=== PATIENT | male | born 1945 | race Caucasian/White ===

== ENCOUNTER 2018-08-08 10:12 | Outpatient (CLI) | payer MEDICARE ==
[~2018-08-08] VITALS: Ht 172.7 cm; Wt 69.9 kg
[~2018-08-08 10:12] MED LIST: ACET-2267 PO; ALBU2.5V4 IH; ATOR20TA49 PO; BUDE10.2 IH; CARV6.252 PO; GUAI200T4 PO; HYDR-3870 PO; IPRA3AMP31 IH; IPRA4AER IH; MONT10TA24 PO; OMEP20TA7 PO
[2018-08-08 10:18] VITALS: BP 144/84
[2018-08-08] MEDS ORDERED: ASPI-586 PO (10:47)
[2018-08-08] MEDS ORDERED: ATOR20TA66 PO (10:47)
== END 2018-08-08 10:45 | disposition home or self-care (01) ==
LOC: PREOP 10:12
PROVIDERS: ATTEND Podiatrist Foot Surgery
DX: Z01.818 Encounter for other preprocedural examination (principal)
CPT/HCPCS: 87081

== ENCOUNTER 2018-08-10 06:05 | Day surgery (SDC) | payer MEDICARE, OTHER ==
--- NOTE | 2018-08-08 15:34 | HISTORY AND PHYSICAL ---
DATE OF SERVICE: DATE OF ADMISSION: 08/10/2018. CHIEF COMPLAINT: To take off lesion on the bottom of the right foot by Dr. Nunez. The patient states in 1991, he stepped on a nail. MEDICATIONS NOW ON: Guaifenesin 20 mg 2 tablets 4 times a day, Lipitor 20 mg once a day, carvedilol half a tablet b.i.d., Prilosec 20 mg once daily in a.m., Singulair 10 mg 1 tablet at night, aspirin 81 mg 1 daily, Combivent 20 mcg/100 four times a day, Symbicort 160/4.5 two puffs two times a day, Tylenol once a day, and Plavix 1 daily. ALLERGIES: ALLERGIC TO VALIUM, CECLOR, LEVAQUIN. PAST SURGICAL HISTORY: Stomach partial removal for ulcers, gallbladder, appendix, knee replacement last March, no problems. FAMILY HISTORY: Mom and dad, asthma. History of heart disease and cancer. Denies TB or diabetes. REVIEW OF SYSTEMS: HEAD: Denies headache, dizziness or fainting. EYES, EARS, NOSE, THROAT: Wears glasses. Denies diplopia, tinnitus or sore throats. RESPIRATIONS: He smokes 1/4 packs a day, has COPD, using nebulizer. HEART: No history of heart problems or chest pain. GASTROINTESTINAL: Appetite good. Denies blood in stools, diarrhea, constipation, also vomiting. GENITOURINARY: Denies blood, pain or frequency. PHYSICAL EXAMINATION: GENERAL: The patient is a white male in no acute respiratory distress at rest VITAL SIGNS: Pulse is 72, blood pressure 120/90, and weight 154. HEENT: Ears, no drainage. Eyes, no conjunctivitis or icterus. The patient wears glasses. Throat not inflamed. NECK: No abnormal cervical lymphadenopathy noted. HEART: Regular rate and rhythm. LUNGS: Decreased sounds, slight wheeze. ABDOMEN: Soft. Liver and spleen are nonpalpable. EXTREMITIES: No pretibial edema. ASSESSMENT: The patient is okay to have surgery, will be on standby if has a problem. Job ID: [id number] DocumentID: [id number] Dictated Date: 08/08/2018 14:53:55 Cardiac Exercise Specialist Date: 08/08/2018 15:33:49 Dictated By: SUMIT IRAHETA DO
[~2018-08-10] VITALS: Ht 172.7 cm; Wt 69.9 kg
[~2018-08-10 06:05] MED LIST changes: +ASPI-586 PO; +ATOR20TA66 PO
[2018-08-10 06:10] VITALS: BP 156/89
[2018-08-10] MEDS ORDERED: LACTATED RINGERS 1,000 ML IV PRN (06:33)
[2018-08-10] MEDS ORDERED: CLINDAMYCIN 600 MG/50 ML IVPB 50 ML IV ONE (06:45)
[2018-08-10] MEDS ORDERED: PROPOFOL INJECTION 50 ML IV ONE (06:54)
[2018-08-10] MEDS ORDERED: MEPIVACAINE (CARBOCAINE) 2% 50 ML VIAL ONE (07:15)
[2018-08-10] MEDS ORDERED: BUPIVACAINE 0.5% 30 ML (SENSORCAINE) VIAL ONE (07:16)
--- NOTE | 2018-08-10 07:37 | Progress Note-Pre Operative ---
Pre-Operative Progress Note H&P Reviewed The H&P was reviewed, patient examined and no changes noted. 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
--- NOTE | 2018-08-10 08:39 | Progress Note-Post Operative ---
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
[2018-08-10] MEDS ORDERED: fentaNYL INJECTION 100 MCG/2 ML AMP IVP ONE (08:45)
--- NOTE | 2018-08-10 08:49 | Discharge Instructions ---
Discharge Instructions Discharge Medications New, Converted or Re-Newed RX: RX Given to Pt/Family Patient Instructions Patient Instructions 1. Follow up in office in 2 weeks. 2. Diet as tolerated. 3. Activity as tolerated. Activity & Diet Activity as Tolerated: Yes SUMIT IRWIN DPM Aug 10, 2018 8:49 am
[2018-08-10] MEDS ORDERED: LACTATED RINGERS 1,000 ML IV SCH (08:50)
[2018-08-10 09:00] VITALS: BP 131/86
[2018-08-10] MEDS ORDERED: HYDROcodone/APAP 5 MG/325 MG (LORTAB) TAB PO PRN (09:00)
--- NOTE | 2018-08-10 09:10 | Anesthesia-General Post-Op ---
MAC Patient Condition Mental Status/LOC: Same as Preop Cardiovascular: Satisfactory Nausea/Vomiting: Absent Respiratory: Satisfactory Pain: Controlled Complications: Absent Post Op Complications Complications None Follow Up Care/Instructions Patient Instructions None needed. Anesthesiology Discharge Order Discharge Order Patient is doing well, no complaints, stable vital signs, no apparent adverse anesthesia problems. No complications reported per nursing. CARLIN BRIONES CRNA Aug 10, 2018 09:10
[2018-08-10] MEDS ORDERED: HYDR-34 PO (09:13)
[2018-08-10 09:30] VITALS: BP 140/80
[2018-08-10 09:35] VITALS: BP 140/80
--- NOTE | 2018-08-10 13:24 | OPERATIVE REPORT ---
DATE OF SERVICE: PREOPERATIVE DIAGNOSIS: Hypertrophic scar, plantar aspect right foot. POSTOPERATIVE DIAGNOSIS: Hypertrophic scar, plantar aspect right foot. NAME OF OPERATION: Excision and primary closure of hypertrophic scar, plantar aspect right foot. DESCRIPTION OF OPERATION: With the patient in supine position, having been effected by regional anesthetic utilizing 6 mL of 50:50 mixture of 0.5% Marcaine plain and 1% Carbocaine plain via posterior tibial block with anesthesia assist. Sterile prep and drape were performed and a Gonzalo bandage was applied above the level of the right ankle. Two semielliptical incisions were made approximately 3.7 cm in length encompassing the lesion in question. These were deepened with sharp and blunt dissection and the interposing skin wedge was sharply dissected. It was inspected for any other anatomical abnormalities, none were noted. Surrounding tissue was mobilized and the incision was closed primarily with 1 horizontal mattress suture 4-0 Prolene. The skin was then reapproximated with continuous locked suture of 4-0 Prolene. Adaptic and a sterile corrective compressive dressing were applied, covered with circular Coban and carried above the level of the right ankle. The tourniquet was released prior to application of the dressing and blood flow returned to the digits was within normal limits. The patient tolerated the procedure well with minimal blood loss, left the OR to PAR in apparent good condition, is to be seen in the office in 2 weeks for appropriate followup care. Job ID: [id number] DocumentID: [id number] Dictated Date: 08/10/2018 08:56:32 Compensation And Benefits Administrator Date: 08/10/2018 13:23:06 Dictated By: SUMIT IRWIN DPM
== END 2018-08-10 09:35 | disposition home or self-care (01) ==
LOC: SDC 06:05
PROVIDERS: ATTEND Podiatrist Foot Surgery
DX: L91.0 Hypertrophic scar (principal); I10 Essential (primary) hypertension; J44.9 Chronic obstructive pulmonary disease, unspecified; J45.909 Unspecified asthma, uncomplicated; K74.60 Unspecified cirrhosis of liver; K21.9 Gastro-esophageal reflux disease without esophagitis; F17.210 Nicotine dependence, cigarettes, uncomplicated; Z79.02 Long term (current) use of antithrombotics/antiplatelets; Z79.82 Long term (current) use of aspirin; Z79.899 Other long term (current) drug therapy

== ENCOUNTER → 2021-02-05 | Outpatient (CLI) | payer MEDICARE ==
[~2021-02-05] MED LIST changes: +HYDR-34 PO; -MONT10TA24 PO; +MONT10TA32 PO
== END ==
LOC: LABNPT 06:30
PROVIDERS: ATTEND Orthopaedic Surgery
DX: Z01.812 Encounter for preprocedural laboratory examination (principal); Z20.822 Contact with and (suspected) exposure to COVID-19
CPT/HCPCS: 87635

== ENCOUNTER → 2021-10-01 | Outpatient (CLI) | payer OTHER, MEDICARE ==
[~2021-10-01] MED LIST changes: +MONT-40 PO; -MONT10TA32 PO
== END ==
LOC: LABNPT 16:19
PROVIDERS: ATTEND Nurse Practitioner Family
DX: Z01.89 Encounter for other specified special examinations (principal)
CPT/HCPCS: 84145

== ENCOUNTER 2022-07-10 18:24 | Inpatient (IN) | payer MEDICARE ==
[~2022-07-10] VITALS: Ht 172.7 cm; Wt 53.7 kg
[~2022-07-10 18:24] MED LIST changes: +OMEP20TA56 PO; -OMEP20TA7 PO
[2022-07-10 18:36] LABS: BASOPHILS % (AUTO) 0 % (0-10); EOSINOPHILS % (AUTO) 0 % (0-10); HEMATOCRIT 38 % (40-54); HEMOGLOBIN 12.9 g/dL (13.3-17.7); LYMPHOCYTES # (AUTO) 1.8 10^3/uL (1.0-4.0); LYMPHOCYTES % (AUTO) 16 % (12-44); MEAN CORPUSCULAR HEMOGLOBIN 32 pg (25-34); MEAN CORPUSCULAR HGB CONC 34 g/dL (32-36); MEAN CORPUSCULAR VOLUME 93 fL (80-99); MEAN PLATELET VOLUME 8.6 fL (9.0-12.2); MONOCYTES # (AUTO) 1.4 10^3/uL (0.0-1.0); MONOCYTES % (AUTO) 12 % (0-12); NEUTROPHILS # (AUTO) 8.2 10^3/uL (1.8-7.8); NEUTROPHILS % (AUTO) 71 % (42-75); PLATELET COUNT 295 10^3/uL (130-400); WHITE BLOOD COUNT 11.6 10^3/uL (4.3-11.0)
[2022-07-10 18:49] LABS: INR 0.9 (0.8-1.4); PROTHROMBIN TIME PATIENT 12.7 SEC (12.2-14.7)
[2022-07-10 18:50] LABS: ALBUMIN 2.9 GM/DL (3.2-4.5); CHLORIDE 102 MMOL/L (98-107); POTASSIUM 3.8 MMOL/L (3.6-5.0); SODIUM 133 MMOL/L (135-145)
[2022-07-10 18:51] LABS: AMYLASE 10 U/L (25-125); CALCIUM 8.9 MG/DL (8.5-10.1)
[2022-07-10 18:52] LABS: GLUCOSE 129 MG/DL (70-105); TOTAL PROTEIN 5.7 GM/DL (6.4-8.2)
[2022-07-10 18:53] LABS: CARBON DIOXIDE 22 MMOL/L (21-32)
[2022-07-10 18:54] LABS: BILIRUBIN,TOTAL 0.4 MG/DL (0.1-1.0)
--- NOTE | 2022-07-10 18:54 | ED Cardiac General ---
History of Present Illness General Chief Complaint: Chest Pain Stated Complaint: CHEST PAIN Nursing Triage Note: arrives to the ed with a c/o pain in his chest of 8/10, ems gave 324mg of asa and applied nitro paste. patient states he began having chest pain last night around 10pm.using nebulizer 10 times today and inhaler 5-6 times today. thinks may have had a fever at home. Source: patient (SOMEWHAT LIMITED HISTORIAN) History of Present Illness Date Seen by Provider: Jul 10, 2022 Time Seen by Provider: 18:26 Initial Comments PT ARRIVES VIA EMS FROM HOME--DAUGHTER IS HERE, AND HE LIVES WITH HER C/O CHEST PAIN SINCE LAST NIGHT AROUND 2200 PAIN IS IN CENTER OF CHEST, NO RADIATION OF PAIN PAIN IS WORSE WITH COUGHING PT HAS HAD A NON-PRODUCTIVE COUGH FOR THE LAST COUPLE OF DAYS PT HAS HAD SUBJECTIVE FEVER AT HOME PT HAS COPD AND HAS BEEN USING HIS INHALER AND NEBULIZER "ALOT" --STATES HE HAS USED HIS INHALER 5-6 TIMES TODAY, AND HAS USED HIS NEBULIZER 10 TIMES OR MORE TODAY FOR SHORTNESS OF BREATH, WHICH HAS BEEN MUCH WORSE THAN NORMAL SINCE LAST NIGHT HAS BEEN CLAMMY BUT NOT SWEATY NO SWELLING IN LEGS/FEET OR PAIN IN CALVES NO NAUSEA/VOMITING, BUT HAS HAD DECREASED APPETITE TODAY PT DOES NOT HAVE HOME O2 O2 SAT WAS 90% ON ROOM AIR FOR EMS. PLACED ON O2 AT 2L/NC AND O2 SASTS UP TO 96% EMS GAVE 4 BABY ASPIRIN AND APPLIED 1" NITROPASTE PT RATES PAIN IN CHEST 8/10, STATES NITROPASTE HELPED HIS CHEST PAIN, BUT WHEN ASKED TO RATE HIS PAIN, HE STILL STATES IT IS AN 8/10 PT TOOK HYDROCODONE AND TRAZADONE FOR HIS CHEST PAIN WITHOUT RELIEF. PT DENIES ANY CARDIAC HISTORY DID SEE A PRODUCTION WEIGHER IN THE PAST--PT STATES IT WAS BECAUSE HE NEEDED CHECKED BY A PRODUCTION WEIGHER BEFORE HE HAD KNEE REPLACEMENT SURGERY. PER OLD RECORDS, PT DID HAVE A CARDIAC CATH BY DR. FOOTE 09/15/2016 WHICH SHOWED MODERATE DISEASE, NO INTERVENTION DONE PT IS ON ASPIRIN BUT NO OTHER BLOOD THINNERS PT HAS ALL MEDICAL CARE THROUGH [facility] [place]. PT HAS HAD COVID-19 VACCINE X 2 PCP: [facility] [place]. Allergies and Home Medications Allergies Coded Allergies: cefaclor (Verified Allergy, Unknown, HIVES, 08/08/18) diazepam (Verified Allergy, Unknown, 02/18/06) levofloxacin (Verified Allergy, Unknown, HIVES, 08/08/18) Patient Home Medication List Acetaminophen (Tylenol Extra Strength) 500 Mg Tablet, 1,000 MG PO Q6H PRN for PAIN, (Reported) Entered as Reported by: AMY COFFEY on 08/29/16 1637 Albuterol/Ipratropium (Combivent Respimat Inhal [place]) 4 Gm Aero, 2 PUFF IH QID, (Reported) Entered as Reported by: CAMERON COBB on 08/29/16 1131 Aspirin (Aspir 81) 81 Mg Tablet.dr, 81 MG PO DAILY, (Reported) Entered as Reported by: MIRACLE EWING on 08/08/18 1047 Atorvastatin Calcium (Lipitor) 20 Mg Tablet, 20 MG PO DAILY Prescribed by: Johnathon FOOTE on 09/15/16 1342 Atorvastatin Calcium (Atorvastatin Calcium) 20 Mg Tablet, 20 MG PO DAILY, (Reported) Entered as Reported by: MIRACLE EWING on 08/08/18 1047 Budesonide/Formoterol Fumarate (Symbicort 160-4.5 Mcg Inhaler) 10.2 Gm Hfa.aer.ad, 2 PUFF IH BID, (Reported) Entered as Reported by: CAMERON COBB on 08/29/16 1131 Carvedilol (Carvedilol) 6.25 Mg Tablet, 3.125 MG PO BID, (Reported) Entered as Reported by: CAMERON COBB on 08/29/16 1131 Guaifenesin (Guaifenesin) 200 Mg Tablet, 200 MG PO QID, (Reported) Entered as Reported by: CAMERON COBB on 08/29/16 1131 Hydrocodone Bit/Acetaminophen (Lortab 7.5 Mg Tablet) 1 Ea Tablet, 1 EA PO Q4H PRN for PAIN-MODERATE Prescribed by: DEEDEE SCHNEIDER on 08/10/18 0913 Ipratropium/Albuterol Sulfate (Iprat-Albut 0.5-3(2.5) mg/3 ml) 3 Ml Ampul.neb, 3 ML IH Q4H PRN for SHORTNESS OF BREATH, (Reported) Entered as Reported by: EVGENY GALLAGHER on 08/29/16 1421 Montelukast Sodium (Montelukast Sodium) 10 Mg Tablet, 10 MG PO HS, (Reported) Entered as Reported by: CAMERON COBB on 08/29/16 1131 Omeprazole (Omeprazole) 20 Mg Tablet.dr, 20 MG PO DAILY, (Reported) Entered as Reported by: CAMERON COBB on 08/29/16 1131 Review of Systems Review of Systems Constitutional: see HPI, fever, malaise, weakness EENTM: No Symptoms Reported Respiratory: See HPI, Cough, Shortness of Air Cardiovascular: See HPI, Chest Pain; Denies Edema, Denies Irregular Heart Rate, Denies Lightheadedness, Denies Palpitations, Denies Syncope Gastrointestinal: No Symptoms Reported; Denies Abdominal Pain, Denies Diarrhea, Denies Nausea, Denies Vomiting Genitourinary: No Symptoms Reported Musculoskeletal: no symptoms reported Skin: no symptoms reported Psychiatric/Neurological: No Symptoms Reported Endocrine: No Symptoms Reported Hematologic/Lymphatic: No Symptoms Reported Past Phbmhoe-Mbbrwz-Kphxdn Hx Immunizations Up To Date Tetanus Booster (TDap): More than 5yrs Seasonal Allergies Seasonal Allergies: Yes Past Medical History Abdominal Asthma, COPD, Emphysema Currently Using CPAP: No Currently Using BIPAP: No Hypertension Stroke Reproductive Disorders: No Gastroesophageal Reflux, Ulcer, Cirrhosis Arthritis, Chronic Back Pain Cataract Loss of Vision: Denies Hearing Impairment: Denies Skin What Type of Treatment Did You: Surgical Intervention Physical Exam Vital Signs Vital Signs - First Documented 07/10/22 18:25 Temp 37.2 Pulse 101 Resp 16 B/P (MAP) 113/70 (84) Pulse Ox 97 O2 Delivery Nasal Cannula O2 Flow Rate 2.00 Capillary Refill : Less Than 3 Seconds Height, Weight, BMI Height: 5'8.00" Weight: 154lbs. 0.0oz. [id number]; 19.00 BMI Method:Stated Progress/Results/Core Measures Results/Orders Lab Results Laboratory Tests Test 07/10/22 18:30 07/10/22 18:34 Range/Units White Blood Count 11.6 H 4.3-11.0 10^3/uL Red Blood Count 4.06 L 4.30-5.52 10^6/uL Hemoglobin 12.9 L 13.3-17.7 g/dL Hematocrit 38 L 40-54 % Mean Corpuscular Volume 93 80-99 fL Mean Corpuscular Hemoglobin 32 25-34 pg Mean Corpuscular Hemoglobin Concent 34 32-36 g/dL Red Cell Distribution Width 13.0 10.0-14.5 % Platelet Count 295 130-400 10^3/uL Mean Platelet Volume 8.6 L 9.0-12.2 fL Immature Granulocyte % (Auto) 0 % Neutrophils (%) (Auto) 71 42-75 % Lymphocytes (%) (Auto) 16 12-44 % Monocytes (%) (Auto) 12 0-12 % Eosinophils (%) (Auto) 0 0-10 % Basophils (%) (Auto) 0 0-10 % Neutrophils # (Auto) 8.2 H 1.8-7.8 10^3/uL Lymphocytes # (Auto) 1.8 1.0-4.0 10^3/uL Monocytes # (Auto) 1.4 H 0.0-1.0 10^3/uL Eosinophils # (Auto) 0.0 0.0-0.3 10^3/uL Basophils # (Auto) 0.0 0.0-0.1 10^3/uL Immature Granulocyte # (Auto) 0.0 0.0-0.1 10^3/uL Prothrombin Time 12.7 12.2-14.7 SEC INR Comment 0.9 0.8-1.4 Activated Partial Thromboplast Time 29 24-35 SEC Sodium Level 133 L 135-145 MMOL/L Potassium Level 3.8 3.6-5.0 MMOL/L Chloride Level 102 98-107 MMOL/L Carbon Dioxide Level 22 21-32 MMOL/L Anion Gap 9 5-14 MMOL/L Blood Urea Nitrogen 10 7-18 MG/DL Creatinine 0.73 0.60-1.30 MG/DL Estimat Glomerular Filtration Rate 95 BUN/Creatinine Ratio 14 Glucose Level 129 H 70-105 MG/DL Calcium Level 8.9 8.5-10.1 MG/DL Corrected Calcium 9.8 8.5-10.1 MG/DL Magnesium Level 1.7 1.6-2.4 MG/DL Total Bilirubin 0.4 0.1-1.0 MG/DL Aspartate Amino Transf (AST/SGOT) 11 5-34 U/L Alanine Aminotransferase (ALT/SGPT) 9 0-55 U/L Alkaline Phosphatase 100 40-136 U/L Total Creatine Kinase 23 L 30-200 U/L Creatine Kinase MB 1.1 <6.6 NG/ML Myoglobin 48.3 10.0-92.0 NG/ML Troponin I < 0.028 <0.028 NG/ML B-Type Natriuretic Peptide 97.6 <100.0 PG/ML Total Protein 5.7 L 6.4-8.2 GM/DL Albumin 2.9 L 3.2-4.5 GM/DL Amylase Level 10 L 25-125 U/L Lipase 10 8-78 U/L Influenza Type A (RT-PCR) Not Detected Not Detecte Influenza Type B (RT-PCR) Not Detected Not Detecte SARS-CoV-2 RNA (RT-PCR) Not Detected Not Detecte My Orders Orders - YADIRA JEROME DO Ed Iv/Invasive Line Start (07/10/22 18:28) Ekg Tracing (07/10/22:) O2 (07/10/22 18:28) Monitor-Rhythm Ecg Trace Only (07/10/22 18:) Amylase (07/10/22:) Bnp [place] (07/10/22 18:) Cbc With Automated Diff (07/10/22:) Comprehensive Metabolic Panel (07/10/22 18:) Creatine Kinase (07/10/22:) Creatine Kinase Mb (07/10/22:) Lipase (07/10/22 18:) Magnesium (07/10/22:28) Protime With Inr (07/10/22:) Partial Thromboplastin Time (07/10/22 18:) Ua Culture If Indicated (07/10/22:) Myoglobin Serum (07/10/22 18:) Troponin I [place] (07/10/22 18:28) Chest 1 View, Ap/Pa Only (07/10/22 18:28) Ekg Tracing (07/10/22:) O2 (07/10/22 18:28) Ed Iv/Invasive Line Start (07/10/22 18:28) Covid 19 Inhouse Test (07/10/22 18:28) Influenza A And B By Pcr (07/10/22 18:28) Isolation Central Supply Req (07/10/22 18:28) Ekg Tracing (07/10/22 18:30) Morphine Injection (Morphine Injection (07/10/22 19:00) Blood Culture (07/10/22 19:44) Sputum Culture (07/10/22 19:44) Ed Iv/Invasive Line Start (07/10/22 19:44) Vital Signs Adult Sepsis Patie Q15M (07/10/22 19:44) Remove Rings In Anticipation O (07/10/22 19:44) Lactic Acid Analyzer (07/10/22 19:44) Procalcitonin (Pct) (07/10/22 19:44) Ed Iv/Invasive Line Start (07/10/22 19:44) Piperacillin Sodium/Tazobactam (Zosyn Vi (07/10/22 19:45) Methylprednisolone Sod Succ (Solu-Medrol (07/10/22 19:45) Enoxaparin Injection (Lovenox Injection) (07/10/22 20:00) Medications Given in ED Current Medications Medications Dose Ordered Sig/Maria De Jesus Route Start Time Stop Time Status Last Admin Dose Admin Enoxaparin Sodium 60 mg ONCE ONCE SC 07/10/22 20:00 07/10/22 20:01 DC 07/10/22 20:12 60 MG Methylprednisolone Sodium Succinate 125 mg ONCE ONCE IVP 07/10/22 19:45 07/10/22 19:47 DC 07/10/22 20:12 125 MG Morphine Sulfate 4 mg ONCE ONCE IVP 07/10/22 19:00 07/10/22 19:01 DC 07/10/22 19:10 4 MG Vital Signs/I&O 07/10/22 18:25 Temp 37.2 Pulse 101 Resp 16 B/P (MAP) 113/70 (84) Pulse Ox 97 O2 Delivery Nasal Cannula O2 Flow Rate 2.00 Blood Pressure Mean: 84 Initial ECG Impression Date: Jul 10, 2022 Initial ECG Impression Time: 18:36 Initial ECG Rate: 96 Initial ECG Rhythm: Normal Sinus (RBBB) Initial ECG Comparisson: Changed (FROM ) Diagnostic Imaging Comments CXR--PER RADIOLOGIST REPORT AT 1943 COMPARISON: 09/20/2016. FINDINGS: There is a mild right mid zone airspace opacity. No pleural effusion or pneumothorax. Heart size is normal. IMPRESSION: Mild right mid zone airspace opacity, correlate for any evidence of pneumonia. Reviewed: Reviewed by Me Departure Departure-Patient Inst. Referrals: NO,LOCAL PHYSICIAN (PCP/Family) Primary Care Physician YADIRA JEROME DO Jul 10, 2022 18:54
[2022-07-10 18:56] LABS: ALKALINE PHOSPHATASE 100 U/L (40-136); CREATININE SERUM 0.73 MG/DL (0.60-1.30); GFR ESTIMATED 95
[2022-07-10 18:57] LABS: BUN/CREATININE RATIO 14
[2022-07-10 18:58] LABS: MAGNESIUM 1.7 MG/DL (1.6-2.4)
[2022-07-10 18:59] LABS: ALANINE AMINOTRANSFERASE 9 U/L (0-55)
[2022-07-10 19:00] LABS: CREATINE KINASE 23 U/L (30-200); LIPASE 10 U/L (8-78)
[2022-07-10] MEDS ORDERED: morphine INJ 10 MG/ML 1ML (SYR OR VIAL) IVP ONE (19:00)
[2022-07-10 19:06] LABS: CREATINE KINASE MB 1.1 NG/ML (<6.6)
--- NOTE | 2022-07-10 19:39 | Diagnostic Imaging Report ---
EXAMINATION: Chest 1 view. HISTORY: Chest pain. COMPARISON: 09/20/2016. FINDINGS: There is a mild right mid zone airspace opacity. No pleural effusion or pneumothorax. Heart size is normal. IMPRESSION: Mild right mid zone airspace opacity, correlate for any evidence of pneumonia. Dictated by: Dictated on workstation # [id number]
[2022-07-10] MEDS ORDERED: PIPERACILLIN SODIUM/TAZOBACTAM 4.5 GM in NS (IVPB) 100 ML IV ONE (19:45)
[2022-07-10] MEDS ORDERED: methylPREDNISolone 125 MG (Solu-MEDROL) VIAL IVP ONE (19:45)
[2022-07-10] MEDS ORDERED: ENOXAPARIN 60 MG/0.6 ML (LOVENOX) SYR SC ONE (20:00)
[2022-07-10 21:15] VITALS: BP 107/70
[2022-07-10] MEDS ORDERED: LACTATED RINGERS 1,000 ML IV ONE (21:16)
[2022-07-10 21:37] VITALS: BP 113/68
[2022-07-10 22:00] VITALS: BP 112/71
[2022-07-10 22:15] VITALS: BP 106/67
[2022-07-10] MEDS: NICOTINE 21 MG (NICODERM) PATCH TD SCH (22:24)
[2022-07-10] MEDS: LACTATED RINGERS 1,000 ML IV SCH (22:25)
[2022-07-10] MEDS ORDERED: ONDANSETRON 4 MG/2 ML (SDV) Z0FRAN IV PRN (22:30)
[2022-07-10] MEDS ORDERED: morphine INJ 4 MG/ML 1 ML (VIAL/SYRINGE) IV PRN (22:30)
[2022-07-10] MEDS ORDERED: NITROGLYCERIN 0.4 MG SL TABS BTL 25'S SL PRN (22:30)
[2022-07-10] MEDS ORDERED: BENZONATATE 100 MG (TESSALON) CAPSULE PO PRN (22:30)
[2022-07-10 23:30] VITALS: BP 89/61
[2022-07-11 00:30] VITALS: BP 84/54
[2022-07-11 01:30] VITALS: BP 102/67
[2022-07-11] MEDS: methylPREDNISolone 125 MG (Solu-MEDROL) VIAL IVP SCH ×3 (02:33→14:02)
[2022-07-11] MEDS: PIPERACILLIN SODIUM/TAZOBACTAM 4.5 GM in NS (IVPB) 100 ML IV SCH ×3 (02:33→17:26)
[2022-07-11] MEDS: RT-ALBUTEROL/IPRATROPIUM 3 ML (DUONEB) VIAL INH SCH ×6 (02:40→22:38)
[2022-07-11 03:00] VITALS: BP 119/69
[2022-07-11] MEDS: LACTATED RINGERS 1,000 ML IV SCH ×2 (03:46→10:22)
[2022-07-11 05:51] LABS: BASOPHILS % (AUTO) 0 % (0-10); EOSINOPHILS % (AUTO) 0 % (0-10); HEMATOCRIT 37 % (40-54); HEMOGLOBIN 12.8 g/dL (13.3-17.7); LYMPHOCYTES # (AUTO) 0.9 10^3/uL (1.0-4.0); LYMPHOCYTES % (AUTO) 11 % (12-44); MEAN CORPUSCULAR HEMOGLOBIN 32 pg (25-34); MEAN CORPUSCULAR HGB CONC 35 g/dL (32-36); MEAN CORPUSCULAR VOLUME 93 fL (80-99); MONOCYTES # (AUTO) 0.2 10^3/uL (0.0-1.0); MONOCYTES % (AUTO) 2 % (0-12); NEUTROPHILS # (AUTO) 6.8 10^3/uL (1.8-7.8); NEUTROPHILS % (AUTO) 86 % (42-75); PLATELET COUNT 303 10^3/uL (130-400)
[2022-07-11 06:10] LABS: BILIRUBIN,URINE NEGATIVE (NEGATIVE); CLARITY,URINE CLOUDY; COLOR,URINE YELLOW; GLUCOSE, URINE (UA) NEGATIVE (NEGATIVE); KETONES,URINE NEGATIVE (NEGATIVE); LEUKOCYTE ESTERASE ,URINE NEGATIVE (NEGATIVE); NITRITE,URINE NEGATIVE (NEGATIVE); PH,URINE 5.5 (5-9); PROTEIN,URINE NEGATIVE (NEGATIVE)
[2022-07-11 06:11] LABS: ALBUMIN 2.7 GM/DL (3.2-4.5); BILIRUBIN,TOTAL 0.3 MG/DL (0.1-1.0); CALCIUM 9.3 MG/DL (8.5-10.1); CREATININE SERUM 0.71 MG/DL (0.60-1.30); POTASSIUM 4.2 MMOL/L (3.6-5.0); TOTAL PROTEIN 5.4 GM/DL (6.4-8.2)
[2022-07-11 06:18] LABS: BACTERIA,URINE NEGATIVE /HPF; HYALINE CASTS, URINE RARE /LPF; RBC,URINE RARE /HPF; SQUAMOUS EPITHELIAL CELL,UR 0-2 /HPF; WBC,URINE 0-2 /HPF
[2022-07-11] MEDS ORDERED: FLU QUAD HIGH DOSE 240 MCG/0.7 ML 2022-23 (FLUZONE) IM ONE (07:00)
[2022-07-11 07:34] VITALS: BP 115/59
--- NOTE | 2022-07-11 08:16 | Diagnostic Imaging Report ---
Indication: Respiratory distress Frontal chest obtained at 4:20 a.m. and compared to 07/10/2022. Heart is normal in size. There is some volume loss in right hemithorax with infiltrate in the right mid lung. There is no pneumothorax or pleural fluid. Impression: There is some volume loss in right hemithorax with infiltrate in right midlung. There is no pneumothorax or pleural fluid. Dictated by: Dictated on workstation # [id number]
[2022-07-11] MEDS: ASPIRIN E.C. 81 MG (ECOTRIN) TAB PO SCH (08:23)
[2022-07-11] MEDS: ENOXAPARIN 60 MG/0.6 ML (LOVENOX) SYR SC SCH ×2 (08:23→20:11)
--- NOTE | 2022-07-11 09:37 | Consultation-Cardiology ---
HPI-Cardiology Cardiology Consultation Date of Consultation 07/11/22 Date of Admission Time Seen by Provider: 09:32 Indication: Chest pain HPI 77-year-old gentleman with history of coronary artery disease moderate disease per cardiac catheterization done by Dr. Hi in 2016. Patient is an active smoker, has been having chest pain for the past 2 days, described as dull achine ss with deep inspiration and coughing. Patient came to the emergency room, nitroglycerin did not help his chest pain, morphine made it slightly better. Still having some active chest pain with deep inspiration. Mildly reproducible Home Medications & Allergies Allergies: Coded Allergies: cefaclor (Verified Allergy, Unknown, HIVES, 08/08/18) diazepam (Verified Allergy, Unknown, 02/18/06) levofloxacin (Verified Allergy, Unknown, HIVES, 08/08/18) Home Medication List Reviewed: Yes [id number] Hx Patient Social History Marital Status: Employed/Student: retired Smoking Status: Current Everyday Smoker Type Used: Cigarettes Recent Hopitalizations: No Have you traveled recently?: No Alcohol Use?: Yes Immunizations Up To Date Tetanus Booster (TDap): More than 5yrs Date of Pneumonia Vaccine: Sep 15, 2011 Date of Influenza Vaccine: Jun 27, 2016 Past Medical History Discussed below Family Medical History Significant Family History: No Pertinent Family Hx Review of Systems-General Review of Systems Constitutional: see HPI, fever, malaise, weakness EENTM: see HPI, no symptoms reported Respiratory: see HPI, cough, dyspnea on exertion Cardiovascular: see HPI, chest pain; No edema, No Hx of Intervention, No palpitations, No syncope, No vascular heart diseas, No other Gastrointestinal: no symptoms reported, see HPI Genitourinary: no symptoms reported, see HPI Musculoskeletal: no symptoms reported Skin: no symptoms reported Psychiatric/Neurological: No Symptoms Reported Reviewed Test Results Reviewed Test Results Lab Laboratory Tests Test 07/10/22 18:30 07/10/22 18:34 07/10/22 20:12 07/10/22 21:45 Range/Units White Blood Count 11.6 H 4.3-11.0 10^3/uL Red Blood Count 4.06 L 4.30-5.52 10^6/uL Hemoglobin 12.9 L 13.3-17.7 g/dL Hematocrit 38 L 40-54 % Mean Corpuscular Volume 93 80-99 fL Mean Corpuscular Hemoglobin 32 25-34 pg Mean Corpuscular Hemoglobin Concent 34 32-36 g/dL Red Cell Distribution Width 13.0 10.0-14.5 % Platelet Count 295 130-400 10^3/uL Mean Platelet Volume 8.6 L 9.0-12.2 fL Immature Granulocyte % (Auto) 0 % Neutrophils (%) (Auto) 71 42-75 % Lymphocytes (%) (Auto) 16 12-44 % Monocytes (%) (Auto) 12 0-12 % Eosinophils (%) (Auto) 0 0-10 % Basophils (%) (Auto) 0 0-10 % Neutrophils # (Auto) 8.2 H 1.8-7.8 10^3/uL Lymphocytes # (Auto) 1.8 1.0-4.0 10^3/uL Monocytes # (Auto) 1.4 H 0.0-1.0 10^3/uL Eosinophils # (Auto) 0.0 0.0-0.3 10^3/uL Basophils # (Auto) 0.0 0.0-0.1 10^3/uL Immature Granulocyte # (Auto) 0.0 0.0-0.1 10^3/uL Prothrombin Time 12.7 12.2-14.7 SEC INR Comment 0.9 0.8-1.4 Activated Partial Thromboplast Time 29 24-35 SEC Sodium Level 133 L 135-145 MMOL/L Potassium Level 3.8 3.6-5.0 MMOL/L Chloride Level 102 98-107 MMOL/L Carbon Dioxide Level 22 21-32 MMOL/L Anion Gap 9 5-14 MMOL/L Blood Urea Nitrogen 10 7-18 MG/DL Creatinine 0.73 0.60-1.30 MG/DL Estimat Glomerular Filtration Rate 95 BUN/Creatinine Ratio 14 Glucose Level 129 H 70-105 MG/DL Calcium Level 8.9 8.5-10.1 MG/DL Corrected Calcium 9.8 8.5-10.1 MG/DL Magnesium Level 1.7 1.6-2.4 MG/DL Total Bilirubin 0.4 0.1-1.0 MG/DL Aspartate Amino Transf (AST/SGOT) 11 5-34 U/L Alanine Aminotransferase (ALT/SGPT) 9 0-55 U/L Alkaline Phosphatase 100 40-136 U/L Total Creatine Kinase 23 L 30-200 U/L Creatine Kinase MB 1.1 <6.6 NG/ML Myoglobin 48.3 10.0-92.0 NG/ML Troponin I < 0.028 < 0.028 <0.028 NG/ML B-Type Natriuretic Peptide 97.6 <100.0 PG/ML Total Protein 5.7 L 6.4-8.2 GM/DL Albumin 2.9 L 3.2-4.5 GM/DL Amylase Level 10 L 25-125 U/L Lipase 10 8-78 U/L Procalcitonin 4.96 H <0.10 NG/ML Influenza Type A (RT-PCR) Not Detected Not Detecte Influenza Type B (RT-PCR) Not Detected Not Detecte SARS-CoV-2 RNA (RT-PCR) Not Detected Not Detecte Lactic Acid Level 1.18 0.50-2.00 MMOL/L Test 07/11/22 00:40 07/11/22 05:35 07/11/22 06:07 Range/Units Troponin I < 0.028 <0.028 NG/ML White Blood Count 8.0 4.3-11.0 10^3/uL Red Blood Count 4.00 L 4.30-5.52 10^6/uL Hemoglobin 12.8 L 13.3-17.7 g/dL Hematocrit 37 L 40-54 % Mean Corpuscular Volume 93 80-99 fL Mean Corpuscular Hemoglobin 32 25-34 pg Mean Corpuscular Hemoglobin Concent 35 32-36 g/dL Red Cell Distribution Width 13.2 10.0-14.5 % Platelet Count 303 130-400 10^3/uL Mean Platelet Volume 9.0 9.0-12.2 fL Immature Granulocyte % (Auto) 1 % Neutrophils (%) (Auto) 86 H 42-75 % Lymphocytes (%) (Auto) 11 L 12-44 % Monocytes (%) (Auto) 2 0-12 % Eosinophils (%) (Auto) 0 0-10 % Basophils (%) (Auto) 0 0-10 % Neutrophils # (Auto) 6.8 1.8-7.8 10^3/uL Lymphocytes # (Auto) 0.9 L 1.0-4.0 10^3/uL Monocytes # (Auto) 0.2 0.0-1.0 10^3/uL Eosinophils # (Auto) 0.0 0.0-0.3 10^3/uL Basophils # (Auto) 0.0 0.0-0.1 10^3/uL Immature Granulocyte # (Auto) 0.1 0.0-0.1 10^3/uL Sodium Level 136 135-145 MMOL/L Potassium Level 4.2 3.6-5.0 MMOL/L Chloride Level 102 98-107 MMOL/L Carbon Dioxide Level 22 21-32 MMOL/L Anion Gap 12 5-14 MMOL/L Blood Urea Nitrogen 11 7-18 MG/DL Creatinine 0.71 0.60-1.30 MG/DL Estimat Glomerular Filtration Rate 96 BUN/Creatinine Ratio 15 Glucose Level 194 H 70-105 MG/DL Calcium Level 9.3 8.5-10.1 MG/DL Corrected Calcium 10.3 H 8.5-10.1 MG/DL Total Bilirubin 0.3 0.1-1.0 MG/DL Aspartate Amino Transf (AST/SGOT) 10 5-34 U/L Alanine Aminotransferase (ALT/SGPT) 10 0-55 U/L Alkaline Phosphatase 94 40-136 U/L Total Protein 5.4 L 6.4-8.2 GM/DL Albumin 2.7 L 3.2-4.5 GM/DL Triglycerides Level 67 <150 MG/DL Cholesterol Level 80 < 200 MG/DL LDL Cholesterol Direct 37 1-129 MG/DL VLDL Cholesterol 13 5-40 MG/DL HDL Cholesterol 27 L 40-60 MG/DL Urine Color YELLOW Urine Clarity CLOUDY Urine pH 5.5 5-9 Urine Specific Collins 1.025 H 1.016-1.022 Urine Protein NEGATIVE NEGATIVE Urine Glucose (UA) NEGATIVE NEGATIVE Urine Ketones NEGATIVE NEGATIVE Urine Nitrite NEGATIVE NEGATIVE Urine Bilirubin NEGATIVE NEGATIVE Urine Urobilinogen 1.0 < = 1.0 MG/DL Urine Leukocyte Esterase NEGATIVE NEGATIVE Urine RBC (Auto) NEGATIVE NEGATIVE Urine RBC RARE /HPF Urine WBC 0-2 /HPF Urine Squamous Epithelial Cells 0-2 /HPF Urine Crystals NONE /LPF Urine Bacteria NEGATIVE /HPF Urine Casts NONE /LPF Urine Hyaline Casts RARE /LPF Urine Mucus NEGATIVE /LPF Urine Culture Indicated NO Physical Exam Physical Exam Vital Signs Vital Signs - First Documented 07/10/22 07/10/22 18:25 22:42 Temp 37.2 Pulse 101 Resp 16 B/P (MAP) 113/70 (84) Pulse Ox 97 O2 Delivery Nasal Cannula O2 Flow Rate 2.00 FiO2 28 Capillary Refill : Less Than 3 Seconds Height, Weight, BMI Height: 5'8.00" Weight: 154lbs. 0.0oz. [id number]; 18.00 BMI Method:Stated General Appearance: No Apparent Distress, WD/WN Eyes: Bilateral Eye Normal Inspection, Bilateral Eye PERRL, Bilateral Eye EOMI HEENT: PERRL/EOMI, TMs Normal, Normal ENT Inspection, Pharynx Normal, Moist Mucous Membranes Neck: Full Range of Motion, Normal Inspection, Non Tender, Supple, Carotid Bruit Respiratory: Chest Non Tender, Normal Breath Sounds, No Accessory Muscle Use, No Respiratory Distress Cardiovascular: No Edema, No Gallop, No JVD, No Murmur, Normal Peripheral Pulses, Gallop/S3 Gastrointestinal: Normal Bowel Sounds, No Organomegaly, No Pulsatile Mass, Non Tender, Soft Back: Normal Inspection, No CVA Tenderness, No Vertebral Tenderness Extremity: Normal Capillary Refill, Normal Inspection, Normal Range of Motion, Non Tender, No Calf Tenderness, No Pedal Edema Neurologic/Psychiatric: Alert, Oriented x3, No Motor/Sensory Deficits, Normal Mood/Affect Skin: Normal Color, Warm/Dry Lymphatic: No Adenopathy A/P-Cardiology Admission Diagnosis Chest pain Coronary artery disease Hypertension Hyperlipidemia Assessment/Plan Chest pain nonspecific etiology, atypical in nature, most probably pleuritic in nature. Patient is having cough and dyspnea. Chest x-ray showed right hemithorax with questionable infiltrate EKG showed new right bundle branch block, I will evaluate Lexiscan Myoview stress test Coronary artery disease, moderate per cardiac catheterization done in [address] Hi. Continue to monitor COPD, tobaccoism, followed by primary care physician Hypertension, restart home medication monitor blood pressure Hyperlipidemia, monitor lipids. Clinical Quality Measures AMI/AHF: ASA po Prior to arrival: Yes ([phone]) NOLA ELIAS MD Jul 11, 2022 09:37
[2022-07-11] MEDS ORDERED: REGADENOSON 0.4 MG/5 ML SYR (LEXISCAN) IV ONE ×2 (09:45→12:40)
[2022-07-11 11:12] VITALS: BP 134/71
[2022-07-11] MEDS ORDERED: ATOR20TA66 PO (12:34)
[2022-07-11] MEDS ORDERED: CARV12.53 PO (12:34)
[2022-07-11] MEDS ORDERED: IPRA3AMP31 IH (12:34)
[2022-07-11] MEDS ORDERED: MONT-40 PO (12:34)
[2022-07-11] MEDS ORDERED: OMEP20CA18 PO (12:34)
[2022-07-11] MEDS ORDERED: ERGO1250 PO (12:34)
[2022-07-11] MEDS ORDERED: FLUT1BLS13 IH (12:34)
[2022-07-11] MEDS ORDERED: RT-ALBUINH IH (12:34)
[2022-07-11] MEDS ORDERED: LIDO700A45 TP (12:34)
[2022-07-11] MEDS ORDERED: GABA300C PO (12:34)
[2022-07-11] MEDS ORDERED: DICL100G13 TP (12:34)
[2022-07-11] MEDS ORDERED: IPRA4AER IH (12:34)
[2022-07-11] MEDS ORDERED: TRZ50T PO (12:34)
[2022-07-11] MEDS ORDERED: GUAI200T4 PO (12:34)
[2022-07-11] MEDS ORDERED: ASPI-1238 PO (12:38)
[2022-07-11] MEDS ORDERED: DIPH25TA65 PO (12:38)
[2022-07-11] MEDS ORDERED: ADENOSINE 6 MG/2 ML (ADENOCARD) VIAL IV ONE (12:48)
--- NOTE | 2022-07-11 13:34 | History & Physical ---
SHALA COBURN 07/11/22 1334: History of Present Illness History of Present Illness Reason for visit/HPI Reason for visit: chest pain HPI: Ulises is a 77yo M with a past medical history of htn, moderate coronary artery disease(cardiac catheterization 2016), previous stroke, COPD, cirrhosis, and chronic back pain. He presented to the emergency room yesterday with chest pain. On 07/09/22 around 10:00PM he came home from a dance and began to feel a sharp pain in his chest and shortness of breath that was intermittent. He tried to use his nebulizer, inhaler, hydrocodone, and trazodone which only helped somewhat with the pain. The chest pain worsened the next day and so he came to the ER. He was given nitroglycerin in the emergency room which lessened his chest pain. A chest X-ray showed an opacity in the right lung. WBC was 11.6. sodium was 13.3. EKG did not have ST elevations. Troponin and BNP were not elevated. The patient was admitted for chest pain. The patient was laying in his bed awake at the start of the interview. He reports he is having some sharp chest pain still but it is not as bad as yesterday. Says the pain is worse when he takes a deep breath and denies that the pain worsens with exertion. Patient is on 1.5L/min nasal cannula oxygen. Denies palpitations, SOB, and edema. Date of Admission Jul 10, 2022 at 19:29 Date Seen by a Provider: Jul 11, 2022 Time Seen by a Provider: 09:45 I consulted on this patient on 07/11/22 13:23 Attending Physician No,Local Physician Admitting Physician Admitting Physician: Janice Mathews MD Attending Physician: Janice Mathews MD Consult Allergies and Home Medications Allergies Coded Allergies: cefaclor (Verified Allergy, Unknown, HIVES, 08/08/18) diazepam (Verified Allergy, Unknown, 02/18/06) levofloxacin (Verified Allergy, Unknown, HIVES, 08/08/18) Patient Home Medication List Acetaminophen (Tylenol Extra Strength) 500 Mg Tablet, 1,000 MG PO BID, (Reported) Entered as Reported by: AMY COFFEY on 08/29/16 4869 Last Action: Reviewed Albuterol Sulfate (Proair Hfa) 1 Puff Puff, 2 PUFF IH Q6H PRN for SHORTNESS OF BREATH, (Reported) Entered as Reported by: KARYNA BARRON on 07/11/221233 Last Action: Reviewed Albuterol/Ipratropium (Combivent Respimat Inhal [place]) 20 Mcg-100 Mcg/Actuation Aero, 2 PUFF IH QID, (Reported) Entered as Reported by: KARYNA BARRON on 07/11/221233 Last Action: Reviewed Aspirin (Aspirin EC) 81 Mg Tablet.dr, 81 MG PO DAILY, (Reported) Entered as Reported by: KARYNA BARRON on 07/11/221237 Last Action: Reviewed Atorvastatin Calcium (Atorvastatin Calcium) 20 Mg Tablet, 10 MG PO HS, (Reported) Entered as Reported by: KARYNA BARRON on 07/11/221233 Last Action: Reviewed Carvedilol (Carvedilol) 12.5 Mg Tablet, 6.25 MG PO BID, (Reported) Entered as Reported by: KARYNA BARRON on 07/11/221233 Last Action: Reviewed Diclofenac Sodium (Diclofenac Sodium) 1 % Gel..gram., 4 GM TP QID PRN for PAIN- BREAKTHROUGH, (Reported) Entered as Reported by: KARYNA BARRON on 07/11/221233 Last Action: Reviewed Diphenhydramine HCl (Benadryl Allergy) 25 Mg Tablet, 25 MG PO DAILY, (Reported) Entered as Reported by: KARYNA BARRON on 07/11/221237 Last Action: Reviewed Ergocalciferol (Vitamin D2) (Vitamin D2) 1,250 Mcg (71973 Unit) Capsule, 1,250 MCG PO WEEK, (Reported) Entered as Reported by: KARYNA BARRON on 07/11/221233 Last Action: Reviewed Fluticasone Propion/Salmeterol (Fluticasone-Salmeterol 500-50) 500 Mcg-50 Mc g/Dose Blst.w.dev, 1 EACH IH BID, (Reported) Entered as Reported by: KARYNA BARRON on 07/11/221233 Last Action: Reviewed Gabapentin (Neurontin) 300 Mg Capsule, 300 MG PO BID, (Reported) Entered as Reported by: KARYNA BARRON on 07/11/221233 Last Action: Reviewed Guaifenesin (Guaifenesin) 200 Mg Tablet, 400 MG PO QID PRN for COUGH/MUCUS PRODUCTION, (Reported) Entered as Reported by: KARYNA BARRON on 07/11/221233 Last Action: Reviewed Ipratropium/Albuterol Sulfate (Iprat-Albut 0.5-3(2.5) mg/3 ml) 0.5 Mg-3 Mg (2.5 Mg Base)/3 Ml Ampul.neb, 3 ML IH QID PRN for SHORTNESS OF BREATH, (Reported) Entered as Reported by: KARYNA BARRON on 07/11/221233 Last Action: Reviewed Lidocaine (Lidocaine 5% Patch) 5 % Adh..patch, 1 EACH TP DAILY, (Reported) Entered as Reported by: KARYNA BARRON on 07/11/221233 Last Action: Reviewed Montelukast Sodium (Montelukast Sodium) 10 Mg Tablet, 10 MG PO HS, (Reported) Entered as Reported by: KARYNA BARRON on 07/11/221233 Last Action: Reviewed Omeprazole (Omeprazole) 20 Mg Capsule.dr, 20 MG PO DAILY, (Reported) Entered as Reported by: KARYNA BARRON on 07/11/221233 Last Action: Reviewed Trazodone HCl (Trazodone HCl) 50 Mg Tablet, 50 MG PO HS PRN for SLEEP, (Reported) Entered as Reported by: KARYNA BARRON on 07/11/221233 Last Action: Reviewed Discontinued Medications Albuterol/Ipratropium (Combivent Respimat Inhal [place]) 4 Gm Aero, 2 PUFF IH QID, (Reported) Discontinued Reason: Duplicate Order Entered as Reported by: CAMERON COBB on 08/29/16 1131 Last Action: Discontinued Atorvastatin Calcium (Lipitor) 20 Mg Tablet, 20 MG PO DAILY Discontinued Reason: Duplicate Order Prescribed by: Johnathon FOOTE on 09/15/16 1342 Last Action: Discontinued Atorvastatin Calcium (Atorvastatin Calcium) 20 Mg Tablet, 20 MG PO DAILY, (Reported) Discontinued Reason: Duplicate Order Entered as Reported by: MIRACLE EWING on 08/08/18 1047 Last Action: Discontinued Budesonide/Formoterol Fumarate (Symbicort 160-4.5 Mcg Inhaler) 10.2 Gm Hfa.aer.ad, 2 PUFF IH BID, (Reported) Discontinued Reason: No Longer Taking Entered as Reported by: CAMERON COBB on 08/29/161130 Last Action: Discontinued Carvedilol (Carvedilol) 6.25 Mg Tablet, 3.125 MG PO BID, (Reported) Discontinued Reason: Duplicate Order Entered as Reported by: CAMERON COBB on 08/29/161130 Last Action: Discontinued Guaifenesin (Guaifenesin) 200 Mg Tablet, 200 MG PO QID, (Reported) Discontinued Reason: Duplicate Order Entered as Reported by: CAMERON COBB on 08/29/161130 Last Action: Discontinued Hydrocodone Bit/Acetaminophen (Lortab 7.5 Mg Tablet) 1 Ea Tablet, 1 EA PO Q4H PRN for PAIN-MODERATE Discontinued Reason: No Longer Taking Prescribed by: DEEDEE SCHNEIDER on 08/10/18 0913 Last Action: Discontinued Ipratropium/Albuterol Sulfate (Iprat-Albut 0.5-3(2.5) mg/3 ml) 3 Ml Ampul.neb, 3 ML IH Q4H PRN for SHORTNESS OF BREATH, (Reported) Discontinued Reason: Duplicate Order Entered as Reported by: EVGENY GALLAGHER on 08/29/161420 Last Action: Discontinued Montelukast Sodium (Montelukast Sodium) 10 Mg Tablet, 10 MG PO HS, (Reported) Discontinued Reason: Duplicate Order Entered as Reported by: CAMERON COBB on 08/29/161130 Last Action: Discontinued Omeprazole (Omeprazole) 20 Mg Tablet.dr, 20 MG PO DAILY, (Reported) Discontinued Reason: Duplicate Order Entered as Reported by: CAMERON COBB on 08/29/161130 Last Action: Discontinued Past [id number] Hx Patient Social History Marrital Status: Living Status: Lives at home with his Employed/Student: retired Tobacco Use?: Yes Tobacco type used: Cigarettes Smoking Status: Current Everyday Smoker (2 packs a day) Use of E-Cig and/or Vaping dev: No Substance use?: No Alcohol Use?: Yes Alcohol type: Beer Alcohol Frequency: Daily (16oz a day) Pt feels they are or have been: No Immunizations Up To Date Date of Influenza Vaccine: Jun 27, 2016 First/Initial COVID19 Vaccinat: YES Second COVID19 Vaccination John: YES Tetanus Booster (TDap): Unknown Date of Pneumonia Vaccine: Sep 15, 2011 Seasonal Allergies Seasonal Allergies: Yes Current Status Advance Directives: No Communicates: Verbally Primary Language: Egyptian Preferred Spoken Language: Egyptian Is interpretation needed?: No Implanted or Applied Medical D: None Past Medical History Surgeries: Abdominal Asthma, COPD, Emphysema Currently Using CPAP: No Currently Using BIPAP: No Hypertension Stroke Gastroesophageal Reflux, Ulcer, Cirrhosis Arthritis, Chronic Back Pain Cataract Loss of Vision: Denies Hearing Impairment: Denies Skin What Type of Treatment Did You: Surgical Intervention Family Medical History No Pertinent Family Hx Review of Systems Constitutional: No chills, No dizziness, No fever, No weakness EENTM: No hearing loss, No blurred vision, No vision loss, No nose congestion, No throat pain Respiratory: cough (chronic); No phlegm, No short of breath Cardiovascular: chest pain (sharp and intermittent); No edema, No palpitations, No syncope Gastrointestinal: No abdominal pain, No constipation, No diarrhea, No nausea, No vomiting Genitourinary: No dysuria, No frequency, No hesitancy Musculoskeletal: back pain (chronic); No joint pain, No joint swelling Skin: No change in color, No rash Psychiatric/Neurological: Denies Anxiety, Denies Depressed, Denies Headache, Denies Numbness, Denies Tremors, Denies Weakness Physical Exam Vital Signs Vital Signs - First Documented 07/10/22 07/10/22 18:25 22:42 Temp 37.2 Pulse 101 Resp 16 B/P (MAP) 113/70 (84) Pulse Ox 97 O2 Delivery Nasal Cannula O2 Flow Rate 2.00 FiO2 28 Capillary Refill : Less Than 3 Seconds Height, Weight, BMI Height: 5'8.00" Weight: 154lbs. 0.0oz. 69.350979yb; 18.00 BMI Method:Stated General Appearance: No Apparent Distress, WD/WN HEENT: Pharynx Normal, Moist Mucous Membranes Neck: Full Range of Motion, Normal Inspection, Non Tender, Supple Respiratory: Chest Non Tender, Lungs Clear, No Accessory Muscle Use, No Respiratory Distress, Wheezing (with exhalation) Cardiovascular: Regular Rate, Rhythm, No Edema, No Murmur, Normal Peripheral Pulses (3+ radialis and dorsalis pedis) Gastrointestinal: No Organomegaly, No Pulsatile Mass, Non Tender, Soft Back: Normal Inspection, No Vertebral Tenderness Extremity: Normal Capillary Refill, Normal Inspection, Normal Range of Motion, Non Tender, No Calf Tenderness, No Pedal Edema Neurologic/Psychiatric: Alert, Oriented x3, Normal Mood/Affect Skin: Normal Color, Warm/Dry Assessment/Plan Assessment and Plan 1) Chest pain - the chest pain is possibly from cardiac or respiratory issues - patient has not had cardiac work up since 2016, so a stress test is being done today - patient NPO for testing - nitroglycerin 0.4mg PRN and morphine 4mg q3hrs for pain management - restart home medication aspirin 81mg 1xD 2) Pneumonia - Zosyn 100mls @ 25mls/hr q8hrs 3) COPD exacerbation - most likely caused by a pneumonia which we are treating with Abx - prednisone 40mg PO - restart home medication albuterol/ipratropium 3ml q2hrs 4) Tobacco addiction - nicotine patch 21mg PRN 5) Chronic back pain -restart home medication acetaminophen 1000mg q6hrs Clinical Quality Measures AMI/AHF: ASA po Prior to arrival: Yes (324) MARIAH SANDERSON MD 07/12/22 1420: Allergies and Home Medications Allergies Coded Allergies: cefaclor (Verified Allergy, Unknown, HIVES, 08/08/18) diazepam (Verified Allergy, Unknown, 02/18/06) levofloxacin (Verified Allergy, Unknown, HIVES, 08/08/18) Patient Home Medication List Home Medication List Reviewed: Yes Acetaminophen (Tylenol Extra Strength) 500 Mg Tablet, 1,000 MG PO BID, (Reported) Entered as Reported by: AMY COFFEY on 08/29/16 1637 Last Action: Reviewed Albuterol Sulfate (Proair Hfa) 1 Puff Puff, 2 PUFF IH Q6H PRN for SHORTNESS OF BREATH, (Reported) Entered as Reported by: KARYNA BARRON on 07/11/22 1234 Last Action: Reviewed Albuterol/Ipratropium (Combivent Respimat Inhal [place]) 20 Mcg-100 Mcg/Actuation Aero, 2 PUFF IH QID, (Reported) Entered as Reported by: KARYNA BARRON on 07/11/22 1234 Last Action: Reviewed Aspirin (Aspirin EC) 81 Mg Tablet.dr, 81 MG PO DAILY, (Reported) Entered as Reported by: KARYNA BARRON on 07/11/221237 Last Action: Reviewed Atorvastatin Calcium (Atorvastatin Calcium) 20 Mg Tablet, 10 MG PO HS, (Reported) Entered as Reported by: KARYNA BARRON on 07/11/221233 Last Action: Reviewed Carvedilol (Carvedilol) 12.5 Mg Tablet, 6.25 MG PO BID, (Reported) Entered as Reported by: KARYNA BARRON on 07/11/221233 Last Action: Reviewed Diclofenac Sodium (Diclofenac Sodium) 1 % Gel..gram., 4 GM TP QID PRN for PAIN- BREAKTHROUGH, (Reported) Entered as Reported by: KARYNA BARRON on 07/11/221233 Last Action: Reviewed Diphenhydramine HCl (Benadryl Allergy) 25 Mg Tablet, 25 MG PO DAILY, (Reported) Entered as Reported by: KARYNA BARRON on 07/11/221237 Last Action: Reviewed Ergocalciferol (Vitamin D2) (Vitamin D2) 1,250 Mcg (44038 Unit) Capsule, 1,250 MCG PO WEEK, (Reported) Entered as Reported by: KARYNA BARRON on 07/11/221233 Last Action: Reviewed Fluticasone Propion/Salmeterol (Fluticasone-Salmeterol 500-50) 500 Mcg-50 Mcg /Dose Blst.w.dev, 1 EACH IH BID, (Reported) Entered as Reported by: KARYNA BARRON on 07/11/221233 Last Action: Reviewed Gabapentin (Neurontin) 300 Mg Capsule, 300 MG PO BID, (Reported) Entered as Reported by: KARYNA BARRON on 07/11/221233 Last Action: Reviewed Guaifenesin (Guaifenesin) 200 Mg Tablet, 400 MG PO QID PRN for COUGH/MUCUS PRODUCTION, (Reported) Entered as Reported by: KARYNA BARRON on 07/11/221233 Last Action: Reviewed Ipratropium/Albuterol Sulfate (Iprat-Albut 0.5-3(2.5) mg/3 ml) 0.5 Mg-3 Mg (2.5 Mg Base)/3 Ml Ampul.neb, 3 ML IH QID PRN for SHORTNESS OF BREATH, (Reported) Entered as Reported by: KARYNA BARRON on 07/11/221233 Last Action: Reviewed Lidocaine (Lidocaine 5% Patch) 5 % Adh..patch, 1 EACH TP DAILY, (Reported) Entered as Reported by: KARYNA BARRON on 07/11/221233 Last Action: Reviewed Montelukast Sodium (Montelukast Sodium) 10 Mg Tablet, 10 MG PO HS, (Reported) Entered as Reported by: KARYNA BARRON on 07/11/221233 Last Action: Reviewed Omeprazole (Omeprazole) 20 Mg Capsule.dr, 20 MG PO DAILY, (Reported) Entered as Reported by: KARYNA BARRON on 07/11/221233 Last Action: Reviewed Trazodone HCl (Trazodone HCl) 50 Mg Tablet, 50 MG PO HS PRN for SLEEP, (Reported) Entered as Reported by: KARYNA BARRON on 07/11/221233 Last Action: Reviewed Discontinued Medications Albuterol/Ipratropium (Combivent Respimat Inhal [place]) 4 Gm Aero, 2 PUFF IH QID, (Reported) Discontinued Reason: Duplicate Order Entered as Reported by: CAMERON COBB on 08/29/16 113 Last Action: Discontinued Atorvastatin Calcium (Lipitor) 20 Mg Tablet, 20 MG PO DAILY Discontinued Reason: Duplicate Order Prescribed by: Johnathon FOOTE on 09/15/16 1342 Last Action: Discontinued Atorvastatin Calcium (Atorvastatin Calcium) 20 Mg Tablet, 20 MG PO DAILY, (Reported) Discontinued Reason: Duplicate Order Entered as Reported by: MIRACLE EWING on 08/08/18 1047 Last Action: Discontinued Budesonide/Formoterol Fumarate (Symbicort 160-4.5 Mcg Inhaler) 10.2 Gm Hfa.aer.ad, 2 PUFF IH BID, (Reported) Discontinued Reason: No Longer Taking Entered as Reported by: CAMERON COBB on 08/29/16 113 Last Action: Discontinued Carvedilol (Carvedilol) 6.25 Mg Tablet, 3.125 MG PO BID, (Reported) Discontinued Reason: Duplicate Order Entered as Reported by: CAMERON COBB on 08/29/16 1131 Last Action: Discontinued Guaifenesin (Guaifenesin) 200 Mg Tablet, 200 MG PO QID, (Reported) Discontinued Reason: Duplicate Order Entered as Reported by: CAMERON COBB on 08/29/16 113 Last Action: Discontinued Hydrocodone Bit/Acetaminophen (Lortab 7.5 Mg Tablet) 1 Ea Tablet, 1 EA PO Q4H PRN for PAIN-MODERATE Discontinued Reason: No Longer Taking Prescribed by: DEEDEE SCHNEIDER on 08/10/18 0913 Last Action: Discontinued Ipratropium/Albuterol Sulfate (Iprat-Albut 0.5-3(2.5) mg/3 ml) 3 Ml Ampul.neb, 3 ML IH Q4H PRN for SHORTNESS OF BREATH, (Reported) Discontinued Reason: Duplicate Order Entered as Reported by: EVGENY GALLAGHER on 08/29/16 142 Last Action: Discontinued Montelukast Sodium (Montelukast Sodium) 10 Mg Tablet, 10 MG PO HS, (Reported) Discontinued Reason: Duplicate Order Entered as Reported by: CAMERON COBB on 08/29/16 113 Last Action: Discontinued Omeprazole (Omeprazole) 20 Mg Tablet.dr, 20 MG PO DAILY, (Reported) Discontinued Reason: Duplicate Order Entered as Reported by: CAMERON COBB on 08/29/161130 Last Action: Discontinued Assessment/Plan Assessment and Plan Patient 77-year-old male being admitted for chest pain. Cardiology has been consulted and is planning on a stress test. During the preevaluation for his stress test he developed atrial fibrillation with rapid ventricular rate. Stress test was canceled and he was transferred to the ICU for Cardizem drip. He reports feeling well and has no chest pain at the moment. He will remain in the ICU overnight and have possible cardioversion in the morning. There is concern for pneumonia on imaging so we will continue him on antibiotics. I will transition his steroids to oral though. Admission Diagnosis Admission Status: Observation Supervisory-Addendum Brief Verification & Attestation Participated in pt care: history, MDM, physical Personally performed: exam, history, MDM, supervision of care Care discussed with: Medical Student Procedures: n/a Results interpretation: Verified all documentation Verification and Attestation of Medical Student E/M Service A medical student performed and documented this service in my presence. I reviewed and verified all information documented by the medical student and made modifications to such information, when appropriate. I personally performed the physical exam and medical decision making. Mariah Sanderson Jul 12, 2022,14:19 SHALA COBURN Jul 11, 2022 13:34 MARIAH SANDERSON MD Jul 12, 2022 14:20
[2022-07-11] MEDS: dilTIAZem DRIP PRE-MIX 125 ML IV SCH ×2 (14:03→21:14)
--- NOTE | 2022-07-11 16:42 | Tele-ICU Progress Note ---
Subjective Date Seen by a Provider: Jul 11, 2022 Time Seen by a Provider: 16:41 Subjective/Events-last exam (Tele-ICU Physician , consultation) Available chart/ vitals / labs / Images reviewed H&P is from ER notes Patient's information available about PMH, Shx, Fhx allergy reviewed inEMR. ROS as per chart and RN report Now in ICU Video assessment done using teleICU camera, rest of exam as per RN Discussed with RN. Consultants: cards Hospital course: (07/10) positive severe sepsis PNA 07/11 - transferred with afib rvr A/P A fib RVR/ h/o CAD - on cardizem grr - crd follow , w/up pending -Ac lovenox 50 bid Chest pain - as per chart nonspecific etiology, by description sounds as pleuritic -todays cxr with loss right lung volume - ? mucous plugs with splinting d=from pain - will get flatter valve , cont nebs - already on empiric abx COPD - given IV steroids x3 - last dose 125 @3 pm - on steroids po ? and br-dilators periferal , (Central Line Necessity Reviewed) Ferris: void OG: Nutrition: Analgesia: Anxiety/ delirium VTE Prophylaxis: angel bid Stress Ulcer Prophylaxis: na Glycemic Control: Plans in collaboration with bedside consultants and IM MDs. Discussed with RN to reach out if any questions or concerns A total of 31 minutes of critical care time was devoted to this patient today, required to treat and/or prevent further deterioration of critical care condi tion ( as above ) . I am remotely monitoring this patient from another state. I am unable to do the bedside exam, and history/physical and pertinent information is taken from other notes in the computer and bedside staff. I cannot take responsibility for the accuracy of this information. . Sepsis Event Evaluation Height, Weight, BMI Height: 5'8.00" Weight: 154lbs. 0.0oz. 69.459081wz; 18.00 BMI Method:Stated Focused Exam Lactate Level 07/10/22 20:12: Lactic Acid Level 1.18 Exam Exam Patient acknowledged, consented, and participated in this virtual visit which was conducted using real time audio/video Vital Signs Date Time Temp Pulse Resp B/P (MAP) Pulse Ox O2 Delivery O2 Flow Rate FiO2 07/11/22 16:00 Nasal Cannula 4.00 07/11/22 16:00 123 21 113/87 (96) 94 Nasal Cannula 2.00 07/11/22 15:41 36.5 07/11/22 15:30 123 25 109/58 (75) 95 Nasal Cannula 2.00 07/11/22 15:15 138 27 114/80 (91) 94 Nasal Cannula 2.00 07/11/22 15:05 95 Nasal Cannula 3.00 07/11/22 15:00 147 18 66/48 (54) 96 Nasal Cannula 2.00 07/11/22 14:54 96 Nasal Cannula 4.00 07/11/22 14:15 133 24 113/94 (100) 90 Nasal Cannula 2.00 07/11/22 14:03 146 128/78 07/11/22 14:02 146 128/78 07/11/22 14:00 146 25 96/67 (77) 90 Nasal Cannula 2.00 07/11/22 13:36 146 07/11/22 13:34 135 22 128/78 (95) 92 Nasal Cannula 2.00 07/11/22 11:12 35.7 92 20 134/71 (92) 92 Nasal Cannula 2.00 07/11/22 10:37 91 Nasal Cannula 2.00 07/11/22 08:37 Nasal Cannula 2.00 07/11/22 07:34 36.2 91 18 115/59 (77) 92 Nasal Cannula 2.00 07/11/22 07:00 86 07/11/22 06:51 91 Nasal Cannula 2.00 07/11/22 03:00 36.3 83 16 119/69 (86) 94 Nasal Cannula 2.00 07/11/22 02:43 92 Nasal Cannula 2.00 07/11/22 01:30 36.3 83 16 102/67 (79) 98 Nasal Cannula 2.00 07/11/22 01:00 79 07/11/22 00:30 36.3 82 16 84/54 (64) 94 Nasal Cannula 2.00 07/10/22 23:30 36.2 83 20 89/61 (70) 95 Nasal Cannula 2.00 07/10/22 22:42 95 28 07/10/22 22:41 Nasal Cannula 2.00 07/10/22 22:15 82 106/67 (80) 95 Nasal Cannula 2.00 07/10/22 22:03 83 07/10/22 22:00 81 112/71 (85) 95 Nasal Cannula 2.00 07/10/22 21:55 Nasal Cannula 2.00 07/10/22 21:37 90 113/68 (83) 97 Nasal Cannula 2.00 07/10/22 21:15 36.4 88 22 107/70 (82) 96 Nasal Cannula 2.00 07/10/22 20:49 37.2 89 16 114/73 94 Nasal Cannula 2.00 2.00 07/10/22 18:25 37.2 101 16 113/70 (84) 97 Nasal Cannula 2.00 I & O 07/11/22 07:00 Intake Total 1100 ml Output Total 100 ml Balance 1000 ml Height & Weight Height: 5'8.00" Weight: 154lbs. 0.0oz. 69.436993qp; 18.00 BMI Method:Stated General Appearance: No Apparent Distress, WD/WN HEENT: Pharynx Normal, Moist Mucous Membranes Neck: Full Range of Motion, Normal Inspection, Non Tender, Supple Respiratory: Chest Non Tender, Lungs Clear, No Accessory Muscle Use, No Respiratory Distress, Wheezing (with exhalation) Cardiovascular: Regular Rate, Rhythm, No Edema, No Murmur, Normal Peripheral Pulses (3+ radialis and dorsalis pedis) Capillary Refill: Less Than 3 Seconds Extremity: Normal Capillary Refill, Normal Inspection, Normal Range of Motion, Non Tender, No Calf Tenderness, No Pedal Edema Neurologic/Psychiatric: Alert, Oriented x3, Normal Mood/Affect Skin: Normal Color, Warm/Dry Lymphatic: No Adenopathy Results Lab Laboratory Tests 07/10/22 18:30 07/11/22 05:35 Assessment/Plan Assessment/Plan 1 REID CORDERO MD Jul 11, 2022 16:42
[2022-07-11] MEDS: NICOTINE 21 MG (NICODERM) PATCH TD SCH (20:11)
[2022-07-11] MEDS: ACETAMINOPHEN 500 MG TAB (TYLENOL) PO PRN (20:21)
[2022-07-11] MEDS: traZODone 50 MG (DESYREL) TAB PO SCH (21:12)
[2022-07-12] MEDS: PIPERACILLIN SODIUM/TAZOBACTAM 4.5 GM in NS (IVPB) 100 ML IV SCH ×3 (02:41→17:51)
[2022-07-12] MEDS: ACETAMINOPHEN 500 MG TAB (TYLENOL) PO PRN ×3 (02:44→20:26)
[2022-07-12] MEDS: RT-ALBUTEROL/IPRATROPIUM 3 ML (DUONEB) VIAL INH SCH ×6 (02:51→21:49)
[2022-07-12] MEDS ORDERED: NS IV 500 ML 500 ML IV PRN (05:00)
[2022-07-12 05:45] LABS: POTASSIUM 4.1 MMOL/L (3.6-5.0)
[2022-07-12 05:46] LABS: CALCIUM 9.3 MG/DL (8.5-10.1)
[2022-07-12 05:50] LABS: CREATININE SERUM 0.73 MG/DL (0.60-1.30)
[2022-07-12 05:53] LABS: MAGNESIUM 1.6 MG/DL (1.6-2.4)
[2022-07-12] MEDS: KCL 20 MEQ TAB (K-DUR) PO SCH (06:07)
[2022-07-12] MEDS: POTASSIUM CL 10MEQ/50ML IVPB 50 ML IV SCH (06:07)
[2022-07-12] MEDS: MAGNESIUM 1 GM/100 ML IVPB 100 ML IV SCH ×3 (06:17→07:51)
[2022-07-12 07:07] LABS: BASOPHILS % (AUTO) 0 % (0-10); EOSINOPHILS % (AUTO) 0 % (0-10); HEMATOCRIT 35 % (40-54); LYMPHOCYTES # (AUTO) 1.8 10^3/uL (1.0-4.0); LYMPHOCYTES % (AUTO) 15 % (12-44); MEAN CORPUSCULAR HEMOGLOBIN 32 pg (25-34); MEAN CORPUSCULAR HGB CONC 34 g/dL (32-36); MEAN CORPUSCULAR VOLUME 94 fL (80-99); MEAN PLATELET VOLUME 9.4 fL (9.0-12.2); MONOCYTES # (AUTO) 0.7 10^3/uL (0.0-1.0); MONOCYTES % (AUTO) 5 % (0-12); NEUTROPHILS % (AUTO) 79 % (42-75); PLATELET COUNT 352 10^3/uL (130-400); WHITE BLOOD COUNT 12.6 10^3/uL (4.3-11.0)
[2022-07-12] MEDS ORDERED: predniSONE 20 MG TAB PO NR (07:30)
[2022-07-12 07:53] LABS: BAND NEUTROPHILS 8 %; BASOPHILS % (MANUAL) 0 %; EOSINOPHILS % (MANUAL) 0 %; LYMPHOCYTES % (MANUAL) 18 %; MONOCYTES % (MANUAL) 1 %; MYELOCYTES % 1 %; NEUTROPHILS % (MANUAL) 72 %; TARGET CELLS SLIGHT
[2022-07-12] MEDS ORDERED: proPOfol 200 MG/20 ML (DIPRIVAN) VIAL IV ONE (08:20)
--- NOTE | 2022-07-12 08:39 | Anesthesia-General Post-Op ---
MAC Patient Condition Mental Status/LOC: Same as Preop Cardiovascular: Satisfactory Nausea/Vomiting: Absent Respiratory: Satisfactory Pain: Controlled Complications: Absent Post Op Complications Complications None Follow Up Care/Instructions Patient Instructions None needed. Anesthesiology Discharge Order Discharge Order Patient is doing well, no complaints, stable vital signs, no apparent adverse anesthesia problems. No complications reported per nursing. VAZQUEZ CHAMBERS CRNA Jul 12, 2022 08:39
[2022-07-12] MEDS ORDERED: ENOXAPARIN 100 MG/1 ML (LOVENOX) SYR SC SCH (09:00)
--- NOTE | 2022-07-12 09:04 | Cardiology Progress Note ---
Subjective Date Seen by Provider: Jul 12, 2022 Time Seen by Provider: 09:02 Subjective/Events-last exam Patient was seen at bedside, laying down comfortably, underwent cardioversion. Review of Systems General: No Chills, No Night Sweats, No Fatigue, No Malaise, No Appetite, No Other HEENT: No Head Aches, No Visual Changes, No Eye Pain, No Ear Pain, No Dysphasia, No Sinus Congestion, No Post Nasal Drip, No Sore Throat, No Other Pulmonary: No Dyspnea, No Cough, No Pleuritic Chest Pain, No Other Cardiovascular: No: Chest Pain, Palpitations, Orthopnea, Paroxysmal Noc. Dyspnea, Edema, Lt Headedness, Other Focused Exam Lactate Level 07/10/22 20:12: Lactic Acid Level 1.18 Objective-Cardiology Exam Last Set of Vital Signs Vital Signs 07/10/22 07/12/22 07/12/22 07/12/22 07/12/22 22:42 06:00 07:17 07:21 08:00 Temp 36.1 Pulse 109 Resp 22 B/P (MAP) 115/55 (75) Pulse Ox 93 O2 Delivery Nasal Cannula O2 Flow Rate 3.00 FiO2 28 I&O Intake and Output 07/12/22 00:00 Intake Total 2920 ml Output Total 900 ml Balance 2020 ml Intake Oral 720 ml IV Total 2200 ml Output Urine Total 900 ml General: Alert, Oriented X3, Cooperative HEENT: Atraumatic, PERRLA Neck: Supple, No JVD, No Thyromegaly Lungs: Clear to Auscultation, Normal Air Movement Heart: Regular Rate, Normal S1, Normal S2, No Murmurs Abdomen: Normal Bowel Sounds, Soft, No Tenderness, No Hepatosplenomegaly, No Masses Extremities: No Clubbing, No Cyanosis, No Edema, Normal Pulses, No Tenderness/Swelling Skin: No Rashes, No Breakdown, No Significant Lesion Neuro: Normal Gait, Normal Speech, Strength at 5/5 X4 Ext, Normal Tone, Sensation Intact Psych/Mental Status: Mental Status NL, Mood NL Results Lab Laboratory Tests 07/12/22 05:00 A/P-Cardiology Admission Diagnosis Chest pain Coronary artery disease Hypertension Hyperlipidemia Assessment/Plan Chest pain nonspecific etiology, atypical in nature, most probably pleuritic in nature. Patient is having cough and dyspnea. Chest x-ray showed right hemithorax with questionable infiltrate EKG showed new right bundle branch block Paroxysmal atrial fibrillation, had new onset atrial fibrillation with rapid ventricular response, did not respond well to Cardizem drip, continue to be tachycardic Underwent electrical cardioversion on July 12, 2022 I will continue Cardizem and switch him to oral dose. Continue to monitor Coronary artery disease, moderate per cardiac catheterization done [place] [address] Hi. Continue to monitor COPD, tobaccoism, followed by primary care physician Hypertension, restart home medication monitor blood pressure Hyperlipidemia, monitor lipids. NOLA ELIAS MD Jul 12, 2022 09:04
--- NOTE | 2022-07-12 09:06 | Cardioversion ---
Cardioversion PROCEDURE PHYSICIAN: Nola Ashraf DATE OF PROCEDURE: 07/12/22 DIRECT EXTERNAL ELECTRICAL CARDIOVERSION: Indications: Atrial Fibrillation with rapid ventricular rate Preoperative diagnoses: Atrial Fibrillation with rapid ventricular rate Postoperative diagnosis: Sinus rhythm, Successful Electrical Cardioversion Anesthesia: By Anesthesia services Complications: None Specimen: None Contrast: 0 Flouroscopy: none Procedure Details: The patient was brought the director of labor relations after informed consent was taken, all the risks and complications were explained including the risk of stroke. Electrical cardioversion was carried out with anesthesia support with propofol. 120 joules of synchronized shock was delivered through external patches which promptly restored sinus rhythm. The patient tolerated the procedure well. Conclusions: Successful electrical cardioversion and terminating atrial fibrillation NOLA ASHRAF MD Jul 12, 2022 09:06
[2022-07-12] MEDS: ASPIRIN E.C. 81 MG (ECOTRIN) TAB PO SCH (09:24)
[2022-07-12] MEDS: ENOXAPARIN 60 MG/0.6 ML (LOVENOX) SYR SC SCH ×2 (09:24→20:26)
[2022-07-12] MEDS: dilTIAZem120 MG (CARDIZEM CD) CAP PO SCH (09:27)
--- NOTE | 2022-07-12 09:39 | Progress Note ---
SHALA COBURN 07/12/22 0939: Subjective Date Seen by a Provider: Jul 12, 2022 Time Seen by a Provider: 08:45 Subjective/Events-last exam Patient was lying in bed awake at the beginning of the interview. Yesterday during the patient's stress test he went into atrial fibrillation RVR. They were unable to complete the stress test. He was placed on a diltiazem drip and transferred to the ICU. He was successfully cardioverted this morning back to sinus rhythm with rate in the 70s. Patient reports feeling exhausted. He denies chest pain, palpitations, and SOB. Review of Systems General: No Chills, No Night Sweats; Fatigue, Appetite HEENT: No Head Aches, No Visual Changes, No Sinus Congestion, No Sore Throat Pulmonary: Cough (chronic) Cardiovascular: No: Chest Pain, Palpitations, Edema, Lt Headedness Gastrointestinal: No: Nausea, Vomiting, Abdominal Pain, Diarrhea, Constipation Genitourinary: No Dysuria, No Frequency Musculoskeletal: No: neck pain, back pain Neurological: Weakness (generalized); No: Numbness Focused Exam Lactate Level 07/10/22 20:12: Lactic Acid Level 1.18 Objective Exam Last Set of Vital Signs Vital Signs Date Time Temp Pulse Resp B/P (MAP) Pulse Ox O2 Delivery O2 Flow Rate FiO2 07/12/22 09:00 71 11 118/62 (80) 96 Nasal Cannula 3.00 07/12/22 08:00 36.1 07/10/22 22:42 28 Capillary Refill : Less Than 3 Seconds I&O Intake and Output 07/12/22 00:00 Intake Total 2920 ml Output Total 900 ml Balance 2020 ml Intake Oral 720 ml IV Total 2200 ml Output Urine Total 900 ml General: Alert, Oriented X3, Cooperative, No Acute Distress HEENT: Mucous Memb Moist/[place] Neck: Supple, No JVD, No Thyromegaly Lungs: Other (wheezing with exhalation) Heart: Regular Rate, No Murmurs Abdomen: Soft, No Tenderness, No Hepatosplenomegaly Extremities: No Cyanosis, No Edema, Normal Pulses, No Tenderness/Swelling Skin: No Rashes Neuro: Normal Speech, Normal Tone Psych/Mental Status: Mental Status NL, Mood NL Results Lab Laboratory Tests 07/12/22 05:00: White Blood Count 12.6H, Red Blood Count 3.76L, Hemoglobin 12.0L, Hematocrit 35L , Mean Corpuscular Volume 94, Mean Corpuscular Hemoglobin 32, Mean Corpuscular Hemoglobin Concent 34, Red Cell Distribution Width 13.5, Platelet Count 352, Mean Platelet Volume 9.4, Immature Granulocyte % (Auto) 1, Neutrophils (%) (A uto) 79H, Lymphocytes (%) (Auto) 15, Monocytes (%) (Auto) 5, Eosinophils (%) (Auto) 0, Basophils (%) (Auto) 0, Neutrophils # (Auto) 10.0H, Lymphocytes # (Auto) 1.8, Monocytes # (Auto) 0.7, Eosinophils # (Auto) 0.0, Basophils # (Auto) 0.0, Immature Granulocyte # (Auto) 0.1, Neutrophils % (Manual) 72, Lymphocytes % (Manual) 18, Monocytes % (Manual) 1, Eosinophils % (Manual) 0, Basophils % (Manual) 0, Myelocytes % 1, Band Neutrophils 8, Target Cells SLIGHT, Sodium Leve l 133L, Potassium Level 4.1, Chloride Level 103, Carbon Dioxide Level 20L, Anion Gap 10, Blood Urea Nitrogen 12, Creatinine 0.73, Estimat Glomerular Filtration Rate 95, BUN/Creatinine Ratio 16, Glucose Level 137H, Calcium Level 9.3, Magnesium Level 1.6 Microbiology 07/10/22 Blood Culture - Preliminary, Resulted No growth Assessment/Plan Assessment/Plan Assess & Plan/Chief Complaint 1) Chest pain - the chest pain is possibly from cardiac and respiratory issues - patient has not had cardiac work up since 2016, so a stress test will need to be done outpatient - nitroglycerin 0.4mg PRN and morphine 4mg q3hrs for pain management - restart home medication aspirin 81mg 1xD 2) Atrial fibrillation with RVR - cardioversion successful, DC diltiazem drip - Lovenox 50mg BID - will continue to monitor heart rate overnight 3) Pneumonia - day 3 of Zosyn 100mls @ 25mls/hr q8hrs - blood cultures were negative for growth 4) COPD exacerbation - most likely caused by a pneumonia which we are treating with Abx - prednisone 40mg PO - restart home medication albuterol/ipratropium 3ml q2hrs 5) Tobacco addiction - nicotine patch 21mg PRN 6) Chronic back pain -restart home medication acetaminophen 1000mg q6hrs Clinical Quality Measures Admission Status Admission Dx 1) Chest pain - the chest pain is possibly from cardiac or respiratory issues - patient has not had cardiac work up since 2016, so a stress test is being done today - patient NPO for testing - nitroglycerin 0.4mg PRN and morphine 4mg q3hrs for pain management - restart home medication aspirin 81mg 1xD 2) Pneumonia - Zosyn 100mls @ 25mls/hr q8hrs 3) COPD exacerbation - most likely caused by a pneumonia which we are treating with Abx - prednisone 40mg PO - restart home medication albuterol/ipratropium 3ml q2hrs 4) Tobacco addiction - nicotine patch 21mg PRN 5) Chronic back pain -restart home medication acetaminophen 1000mg q6hrs AMI/AHF: ASA po Prior to arrival: Yes ([phone]) MARIAH JENSEN MD 07/12/22 1421: Assessment/Plan Assessment/Plan Assess & Plan/Chief Complaint Patient reports doing well. He underwent cardioversion which was successful. He will remain on Cardizem. His only complaint is regarding breakfast. I am hopeful he will be able to discharge home tomorrow if he continues to do well. Supervisory-Addendum Brief Verification & Attestation Participated in pt care: history, MDM, physical Personally performed: exam, history, MDM, supervision of care Care discussed with: Medical Student Procedures: n/a Results interpretation: Verified all documentation Verification and Attestation of Medical Student E/M Service A medical student performed and documented this service in my presence. I reviewed and verified all information documented by the medical student and made modifications to such information, when appropriate. I personally performed the physical exam and medical decision making. Mariah Jensen, Jul 12, 2022,14:20 SHALA COBURN Jul 12, 2022 09:39 MARIAH JENSEN MD Jul 12, 2022 14:21
--- NOTE | 2022-07-12 10:00 | Tele-ICU Progress Note ---
Subjective Date Seen by a Provider: Jul 12, 2022 Time Seen by a Provider: 10:00 Subjective/Events-last exam . (Tele-ICU Physician , Progress Note ) Available chart/ vitals / labs / Images reviewed Video assessment done using teleICU camera, rest of exam as per RN Discussed with RN Events overnight : Afebrile hemodynamically stable Respiratory - 3l I/O == Drips: Pressors- no Consultants: malgorzata Hospital course: (07/10) positive severe sepsis PNA 07/11 - transferred with afib rvr 07/12 - s/p cardioversion - SINUS A/P A fib RVR/ h/o CAD -07/12 - s/p cardioversion - SINUS - crd follow -Ac lovenox 50 bid - AC as per cards Chest pain - as per chart nonspecific etiology, by description sounds as pleuritic -s cxr with loss right lung volume - ? mucous plugs with splinting from pain ( NO PAIN TODAY) - started flatter valve , cont nebs and po prednisone - already on empiric abx - repeat cxr if can not wean off O2 COPD - given IV steroids x3 - on steroids po, and br-dilators periferal , (Central Line Necessity Reviewed) [place]: void OG: Nutrition: po Analgesia: Anxiety/ delirium VTE Prophylaxis: angel bid Stress Ulcer Prophylaxis: na Plans in collaboration with bedside consultants and IM MDs. Discussed with RN to reach out if any questions or concerns A total of 25 minutes of critical care time was devoted to this patient today, required to treat and/or prevent further deterioration of critical care condition ( as above ) . I am remotely monitoring this patient from another state. I am unable to do the bedside exam, and history/physical and pertinent information is taken from other notes in the computer and bedside staff. I cannot take responsibility for the accuracy of this information. . Sepsis Event Evaluation Height, Weight, BMI Height: 5'8.00" Weight: 154lbs. 0.0oz. [id number]; 18.00 BMI Method:Stated Focused Exam Lactate Level 07/10/22 20:12: Lactic Acid Level 1.18 Exam Exam Patient acknowledged, consented, and participated in this virtual visit which was conducted using real time audio/video Vital Signs Date Time Temp Pulse Resp B/P (MAP) Pulse Ox O2 Delivery O2 Flow Rate FiO2 07/12/22 09:00 71 11 118/62 (80) 96 Nasal Cannula 3.00 07/12/22 08:36 75 07/12/22 08:00 36.1 07/12/22 08:00 116 14 112/80 (91) 93 Nasal Cannula 3.00 07/12/22 07:21 93 Nasal Cannula 3.00 07/12/22 07:17 109 07/12/22 07:00 114 16 104/65 (78) 90 Nasal Cannula 3.00 07/12/22 06:00 124 22 115/55 (75) 93 Nasal Cannula 3.00 07/12/22 05:03 128 20 108/80 (89) 92 Nasal Cannula 3.00 07/12/22 04:00 105 21 118/91 (101) 95 Nasal Cannula 3.00 07/12/22 04:00 94 3.00 07/12/22 04:00 36.0 07/12/22 03:00 103 19 110/83 (92) 93 Nasal Cannula 3.00 07/12/22 02:00 114 13 103/79 (85) 93 Nasal Cannula 3.00 07/12/22 01:00 108 22 87/66 (72) 93 Nasal Cannula 3.00 07/12/22 01:00 108 07/12/22 00:31 93 3.00 07/12/22 00:00 36.2 07/12/22 00:00 79 17 113/71 (84) 93 Nasal Cannula 3.00 07/11/22 23:00 87 11 99/63 (72) 93 Nasal Cannula 3.00 07/11/22 22:39 4 Nasal Cannula 3.00 07/11/22 22:00 89 12 94/60 (70) 92 Nasal Cannula 3.00 07/11/22 21:14 82 89/64 07/11/22 21:00 99 22 89/64 (77) 89 Nasal Cannula 3.00 07/11/22 20:05 36.2 07/11/22 20:00 99 25 104/63 (80) 91 Nasal Cannula 3.00 07/11/22 20:00 Nasal Cannula 3.00 07/11/22 20:00 93 3.00 07/11/22 19:00 110 07/11/22 19:00 110 104/58 (68) 93 Nasal Cannula 2.00 07/11/22 18:31 93 Nasal Cannula 3.00 07/11/22 18:00 118 41 109/80 (90) 91 Nasal Cannula 2.00 07/11/22 17:26 123 113/87 07/11/22 17:00 128 24 127/67 (87) 92 Nasal Cannula 2.00 07/11/22 16:00 Nasal Cannula 4.00 07/11/22 16:00 123 21 113/87 (96) 94 Nasal Cannula 2.00 07/11/22 15:41 36.5 07/11/22 15:30 123 25 109/58 (75) 95 Nasal Cannula 2.00 07/11/22 15:15 138 27 114/80 (91) 94 Nasal Cannula 2.00 07/11/22 15:05 95 Nasal Cannula 3.00 07/11/22 15:00 147 18 66/48 (54) 96 Nasal Cannula 2.00 07/11/22 14:54 96 Nasal Cannula 4.00 07/11/22 14:15 133 24 113/94 (100) 90 Nasal Cannula 2.00 07/11/22 14:03 146 128/78 07/11/22 14:02 146 128/78 07/11/22 14:00 146 25 96/67 (77) 90 Nasal Cannula 2.00 07/11/22 13:36 146 07/11/22 13:34 135 22 128/78 (95) 92 Nasal Cannula 2.00 07/11/22 11:12 35.7 92 20 134/71 (92) 92 Nasal Cannula 2.00 07/11/22 10:37 91 Nasal Cannula 2.00 I & O 07/12/22 07:00 Intake Total 1920 ml Output Total 1025 ml Balance 895 ml Height & Weight Height: 5'8.00" Weight: 154lbs. 0.0oz. 69.244396jq; 18.00 BMI Method:Stated General Appearance: No Apparent Distress, WD/WN HEENT: Pharynx Normal, Moist Mucous Membranes Neck: Full Range of Motion, Normal Inspection, Non Tender, Supple Respiratory: Chest Non Tender, Lungs Clear, No Accessory Muscle Use, No Respiratory Distress, Wheezing (with exhalation) Cardiovascular: Regular Rate, Rhythm, No Edema, No Murmur, Normal Peripheral Pulses (3+ radialis and dorsalis pedis) Capillary Refill: Less Than 3 Seconds Extremity: Normal Capillary Refill, Normal Inspection, Normal Range of Motion, Non Tender, No Calf Tenderness, No Pedal Edema Neurologic/Psychiatric: Alert, Oriented x3, Normal Mood/Affect Skin: Normal Color, Warm/Dry Lymphatic: No Adenopathy Results Lab Laboratory Tests 07/10/22 18:30 07/11/22 05:35 07/12/22 05:00 Assessment/Plan Assessment/Plan 1 REID CORDERO MD Jul 12, 2022 10:00
[2022-07-12] MEDS: traZODone 50 MG (DESYREL) TAB PO SCH (20:26)
[2022-07-12] MEDS: NICOTINE 21 MG (NICODERM) PATCH TD SCH (20:27)
[2022-07-13] MEDS: PIPERACILLIN SODIUM/TAZOBACTAM 4.5 GM in NS (IVPB) 100 ML IV SCH ×2 (01:40→08:15)
[2022-07-13] MEDS: RT-ALBUTEROL/IPRATROPIUM 3 ML (DUONEB) VIAL INH SCH ×3 (01:59→11:51)
[2022-07-13 05:27] LABS: BASOPHILS % (AUTO) 0 % (0-10); EOSINOPHILS % (AUTO) 0 % (0-10); HEMATOCRIT 35 % (40-54); LYMPHOCYTES # (AUTO) 1.7 10^3/uL (1.0-4.0); LYMPHOCYTES % (AUTO) 14 % (12-44); MEAN CORPUSCULAR HEMOGLOBIN 31 pg (25-34); MEAN CORPUSCULAR HGB CONC 34 g/dL (32-36); MEAN CORPUSCULAR VOLUME 91 fL (80-99); MONOCYTES % (AUTO) 8 % (0-12); NEUTROPHILS # (AUTO) 9.5 10^3/uL (1.8-7.8); NEUTROPHILS % (AUTO) 77 % (42-75); PLATELET COUNT 329 10^3/uL (130-400); WHITE BLOOD COUNT 12.3 10^3/uL (4.3-11.0)
[2022-07-13 05:40] LABS: CALCIUM 9.2 MG/DL (8.5-10.1); CREATININE SERUM 0.79 MG/DL (0.60-1.30); MAGNESIUM 1.7 MG/DL (1.6-2.4); POTASSIUM 3.5 MMOL/L (3.6-5.0)
[2022-07-13] MEDS: POTASSIUM CL 10MEQ/50ML IVPB 50 ML IV SCH (05:55)
[2022-07-13] MEDS: MAGNESIUM 1 GM/100 ML IVPB 100 ML IV SCH ×3 (05:57→07:19)
[2022-07-13] MEDS: KCL 20 MEQ TAB (K-DUR) PO SCH (05:57)
[2022-07-13] MEDS ORDERED: KCL 20 MEQ TAB (K-DUR) PO ONE (06:00)
[2022-07-13 06:51] LABS: LYMPHOCYTES % (MANUAL) 9 %; MONOCYTES % (MANUAL) 6 %; NEUTROPHILS % (MANUAL) 83 %; RBC MORPH NORMAL
[2022-07-13] MEDS ORDERED: predniSONE 20 MG TAB PO SCH (07:00)
[2022-07-13] MEDS: ASPIRIN E.C. 81 MG (ECOTRIN) TAB PO SCH (08:15)
[2022-07-13] MEDS: dilTIAZem120 MG (CARDIZEM CD) CAP PO SCH (08:15)
[2022-07-13] MEDS: ENOXAPARIN 60 MG/0.6 ML (LOVENOX) SYR SC SCH (08:15)
--- NOTE | 2022-07-13 10:27 | Cardiology Progress Note ---
Subjective Date Seen by Provider: Jul 13, 2022 Time Seen by Provider: 10:24 Subjective/Events-last exam Patient was seen at bedside, laying down comfortably Feeling better and asking to go home. Has been in sinus rhythm Review of Systems General: No Chills, No Night Sweats, No Fatigue, No Malaise, No Appetite, No Other HEENT: No Head Aches, No Visual Changes, No Eye Pain, No Ear Pain, No Dysphasia, No Sinus Congestion, No Post Nasal Drip, No Sore Throat, No Other Pulmonary: No Dyspnea, No Cough, No Pleuritic Chest Pain, No Other Cardiovascular: No: Chest Pain, Palpitations, Orthopnea, Paroxysmal Noc. Dyspnea, Edema, Lt Headedness, Other Focused Exam Lactate Level 07/10/22 20:12: Lactic Acid Level 1.18 Objective-Cardiology Exam Last Set of Vital Signs Vital Signs 07/10/22 07/12/22 07/13/22 07/13/22 22:42 19:00 08:00 09:00 Temp 36.6 Pulse 70 Resp 28 B/P (MAP) 134/67 (89) Pulse Ox 89 O2 Delivery Room Air O2 Flow Rate 1.50 FiO2 28 I&O Intake and Output 07/13/22 00:00 Intake Total 1090 ml Output Total 1050 ml Balance 40 ml Intake Oral 890 ml IV Total 200 ml Output Urine Total 1050 ml # Voids 1 General: Alert, Oriented X3, Cooperative, No Acute Distress HEENT: Atraumatic, Mucous Memb Moist/[place] Neck: Supple, No JVD, No Thyromegaly Lungs: Other (wheezing with exhalation) Heart: Regular Rate, Normal S1, Normal S2, No Murmurs Abdomen: Soft, No Tenderness, No Hepatosplenomegaly Extremities: No Cyanosis, No Edema, Normal Pulses, No Tenderness/Swelling Skin: No Rashes Neuro: Normal Speech, Normal Tone Psych/Mental Status: Mental Status NL, Mood NL Results Lab Laboratory Tests 07/13/22 05:10 A/P-Cardiology Admission Diagnosis Chest pain Coronary artery disease Hypertension Hyperlipidemia Assessment/Plan Chest pain nonspecific etiology, atypical in nature, most probably pleuritic in nature. Patient is having cough and dyspnea. Chest x-ray showed right hemithorax with questionable infiltrate EKG showed new right bundle branch block Patient was scheduled for stress test, I was unable to perform it due to atrial fibrillation with rapid ventricular response. Paroxysmal atrial fibrillation, had new onset atrial fibrillation with rapid ventricular response, did not respond well to Cardizem drip, continue to be tachycardic Underwent electrical cardioversion on July 12, 2022 Continue on Cardizem, adding Xarelto [id number] score 3, starting on Xarelto. Questionable pneumonia, patient is receiving antibiotic Managed by medical team Coronary artery disease, moderate per cardiac catheterization [place] [address] Hi. Continue to monitor COPD, tobaccoism, followed by primary care physician Hypertension, restart home medication monitor blood pressure Hyperlipidemia, monitor lipids. NOLA ELIAS MD Jul 13, 2022 10:27
--- NOTE | 2022-07-13 10:43 | Cardiology Stress Test Report ---
Stress Test Report Date of Procedure/Referring: Date of Procedure: Jul 12, 2022 PCP No,Local Physician Admitting Physician Admitting Physician: Janice Mathews MD Attending Physician: Janice Mathews MD Indications: Chest pain Baseline Vital Signs Vital Signs Date Time Temp Pulse Resp B/P (MAP) Pulse Ox O2 Delivery O2 Flow Rate FiO2 07/10/22 18:25 37.2 101 16 113/70 (84) 97 Nasal Cannula 2.00 07/10/22 22:42 28 Summary: Patient was scheduled for Lexiscan Myoview stress test. 10.9 mCi of technetium 99 Myoview was injected on the resting images were acquired Upon arrival to the stress lab patient was noted to be in atrial fibrillation with rapid ventricular response with heart rate 140. Test was terminated. Images of the breast with the tachycardia were reviewed showing no significant ischemia. Resting images were acquired only showing no significant ischemia. Patient was tachycardic with a heart rate 140 with atrial fibrillation NOLA ELIAS MD Jul 13, 2022 10:43
[2022-07-13] MEDS ORDERED: PRD20T PO (11:51)
[2022-07-13] MEDS ORDERED: AMOX1TAB12 PO (11:51)
[2022-07-13] MEDS ORDERED: RIVA20TA2 PO (11:51)
[2022-07-13] MEDS ORDERED: DILT-27 PO (11:51)
--- NOTE | 2022-07-13 11:55 | Discharge Inst-Simple/Standard ---
Discharge Inst-Standard Discharge Medications New, Converted or Re-Newed RX: Transmitted to Pharmacy Patient Instructions/Follow Up Plan of Care/Instructions/FU: Please continue to take your medications as written. Please follow up with your primary care doctor to follow up this hospital stay. Activity as Tolerated: Yes Discharge Diet: Cardiac Diet Return to The Hospital For: Chest pain, shortness of breath, fever, weakness, if you feel you are getting worse. MARIAH JENSEN MD Jul 13, 2022 11:55
--- NOTE | 2022-07-13 12:35 | Tele-ICU Progress Note ---
Subjective Date Seen by a Provider: Jul 13, 2022 Time Seen by a Provider: 12:35 Subjective/Events-last exam . (Tele-ICU Physician , Progress Note ) Available chart/ vitals / labs / Images reviewed Video assessment done using teleICU camera, rest of exam as per RN Discussed with RN Events overnight : Afebrile hemodynamically stable Respiratory - 3l I/O == Drips: Pressors- no Consultants: malgorzata Hospital course: (07/10) positive severe sepsis PNA 07/11 - transferred with afib rvr 07/12 - s/p cardioversion - SINUS A/P A fib RVR/ h/o CAD -07/12 - s/p cardioversion - SINUS - crd follow -Ac lovenox 50 bid - AC as per cards -follow and correct lytes Chest pain - as per chart nonspecific etiology, by description sounds as pleuritic -s cxr with loss right lung volume - ? mucous plugs with splinting from pain ( NO PAIN TODAY) - started flatter valve , cont nebs and po prednisone - already on empiric abx DAY 3 _ CONSIDER TO REPEAT CXR PA AND LATERAL WHEN OUT OF ICU < AND MIGHT BE A CANDIDATE FOR SHORT COURSE OF ABX -on RA COPD - given IV steroids x3 - on steroids po, and br-dilators leukocytosi - most likely due to steroids periferal , (Central Line Necessity Reviewed) Ferris: void OG: Nutrition: po Analgesia: Anxiety/ delirium VTE Prophylaxis: angel bid Stress Ulcer Prophylaxis: na Plans in collaboration with bedside consultants and IM MDs. Discussed with RN to reach out if any questions or concerns A total of 25 minutes of critical care time was devoted to this patient today, required to treat and/or prevent further deterioration of critical care co ndition ( as above ) . I am remotely monitoring this patient from another state. I am unable to do the bedside exam, and history/physical and pertinent information is taken from other notes in the computer and bedside staff. I cannot take responsibility for the accuracy of this information. . Sepsis Event Evaluation Height, Weight, BMI Height: 5'8.00" Weight: 154lbs. 0.0oz. [id number]; 18.00 BMI Method:Stated Focused Exam Lactate Level 07/10/22 20:12: Lactic Acid Level 1.18 Exam Exam Patient acknowledged, consented, and participated in this virtual visit which was conducted using real time audio/video Vital Signs Date Time Temp Pulse Resp B/P (MAP) Pulse Ox O2 Delivery O2 Flow Rate FiO2 07/13/22 12:21 72 07/13/22 12:00 67 23 133/70 (91) 96 Room Air 07/13/22 11:53 94 Room Air 07/13/22 11:00 68 13 141/81 (101) 93 Room Air 07/13/22 10:00 70 12 136/65 (88) 92 Room Air 07/13/22 09:00 70 28 134/67 (89) 89 Room Air 07/13/22 08:00 65 15 137/70 (92) 90 Room Air 07/13/22 08:00 36.6 07/13/22 08:00 92 Room Air 07/13/22 07:45 75 07/13/22 07:26 94 Room Air 07/13/22 07:00 68 11 134/88 (103) 91 Room Air 07/13/22 06:00 61 22 132/77 (95) 90 Room Air 07/13/22 05:00 72 37 139/79 (104) 93 Room Air 07/13/22 04:00 73 136/70 (109) 90 Room Air 07/13/22 03:47 90 Room Air 07/13/22 03:42 36.2 70 28 136/66 (89) 90 Room Air 07/13/22 03:00 73 134/66 (106) 90 Room Air 07/13/22 02:00 75 124/91 (105) Room Air 07/13/22 01:00 63 137/65 (92) Room Air 07/13/22 01:00 69 07/13/22 00:00 76 126/65 (92) Room Air 07/12/22 23:58 95 Room Air 07/12/22 23:15 36.8 78 136/68 (90) Room Air 07/12/22 23:00 72 136/67 (94) Room Air 07/12/22 22:00 71 25 132/65 (86) Room Air 07/12/22 21:00 82 28 117/62 (83) 94 Room Air 07/12/22 20:00 36.3 75 23 93 Room Air 07/12/22 20:00 94 Room Air 07/12/22 20:00 76 18 122/71 (90) 91 Room Air 07/12/22 19:00 83 07/12/22 19:00 97 29 116/57 (83) 93 Nasal Cannula 1.50 07/12/22 18:36 93 Nasal Cannula 0.00 07/12/22 18:00 79 32 124/76 (92) 95 Nasal Cannula 1.50 07/12/22 17:00 79 20 139/71 (93) 93 Nasal Cannula 1.50 07/12/22 16:00 76 15 112/65 (81) 97 Nasal Cannula 1.50 07/12/22 16:00 96 Room Air 07/12/22 15:00 77 19 114/54 (74) 97 Nasal Cannula 1.50 07/12/22 14:18 92 Nasal Cannula 0.00 07/12/22 14:00 79 16 122/102 (109) 92 Nasal Cannula 1.50 07/12/22 13:10 77 07/12/22 13:00 73 26 111/88 (96) 99 Nasal Cannula 1.50 I & O 07/13/22 07:00 Intake Total 1240 ml Output Total 1275 ml Balance -35 ml Height & Weight Height: 5'8.00" Weight: 154lbs. 0.0oz. 69.672466ej; 18.00 BMI Method:Stated General Appearance: No Apparent Distress, WD/WN HEENT: Pharynx Normal, Moist Mucous Membranes Neck: Full Range of Motion, Normal Inspection, Non Tender, Supple Respiratory: Chest Non Tender, Lungs Clear, No Accessory Muscle Use, No Respir atory Distress, Wheezing (with exhalation) Cardiovascular: Regular Rate, Rhythm, No Edema, No Murmur, Normal Peripheral Pulses (3+ radialis and dorsalis pedis) Capillary Refill: Less Than 3 Seconds Extremity: Normal Capillary Refill, Normal Inspection, Normal Range of Motion, Non Tender, No Calf Tenderness, No Pedal Edema Neurologic/Psychiatric: Alert, Oriented x3, Normal Mood/Affect Skin: Normal Color, Warm/Dry Lymphatic: No Adenopathy Results Lab Laboratory Tests 07/12/22 05:00 07/13/22 05:10 Assessment/Plan Assessment/Plan 1 REID CORDERO MD Jul 13, 2022 12:35
[2022-07-13 13:30] VITALS: BP 133/70
--- NOTE | 2022-07-13 15:07 | Discharge Summary ---
SHALA COBURN 07/13/22 1507: Diagnosis/Chief Complaint Date of Admission Jul 10, 2022 at 19:29 Date of Discharge Jul 13, 2022 at 13:30 Discharge Date: Jul 13, 2022 Admission Diagnosis chest pain and COPD exacerbation Primary Care No,Local Physician Discharge Diagnosis chest pain and COPD exacerbation Discharge Summary Discharge Physical Exam Allergies: Coded Allergies: cefaclor (Verified Allergy, Unknown, HIVES, 08/08/18) diazepam (Verified Allergy, Unknown, 02/18/06) levofloxacin (Verified Allergy, Unknown, HIVES, 08/08/18) Vitals & I&Os Vital Signs Date Time Temp Pulse Resp B/P (MAP) Pulse Ox O2 Delivery O2 Flow Rate FiO2 07/13/22 13:30 36.6 72 23 133/70 92 Room Air 1.50 07/10/22 22:42 28 General Appearance: No Apparent Distress, WD/WN HEENT: Pharynx Normal, Moist Mucous Membranes Respiratory: No Accessory Muscle Use, No Respiratory Distress; No Crackles; Wheezing (with inhalation) Cardiovascular: Regular Rate, Rhythm, No Edema, No Murmur, Normal Peripheral Pulses (3+ radial) Gastrointestinal: No Organomegaly, No Pulsatile Mass, Non Tender, Soft Extremity: Normal Capillary Refill, Normal Inspection, Normal Range of Motion, Non Tender, No Calf Tenderness, No Pedal Edema Skin: Normal Color, Warm/Dry Neurologic/Psychiatric: Alert, Oriented x3, Normal Mood/Affect Hospital Course Was the Problem List Reviewed?: Yes Ulises is a 77yo M with a past medical history of htn, moderate coronary artery disease(cardiac catheterization 2016), previous stroke, COPD, cirrhosis, and chronic back pain. He presented to the emergency room with chest pain on 07/10/22. On 07/09/22 around 10:00PM he came home from a dance and began to feel a sharp pain in his chest and shortness of breath that was intermittent. He tried to use his nebulizer, inhaler, hydrocodone, and trazodone which only helped somewhat with the pain. The chest pain worsened the next day and so he came to the ER. He was given nitroglycerin in the emergency room which lessened his chest pain. He had to be put on oxygen 2L/min nasal cannula due to hypoxia. A chest X-ray showed an opacity in the right lung. WBC was 11.6. sodium was 13.3. EKG did not have ST elevations. Troponin and BNP were not elevated. The patient was admitted for chest pain and COPD exacerbation due to pneumonia. IV antibiotics were started to treat his pneumonia. He continued to have chest pain after being admitted and was taken for a stress test. During the patient's stress test he went into atrial fibrillation with RVR and was admitted to ICU on a cardizem drip. They were unable to complete the stress test. Patient was successfully cardioverted back to sinus rhythm with rate control. He was taken off the IV cardizem and put on PO rate control medication and an anticoagulant. The patient was slowly weaned off of the oxygen and was saturating in the mid 90's today. Patient was lying in bed awake at the beginning of the interview. Patient is asking to go home today. He denies having chest pain, palpitations, and SOB. He is planning to have a stress test done as an outpatient. Labs (last 24 hrs) Laboratory Tests 07/13/22 05:10: White Blood Count 12.3H, Red Blood Count 3.83L, Hemoglobin 12.0L, Hematocrit 35L , Mean Corpuscular Volume 91, Mean Corpuscular Hemoglobin 31, Mean Corpuscular Hemoglobin Concent 34, Red Cell Distribution Width 13.2, Platelet Count 329, Mean Platelet Volume 9.0, Immature Granulocyte % (Auto) 1, Neutrophils (%) ( Auto) 77H, Lymphocytes (%) (Auto) 14, Monocytes (%) (Auto) 8, Eosinophils (%) (Auto) 0, Basophils (%) (Auto) 0, Neutrophils # (Auto) 9.5H, Lymphocytes # (Auto) 1.7, Monocytes # (Auto) 1.0, Eosinophils # (Auto) 0.0, Basophils # (Auto) 0.0, Immature Granulocyte # (Auto) 0.1, Neutrophils % (Manual) 83, Lymphocytes % (Manual) 9, Monocytes % (Manual) 6, Blood Morphology Comment NORMAL, Sodium Level 138, Potassium Level 3.5L, Chloride Level 104, Carbon Dioxide Level 24, Anion Gap 10, Blood Urea Nitrogen 12, Creatinine 0.79, Estimat Glomerular Filtration Rate 93, BUN/Creatinine Ratio 15, Glucose Level 113H, Calcium Level 9.2, Magnesium Level 1.7 Microbiology 07/10/22 Blood Culture - Preliminary, Resulted No growth Patient resulted labs reviewed. Discussion & Recommendations Discharge Planning: >30 minutes discharge planning Discharge Home Medications: Active Scripts Active Prednisone 20 Mg Tab 40 Mg PO DAILY@0700 Amox Tr-K Clv 875-125 mg Tab (Amoxicillin/Potassium Clav) 875 Mg-125 Mg Tablet 1 Each PO BID Diltiazem 24Hr ER (Diltiazem HCl) 120 Mg Cap.er.24h 120 Mg PO DAILY Xarelto Tablet (Rivaroxaban) 20 Mg Tablet 20 Mg PO DAILY@1700 Reported Benadryl Allergy (Diphenhydramine HCl) 25 Mg Tablet 25 Mg PO DAILY Aspirin EC (Aspirin) 81 Mg Tablet.dr 81 Mg PO DAILY Diclofenac Sodium 1 % Gel..gram. 4 Gm TP QID PRN APPLIES TO LOWER BACK AND LEFT KNEE Trazodone HCl 50 Mg Tablet 50 Mg PO HS PRN Guaifenesin 200 Mg Tablet 400 Mg PO QID PRN TAKES 2 (200MG) TABS Neurontin (Gabapentin) 300 Mg Capsule 300 Mg PO BID Montelukast Sodium 10 Mg Tablet 10 Mg PO HS Proair Hfa (Albuterol Sulfate) 1 Puff Puff 2 Puff IH Q6H PRN Atorvastatin Calcium 20 Mg Tablet 10 Mg PO HS TAKES OF A 20NG TAB Lidocaine 5% Patch (Lidocaine) 5 % Adh..patch 1 Each TP DAILY MDD 2 APPLIES TO LOWER LEFT BACK Vitamin D2 (Ergocalciferol (Vitamin D2)) 1,250 Mcg (64751 Unit) Capsule 1,250 Mcg PO WEEK Iprat-Albut 0.5-3(2.5) mg/3 ml (Ipratropium/Albuterol Sulfate) 0.5 Mg-3 Mg (2.5 Mg Base)/3 Ml Ampul.neb 3 Ml IH QID PRN Combivent Respimat Inhal [place] (Albuterol/Ipratropium) 20 Mcg-100 Mcg/Actuation Aero 2 Puff IH QID Omeprazole 20 Mg Capsule.dr 20 Mg PO DAILY Fluticasone-Salmeterol 500-50 (Fluticasone Propion/Salmeterol) 500 Mcg-50 Mcg/Dose Blst.w.dev 1 Each IH BID Tylenol Extra Strength (Acetaminophen) 500 Mg Tablet 1,000 Mg PO BID TAKES 2 (500MG) TABS Instructions to patient/family Please see electronic discharge instructions given to patient. Clinical Quality Measures Admission Status Admission Dx 1) Chest pain - the chest pain is possibly from cardiac or respiratory issues, an outpatient stress test can help to determine if it is cardiac related - nitroglycerin 0.4mg PRN and morphine 4mg q3hrs for pain management - restart home medication aspirin 81mg 1xD 2) Pneumonia - IV Zosyn has been changed to PO amoxicillin 1g 3xD and azithromycin 500mg 1xD 3) COPD exacerbation - most likely caused by a pneumonia which we are treating with Abx - prednisone 40mg PO for 3 days will be sent home with the patient - restart home medication albuterol/ipratropium 3ml q2hrs 4) Atrial fibrillation - patient is now in sinus rhythm - sent home with cardizem 120mg 1xD and Lovenox 50 BID 5) Tobacco addiction - nicotine patch 21mg PRN 6) Chronic back pain -restart home medication acetaminophen 1000mg q6hrs Admission Status: Inpatient Order (span 2 midnights) Reason for Inpatient Admission: Patient went intno A fib during his stay and had to be cardioverted in the ICU AMI/AHF: ASA po Prior to arrival: Yes ([phone]) MARIAH JENSEN MD 07/14/22 1611: Discharge Summary Discharge Physical Exam Allergies: Coded Allergies: cefaclor (Verified Allergy, Unknown, HIVES, 08/08/18) diazepam (Verified Allergy, Unknown, 02/18/06) levofloxacin (Verified Allergy, Unknown, HIVES, 08/08/18) Supervisory-Addendum Brief Verification & Attestation Participated in pt care: history, MDM, physical Personally performed: exam, history, MDM, supervision of care Care discussed with: Medical Student Procedures: n/a Results interpretation: Verified all documentation Verification and Attestation of Medical Student E/M Service A medical student performed and documented this service in my presence. I reviewed and verified all information documented by the medical student and made modifications to such information, when appropriate. I personally performed the physical exam and medical decision making. Mariah Jensen, Jul 14, 2022,16:10 SHALA COBURN Jul 13, 2022 15:07 MARIAH JENSEN MD Jul 14, 2022 16:11
[2022-07-13] MEDS ORDERED: RIVAROXABAN 20 MG TABLET (XARELTO) PO SCH (17:00)
--- NOTE | 2022-07-13 17:23 | Diagnostic Imaging Report ---
INDICATION: Pneumonia. PA and lateral chest obtained at 1:10 p.m. and compared to 07/11/2022. FINDINGS: Heart and mediastinal silhouette are normal in appearance. There is mild central vascular prominence. There is some minimal infiltrate or atelectasis in the right base with mild right pleural fluid. There is a right-sided eighth rib fracture of indeterminate age. IMPRESSION: Mild right basilar atelectatic change versus infiltrate with small right pleural effusion. Right-sided eighth rib fracture of uncertain age. There is no pneumothorax. Dictated by: Dictated on workstation # [id number]
--- NOTE | 2022-07-14 11:43 | Physician Query Clarification ---
PQ-Uncertain Diagnosis Admission/Discharge Admission Date: Jul 10, 2022 at 19:29 Discharge Date: Jul 13, 2022 at 13:30 Dr. Jensen, The medical record reflects the following clinical scenario: History/Risk Factors: CP, pneumonia, emphysema, PAF Clinical Findings: WBC 11.6, lactic acid 1.18, T 36.2, P 101 Treatment: IV Piperacillin Question: Is severe sepsis a clinically valid diagnosis? Severe sepsis was documented in the 07/[address] Desai with no further documentation in the medical record. Please document a response in Progress Note or Discharge Summary. 1. Yes, clinically valid, condition resolved. 2. No, condition ruled out. 3. Other, with explanation of clinical findings. 4. Undetermined, no explanation for clinical findings. PHYSICIAN RESPONSE Diagnosis clinically valid: No, conditon ruled out In responding to this query, please exercise your independent professional judgment. The purpose of this communication is to more accurately reflect the complexity of your patients condition. The fact that a question is asked does not imply that any particular answer is desired or expected. Thank you for your timely response to this clarification. Requestors name: Yadiel THIS PHYSICIAN QUERY FORM IS A PERMANENT PART OF THE MEDICAL RECORD YADIEL HARMON Jul 14, 2022 11:43 MARIAH JENSEN MD Jul 14, 2022 16:04
== END 2022-07-13 13:30 | disposition home or self-care (01) | DRG 190 ==
LOC: EDUNIT# 18:24 → ER 18:25 → 4TH 19:29 → ICU 07-11 13:32
PROVIDERS: ADMIT Internal Medicine; ATTEND Internal Medicine
PROC: 5A2204Z Restoration of Cardiac Rhythm, Single (ICD-10-PCS; principal; 2022-07-12)
DX: J43.9 Emphysema, unspecified (principal); J18.9 Pneumonia, unspecified organism; I48.0 Paroxysmal atrial fibrillation; I10 Essential (primary) hypertension; I25.10 Atherosclerotic heart disease of native coronary artery without angina pectoris; F17.210 Nicotine dependence, cigarettes, uncomplicated; E78.5 Hyperlipidemia, unspecified; I45.10 Unspecified right bundle-branch block; Z20.822 Contact with and (suspected) exposure to COVID-19
CPT/HCPCS: 36415; 71045; 71046; 78451; 80048; 80053; 80061; 81000; 82150; 82550; 82553; 83605; 83690; 83735; 83874; 83880; 84145; 84484; 85007; 85025; 85027; 85610; 85730; 87040; 87636; 93005; 93017; 93041; 93306; 94640; 94664; 94760

== ENCOUNTER → 2022-12-07 | Outpatient (CLI) | payer MEDICARE, OTHER ==
[~2022-12-07] MED LIST changes: +ALBU8.5H6 IH; +AMOX1TAB12 PO; +ASPI-1238 PO; +CARV12.53 PO; +DICL100G13 TP; +DILT-27 PO; +DIPH25TA65 PO; +ERGO1250 PO; +FLUT1BLS13 IH; +GABA300C PO; +LIDO700A45 TP; +OMEP20CA18 PO; +PRD20T PO; +RIVA20TA2 PO; +TRZ50T PO
--- NOTE | 2022-12-07 08:27 | Diagnostic Imaging Report ---
EXAMINATION: CT chest without contrast. TECHNIQUE: Multiple contiguous axial images were obtained through the chest without the use of intravenous contrast. All CT scans use one or more of the following dose optimizing techniques: automated exposure control, MA and/or KvP adjustment based on patient size and exam type or iterative reconstruction. HISTORY: Hemoptysis COMPARISON: None available. FINDINGS: There is no edema or pneumonia. No pleural effusion. No pneumothorax. Lungs are moderately emphysematous. There is a 7 mm average diameter right lower lobe nodule (series 3, image 130). There are scattered areas of mucus plugging. Tree-in-bud nodules most pronounced in the lower lobes. There is a left lower lobe 2.0 x 1.3 cm nodule. There is no axillary or supraclavicular lymphadenopathy. There is no mediastinal lymphadenopathy. Heart size is normal. There are severe coronary artery calcifications. No pericardial effusion. Aorta is normal in caliber. Limited views of the upper abdomen show the gallbladder to be absent. There are no suspicious osseus lesions. There are old right-sided rib fractures. IMPRESSION: 1. Suspicious left lower lobe 2.0 x 1.3 cm nodule. PET/CT recommended. 2. Endobronchial debris and tree-in-bud nodules in the right lower lobe which may represent mucus or aspirated blood. Dictated by: Dictated on workstation # [id number]
== END ==
LOC: RAD 07:45
PROVIDERS: ATTEND Physician Assistant
DX: R91.8 Other nonspecific abnormal finding of lung field (principal); R04.2 Hemoptysis
CPT/HCPCS: 71250

== ENCOUNTER → 2022-12-26 | Outpatient (CLI) | payer OTHER ==
[~2022-12-26] MED LIST changes: +ACET-2041 PO; +AMIO200T65 PO; +DILT-10 PO; +FURO-125 PO; +MIRT-96 PO; +POTA-160 PO; +PRED10TA22 PO; +VORI200T8 PO
== END ==
LOC: LABNPT 08:47
PROVIDERS: ATTEND Internal Medicine Critical Care Medicine
DX: J44.9 Chronic obstructive pulmonary disease, unspecified (principal); R91.8 Other nonspecific abnormal finding of lung field
CPT/HCPCS: 87015; 87116; 87206

== ENCOUNTER → 2022-12-28 | Outpatient (CLI) | payer OTHER ==
[~2022-12-28] MED LIST changes: -ACET-2041 PO; -AMIO200T65 PO; -DILT-10 PO; -FURO-125 PO; -MIRT-96 PO; -POTA-160 PO; -PRED10TA22 PO; -VORI200T8 PO
== END ==
LOC: LABNPT 09:00
PROVIDERS: ATTEND Internal Medicine Critical Care Medicine
DX: J44.9 Chronic obstructive pulmonary disease, unspecified (principal); R91.8 Other nonspecific abnormal finding of lung field
CPT/HCPCS: 87070; 87077; 87101; 87106; 87205

== ENCOUNTER 2022-12-30 19:13 | Inpatient (IN) | payer OTHER, MEDICARE ==
[~2022-12-30] VITALS: Ht 172.7 cm; Wt 56.2 kg
[~2022-12-30 19:13] MED LIST changes: -ACET-2041 PO; -AMIO200T65 PO; -DILT-10 PO; -FURO-125 PO; -MIRT-96 PO; -POTA-160 PO; -PRED10TA22 PO; -VORI200T8 PO
[2022-12-30 19:44] LABS: BASOPHILS % (AUTO) 0 % (0-10); EOSINOPHILS % (AUTO) 0 % (0-10); HEMATOCRIT 35 % (40-54); LYMPHOCYTES # (AUTO) 0.7 10^3/uL (1.0-4.0); LYMPHOCYTES % (AUTO) 6 % (12-44); MEAN CORPUSCULAR HEMOGLOBIN 30 pg (25-34); MEAN CORPUSCULAR HGB CONC 35 g/dL (32-36); MEAN CORPUSCULAR VOLUME 85 fL (80-99); MEAN PLATELET VOLUME 8.6 fL (9.0-12.2); MONOCYTES # (AUTO) 0.9 10^3/uL (0.0-1.0); MONOCYTES % (AUTO) 7 % (0-12); NEUTROPHILS # (AUTO) 10.2 10^3/uL (1.8-7.8); NEUTROPHILS % (AUTO) 86 % (42-75); PLATELET COUNT 363 10^3/uL (130-400); WHITE BLOOD COUNT 11.9 10^3/uL (4.3-11.0)
[2022-12-30] MEDS ORDERED: NS IV 1000 ML 1,000 ML IV ONE (19:45)
[2022-12-30] MEDS ORDERED: ASPIRIN 81 MG CHEW (CHILDREN'S ASA) PO STA (19:46)
[2022-12-30 19:51] LABS: INR 0.9 (0.8-1.4); PROTHROMBIN TIME PATIENT 12.8 SEC (12.2-14.7)
--- NOTE | 2022-12-30 19:58 | Diagnostic Imaging Report ---
INDICATION: Dyspnea and altered mental status. EXAMINATION: AP view of the chest was obtained. COMPARISON: Study of 10/11/2021. FINDINGS: There has been worsening of airspace disease in the left lung base. Background emphysema is again noted with coarse interstitial markings in the right perihilar region. IMPRESSION: Findings are compatible with developing left basilar pneumonitis or pneumonia with background emphysema again noted. Radiographic follow-up would be useful to document resolution. Dictated by: Dictated on workstation # [id number]
[2022-12-30] MEDS ORDERED: meTOprolol 5 MG/5 ML (LOPRESSOR) VIAL IV ONE (20:00)
[2022-12-30] MEDS ORDERED: RT-ALBUTEROL/IPRATROPIUM 3 ML (DUONEB) VIAL INH ONE (20:00)
[2022-12-30 20:06] LABS: ALANINE AMINOTRANSFERASE 10 U/L (0-55); ALBUMIN 2.9 GM/DL (3.2-4.5); ALKALINE PHOSPHATASE 119 U/L (40-136); BILIRUBIN,TOTAL 0.7 MG/DL (0.1-1.0); BUN/CREATININE RATIO 16; CALCIUM 8.7 MG/DL (8.5-10.1); CARBON DIOXIDE 23 MMOL/L (21-32); CHLORIDE 98 MMOL/L (98-107); CREATININE SERUM 0.76 MG/DL (0.60-1.30); GFR ESTIMATED 94; GLUCOSE 149 MG/DL (70-105); POTASSIUM 4.8 MMOL/L (3.6-5.0); SODIUM 131 MMOL/L (135-145); TOTAL PROTEIN 5.6 GM/DL (6.4-8.2)
[2022-12-30 20:11] LABS: BAND NEUTROPHILS 21 %; HYPOCHROMASIA SLIGHT; LYMPHOCYTES % (MANUAL) 9 %; MONOCYTES % (MANUAL) 7 %; NEUTROPHILS % (MANUAL) 63 %
[2022-12-30 20:12] LABS: PLATELET ESTIMATE NORMAL
[2022-12-30] MEDS ORDERED: ENOXAPARIN 60 MG/0.6 ML (LOVENOX) SYR SC ONE (20:30)
[2022-12-30] MEDS ORDERED: HOLD METFORMIN - RECEIVED CONTRAST 20 ML VIAL IV SCH (20:45)
[2022-12-30] MEDS ORDERED: IOHEXOL 350 MG/ML 100 ML (OMNIPAQUE 350) VIAL IV ONE (20:45)
[2022-12-30] MEDS ORDERED: NS 100 ML (IVPB) BAG IV ONE (20:45)
--- NOTE | 2022-12-30 21:03 | ED General ---
General Chief Complaint: Altered Mental Status Stated Complaint: CONFUSION Nursing Triage Note: PT TO ROOM BY [facility]. EMS STATES PT HAS LUNG BIOPSY THIS AM AT [facility]. EMS REPORTS PT BECAME CONFUSED AT HOME AT APPROX 1800 THIS EVENING PER PT DAUGHTER REPORT. PT ARRIVAL ON NONREBREATHER 10L WITH O2 SAT 95% Source of Information: Patient, EMS, Family Exam Limitations: Physical Impairments History of Present Illness Date Seen by Provider: Dec 30, 2022 Time Seen by Provider: 19:33 Initial Comments Here by EMS with report of confusion at home and difficulty breathing. EMS reports the patient had O2 sats in the mid 80s on room air and he was placed on nasal cannula which did not help and then nonrebreather which did help his O2 sats improved to the mid 90s. Patient apparently had lung biopsy at [facility] today for lung [facility]. [facility]. Patient seems somewhat confused but is answering questions and does report shortness of breath and admit to lung biopsy today. Daughter arrives and states the patient did have a lung biopsy and has history of atrial fibrillation. He has not been on anticoagulation since early November du e to hemoptysis. He did have cardioversion procedure at the time which resolved the A-fib. She reports today he had a chest x-ray and a CT scan\\as well as the biopsy. Patient is febrile and EMS noted fever of 102 Fahrenheit and he was 102.8 Fahrenheit here on arrival. He is coughing and short of breath. Does have history of COPD and does admit to smoking cigarettes. Timing/Duration: 4-6 Hours Severity: Moderate, Severe Associated Systoms: No Chest Pain; Cough, Fever/Chills; No Nausea/Vomiting; Shortness of Air, Weakness Allergies and Home Medications Allergies Coded Allergies: cefaclor (Verified Allergy, Unknown, HIVES, 08/08/18) diazepam (Verified Allergy, Unknown, 02/18/06) levofloxacin (Verified Allergy, Unknown, HIVES, 08/08/18) Patient Home Medication List Home Medication List Reviewed: Yes Acetaminophen (Tylenol Extra Strength) 500 Mg Tablet, 1,000 MG PO BID, (Reported) Entered as Reported by: AMY COFFEY on 08/29/16 3704 Albuterol Sulfate (Ventolin Hfa) 1 Puff Puff, 2 PUFF IH Q6H PRN for SHORTNESS OF BREATH, (Reported) Entered as Reported by: KARYNA BARRON on 07/11/22 1234 Albuterol/Ipratropium (Combivent Respimat Inhal [place]) 20 Mcg-100 Mcg/Actuation Aero, 2 PUFF IH QID, (Reported) Entered as Reported by: KARYNA BARRON on 07/11/22 1234 Amoxicillin/Potassium Clav (Amox Tr-K Clv 875-125 mg Tab) 875 Mg-125 Mg Tablet, 1 EACH PO BID Prescribed by: MARIAH SANDERSON on 07/13/22 1151 Aspirin (Aspirin EC) 81 Mg Tablet.dr, 81 MG PO DAILY, (Reported) Entered as Reported by: KARYNA BARRON on 07/11/22 1238 Atorvastatin Calcium (Atorvastatin Calcium) 20 Mg Tablet, 10 MG PO HS, (Reported) Entered as Reported by: KARYNA BARRON on 07/11/22 1234 Diclofenac Sodium (Diclofenac Sodium) 1 % Gel..gram., 4 GM TP QID PRN for PAIN- BREAKTHROUGH, (Reported) Entered as Reported by: KARYNA BARRON on 07/11/22 1234 Diltiazem HCl (Diltiazem 24Hr ER) 120 Mg Cap.er.24h, 120 MG PO DAILY Prescribed by: MARIAH SANDERSON on 07/13/22 1151 Diphenhydramine HCl (Benadryl Allergy) 25 Mg Tablet, 25 MG PO DAILY, (Reported) Entered as Reported by: KARYNA BARRON on 07/11/22 1238 Ergocalciferol (Vitamin D2) (Vitamin D2) 1,250 Mcg (40673 Unit) Capsule, 1,250 MCG PO WEEK, (Reported) Entered as Reported by: KARYNA BARRON on 07/11/22 1234 Fluticasone Propion/Salmeterol (Fluticasone-Salmeterol 500-50) 500 Mcg-50 Mcg/Dose Blst.w.dev, 1 EACH IH BID, (Reported) Entered as Reported by: KARYNA BARRON on 07/11/22 1234 Gabapentin (Neurontin) 300 Mg Capsule, 300 MG PO BID, (Reported) Entered as Reported by: KARYNA BARRON on 07/11/22 1234 Guaifenesin (Guaifenesin) 200 Mg Tablet, 400 MG PO QID PRN for COUGH/MUCUS PRODUCTION, (Reported) Entered as Reported by: KARYNA BARRON on 07/11/22 1234 Ipratropium/Albuterol Sulfate (Iprat-Albut 0.5-3(2.5) mg/3 ml) 0.5 Mg-3 Mg (2.5 Mg Base)/3 Ml Ampul.neb, 3 ML IH QID PRN for SHORTNESS OF BREATH, (Reported) Entered as Reported by: KARYNA BARRON on 07/11/22 1234 Lidocaine (Lidocaine 5% Patch) 5 % Adh..patch, 1 EACH TP DAILY, (Reported) Entered as Reported by: KARYNA BARRON on 07/11/22 1234 Montelukast Sodium (Montelukast Sodium) 10 Mg Tablet, 10 MG PO HS, (Reported) Entered as Reported by: KARYNA BARRON on 07/11/22 1234 Omeprazole (Omeprazole) 20 Mg Capsule.dr, 20 MG PO DAILY, (Reported) Entered as Reported by: KARYNA BARRON on 07/11/22 1234 Prednisone (Prednisone) 20 Mg Tab, 40 MG PO DAILY@0700 Prescribed by: MARIAH SANDERSON on 07/13/22 1151 Rivaroxaban (Xarelto Tablet) 20 Mg Tablet, 20 MG PO DAILY@1700 Prescribed by: MARIAH SANDERSON on 07/13/22 1151 Trazodone HCl (Trazodone HCl) 50 Mg Tablet, 50 MG PO HS PRN for SLEEP, (Reported) Entered as Reported by: KARYNA BARRON on 07/11/22 1234 Review of Systems Review of Systems Constitutional: see HPI; No chills; fever, weakness EENTM: No nose congestion, No throat pain Respiratory: cough, short of breath, wheezing Cardiovascular: No chest pain, No edema Gastrointestinal: No nausea, No vomiting Genitourinary: no symptoms reported Musculoskeletal: no symptoms reported Skin: no symptoms reported Psychiatric/Neurological: See HPI, Weakness, Other (Confusion) Past Bqgkain-Jymsak-Ujtqib Hx Patient Social History Tobacco Use?: Yes Tobacco type used: Cigarettes Smoking Status: Current Everyday Smoker Substance use?: No Alcohol Use?: Yes Alcohol type: Beer Alcohol Frequency: Daily Immunizations Up To Date Tetanus Booster (TDap): More than 5yrs Influenza Vaccine Up-to-Date: Yes; Up-to-Date First/Initial COVID19 Vaccinat: YES Second COVID19 Vaccination John: YES Seasonal Allergies Seasonal Allergies: Yes Past Medical History Surgery/Hospitalization HX: HTN, COPD GB, APPY, ESOPHAGUS Surgeries: Yes (HIATAL HERNIA REPAIR;STOMACH SURGERY-BLEEDING ULCER;CARDIAC CATH;SKIN CA) Abdominal, Appendectomy, Gallbladder Respiratory: Yes Asthma, COPD, Emphysema Currently Using CPAP: No Currently Using BIPAP: No Cardiac: Yes (CATH 2016-MODERATE DISEASE, NO INTERVENTION) Coronary Artery Disease, Hypertension Neurological: Yes Stroke Reproductive Disorders: No Genitourinary: No Gastrointestinal: Yes Gastroesophageal Reflux, Gastrointestinal Bleed, Hiatal Hernia, Ulcer, Cirrhosis Musculoskeletal: Yes Arthritis, Chronic Back Pain Endocrine: No HEENT: Yes Cataract Loss of Vision: Denies Hearing Impairment: Denies Cancer: Yes Skin Did You Recieve Any Treatments: Yes What Type of Treatment Did You: Surgical Intervention Psychosocial: No Integumentary: No Blood Disorders: No Family Medical History Reviewed Nursing Family Hx No Pertinent Family Hx Physical Exam-Suspected Sepsis Physical Exam Vital Signs Vital Signs - First Documented Capillary Refill : Blood Pressure Mean: 85 Height, Weight, BMI Height: 5'8.00" Weight: 154lbs. 0.0oz. [id number]; 19.00 BMI Method:Stated General Appearance: No Apparent Distress, WD/WN HEENT: PERRL/EOMI, Pharynx Normal Neck: Non Tender, Supple Respiratory: Crackles (Left base), Wheezing (Scattered), Other (O2 sat 95% on nonrebreather at 10 L) Cardiovascular: No Murmur, Tachycardia Gastrointestinal: Non Tender, Soft Back: Normal Inspection, No CVA Tenderness, No Vertebral Tenderness Extremity: Normal Range of Motion, Non Tender Neurologic/Psychiatric: Alert, Other (Seems somewhat confused but answers questions and follows simple commands. No self and daughter) Skin: normal color, warm/dry Focused Exam Lactate Level 12/30/22 19:28: Lactic Acid Level 1.55 Lactic Acid Level Laboratory Tests Test 12/30/22 19:28 Lactic Acid Level 1.55 MMOL/L (0.50-2.00) Progress/Results/Core Measures Suspected Sepsis SIRS Temperature: Pulse: 138 Respiratory Rate: 23 Laboratory Tests 12/30/22 19:28: White Blood Count 11.9H Blood Pressure 118 /69 Mean: 85 12/30/22 19:28: Lactic Acid Level 1.55 Laboratory Tests 12/30/22 19:28: Creatinine 0.76, INR Comment 0.9, Platelet Count 363, Total Bilirubin 0.7 Results/Orders Lab Results Laboratory Tests Test 12/30/22 19:28 12/30/22 22:07 Range/Units White Blood Count 11.9 H 4.3-11.0 10^3/uL Red Blood Count 4.07 L 4.30-5.52 10^6/uL Hemoglobin 12.0 L 13.3-17.7 g/dL Hematocrit 35 L 40-54 % Mean Corpuscular Volume 85 80-99 fL Mean Corpuscular Hemoglobin 30 25-34 pg Mean Corpuscular Hemoglobin Concent 35 32-36 g/dL Red Cell Distribution Width 15.9 H 10.0-14.5 % Platelet Count 363 130-400 10^3/uL Mean Platelet Volume 8.6 L 9.0-12.2 fL Immature Granulocyte % (Auto) 0 % Neutrophils (%) (Auto) 86 H 42-75 % Lymphocytes (%) (Auto) 6 L 12-44 % Monocytes (%) (Auto) 7 0-12 % Eosinophils (%) (Auto) 0 0-10 % Basophils (%) (Auto) 0 0-10 % Neutrophils # (Auto) 10.2 H 1.8-7.8 10^3/uL Lymphocytes # (Auto) 0.7 L 1.0-4.0 10^3/uL Monocytes # (Auto) 0.9 0.0-1.0 10^3/uL Eosinophils # (Auto) 0.0 0.0-0.3 10^3/uL Basophils # (Auto) 0.0 0.0-0.1 10^3/uL Immature Granulocyte # (Auto) 0.0 0.0-0.1 10^3/uL Neutrophils % (Manual) 63 % Lymphocytes % (Manual) 9 % Monocytes % (Manual) 7 % Band Neutrophils 21 % Platelet Estimate NORMAL Hypochromasia SLIGHT Prothrombin Time 12.8 12.2-14.7 SEC INR Comment 0.9 0.8-1.4 Activated Partial Thromboplast Time 26 24-35 SEC Sodium Level 131 L 135-145 MMOL/L Potassium Level 4.8 3.6-5.0 MMOL/L Chloride Level 98 98-107 MMOL/L Carbon Dioxide Level 23 21-32 MMOL/L Anion Gap 10 5-14 MMOL/L Blood Urea Nitrogen 12 7-18 MG/DL Creatinine 0.76 0.60-1.30 MG/DL Estimat Glomerular Filtration Rate 94 BUN/Creatinine Ratio 16 Glucose Level 149 H 70-105 MG/DL Lactic Acid Level 1.55 0.50-2.00 MMOL/L Calcium Level 8.7 8.5-10.1 MG/DL Corrected Calcium 9.6 8.5-10.1 MG/DL Total Bilirubin 0.7 0.1-1.0 MG/DL Aspartate Amino Transf (AST/SGOT) 15 5-34 U/L Alanine Aminotransferase (ALT/SGPT) 10 0-55 U/L Alkaline Phosphatase 119 40-136 U/L Troponin I < 0.028 <0.028 NG/ML Total Protein 5.6 L 6.4-8.2 GM/DL Albumin 2.9 L 3.2-4.5 GM/DL My Orders Orders - MELECIO KURTZ MD Cbc With Automated Diff (12/30/22 19:38) Comprehensive Metabolic Panel (12/30/22 19:38) Blood Culture (12/30/22 19:38) Sputum Culture (12/30/22 19:38) Urinalysis (12/30/22 19:38) Urine Culture (12/30/22 19:38) Protime With Inr (12/30/22 19:38) Partial Thromboplastin Time (12/30/22 19:38) Chest 1 View, Ap/Pa Only (12/30/22 19:38) Ed Iv/Invasive Line Start (12/30/22 19:38) Ed Iv/Invasive Line Start (12/30/22 19:38) Troponin I [place] (12/30/22 19:38) Vital Signs Adult Sepsis Patie Q15M (12/30/22 19:38) O2 (12/30/22 19:38) Remove Rings In Anticipation O (12/30/22 19:38) Lactic Acid Analyzer (12/30/22 19:38) Ed Iv/Invasive Line Start (12/30/22 19:38) Ns Iv 1000 Ml (Sodium Chloride 0.9%) (12/30/22 19:45) Metoprolol Tartrate Injection (Lopressor (12/30/22 20:00) Aspirin Chewable Tablet (Baby Aspirin Ch (12/30/22 19:46) Manual Differential (12/30/22 19:28) Albuterol/Ipra Inhalation Soln (Duoneb I (12/30/22 20:00) Svn Small Volume Nebulizer (12/30/22 19:53) Outside Films For Comparison (12/30/22 ) Outside Films For Comparison (12/30/22 ) Enoxaparin Injection (Lovenox Injection) (12/30/22 20:30) Ct Angio Chest W (R/O Pe) (12/30/22 20:28) Iohexol Injection (Omnipaque 350 Mg/Ml 1 (12/30/22 20:45) Received Contrast (Hold Metformin- Contr (12/30/22 20:45) Ns (Ivpb) (Sodium Chloride 0.9% Ivpb Bag (12/30/22 20:45) Ns Iv 500 Ml (Sodium Chloride 0.9%) (12/30/22 22:15) Piperacillin Sodium/Tazobactam (Zosyn Vi (12/30/22 22:15) Vancomycin Injection (Vancomycin Injecti (12/30/22 22:15) Medications Given in ED Current Medications Medications Dose Ordered Sig/Maria De Jesus Route Start Time Stop Time Status Last Admin Dose Admin Albuterol/ Ipratropium 3 ml ONCE ONCE INH 12/30/22 20:00 12/30/22 20:01 DC 12/30/22 20:07 3 ML Iohexol 100 ml ONCE ONCE IV 12/30/22 20:45 12/30/22 20:46 DC 12/30/22 20:57 58 ML Metoprolol Tartrate 5 mg ONCE ONCE IV 12/30/22 20:00 12/30/22 20:01 DC 12/30/22 19:52 5 MG Sodium Chloride 100 ml ONCE ONCE IV 12/30/22 20:45 12/30/22 20:46 DC 12/30/22 20:58 80 ML Sodium Chloride 1,000 ml @ 0 mls/hr Q0M ONCE IV 12/30/22 19:45 12/30/22 19:46 DC 12/30/22 19:42 0 MLS/HR Vital Signs/I&O 12/30/22 12/30/22 12/30/22 19:19 19:19 20:07 Temp 39.3 Pulse 138 Resp 23 B/P (MAP) 118/69 (85) Pulse Ox 96 96 94 O2 Delivery Non Rebreather Non Rebreather Non Rebreather O2 Flow Rate 10.00 10.00 10.00 Capillary Refill : Blood Pressure Mean: 85 Progress Note : Progress Note Seen and evaluated on arrival by EMS. EKG done and does note sinus tachycardia with right bundle branch block with concerns for possible acute NH although I do not agree. There is some question ST depression in the lateral leads. 193: I did discuss the case and EKG with Dr Owen. He also does not believe that there is acute NH. I have initiated sepsis protocol with CBC, CMP, blood cultures and lactic acid as well as UA, chest x-ray and EKG. Troponin ordered. He is recommending metoprolol 5 mg IV and I am giving normal saline 1 L bolus now. We will see if that brings his heart rate down and how he responds. We will consider Lovenox weight-based dosing for A-fib coverage. There is also concerns for possible pulmonary embolism given history of A-fib and he is off anticoagulation and CT angio would be reasonable. We will see how he responds. Differential diagnosis includes pneumonia, pulmonary embolism, acute exacerbation of chronic lung disease 2018: I have discussed the case with Dr. Sanderson. He does have infiltrates bilateral with left greater than right on the chest x-ray on my interpretation. We did review labs. CBC shows slightly elevated white count with slightly decreased hemoglobin and left shift with bandemia. Coags are normal. CMP shows slightly low sodium but otherwise electrolytes are okay. Glucose elevated at 145 and LFTs are normal. Lactic acid is in normal range at 1.55 and troponin is negative. Given concerns for pulmonary embolism, we will get CT angiogram. I will hold on Lovenox given recent biopsy in the setting of hemoptysis previously until we get results from CT angiogram. This was discussed with patient and family who agree. Heart rate has improved after metoprolol 5 mg IV on 1 L of normal saline running and now he is at 105 in sinus rhythm. I did discuss CODE STATUS with the patient and he would like full code at this point. 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 Monitor patient. 2119: Heart rate now in the low 100s and he is in sinus rhythm on the monitor. We are pending results of CT. 2144: CT angiogram does show bilateral infiltrates with left greater than right and a few nodules but I do not see any obvious pulmonary embolism on my interpretation. Pending radiology report. 2224: I have discussed the case with Dr. Sanderson, hospitalist on-call. We have reviewed all current data. I have o rdered normal saline 500 mL bolus as patient was orthostatic when standing to give urine sample with blood pressure down to the 70s systolic but did return to 108/71 after laying down. We have converted oxygen from nonrebreather to nasal cannula at 4 to 5 L to keep O2 sat greater than 90%. We will initiate Zosyn 4.5 g IV now as well as vancomycin [address] Sanderson will follow and continue vancomycin if needed and we will continue Zosyn on order set. She accepts him for admission, inpatient to the ICU. I did consult the eICU team and talked with the physician on-call and report was given including discussion of all current labs and evaluation as well as patient's current status. Overall he is doing better and states he would just like to go to sleep and "being poked. We will get him to the ICU. Patient and daughter are in agreement. Patient had has orders for and is receiving 1500 mL of normal saline which would be approximately 30 mL/kg and I think this is a reasonable dose given his current findings. He does not have findings of septic shock although did have orthostatic hypotension but otherwise was not hypotensive and has improved with fluids. ECG Initial ECG Impression Date: Dec 30, 2022 Initial ECG Impression Time: 19:33 Initial ECG Rate: 138 Initial ECG Rhythm: S.Tach Comment Sinus tachycardia with rate of 138 and right bundle branch block. This is possible atrial flutter or fibrillation. Left axis deviation. I did discuss EKG with Dr Owen due to concerns about ST depression lateral leads but I believe this is progression of block and rate dependent and not acute NH and Dr Owen agrees. No evidence of ST elevation NH. Interpreted by me. Diagnostic Imaging Diagonstic Imaging: Xray Plain Films/CT/US/NM/MRI: chest Comments [facility]. [place], [place] NAME: JENNIE MAE [facility] REC#: [id number] PT STATUS: REG ER : 1945 PHYSICIAN: MELECIO KURTZ MD ADMIT DATE: 12/30/22/ER Signed Date of Exam:12/30/22 CHEST 1 VIEW, AP/PA ONLY INDICATION: Dyspnea and altered mental status. EXAMINATION: AP view of the chest was obtained. COMPARISON: Study of 10/11/2021. FINDINGS: There has been worsening of airspace disease in the left lung base. Background emphysema is again noted with coarse interstitial markings in the right perihilar region. IMPRESSION: Findings are compatible with developing left basilar pneumonitis or pneumonia with background emphysema again noted. Radiographic follow-up would be useful to document resolution. Dictated by: Dictated on workstation # [id number] Dict: 12/30/221953 Trans: 12/30/222149 [facility] [id number] Interpreted by: JÚNIOR ARMENTA MD Electronically signed by: JÚNIOR ARMENTA MD 12/30/222149 Reviewed: Reviewed by Me Diagonstic Imaging: CT Plain Films/CT/US/NM/MRI: chest Comments [facility]. [place], [place] NAME: JENNIE MAE [facility] REC#: [id number] PT STATUS: REG ER : 1945 PHYSICIAN: MELECIO KURTZ MD ADMIT DATE: 12/30/22/ER Signed Date of Exam:12/30/22 CT ANGIO CHEST W (R/O PE) INDICATION: Dyspnea. TECHNIQUE: CTA imaging of the chest was performed after bolus intravenous administration of intravenous contrast. 3D reformatted images were produced. Automatic exposure controls were utilized to keep dose as low as reasonably achievable. COMPARISON: 12/07/2022. FINDINGS: There has been development of mixed interstitial and alveolar infiltrate throughout the left lower lobe. Consolidation is greatest in the medial aspect of the left lower lobe below the hilum. This obscures the nodular structure seen at this site on the previous study. There is a persistent 0.7 cm nodule in the medial right costophrenic sulcus. There has been development of peripheral nodule measuring 1.2 x 0.8 cm in size in the right upper lobe. There has also been mild interval increase in bilateral hilar adenopathy. Coronary artery calcifications are noted. There is no filling defect within pulmonary arteries to indicate acute embolism. IMPRESSION: 1. Atypical pneumonia or pneumonitis in the left lower lobe. This obscures the nodular lesion seen on the previous study. This may be on the basis of aspiration and clinical correlation would be useful. 2. There has been mild increase in probable reactive hilar lymph nodes, bilaterally, with new peripheral nodule in the anterior right upper lobe which could be inflammatory in nature. Short-term follow-up study is recommended to document stability or resolution of this finding as well as reassessment of likely obscured mass in the medial left lung base. Dictated by: Dictated on workstation # [id number] Dict: 12/30/222105 Trans: 12/30/222149 [facility] [id number] Interpreted by: JÚNIOR ARMENTA MD Electronically signed by: JÚNIOR ARMENTA MD 12/30/222149 Reviewed: Reviewed by Oh Critical Care Note Critical Care Start Time: 19:33 Stop Time: 22:24 Total Time (minutes) 30 minutes excluding separately billable procedures to manage life-threatening condition including history, physical, evaluation, review of data, decision making regarding data and discussion with other providers and family. See progress note for details. Departure Communication (Admissions) Time/Spoke to Admitting Phy: 22:15 Time/Spoke to Consulting Phy: 19:38 Impression Primary Impression: Left lower lobe pneumonia Qualified Codes: J18.9 - Pneumonia, unspecified organism Additional Impressions: Lung mass Orthostatic hypotension Hypoxia Disposition: ADMITTED INPATIENT Condition: Stable Admissions Decision to Admit Reason: Admit from ER (General) Decision to Admit/Date: Dec 30, 2022 Time/Decision to Admit Time: 22:15 Departure-Patient Inst. Referrals: NO,LOCAL PHYSICIAN (PCP/Family) Primary Care Physician MELECIO KURTZ MD Dec 30, 2022 21:03
--- NOTE | 2022-12-30 21:19 | Diagnostic Imaging Report ---
INDICATION: Dyspnea. TECHNIQUE: CTA imaging of the chest was performed after bolus intravenous administration of intravenous contrast. 3D reformatted images were produced. Automatic exposure controls were utilized to keep dose as low as reasonably achievable. COMPARISON: 12/07/2022. FINDINGS: There has been development of mixed interstitial and alveolar infiltrate throughout the left lower lobe. Consolidation is greatest in the medial aspect of the left lower lobe below the hilum. This obscures the nodular structure seen at this site on the previous study. There is a persistent 0.7 cm nodule in the medial right costophrenic sulcus. There has been development of peripheral nodule measuring 1.2 x 0.8 cm in size in the right upper lobe. There has also been mild interval increase in bilateral hilar adenopathy. Coronary artery calcifications are noted. There is no filling defect within pulmonary arteries to indicate acute embolism. IMPRESSION: 1. Atypical pneumonia or pneumonitis in the left lower lobe. This obscures the nodular lesion seen on the previous study. This may be on the basis of aspiration and clinical correlation would be useful. 2. There has been mild increase in probable reactive hilar lymph nodes, bilaterally, with new peripheral nodule in the anterior right upper lobe which could be inflammatory in nature. Short-term follow-up study is recommended to document stability or resolution of this finding as well as reassessment of likely obscured mass in the medial left lung base. Dictated by: Dictated on workstation # [id number]
[2022-12-30] MEDS ORDERED: NS IV 500 ML 500 ML IV ONE (22:15)
[2022-12-30] MEDS ORDERED: VANCOMYCIN INJECTION 1,000 MG in NS (IVPB) 250 ML IV ONE (22:15)
[2022-12-30] MEDS ORDERED: PIPERACILLIN SODIUM/TAZOBACTAM 4.5 GM in NS (IVPB) 100 ML IV ONE (22:15)
[2022-12-30 22:16] LABS: BILIRUBIN,URINE NEGATIVE (NEGATIVE); CLARITY,URINE CLEAR; COLOR,URINE YELLOW; GLUCOSE, URINE (UA) NEGATIVE (NEGATIVE); KETONES,URINE NEGATIVE (NEGATIVE); LEUKOCYTE ESTERASE ,URINE NEGATIVE (NEGATIVE); NITRITE,URINE NEGATIVE (NEGATIVE); PH,URINE 6.5 (5-9); PROTEIN,URINE NEGATIVE (NEGATIVE)
[2022-12-30 22:21] LABS: BACTERIA,URINE NEGATIVE /HPF; SQUAMOUS EPITHELIAL CELL,UR 0-2 /HPF; WBC,URINE 0-2 /HPF
[2022-12-30 22:22] LABS: AMORPHOUS SEDIMENT,UR RARE AMOR URATES /LPF; CALCIUM OXALATE CRYSTALS,UR FEW /LPF
[2022-12-30] MEDS: NOREPINEPHRINE 8 MG/250 ML 250 ML IV SCH (23:00)
[2022-12-30] MEDS ORDERED: EPINEPHrine 1 MG INJECTION 4 MG in NS (IVPB) 248 ML IV SCH (23:00)
[2022-12-30] MEDS ORDERED: ACETAMINOPHEN 325 MG TABLET PO PRN (23:00)
[2022-12-30] MEDS: VASOPRESSIN INJECTION 20 UNIT in NS (IVPB) 100 ML IV SCH (23:00)
[2022-12-30] MEDS ORDERED: ONDANSETRON 4 MG/2 ML (SDV) Z0FRAN IV PRN (23:00)
[2022-12-30] MEDS ORDERED: NS IV 1000 ML 1,000 ML IV SCH (23:00)
--- NOTE | 2022-12-31 01:05 | Tele-ICU Progress Note ---
Progress Note 77M with lung lesions s/p bilateral bx earlier today, afib off coagulation for hemoptysis last month, presented with weakness, confusion, SOB. On EMS eval was fount to be hypoxic at 80% on RA. With NRB SpO2 in the 90s. Noted to have fever to 102.8 in ED. WBC 11.9 with 20% bandemia. Initially had HR in the 130s, improved to the low 100s after dose of metoprolol and 1L IVF. Noted to be orthostatic from 100 to 70 with standing. - sepsis: zosyn and vanco ongoing. Cultures pending. CT with probable L pneumonia. - hypoxia: likely secondary to pneumonia. No evidence of post-op bleeding on CT. Doing well with supplemental O2. No PE on CT. Wean O2 as tolerated. - orthostasis: recheck in AM after volume resusciation. Patient assessed via real-time audiovisual communication system. CCT 11 min Focused Exam Lactate Level 12/30/22 19:28: Lactic Acid Level 1.55 12/30/22 23:13: Lactic Acid Level 0.98 Height, Weight, BMI Height: 5'8.00" Weight: 154lbs. 0.0oz. [id number]; 18.94 BMI Method:Stated Lactic Acid Level Laboratory Tests Test 12/30/22 23:13 Lactic Acid Level 0.98 MMOL/L (0.50-2.00) DOM BARRAZA MD Dec 31, 2022 01:05
[2022-12-31 03:49] LABS: BASOPHILS # (AUTO) 0.1 10^3/uL (0.0-0.1); BASOPHILS % (AUTO) 1 % (0-10); EOSINOPHILS % (AUTO) 0 % (0-10); HEMATOCRIT 29 % (40-54); HEMOGLOBIN 9.9 g/dL (13.3-17.7); LYMPHOCYTES # (AUTO) 1.7 10^3/uL (1.0-4.0); LYMPHOCYTES % (AUTO) 10 % (12-44); MEAN CORPUSCULAR HEMOGLOBIN 29 pg (25-34); MEAN CORPUSCULAR HGB CONC 34 g/dL (32-36); MEAN CORPUSCULAR VOLUME 86 fL (80-99); MEAN PLATELET VOLUME 8.7 fL (9.0-12.2); MONOCYTES # (AUTO) 1.3 10^3/uL (0.0-1.0); MONOCYTES % (AUTO) 8 % (0-12); NEUTROPHILS # (AUTO) 13.4 10^3/uL (1.8-7.8); NEUTROPHILS % (AUTO) 81 % (42-75); PLATELET COUNT 301 10^3/uL (130-400); WHITE BLOOD COUNT 16.6 10^3/uL (4.3-11.0)
[2022-12-31 04:13] LABS: ALBUMIN 2.4 GM/DL (3.2-4.5); BILIRUBIN,TOTAL 0.6 MG/DL (0.1-1.0); CALCIUM 8.5 MG/DL (8.5-10.1); CREATININE SERUM 0.79 MG/DL (0.60-1.30); MAGNESIUM 1.7 MG/DL (1.6-2.4); PHOSPHORUS 3.8 MG/DL (2.3-4.7); POTASSIUM 4.5 MMOL/L (3.6-5.0); TOTAL PROTEIN 4.6 GM/DL (6.4-8.2)
[2022-12-31 04:34] LABS: BAND NEUTROPHILS 9 %; LYMPHOCYTES % (MANUAL) 13 %; MONOCYTES % (MANUAL) 5 %; NEUTROPHILS % (MANUAL) 73 %
[2022-12-31 04:35] LABS: RBC MORPH NORMAL
[2022-12-31] MEDS: PIPERACILLIN SODIUM/TAZOBACTAM 4.5 GM in NS (IVPB) 100 ML IV SCH ×3 (05:29→20:24)
[2022-12-31] MEDS: MAGNESIUM 1 GM/100 ML IVPB 100 ML IV SCH ×5 (05:35→07:58)
[2022-12-31] MEDS: POTASSIUM CL 10MEQ/50ML IVPB 50 ML IV SCH (06:00)
[2022-12-31] MEDS: KCL 20 MEQ TAB (K-DUR) PO SCH (06:00)
[2022-12-31] MEDS ORDERED: NS IV 500 ML 500 ML IV PRN (06:00)
--- NOTE | 2022-12-31 08:36 | Consultation-Cardiology ---
HPI-Cardiology Cardiology Consultation Date of Consultation 12/31/22 Date of Admission Time Seen by Provider: 08:30 Indication: Chest pain HPI 77-year-old gentleman with a history of chronic lung disease, had history of hemoptysis, underwent lung biopsy on December 30, 2022. In the evening started to have fever, hypoxemia, shortness of breath in addition to chest pain, reporting chest pain in the left side with inspiration and coughing. Currently feeling better, no active chest pain was reported still having some cough. No hemoptysis was reported at this point. Patient had extensive history as described below Home Medications & Allergies Allergies: Coded Allergies: cefaclor (Verified Allergy, Unknown, HIVES, 08/08/18) diazepam (Verified Allergy, Unknown, 02/18/06) levofloxacin (Verified Allergy, Unknown, HIVES, 08/08/18) Home Medication List Reviewed: Yes KMK-[id number]-Anzksw Hx Patient Social History Marital Status: Employed/Student: retired Smoking Status: Current Everyday Smoker Type Used: Cigarettes Recent Hopitalizations: No Have you traveled recently?: No Alcohol Use?: Yes Immunizations Up To Date Tetanus Booster (TDap): More than 5yrs Date of Pneumonia Vaccine: Sep 15, 2011 Date of Influenza Vaccine: Jun 27, 2016 Past Medical History Discussed below Family Medical History Significant Family History: No Pertinent Family Hx Review of Systems-General Review of Systems Constitutional: see HPI; No chills; fever, weakness EENTM: No nose congestion, No throat pain Respiratory: see HPI, cough, dyspnea on exertion, hemoptysis, short of breath, wheezing Cardiovascular: see HPI, chest pain; No edema, No Hx of Intervention, No palpitations, No syncope, No vascular heart diseas, No other Gastrointestinal: see HPI; No nausea, No vomiting Genitourinary: no symptoms reported, see HPI Musculoskeletal: no symptoms reported, see HPI Skin: no symptoms reported, see HPI Psychiatric/Neurological: See HPI, Weakness, Other (Confusion) Reviewed Test Results Reviewed Test Results Lab Laboratory Tests Test 12/30/22 19:28 12/30/22 22:07 12/30/22 23:13 12/31/22 03:38 Range/Units White Blood Count 11.9 H 16.6 H 4.3-11.0 10^3/uL Red Blood Count 4.07 L 3.37 L 4.30-5.52 10^6/uL Hemoglobin 12.0 L 9.9 L 13.3-17.7 g/dL Hematocrit 35 L 29 L 40-54 % Mean Corpuscular Volume 85 86 80-99 fL Mean Corpuscular Hemoglobin 30 29 25-34 pg Mean Corpuscular Hemoglobin Concent 35 34 32-36 g/dL Red Cell Distribution Width 15.9 H 15.8 H 10.0-14.5 % Platelet Count 363 301 130-400 10^3/uL Mean Platelet Volume 8.6 L 8.7 L 9.0-12.2 fL Immature Granulocyte % (Auto) 0 0 % Neutrophils (%) (Auto) 86 H 81 H 42-75 % Lymphocytes (%) (Auto) 6 L 10 L 12-44 % Monocytes (%) (Auto) 7 8 0-12 % Eosinophils (%) (Auto) 0 0 0-10 % Basophils (%) (Auto) 0 1 0-10 % Neutrophils # (Auto) 10.2 H 13.4 H 1.8-7.8 10^3/uL Lymphocytes # (Auto) 0.7 L 1.7 1.0-4.0 10^3/uL Monocytes # (Auto) 0.9 1.3 H 0.0-1.0 10^3/uL Eosinophils # (Auto) 0.0 0.0 0.0-0.3 10^3/uL Basophils # (Auto) 0.0 0.1 0.0-0.1 10^3/uL Immature Granulocyte # (Auto) 0.0 0.1 0.0-0.1 10^3/uL Neutrophils % (Manual) 63 73 % Lymphocytes % (Manual) 9 13 % Monocytes % (Manual) 7 5 % Band Neutrophils 21 9 % Platelet Estimate NORMAL Hypochromasia SLIGHT Prothrombin Time 12.8 12.2-14.7 SEC INR Comment 0.9 0.8-1.4 Activated Partial Thromboplast Time 26 24-35 SEC Sodium Level 131 L 134 L 135-145 MMOL/L Potassium Level 4.8 4.5 3.6-5.0 MMOL/L Chloride Level 98 104 98-107 MMOL/L Carbon Dioxide Level 23 22 21-32 MMOL/L Anion Gap 10 8 5-14 MMOL/L Blood Urea Nitrogen 12 14 7-18 MG/DL Creatinine 0.76 0.79 0.60-1.30 MG/DL Estimat Glomerular Filtration Rate 94 93 BUN/Creatinine Ratio 16 18 Glucose Level 149 H 166 H 70-105 MG/DL Lactic Acid Level 1.55 0.98 0.50-2.00 MMOL/L Calcium Level 8.7 8.5 8.5-10.1 MG/DL Corrected Calcium 9.6 9.8 8.5-10.1 MG/DL Total Bilirubin 0.7 0.6 0.1-1.0 MG/DL Aspartate Amino Transf (AST/SGOT) 15 12 5-34 U/L Alanine Aminotransferase (ALT/SGPT) 10 10 0-55 U/L Alkaline Phosphatase 119 86 40-136 U/L Troponin I < 0.028 <0.028 NG/ML Total Protein 5.6 L 4.6 L 6.4-8.2 GM/DL Albumin 2.9 L 2.4 L 3.2-4.5 GM/DL Urine Color YELLOW Urine Clarity CLEAR Urine pH 6.5 5-9 Urine Specific [place] 1.010 L 1.016-1.022 Urine Protein NEGATIVE NEGATIVE Urine Glucose (UA) NEGATIVE NEGATIVE Urine Ketones NEGATIVE NEGATIVE Urine Nitrite NEGATIVE NEGATIVE Urine Bilirubin NEGATIVE NEGATIVE Urine Urobilinogen 0.2 < = 1.0 MG/DL Urine Leukocyte Esterase NEGATIVE NEGATIVE Urine RBC (Auto) NEGATIVE NEGATIVE Urine RBC NONE /HPF Urine WBC 0-2 /HPF Urine Squamous Epithelial Cells 0-2 /HPF Urine Crystals NONE /LPF Urine Calcium Oxalate Crystals FEW H /LPF Urine Amorphous Sediment RARE FOX URATES H /LPF Urine Bacteria NEGATIVE /HPF Urine Casts NONE /LPF Urine Mucus NEGATIVE /LPF Urine Culture Indicated CULTURE PENDING Blood Morphology Comment NORMAL Phosphorus Level 3.8 2.3-4.7 MG/DL Magnesium Level 1.7 1.6-2.4 MG/DL Physical Exam Physical Exam Vital Signs Vital Signs - First Documented Capillary Refill : Height, Weight, BMI Height: 5'8.00" Weight: 154lbs. 0.0oz. 69.060316fh; 19.07 BMI Method:Stated General Appearance: No Apparent Distress, WD/WN HEENT: PERRL/EOMI, Pharynx Normal Neck: Non Tender, Supple Respiratory: Chest Non Tender, Crackles (Left base), Wheezing (Scattered), Other (O2 sat 95% on nonrebreather at 10 L) Cardiovascular: Regular Rate, Rhythm, No Edema, No Murmur, Systolic Murmur Gastrointestinal: Non Tender, Soft Back: Normal Inspection, No CVA Tenderness, No Vertebral Tenderness Extremity: Normal Range of Motion, Non Tender Neurologic/Psychiatric: Alert, Other (Seems somewhat confused but answers quest ions and follows simple commands. No self and daughter) A/P-Cardiology Admission Diagnosis Pneumonia Hypoxemia Chest pain Paroxysmal atrial fibrillation Assessment/Plan Atypical pneumonia, shortness of breath, cough and chest pain. Status post lung biopsy done on December 30, 2022 Feeling better. Reporting improvement Fever, secondary to pneumonia Temperature is better Chest pain, nonspecific in etiology, appears to be pleuritic in nature. Has baseline right bundle branch block, cardiac enzymes were negative Will evaluate EKG and repeat his troponin level Paroxysmal atrial fibrillation, diagnosed in June 2022, had cardioversion and was maintained on Cardizem and Xarelto Patient was having hemoptysis. Coronary artery disease, history of moderate disease by cardiac catheterization [place] [address] Hi COPD, hypoxemia, tobaccoism Currently worsening hypoxemia requiring oxygen. Hypertension, restart home medication monitor blood pressure Hyperlipidemia, monitor lipids NOLA ELIAS MD Dec 31, 2022 08:36
--- NOTE | 2022-12-31 08:39 | Tele-ICU Progress Note ---
Progress Note video rounds completed 77 y/o male admitted through ED on 12/30 with SOB. Has hx of COPD and actively smoking CT chest shows no PE, prob PNA and pulmonary nodules suspicious for CA Biopsy results pending Has hx of a fib, anticoagulation on hold. Meds: on zosyn an dvanc for PNA PE: sitting in chair, breating comfortably Pulse: 80-90 irregularly, irregular: A fib O2 sat: 95% BP: 113/62 IMP: sepsis , PNA on van/zosyn Pulm nodules: awaiting biopsy PLAN: continue tx for PNA I am remotely monitoring this patient from another state. I am unable to do the bedside exam, and history/physical and pertinent information is taken from other notes in the computer and bedside staff. Time spent in review 20 minutes Focused Exam Lactate Level 12/30/22 19:28: Lactic Acid Level 1.55 12/30/22 23:13: Lactic Acid Level 0.98 Height, Weight, BMI Height: 5'8.00" Weight: 154lbs. 0.0oz. 69.661080ql; 19.07 BMI Method:Stated Labs Laboratory Tests 12/30/22 19:28 12/31/22 03:38 Results Results/Procedures Labs Laboratory Tests 12/30/22 19:28 12/31/22 03:38 Patient resulted labs reviewed. Results Labs Labs Laboratory Tests 12/30/22 19:28: White Blood Count 11.9H, Red Blood Count 4.07L, Hemoglobin 12.0L, Hematocrit 35L , Mean Corpuscular Volume 85, Mean Corpuscular Hemoglobin 30, Mean Corpuscular Hemoglobin Concent 35, Red Cell Distribution Width 15.9H, Platelet Count 363, Mean Platelet Volume 8.6L, Immature Granulocyte % (Auto) 0, Neutrophils (%) (Auto) 86H, Lymphocytes (%) (Auto) 6L, Monocytes (%) (Auto) 7, Eosinophils (%) (Auto) 0, Basophils (%) (Auto) 0, Neutrophils # (Auto) 10.2H, Lymphocytes # (Auto) 0.7L, Monocytes # (Auto) 0.9, Eosinophils # (Auto) 0.0, Basophils # (Auto) 0.0, Immature Granulocyte # (Auto) 0.0, Neutrophils % (Manual) 63, Lymphocytes % (Manual) 9, Monocytes % (Manual) 7, Band Neutrophils 21, Platelet Estimate NORMAL, Hypochromasia SLIGHT, Prothrombin Time 12.8, INR Comment 0.9, Activated Partial Thromboplast Time 26, Sodium Level 131L, Potassium Level 4.8, Chloride Level 98, Carbon Dioxide Level 23, Anion Gap 10, Blood Urea Nitrogen 12, Creatinine 0.76, Estimat Glomerular Filtration Rate 94, BUN/Creatinine Ratio 16, Glucose Level 149H, Lactic Acid Level 1.55, Calcium Level 8.7, Corrected Calcium 9.6, Total Bilirubin 0.7, Aspartate Amino Transf (AST/SGOT) 15, Alanine Aminotransferase (ALT/SGPT) 10, Alkaline Phosphatase 119, Troponin I < 0.028, Total Protein 5.6L, Albumin 2.9L 12/30/22 22:07: Urine Color YELLOW, Urine Clarity CLEAR, Urine pH 6.5, Urine Specific [place] 1.010L, Urine Protein NEGATIVE, Urine Glucose (UA) NEGATIVE, Urine Ketones NEGATIVE, Urine Nitrite NEGATIVE, Urine Bilirubin NEGATIVE, Urine Urobilinogen 0.2, Urine Leukocyte Esterase NEGATIVE, Urine RBC (Auto) NEGATIVE, Urine RBC NONE, Urine WBC 0-2, Urine Squamous Epithelial Cells 0-2, Urine Crystals NONE, Urine Calcium Oxalate Crystals FEWH, Urine Amorphous Sediment RARE FOX URATESH, Urine Bacteria NEGATIVE, Urine Casts NONE, Urine Mucus NEGATIVE, Urine Culture Indicated CULTURE PENDING 12/30/22 23:13: Lactic Acid Level 0.98 12/31/22 03:38: White Blood Count 16.6H, Red Blood Count 3.37L, Hemoglobin 9.9L, Hematocrit 29L, Mean Corpuscular Volume 86, Mean Corpuscular Hemoglobin 29, Mean Corpuscular Hemoglobin Concent 34, Red Cell Distribution Width 15.8H, Platelet Count 301, Mean Platelet Volume 8.7L, Immature Granulocyte % (Auto) 0, Neutrophils (%) (Auto) 81H, Lymphocytes (%) (Auto) 10L, Monocytes (%) (Auto) 8, Eosinophils (%) (Auto) 0, Basophils (%) (Auto) 1, Neutrophils # (Auto) 13.4H, Lymphocytes # (Auto) 1.7, Monocytes # (Auto) 1.3H, Eosinophils # (Auto) 0.0, Basophils # (Auto) 0.1, Immature Granulocyte # (Auto) 0.1, Neutrophils % (Manual) 73, Lymphocytes % (Manual) 13, Monocytes % (Manual) 5, Band Neutrophils 9, Sodium Level 134L, Potassium Level 4.5, Chloride Level 104, Carbon Dioxide Level 22, Anion Gap 8, Blood Urea Nitrogen 14, Creatinine 0.79, Estimat Glomerular Filtration Rate 93, BUN/Creatinine Ratio 18, Glucose Level 166H, Calcium Level 8.5, Corrected Calcium 9.8, Total Bilirubin 0.6, Aspartate Amino Transf (AST/SGOT) 12, Alanine Aminotransferase (ALT/SGPT) 10, Alkaline Phosphatase 86, Total Protein 4.6L, Albumin 2.4L, Blood Morphology Comment NORMAL, Phosphorus Level 3.8, Magnesium Level 1.7 GUEVARA COWAN MD Dec 31, 2022 08:39
[2022-12-31] MEDS ORDERED: RT-ALBUTEROL/IPRATROPIUM 3 ML (DUONEB) VIAL INH PRN (09:00)
[2022-12-31] MEDS ORDERED: RT-ALBUTEROL/IPRATROPIUM 3 ML (DUONEB) VIAL ONE (09:31)
[2022-12-31 09:41] VITALS: BP 112/66
[2022-12-31] MEDS: VASOPRESSIN INJECTION 20 UNIT in NS (IVPB) 100 ML IV SCH ×2 (10:10→21:14)
--- NOTE | 2022-12-31 12:39 | History & Physical-Hospitalist ---
History of Present Illness HPI/Chief Complaint Patient 77-year-old male with a past medical history of COPD, A-fib, CAD who presented to the emergency department due to confusion shortness of breath. He was over at [facility] in [place] today where he had lung biopsies performed and was discharged home. Following that he became very confused and was more weak than normal per his daughter. Patient reports he does not remember any of this. EMS was summoned and he was found to be hypoxic in the 80s by them. He was placed on a nonrebreather at 10 L and improved to 95%. In the ER he was found to be febrile with a temperature of 39.3 and was quite tachy cardic. Imaging was done and confirmed pneumonia and he was admitted to the ICU for sepsis due to pneumonia and acute respiratory failure. This morning he reports feeling much better. His daughter is on the phone on speaker phone and states he sounds much better as well. She does inform me that he had been providing serial sputum cultures to the lab for Dr. Mathews and she had been called that something was growing on those but she was unaware what. Source: patient, family Date Seen 12/31/22 Time Seen by a Provider: 08:45 Attending Physician No,Local Physician PCP Admitting Physician: Sarah Sanderson MD Attending Physician: Sarah Sanderson MD Referring Physician Date of Admission Dec 30, 2022 at 10:47 pm Home Medications & Allergies Home Medications Reviewed patient Home Medication Reconciliation performed by pharmacy medication reconciliations scheme technician and/or nursing. Patients Allergies have been reviewed. Allergies Allergies Coded Allergies cefaclor (Verified Allergy, Unknown, HIVES, 08/08/18) diazepam (Verified Allergy, Unknown, 02/18/06) levofloxacin (Verified Allergy, Unknown, HIVES, 08/08/18) Past Ypkaydi-[facility]cp[facility]-Ulvgth Hx Patient Social History Marrital Status: Employed/Student: retired Tobacco Use?: Yes Tobacco type used: Cigarettes Smoking Status: Current Everyday Smoker Use of E-Cig and/or Vaping dev: No Substance use?: No Alcohol Use?: Yes Alcohol type: Beer Alcohol Frequency: Daily Additional Alcohol Comments: 1 BEER DAILY Pt feels they are or have been: No Immunizations Up To Date Date of Influenza Vaccine: Jun 27, 2016 First/Initial COVID19 Vaccinat: YES Second COVID19 Vaccination John: YES Tetanus Booster (TDap): Unknown Date of Pneumonia Vaccine: Sep 15, 2011 Seasonal Allergies Seasonal Allergies: Yes Current Status Advance Directives: No Communicates: Verbally Primary Language: Latvian Preferred Spoken Language: Latvian Is interpretation needed?: No Sensory deficits: Vision impairment, Hearing impairment Implanted or Applied Medical D: None Past Medical History Surgeries: Abdominal, Appendectomy, Gallbladder Asthma, COPD, Emphysema Currently Using CPAP: No Currently Using BIPAP: No Coronary Artery Disease, Hypertension Stroke Gastroesophageal Reflux, Gastrointestinal Bleed, Hiatal Hernia, Ulcer, Cirrhosis Arthritis, Chronic Back Pain Cataract Loss of Vision: Denies Hearing Impairment: Denies Skin Did You Recieve Any Treatments: Yes What Type of Treatment Did You: Surgical Intervention Blood Disorders: No Family Medical History Reviewed Nursing Family Hx No Pertinent Family Hx Review of Systems Constitutional: see HPI Physical Exam Physical Exam Vital Signs Vital Signs - First Documented 12/31/22 09:41 FiO2 32 Capillary Refill : Height, Weight, BMI Height: 5'8.00" Weight: 154lbs. 0.0oz. 69.195605uv; 19.07 BMI Method:Stated General Appearance: No Apparent Distress, Chronically ill, Thin Respiratory: No Accessory Muscle Use, Decreased Breath Sounds, Other (on HFNC) Cardiovascular: Irregularly Irregular, Tachycardia Gastrointestinal: Normal Bowel Sounds, Non Tender, Soft Neurologic/Psychiatric: Alert, Oriented x3, Normal Mood/Affect Results Results/Procedures Labs Laboratory Tests 12/30/22 19:28 12/31/22 03:38 01/01/23 04:32 Patient resulted labs reviewed. Assessment/Plan Admission Diagnosis Sepsis due to pneumonia Admission Status: Inpatient Order (span 2 midnights) Reason for Inpatient Admission: see below Assessment and Plan Sepsis due to pneumonia- POA Acute hypoxic respiratory failure Lung mass COPD Continue IV abx Wean oxygen as able TeleICU consulted, appreciate recs Await cultures MAT protocol Sputum with strep pneumoniae and moxarella catarrhalis from 12/28 A fib with RVR Rate now controlled Cardiology consulted, appreciate recs Echo ordered Was taken off anticoagulation due to hemoptysis Diagnosis/Problems Diagnosis/Problems (1) Acute respiratory failure (2) Sepsis (3) Atrial fibrillation (4) Lung mass Status: Acute (5) COPD (chronic obstructive pulmonary disease) SARAH SANDERSON MD Dec 31, 2022 12:39 pm
[2022-12-31] MEDS ORDERED: predniSONE 20 MG TAB PO NR (13:00)
[2022-12-31] MEDS: ENOXAPARIN 40 MG/0.4 ML (LOVENOX) SYR SQ SCH (13:12)
[2022-12-31] MEDS: RT-ALBUTEROL/IPRATROPIUM 3 ML (DUONEB) VIAL INH SCH ×3 (14:35→21:59)
[2022-12-31] MEDS ORDERED: NICOTINE 21 MG (NICODERM) PATCH ONE (18:49)
[2022-12-31] MEDS: NICOTINE 21 MG (NICODERM) PATCH TD SCH (18:54)
[2022-12-31] MEDS: NOREPINEPHRINE 8 MG/250 ML 250 ML IV SCH (22:54)
[2023-01-01] MEDS: RT-ALBUTEROL/IPRATROPIUM 3 ML (DUONEB) VIAL INH SCH ×6 (02:42→23:39)
[2023-01-01 04:41] LABS: BASOPHILS % (AUTO) 0 % (0-10); EOSINOPHILS % (AUTO) 0 % (0-10); HEMATOCRIT 29 % (40-54); HEMOGLOBIN 9.8 g/dL (13.3-17.7); LYMPHOCYTES # (AUTO) 1.7 10^3/uL (1.0-4.0); LYMPHOCYTES % (AUTO) 10 % (12-44); MEAN CORPUSCULAR HEMOGLOBIN 29 pg (25-34); MEAN CORPUSCULAR HGB CONC 34 g/dL (32-36); MEAN CORPUSCULAR VOLUME 86 fL (80-99); MEAN PLATELET VOLUME 8.8 fL (9.0-12.2); MONOCYTES # (AUTO) 1.1 10^3/uL (0.0-1.0); MONOCYTES % (AUTO) 7 % (0-12); NEUTROPHILS # (AUTO) 13.1 10^3/uL (1.8-7.8); NEUTROPHILS % (AUTO) 82 % (42-75); PLATELET COUNT 297 10^3/uL (130-400); WHITE BLOOD COUNT 15.9 10^3/uL (4.3-11.0)
[2023-01-01 05:03] LABS: ALBUMIN 2.4 GM/DL (3.2-4.5); BILIRUBIN,TOTAL 0.2 MG/DL (0.1-1.0); CALCIUM 8.9 MG/DL (8.5-10.1); CREATININE SERUM 0.73 MG/DL (0.60-1.30); MAGNESIUM 1.7 MG/DL (1.6-2.4); PHOSPHORUS 2.4 MG/DL (2.3-4.7); POTASSIUM 4.3 MMOL/L (3.6-5.0); TOTAL PROTEIN 4.9 GM/DL (6.4-8.2)
[2023-01-01] MEDS: PIPERACILLIN SODIUM/TAZOBACTAM 4.5 GM in NS (IVPB) 100 ML IV SCH ×3 (05:38→20:01)
[2023-01-01] MEDS: MAGNESIUM 1 GM/100 ML IVPB 100 ML IV SCH ×5 (06:02→10:14)
[2023-01-01] MEDS: KCL 20 MEQ TAB (K-DUR) PO SCH (06:02)
[2023-01-01] MEDS: POTASSIUM CL 10MEQ/50ML IVPB 50 ML IV SCH (06:02)
[2023-01-01] MEDS: predniSONE 20 MG TAB PO SCH (06:09)
--- NOTE | 2023-01-01 08:41 | Tele-ICU Progress Note ---
Subjective Date Seen by a Provider: Jan 01, 2023 Time Seen by a Provider: 08:37 Subjective/Events-last exam Service provided via interactive audio and video telecommunications E-CARE system to a patient admitted to ICU bed in [facility]. Patient is seen today due to persistent need of ICU care Available chart/ vitals / labs / Images reviewed Video assessment done using teleICU camera, rest of exam as per RN Discussed with RN 77yo M with COPD, lung nodules-anticoagulation hold for possible lung biopsy was being treated for a fib with RVR, on IV, now on sinus tach with frequent PAC's on CXR has LLL infiltarte along with nodule, getting IV Zosyn Sepsis Event Evaluation Height, Weight, BMI Height: 5'8.00" Weight: 154lbs. 0.0oz. 69.535204gj; 19.14 BMI Method:Stated Focused Exam Lactate Level 12/30/22 19:28: Lactic Acid Level 1.55 12/30/22 23:13: Lactic Acid Level 0.98 Exam Exam Patient acknowledged, consented, and participated in this virtual visit which was conducted using real time audio/video Vital Signs Date Time Temp Pulse Resp B/P (MAP) Pulse Ox O2 Delivery O2 Flow Rate FiO2 01/01/23 08:00 36.8 01/01/23 07:40 94 Nasal Cannula 3.00 01/01/23 06:00 97 16 107/81 (90) 90 Nasal Cannula 3.00 01/01/23 05:00 95 15 110/78 (89) 96 Nasal Cannula 3.00 01/01/23 04:00 94 Nasal Cannula 3.00 01/01/23 04:00 105 27 103/69 (80) 90 Nasal Cannula 3.00 01/01/23 03:00 105 14 90 Nasal Cannula 3.00 01/01/23 02:43 90 Nasal Cannula 3.00 01/01/23 02:00 94 19 115/74 (88) 97 Nasal Cannula 3.00 01/01/23 01:00 95 15 108/69 (82) 96 Nasal Cannula 3.00 01/01/23 00:58 102 01/01/23 00:00 98 14 111/70 (84) 95 Nasal Cannula 3.00 12/31/22 23:59 93 Nasal Cannula 3.00 12/31/22 23:00 98 11 101/62 (75) 94 Nasal Cannula 3.00 12/31/22 22:54 105 115/74 12/31/22 22:00 99 21 111/65 (80) 95 Nasal Cannula 3.00 12/31/22 21:59 95 Nasal Cannula 3.00 12/31/22 21:14 100 119/73 12/31/22 21:00 109 22 107/68 (81) 97 Nasal Cannula 3.00 12/31/22 20:00 92 Nasal Cannula 3.00 12/31/22 20:00 105 13 11/66 (48) 91 Nasal Cannula 3.00 12/31/22 19:13 100 12/31/22 19:00 96 19 110/71 (84) 92 Nasal Cannula 3.00 12/31/22 18:59 88 Nasal Cannula 3.00 12/31/22 17:00 98 22 119/73 (94) 92 Nasal Cannula 3.00 12/31/22 17:00 98 22 119/73 (94) 92 Nasal Cannula 3.00 12/31/22 16:03 93 Nasal Cannula 3.00 12/31/22 16:00 104 11 118/65 (80) 92 Nasal Cannula 3.00 12/31/22 15:24 37.0 12/31/22 15:00 96 23 113/79 (92) 92 Nasal Cannula 3.00 12/31/22 14:00 99 18 111/63 (80) 95 Nasal Cannula 3.00 12/31/22 13:00 91 12/31/22 13:00 94 13 118/68 (80) 95 Nasal Cannula 3.00 12/31/22 13:00 94 Nasal Cannula 3.00 12/31/22 12:00 93 11 120/65 (89) 94 Nasal Cannula 3.00 12/31/22 11:51 36.4 12/31/22 11:00 87 10 111/62 (80) 95 Nasal Cannula 3.00 12/31/22 10:00 89 14 110/59 (75) 98 Nasal Cannula 3.00 12/31/22 09:41 36.4 88 95 32 12/31/22 09:39 94 Nasal Cannula 3.00 12/31/22 09:00 89 19 116/74 (92) 95 Nasal Cannula 3.00 12/31/22 09:00 89 19 116/74 (92) 95 3.00 I & O 01/01/23 07:00 Intake Total 2340 ml Output Total 1550 ml Balance 790 ml Height & Weight Height: 5'8.00" Weight: 154lbs. 0.0oz. 69.985228wk; 19.14 BMI Method:Stated General Appearance: No Apparent Distress, WD/WN HEENT: PERRL/EOMI, Pharynx Normal Neck: Non Tender, Supple Respiratory: Chest Non Tender, Crackles (Left base), Wheezing (Scattered), Other (O2 sat 95% on nonrebreather at 10 L) Cardiovascular: Regular Rate, Rhythm, No Edema, No Murmur, Systolic Murmur Gastrointestinal: normal bowel sounds, non tender, soft Extremity: Normal Range of Motion, Non Tender, No Pedal Edema Neurologic/Psychiatric: Alert, Other (Seems somewhat confused but answers questions and follows simple commands. No self and daughter) Results Lab Laboratory Tests 12/30/22 19:28 12/31/22 03:38 01/01/23 04:32 Assessment/Plan Assessment/Plan LLL PNA, will continue abx A fib resolved , not on any meds Lung nodule LLL, biopsy Critical Care: Critically Ill Patient Time spent with patient (mins): 25 GUEVARA PAINTING MD Jan 01, 2023 08:41
[2023-01-01] MEDS: NICOTINE 21 MG (NICODERM) PATCH TD SCH (08:46)
[2023-01-01] MEDS: VASOPRESSIN INJECTION 20 UNIT in NS (IVPB) 100 ML IV SCH (08:46)
--- NOTE | 2023-01-01 09:35 | Cardiology Progress Note ---
Subjective Date Seen by Provider: Jan 01, 2023 Time Seen by Provider: 09:33 Subjective/Events-last exam Patient is sitting in a chair, feeling better Breathing better, asking to go home Review of Systems General: No Chills, No Night Sweats, No Fatigue, No Malaise, No Appetite, No Other HEENT: No Head Aches, No Visual Changes, No Eye Pain, No Ear Pain, No Dysphasia, No Sinus Congestion, No Post Nasal Drip, No Sore Throat, No Other Pulmonary: Dyspnea; No Cough, No Pleuritic Chest Pain, No Other Cardiovascular: No: Chest Pain, Palpitations, Orthopnea, Paroxysmal Noc. Dyspnea, Edema, Lt Headedness, Other Focused Exam Lactate Level 12/30/22 19:28: Lactic Acid Level 1.55 12/30/22 23:13: Lactic Acid Level 0.98 Objective-Cardiology Exam Last Set of Vital Signs Vital Signs 12/31/22 01/01/23 09:41 09:00 Pulse 110 Resp 26 B/P (MAP) 138/86 (89) Pulse Ox 90 O2 Delivery Nasal Cannula O2 Flow Rate 3.00 FiO2 32 I&O Intake and Output 01/01/23 00:00 Intake Total 3530 ml Output Total 1650 ml Balance 1880 ml Intake Oral 1330 ml IV Total 2200 ml Output Urine Total 1650 ml # Voids 1 General: Alert, Oriented X3, Cooperative HEENT: Atraumatic, PERRLA Neck: Supple, No JVD, No Thyromegaly Lungs: Normal Air Movement, Other (Bilateral rhonchi) Heart: Regular Rate, Normal S1, Normal S2, No Murmurs Abdomen: Normal Bowel Sounds, Soft, No Tenderness, No Hepatosplenomegaly, No Masses Extremities: No Clubbing, No Cyanosis, No Edema, Normal Pulses, No Tenderness/Swelling Skin: No Rashes, No Breakdown, No Significant Lesion Neuro: Normal Speech, Normal Tone, Sensation Intact Psych/Mental Status: Mental Status NL, Mood NL Results Lab Laboratory Tests 01/01/23 04:32 A/P-Cardiology Admission Diagnosis Pneumonia Hypoxemia Chest pain Paroxysmal atrial fibrillation Assessment/Plan Atypical pneumonia, shortness of breath, cough and chest pain. Status post lung biopsy done on December 30, 2022 Feeling better. Reporting improvement Patient is asking to go home Okay from cardiology standpoint for discharge. Fever, secondary to pneumonia Temperature is better Chest pain, nonspecific in etiology, appears to be pleuritic in nature. Has baseline right bundle branch block, cardiac enzymes were negative EKG showed right bundle branch block No further episodes of chest pain were reported. Paroxysmal atrial fibrillation, diagnosed in June 2022, had cardioversion and was maintained on Cardizem and Xarelto Status post hemoptysis, improved. Coronary artery disease, history of moderate disease by cardiac [place]ization [place] [address] Hi COPD, hypoxemia, tobaccoism Currently worsening hypoxemia requiring oxygen. Hypertension, restart home medication monitor blood pressure Hyperlipidemia, monitor lipids Appointment with Dr. Ashraf's office in 2 to 4 weeks NOLA ASHRAF MD Jan 01, 2023 09:35
--- NOTE | 2023-01-01 11:45 | Progress Note - Hospitalist ---
Subjective HPI/CC On Admission Date Seen by Provider: Jan 01, 2023 Patient 77-year-old male with a past medical history of COPD, A-fib, CAD who presented to the emergency department due to confusion shortness of breath. He was over at [facility] in [place] today where he had lung biopsies performed and was discharged home. Following that he became very confused and was more weak than normal per his daughter. Patient reports he does not remembe r any of this. EMS was summoned and he was found to be hypoxic in the 80s by them. He was placed on a nonrebreather at 10 L and improved to 95%. In the ER he was found to be febrile with a temperature of 39.3 and was quite tachycardic. Imaging was done and confirmed pneumonia and he was admitted to the ICU for sepsis due to pneumonia and acute respiratory failure. This morning he reports feeling much better. His daughter is on the phone on speaker phone and states he sounds much better as well. She does inform me that he had been providing serial sputum cultures to the lab for Dr. Mathews and she had been called that something was growing on those but she was unaware what. Subjective/Events-last exam Pt reports doing well. Asking to DC home. Still on oxygen though and was not able to see PT yesterday. Focused Exam Lactate Level 12/30/22 19:28: Lactic Acid Level 1.55 12/30/22 23:13: Lactic Acid Level 0.98 Objective Exam Vital Signs Vital Signs Date Time Temp Pulse Resp B/P (MAP) Pulse Ox O2 Delivery O2 Flow Rate FiO2 01/01/23 11:00 99 111/78 (96) 91 Nasal Cannula 3.00 01/01/23 09:00 26 01/01/23 08:00 36.8 12/31/22 09:41 32 Capillary Refill : General Appearance: No Apparent Distress, Chronically ill, Thin Respiratory: Lungs Clear, No Accessory Muscle Use, Other (on 2lpm) Cardiovascular: No Murmur, Irregularly Irregular Gastrointestinal: Normal Bowel Sounds, Soft Neurologic/Psychiatric: Alert, Oriented x3 Results/Procedures Lab Laboratory Tests 01/01/23 04:32 Patient resulted labs reviewed. Assessment/Plan Assessment and Plan Assess & Plan/Chief Complaint Sepsis due to pneumonia- POA Acute hypoxic respiratory failure Lung mass COPD Continue IV abx Wean oxygen as able TeleICU consulted, appreciate recs Blood cultures- NGTD MAT protocol Sputum with strep pneumoniae and moxarella catarrhalis from 12/28 as an outpatient PT/OT A fib with RVR Rate controlled Cardiology consulted, appreciate recs Echo shows EF 55% Was taken off anticoagulation due to hemoptysis DVT ppx: Lovenox Critical Care Critically Ill Patient Diagnosis/Problems Diagnosis/Problems (1) Acute respiratory failure (2) Sepsis (3) Atrial fibrillation (4) Lung mass Status: Acute (5) COPD (chronic obstructive pulmonary disease) MARIAH JENSEN MD Jan 01, 2023 11:45 am
[2023-01-01] MEDS: ENOXAPARIN 40 MG/0.4 ML (LOVENOX) SYR SQ SCH (12:44)
[2023-01-01] MEDS ORDERED: dilTIAZem DRIP PRE-MIX 125 ML IV ONE (16:55)
[2023-01-01] MEDS: dilTIAZem DRIP PRE-MIX 125 ML IV SCH (16:57)
[2023-01-01] MEDS ORDERED: AMIODARONE (Pyxis Kit Only) BOLUS 150 MG/3 ML IV ONE (18:22)
[2023-01-01] MEDS ORDERED: AMIODARONE (Pyxis Kit Only) DRIP 450 MG/9 ML VIAL IV ONE (18:22)
[2023-01-01] MEDS ORDERED: NS (IVPB) 250 ML ONE (18:24)
[2023-01-01] MEDS ORDERED: D5W 100 ML IVPB 100 ML IV ONE (18:24)
[2023-01-01] MEDS ORDERED: AMIODARONE FOR BOLUS 150 MG in NS (IVPB) 100 ML IV ONE (18:30)
[2023-01-01] MEDS: AMIODARONE INJECTION 450 MG in NORMAL SALINE 250 ML IV SCH (18:50)
[2023-01-01] MEDS ORDERED: RT-LEVALBUTEROL (XOPENEX) 1.25 MG/3 ML NEB NON-FORMULARY INH PRN (20:30)
[2023-01-01] MEDS ORDERED: RT-IPRATROPIUM (ATROVENT) 0.5MG/2.5ML AMP IH PRN (20:30)
[2023-01-01] MEDS ORDERED: NS IV 1000 ML 1,000 ML ONE (20:40)
[2023-01-01] MEDS: NS IV 1000 ML 1,000 ML IV SCH ×2 (20:44→23:30)
[2023-01-02] MEDS: dilTIAZem DRIP PRE-MIX 125 ML IV SCH ×3 (01:40→18:08)
[2023-01-02] MEDS ORDERED: AMIODARONE (Pyxis Kit Only) DRIP 450 MG/9 ML VIAL IV ONE (02:14)
[2023-01-02] MEDS ORDERED: NS (IVPB) 250 ML ONE (02:15)
[2023-01-02] MEDS: AMIODARONE INJECTION 450 MG in NORMAL SALINE 250 ML IV SCH ×2 (02:32→18:07)
[2023-01-02] MEDS: RT-ALBUTEROL/IPRATROPIUM 3 ML (DUONEB) VIAL INH SCH ×6 (03:17→21:30)
[2023-01-02] MEDS: PIPERACILLIN SODIUM/TAZOBACTAM 4.5 GM in NS (IVPB) 100 ML IV SCH ×3 (03:57→21:03)
[2023-01-02 04:55] LABS: BASOPHILS % (AUTO) 0 % (0-10); EOSINOPHILS % (AUTO) 0 % (0-10); HEMATOCRIT 29 % (40-54); HEMOGLOBIN 9.8 g/dL (13.3-17.7); LYMPHOCYTES # (AUTO) 2.9 10^3/uL (1.0-4.0); LYMPHOCYTES % (AUTO) 22 % (12-44); MEAN CORPUSCULAR HEMOGLOBIN 29 pg (25-34); MEAN CORPUSCULAR HGB CONC 34 g/dL (32-36); MEAN CORPUSCULAR VOLUME 85 fL (80-99); MEAN PLATELET VOLUME 8.8 fL (9.0-12.2); MONOCYTES # (AUTO) 1.3 10^3/uL (0.0-1.0); MONOCYTES % (AUTO) 9 % (0-12); NEUTROPHILS # (AUTO) 9.3 10^3/uL (1.8-7.8); NEUTROPHILS % (AUTO) 69 % (42-75); PLATELET COUNT 327 10^3/uL (130-400); WHITE BLOOD COUNT 13.6 10^3/uL (4.3-11.0)
[2023-01-02 05:18] LABS: ALBUMIN 2.4 GM/DL (3.2-4.5); BILIRUBIN,TOTAL 0.3 MG/DL (0.1-1.0); CALCIUM 8.7 MG/DL (8.5-10.1); CREATININE SERUM 0.73 MG/DL (0.60-1.30); MAGNESIUM 1.7 MG/DL (1.6-2.4); PHOSPHORUS 2.7 MG/DL (2.3-4.7); POTASSIUM 3.8 MMOL/L (3.6-5.0); TOTAL PROTEIN 4.8 GM/DL (6.4-8.2)
[2023-01-02] MEDS: MAGNESIUM 1 GM/100 ML IVPB 100 ML IV SCH ×5 (05:24→08:16)
[2023-01-02] MEDS: KCL 20 MEQ TAB (K-DUR) PO SCH (05:24)
[2023-01-02] MEDS: POTASSIUM CL 10MEQ/50ML IVPB 50 ML IV SCH (05:24)
[2023-01-02] MEDS ORDERED: KCL 20 MEQ TAB (K-DUR) PO ONE ×2 (05:38→07:00)
[2023-01-02] MEDS ORDERED: MAGNESIUM 1 GM/100 ML IVPB 300 ML IV ONE (05:38)
[2023-01-02] MEDS: predniSONE 20 MG TAB PO SCH (05:43)
[2023-01-02] MEDS: NICOTINE 21 MG (NICODERM) PATCH TD SCH (08:15)
[2023-01-02] MEDS: ENOXAPARIN 60 MG/0.6 ML (LOVENOX) SYR SC SCH ×2 (08:16→21:02)
--- NOTE | 2023-01-02 08:51 | Physical Therapy Evaluation ---
PT Evaluation-General Medical Diagnosis Admission Date Dec 30, 2022 at 22:47 Medical Diagnosis: pneumonia/lung cancer/orthostatic hypotension Onset Date: Dec 30, 2022 Therapy Diagnosis Therapy Diagnosis: generalized weakness/debility Height/Weight Height (Feet): 5 Height (Inches): 8.00 Weight (Pounds): 154 Weight (Ounces): 0.0 Precautions Precautions/Isolations: Fall Prevention, Standard Precautions Referral Physician: Griselda Reason for Referral: Evaluation/Treatment Medical History Pertinent Medical History: Atrial Fib, CAD, COPD, CVA, HTN, Smoking Current History EMS from home after a lung biopsy at [facility] with patient presenting with SOA requiring a nonrebreather Reviewed History: Yes Social History Home: Single Level Current Living Status: Children Entry Into Home: Stairs With Railing PT Steps Into Home: 4 Prior Prior Level of Function SCALE: Activities may be completed with or without assistive devices. 9-Leufxoitfy-urfusai completes the activity by him/herself with no assistance from a helper. 5-Set-up or Clean-up Assistance-helper sets up or cleans up; patient completes activity. [place] assists only prior to or following the activity. 4-Supervision or Touching Assistance-helper provides verbal cues and/or touching/steadying and/or contact guard assistance as patient completes activity. Assistance may be provided throughout the activity or intermittently. 3-Partial/Moderate Assistance-helper does LESS THAN HALF the effort. [place] lifts, holds or supports trunk or limbs, but provides less than half the effort. 2-Substantial/Maximal Assistance-helper does MORE THAN HALF the effort. [place] lifts or holds trunk or limbs and provides more than half the effort. 6-Hwuululan-pdvgid does ALL the effort. Patient does none of the effort to complete the activity. Or, the assistance of 2 or more helpers is required for the patient to complete the activity. If activity was not attempted, code reason: 7-Patient Refused. 9-Not Applicable-not attempted and the patient did not perform the activity before the current illness, exacerbation or injury. 10-Not Attempted due to Environmental Limitations-(lack of equipment, weather restraints, etc.). 88-Not Attempted due to Medical Conditions or Safety Concerns. Bed Mobility: 6 Transfers (B,C,W/C): 6 Gait: 6 Stairs: 6 Indoor Mobility (Ambulation): Independent Stairs: Independent Prior Devices Use: Other-see list below Prior Device Use: cane PT Evaluation-Current Subjective Patient agrees to PT. Objective Patient Orientation: Person, Time, Situation ROM/Strength ROM Lower Extremities bilateral LE WFL Strength Lower Extremities 3-/5 grossly bilateral LE all planes Integumentary/Posture Bowel Incontinence: No Bladder Incontinence: No Posture WFL Neuromuscular (Tone, Coordination, Reflexes) diminished coordination due to weakness Sensory Vision: Functional Hearing: Impaired Transfers Sit to Lying (QC): 3 Lying to Sitting/Side of Bed(Q: 3 Sit to Stand (QC): 3 Chair/Kjy-up-Gvxte Xfer(QC): 7 Gait Mode of Locomotion: Walk Anticipated Mode of Locomotion: Walk Walk 10 feet (QC): 3 Walk 50 ft with 2 Turns(QC): 7 Walk 150 ft (QC): 7 Distance: 10' Gait Assistive Device: FWW Comments/Gait Description unsteady with PT assist to maintain balance (mod assist) Wheelchair Training Does the Pt Use a Wheelchair?: No Balance Sitting Static: Fair Sitting Dynamic: Fair Standing Static: Poor Standing Dynamic: Poor Assessment/Needs Patient will benefit from skilled PT to address functional strength and mobility to improve current LOF to safely return to home with family at maximum LOF. Rehab Potential: Guarded PT Snf Goals Wood Heel Back Liner Goals PT Snf Goals Time Frame: Jan 21, 2023 Roll Left & Right (QC): 4 Sit to Lying (QC): 4 Lying-Sitting on Side/Bed(QC): 4 Sit to Stand (QC): 4 Chair/Vxm-oo-Yufjq Xfer(QC): 4 Toilet Transfer (QC): 4 Walk 10 feet (QC): 4 Walk 50ft with 2 Turns (QC): 4 Walk 150 ft (QC): 4 PT Plan Problem List Problem List: Activity Tolerance, Functional Strength, Safety, Balance, Gait, Transfer, Bed Mobility Treatment/Plan Treatment Plan: Continue Plan of Care Treatment Plan: Bed Mobility, Education, Functional Activity Eric, Functional Strength, Gait, Safety, Therapeutic Exercise, Transfers Treatment Duration: Jan 21, 2023 Frequency: 6 times per week Estimated Hrs Per Day: .25 hour per day Patient and/or Family Agrees t: Yes Time Time In: 822 Time Out: 835 DATE: Jan 02, 2023 Total Billed Treatment Time: 13 Total Billed Treatment 1 visit EVModC 13 min JOSS VAZQUEZ PT Jan 02, 2023 08:51
--- NOTE | 2023-01-02 09:16 | Cardiology Progress Note ---
Subjective Date Seen by Provider: Jan 02, 2023 Time Seen by Provider: 09:14 Subjective/Events-last exam NextPatient went to atrial fibrillation yesterday, he was tachycardic and hypotensive Started on Cardizem drip then added amiodarone Still tachycardic Ate breakfast today. No chest pain. Review of Systems General: No Chills, No Night Sweats, No Fatigue, No Malaise, No Appetite, No Other HEENT: No Head Aches, No Visual Changes, No Eye Pain, No Ear Pain, No Dyspha dale, No Sinus Congestion, No Post Nasal Drip, No Sore Throat, No Other Pulmonary: Dyspnea; No Cough, No Pleuritic Chest Pain, No Other Cardiovascular: No: Chest Pain, Palpitations, Orthopnea, Paroxysmal Noc. Dyspnea, Edema, Lt Headedness, Other Focused Exam Lactate Level 12/30/22 19:28: Lactic Acid Level 1.55 12/30/22 23:13: Lactic Acid Level 0.98 Objective-Cardiology Exam Last Set of Vital Signs Vital Signs 12/31/22 01/02/23 01/02/23 01/02/23 09:41 07:27 08:00 08:24 Temp 36.7 Pulse 99 Resp 20 B/P (MAP) 94/68 (77) Pulse Ox 93 O2 Delivery Nasal Cannula O2 Flow Rate 2.50 FiO2 32 I&O Intake and Output 01/02/23 00:00 Intake Total 3863 ml Output Total 2300 ml Balance 1563 ml Intake Oral 1660 ml IV Total 2203 ml Output Urine Total 2300 ml General: Alert, Oriented X3, Cooperative HEENT: Atraumatic, PERRLA Neck: Supple, No JVD, No Thyromegaly Lungs: Normal Air Movement, Other (Bilateral rhonchi) Heart: Normal S1, Normal S2, No Murmurs, Other (Atrial fibrillation) Abdomen: Normal Bowel Sounds, Soft, No Tenderness, No Hepatosplenomegaly, No Masses Extremities: No Clubbing, No Cyanosis, No Edema, Normal Pulses, No Tenderness/Swelling Skin: No Rashes, No Breakdown, No Significant Lesion Neuro: Normal Speech, Normal Tone, Sensation Intact Psych/Mental Status: Mental Status NL, Mood NL Results Lab Laboratory Tests 01/02/23 04:41 A/P-Cardiology Admission Diagnosis Pneumonia Hypoxemia Chest pain Paroxysmal atrial fibrillation Assessment/Plan Atypical pneumonia, shortness of breath, cough and chest pain. Status post lung biopsy done on December 30, 2022 Atrial fibrillation with rapid ventricular response Patient went to atrial fibrillation with rapid ventricular response, hypotensive Currently on Cardizem drip and amiodarone drip Had breakfast today, I am planning to do cardioversion tomorrow Had an episode of atrial fibrillation June 2022 and required cardioversion Has been maintained on Cardizem and Xarelto Fever, secondary to pneumonia Temperature is better Chest pain, nonspecific in etiology, appears to be pleuritic in nature. Has baseline right bundle branch block, cardiac enzymes were negative EKG showed right bundle branch block No further episodes of chest pain were reported. Coronary artery disease, history of moderate disease by cardiac catheterization [place] [address] Hi COPD, hypoxemia, tobaccoism Currently worsening hypoxemia requiring oxygen. Hypertension, restart home medication monitor blood pressure Hyperlipidemia, monitor lipids Appointment with Dr. Ashraf's office in 2 to 4 weeks NOLA ASHRAF MD Jan 02, 2023 09:16
[2023-01-02] MEDS ORDERED: DIGOXIN 0.25 MG/ML (LANOXIN) 2 ML AMP IV ONE (09:30)
--- NOTE | 2023-01-02 10:28 | Tele-ICU Progress Note ---
Subjective Date Seen by a Provider: Jan 02, 2023 Time Seen by a Provider: 10:27 Subjective/Events-last exam (Tele-ICU Physician , Progress Note ) Service provided via interactive audio and video telecommunications E-CARE system to a patient admitted to ICU bed in [facility]. Patient is seen today due to persistent need of ICU care Available chart/ vitals / labs / Images reviewed Video assessment done using teleICU camera, rest of exam as per RN Discussed with RN Events overnight : Afebrile hemodynamically stable Respiratory - 2.5 L I/O = pos Drips: cardizem Pressors- no A/P A fib RVR - amio gtt , cardizem gtt , dig IV - AC fiull dose lovenox PNA LLL - zosyn AECOPD - prednisomn 40 Po 40 -Hypoxia- home needs fio2 2 l RUL nodule - BX in other hospital last week - pending path Lines : periph , (Central Line Necessity Reviewed) Ferris: void OG: Nutrition: po Analgesia: Anxiety/ delirium VTE Prophylaxis: angel full dose Stress Ulcer Prophylaxis: ppi Plans in collaboration with bedside consultants and IM MDs. Discussed with RN to reach out if any questions or concerns Case and care daily discussed on multidisciplinary rounds ( RN, PharmD, Junior Web Developer , Respiratory Therapy, sugar mill worker ) A total of 25 minutes of critical care time was devoted to this patient today, required to treat and/or prevent further deterioration of critical care condition ( as above ) . I am remotely monitoring this patient from another state. I am unable to do the bedside exam, and history/physical and pertinent information is taken from other notes in the computer and bedside staff. Sepsis Event Evaluation Height, Weight, BMI Height: 5'8.00" Weight: 154lbs. 0.0oz. [id number]; 18.80 BMI Method:Stated Focused Exam Lactate Level 12/30/22 19:28: Lactic Acid Level 1.55 12/30/22 23:13: Lactic Acid Level 0.98 Exam Exam Patient acknowledged, consented, and participated in this virtual visit which was conducted using real time audio/video Vital Signs Date Time Temp Pulse Resp B/P (MAP) Pulse Ox O2 Delivery O2 Flow Rate FiO2 01/02/23 10:00 112 26 112/85 (94) 96 Nasal Cannula 2.50 4/10/23 09:00 118 20 97/69 (78) 92 Nasal Cannula 2.50 01/02/23 08:24 93 Nasal Cannula 2.50 01/02/23 08:00 99 20 94/68 (77) 91 Nasal Cannula 2.50 01/02/23 07:27 91 Nasal Cannula 2.50 01/02/23 07:27 36.7 01/02/23 07:15 112 01/02/23 07:00 94 16 96/69 (78) 93 Nasal Cannula 2.50 01/02/23 06:00 92 19 98/59 (72) 94 Nasal Cannula 2.50 01/02/23 05:00 104 19 85/68 (74) 95 Nasal Cannula 2.50 01/02/23 04:00 101 10 100/76 (84) 94 Nasal Cannula 2.50 01/02/23 03:56 36.7 01/02/23 03:55 97 Nasal Cannula 2.50 01/02/23 03:00 115 30 102/67 (79) 95 Nasal Cannula 2.50 01/02/23 02:00 123 24 94/68 (77) 94 Nasal Cannula 2.50 01/02/23 01:40 129 100/66 01/02/23 01:00 120 12 99/57 (71) 96 Nasal Cannula 2.50 01/02/23 00:45 118 01/02/23 00:00 110 20 92/55 (67) 92 Nasal Cannula 2.50 01/01/23 23:20 36.9 01/01/23 23:20 92 Nasal Cannula 2.50 01/01/23 23:00 126 20 97/60 (72) 93 Nasal Cannula 2.50 01/01/23 22:00 108 20 100/53 (69) 94 Nasal Cannula 2.50 01/01/23 21:00 116 28 84/66 (72) 93 Nasal Cannula 2.50 01/01/23 20:00 156 24 93/72 (79) 91 Nasal Cannula 2.50 01/01/23 20:00 141 20 87/71 (76) 92 Nasal Cannula 2.50 01/01/23 19:25 93 Nasal Cannula 2.50 01/01/23 19:00 36.9 134 16 100/81 (87) 93 Nasal Cannula 2.50 01/01/23 19:00 140 25 83/72 (76) 93 Nasal Cannula 2.50 01/01/23 19:00 154 01/01/23 18:37 160 93/73 01/01/23 18:00 154 21 94/68 (77) 92 Nasal Cannula 2.50 01/01/23 17:00 168 24 96/75 (82) 94 Nasal Cannula 2.50 01/01/23 16:57 174 96/75 01/01/23 15:15 92 Nasal Cannula 2.50 01/01/23 13:00 103 01/01/23 12:35 36.5 103 18 116/72 (87) Nasal Cannula 2.50 01/01/23 12:00 36.5 01/01/23 11:00 99 111/78 (96) 91 Nasal Cannula 3.00 01/01/23 10:45 93 Nasal Cannula 3.00 I & O 01/02/23 07:00 Intake Total 3877 ml Output Total 2400 ml Balance 1477 ml Height & Weight Height: 5'8.00" Weight: 154lbs. 0.0oz. 69.740853ie; 18.80 BMI Method:Stated General Appearance: No Apparent Distress, Chronically ill, Thin HEENT: PERRL/EOMI, Pharynx Normal Neck: Non Tender, Supple Respiratory: No Accessory Muscle Use, Decreased Breath Sounds, Other (on HFNC) Cardiovascular: Irregularly Irregular, Tachycardia Capillary Refill: Less Than 3 Seconds Gastrointestinal: normal bowel sounds, non tender, soft Extremity: Normal Range of Motion, Non Tender, No Pedal Edema Neurologic/Psychiatric: Alert, Oriented x3, Normal Mood/Affect Results Lab Laboratory Tests 01/01/23 04:32 01/02/23 04:41 Assessment/Plan Assessment/Plan 1 REID CORDERO MD Jan 02, 2023 10:27
--- NOTE | 2023-01-02 13:53 | Occ Therapy Progress Note ---
Therapy Progress Note OT received order. Patient declined therapy this date, Patient is NPO for cardiac procedure 01/03/23. Patient request OT initiate post procedure CONSTANTIN MANZANO OT Jan 02, 2023 13:53
--- NOTE | 2023-01-02 14:48 | Progress Note - Hospitalist ---
DESTINY GAINES 01/02/23 1448: Subjective HPI/CC On Admission Date Seen by Provider: Jan 02, 2023 Time Seen by Provider: 07:45 Patient 77-year-old male with a past medical history of COPD, A-fib, CAD who presented to the emergency department due to confusion shortness of breath. He was over at [place] in [facility] where he had lung biopsies performed and was discharged home. Following that he became very confused and was more weak than normal per his daughter. Patient reports he does not remember any of this. EMS was summoned and he was found to be hypoxic in the 80s by them. He was placed on a nonrebreather at 10 L and improved to 95%. In the ER he was found to be febrile with a temperature of 39.3 and was quite tachycardic. Imaging was done and confirmed pneumonia and he was admitted to the ICU for sepsis due to pneumonia and acute respiratory failure. This morning he reports feeling much better. His daughter is on the phone on speaker phone and states he sounds much better as well. She does inform me that he had been providing serial sputum cultures to the lab for Dr. Mathews and she had been called that something was growing on those but she was unaware what. Subjective/Events-last exam Pt states that he is feeling better since admissions/ Pt states he is not t ypically on oxygen at home, but would like to get set up with home oxygen. Pt was disoriented to place this morning, but became oriented after talking to nursing staff. Pt denies Fever, Chills, N/V/D. Review of Systems General: No Chills Pulmonary: Dyspnea (Improving ), Cough Gastrointestinal: No: Nausea, Vomiting, Abdominal Pain, Diarrhea Focused Exam Lactate Level 12/30/22 19:28: Lactic Acid Level 1.55 12/30/22 23:13: Lactic Acid Level 0.98 Objective Exam Vital Signs Vital Signs Date Time Temp Pulse Resp B/P (MAP) Pulse Ox O2 Delivery O2 Flow Rate FiO2 01/02/23 14:00 112 20 118/80 (93) 94 Nasal Cannula 2.50 01/02/23 11:48 36.1 12/31/22 09:41 32 Capillary Refill : Less Than 3 Seconds General Appearance: No Apparent Distress Respiratory: Chest Non Tender, Decreased Breath Sounds Cardiovascular: Regular Rate, Rhythm, No Edema, Normal Peripheral Pulses Gastrointestinal: Normal Bowel Sounds, Non Tender, Soft Extremity: No Non Tender, No No Calf Tenderness Neurologic/Psychiatric: Alert, Oriented x3 Skin: Normal Color, Warm/Dry Lymphatic: No Adenopathy Results/Procedures Lab Laboratory Tests 01/02/23 04:41 Patient resulted labs reviewed. Assessment/Plan Assessment and Plan Assess & Plan/Chief Complaint Ulises Kaufman is a 77yo Male presenting with Sepsis secondary to LLL PNA and Acute on Chronic Hypoxic Respiratory Failure. Sepsis secondary to LLL Pneumonia WBC Improving Continue Zosyn Acute on Chronic Hypoxic Respiratory Failure PMHx of COPD Continue Systemic Steroids Continue to wean oxygen MAT protocol AFib with RVR Continue Diltiazem Continue Amiodarone Stroke ppx Start Lovenox 60mg BID Lung Mass Follow up with PCP with Bx Results Anemia - Stable Monitor H&H transfuse as needed CHELSEY RIVERA MD 01/02/23 2019: Subjective HPI/CC On Admission Time Seen by Provider: 09:55 Assessment/Plan Assessment and Plan Assess & Plan/Chief Complaint Continue antibiotics and steroids. Started on Amiodarone and Cardizem for AFib with RVR, Cardiology following. Plan for cardioversion tomorrow. Diagnosis/Problems Diagnosis/Problems (1) Atrial fibrillation with RVR Status: Acute (2) Sepsis Status: Acute (3) Pneumonia Status: Acute (4) COPD (chronic obstructive pulmonary disease) Status: Acute Qualifiers: Qualified Codes: J44.1 - Chronic obstructive pulmonary disease with (acute) exacerbation (5) Lung mass Status: Acute Supervisory-Addendum Brief Verification & Attestation Participated in pt care: history, MDM, physical Personally performed: exam, history, MDM, supervision of care Care discussed with: Medical Student Procedures: n/a Results interpretation: Verified all documentation A medical student performed and documented this service in my presence. I reviewed and verified all information documented by the medical student and made modifications to such information, when appropriate. I personally performed the physical exam and medical decision making. DESTINY GAINES Jan 02, 2023 14:48 CHELSEY RIVERA MD Jan 02, 2023 20:19
[2023-01-03] MEDS: RT-ALBUTEROL/IPRATROPIUM 3 ML (DUONEB) VIAL INH SCH ×6 (02:27→22:07)
[2023-01-03] MEDS: dilTIAZem DRIP PRE-MIX 125 ML IV SCH (02:40)
[2023-01-03] MEDS: PIPERACILLIN SODIUM/TAZOBACTAM 4.5 GM in NS (IVPB) 100 ML IV SCH ×3 (04:40→20:36)
[2023-01-03 05:00] LABS: BASOPHILS % (AUTO) 0 % (0-10); EOSINOPHILS % (AUTO) 0 % (0-10); HEMATOCRIT 31 % (40-54); HEMOGLOBIN 10.4 g/dL (13.3-17.7); LYMPHOCYTES # (AUTO) 2.9 10^3/uL (1.0-4.0); LYMPHOCYTES % (AUTO) 27 % (12-44); MEAN CORPUSCULAR HEMOGLOBIN 28 pg (25-34); MEAN CORPUSCULAR HGB CONC 33 g/dL (32-36); MEAN CORPUSCULAR VOLUME 85 fL (80-99); MONOCYTES # (AUTO) 1.1 10^3/uL (0.0-1.0); MONOCYTES % (AUTO) 10 % (0-12); NEUTROPHILS % (AUTO) 63 % (42-75); PLATELET COUNT 361 10^3/uL (130-400)
[2023-01-03 05:25] LABS: ALBUMIN 2.6 GM/DL (3.2-4.5); BILIRUBIN,TOTAL 0.3 MG/DL (0.1-1.0); CREATININE SERUM 0.71 MG/DL (0.60-1.30); MAGNESIUM 1.9 MG/DL (1.6-2.4); PHOSPHORUS 2.8 MG/DL (2.3-4.7); TOTAL PROTEIN 5.1 GM/DL (6.4-8.2)
[2023-01-03] MEDS ORDERED: DexMEDEtomidine 250 ML DRIP 250 ML IV SCH (06:00)
[2023-01-03] MEDS: POTASSIUM CL 10MEQ/50ML IVPB 50 ML IV SCH (06:18)
[2023-01-03] MEDS: KCL 20 MEQ TAB (K-DUR) PO SCH (06:18)
[2023-01-03] MEDS: MAGNESIUM 1 GM/100 ML IVPB 100 ML IV SCH ×3 (06:18→07:31)
[2023-01-03] MEDS: predniSONE 20 MG TAB PO SCH (06:21)
[2023-01-03] MEDS ORDERED: proPOfol 200 MG/20 ML (DIPRIVAN) VIAL IV ONE (07:57)
--- NOTE | 2023-01-03 07:59 | Physical Therapy Daily Note ---
PT Daily Note-Current Subjective Patient agrees to PT. Per family and RN report, patient is to have a cardioversion on this date. Pain Section J - Health Conditions 1. Rarely or not at all 2. Occasionally 3. Frequently 4. Almost constantly 8. Unable to answer Pain Effect on Sleep: 1 Pain Interference with Therapy: 1 Pain Interference w/Day-to-Day: 1 Mental Status Patient Orientation: Normal For Age Attachments: Oxygen, IV Transfers SCALE: Activities may be completed with or without assistive devices. 3-Fklxtlellr-ilmmtol completes the activity by him/herself with no assistance from a helper. 5-Set-up or Clean-up Assistance-helper sets up or cleans up; patient completes activity. [place] assists only prior to or following the activity. 4-Supervision or Touching Assistance-helper provides verbal cues and/or touching/steadying and/or contact guard assistance as patient completes activity. Assistance may be provided throughout the activity or intermittently. 3-Partial/Moderate Assistance-helper does LESS THAN HALF the effort. [place] lifts, holds or supports trunk or limbs, but provides less than half the effort. 2-Substantial/Maximal Assistance-helper does MORE THAN HALF the effort. [place] lifts or holds trunk or limbs and provides more than half the effort. 9-Bdwaocbhw-nunswz does ALL the effort. Patient does none of the effort to complete the activity. Or, the assistance of 2 or more helpers is required for the patient to complete the activity. If activity was not attempted, code reason: 7-Patient Refused. 9-Not Applicable-not attempted and the patient did not perform the activity before the current illness, exacerbation or injury. 10-Not Attempted due to Environmental Limitations-(lack of equipment, weather restraints, etc.). 88-Not Attempted due to Medical Conditions or Safety Concerns. Sit to Lying (QC): 4 Lying to Sitting/Side of Bed(Q: 4 Sit to Stand (QC): 4 Chair/Ubz-hq-Tylxk Xfer(QC): 4 Gait Training Distance: 10' Walk 10 feet (QC): 4 Gait Assistive Device: FWW functional gait sequence with improved balance Exercises Seated Therapy Exercises: Ankle pumps, Long arc quads, Hip flexion Seated Reps: 15 Assessment Patient requires time to complete all functional tasks. Patient returned to bed with needs met. Family present during session. PT Servomechanism Designer Goals Nursing Home Goals PT Nursing Home Goals Time Frame: Jan 21, 2023 Roll Left & Right (QC): 4 Sit to Lying (QC): 4 Lying-Sitting on Side/Bed(QC): 4 Sit to Stand (QC): 4 Chair/Ldf-nf-Pzfny Xfer(QC): 4 Toilet Transfer (QC): 4 Walk 10 feet (QC): 4 Walk 50ft with 2 Turns (QC): 4 Walk 150 ft (QC): 4 PT Plan Treatment/Plan Treatment Plan: Continue Plan of Care Treatment Plan: Bed Mobility, Education, Functional Activity Eric, Functional Strength, Gait, Safety, Therapeutic Exercise, Transfers Treatment Duration: Jan 21, 2023 Frequency: 6 times per week Estimated Hrs Per Day: .25 hour per day Patient and/or Family Agrees t: Yes Time Time In: 725 Time Out: 748 DATE: Jan 03, 2023 Total Billed Treatment Time: 23 Total Billed Treatment 1 visit FA x 2 23 min JOSS VAZQUEZ PT Jan 03, 2023 07:59
--- NOTE | 2023-01-03 08:09 | Cardiology Progress Note ---
Subjective Date Seen by Provider: Jan 03, 2023 Time Seen by Provider: 08:08 Subjective/Events-last exam Patient was seen at bedside, he has converted to sinus rhythm Review of Systems General: No Chills, No Night Sweats; Fatigue; No Malaise, No Appetite, No Other HEENT: No Head Aches, No Visual Changes, No Eye Pain, No Ear Pain, No Dysphasia, No Sinus Congestion, No Post Nasal Drip, No Sore Throat, No Other Pulmonary: Dyspnea; No Cough, No Pleuritic Chest Pain, No Other Cardiovascular: No: Chest Pain, Palpitations, Orthopnea, Paroxysmal Noc. Dyspnea, Edema, Lt Headedness, Other Objective-Cardiology Exam Last Set of Vital Signs Vital Signs 12/31/22 01/02/23 01/03/23 01/03/23 01/03/23 09:41 19:37 06:00 06:22 07:32 Temp 36.2 Pulse 69 Resp 21 B/P (MAP) 120/59 Pulse Ox 95 O2 Delivery Nasal Cannula O2 Flow Rate 2.50 FiO2 32 I&O Intake and Output 01/03/23 00:00 Intake Total 1264 ml Output Total 2625 ml Balance -1361 ml Intake Oral 780 ml IV Total 484 ml Output Urine Total 2625 ml General: Alert, Oriented X3, Cooperative HEENT: Atraumatic, PERRLA Neck: Supple, No JVD, No Thyromegaly Lungs: Normal Air Movement, Other (Bilateral rhonchi) Heart: Regular Rate, Normal S1, Normal S2, No Murmurs Abdomen: Normal Bowel Sounds, Soft, No Tenderness, No Hepatosplenomegaly, No Masses Extremities: No Clubbing, No Cyanosis, No Edema, Normal Pulses, No Tenderness/Swelling Skin: No Rashes, No Breakdown, No Significant Lesion Neuro: Normal Speech, Normal Tone, Sensation Intact Psych/Mental Status: Mental Status NL, Mood NL Results Lab Laboratory Tests 01/03/23 04:27 A/P-Cardiology Admission Diagnosis Pneumonia Hypoxemia Chest pain Paroxysmal atrial fibrillation Assessment/Plan Atypical pneumonia, shortness of breath, cough and chest pain. Status post lung biopsy done on December 30, 2022 Paroxysmal atrial fibrillation Had multiple episodes of atrial fibrillation I was planning for cardioversion on January 03, 2023 Converted to sinus rhythm on Cardizem drip I will start amiodarone and wean him off the Cardizem Starting Xarelto Fever, secondary to pneumonia Temperature is better Chest pain, nonspecific in etiology, appears to be pleuritic in nature. Has baseline right bundle branch block, cardiac enzymes were negative EKG showed right bundle branch block No further episodes of chest pain were reported. Coronary artery disease, history of moderate disease by cardiac catheterization [place] [address] Hi COPD, hypoxemia, tobaccoism Currently worsening hypoxemia requiring oxygen. Hypertension, restart home medication monitor blood pressure Hyperlipidemia, monitor lipids Appointment with Dr. Ashraf's office in 2 to 4 weeks NOLA ASHRAF MD Jan 03, 2023 08:09
[2023-01-03] MEDS: AMIODARONE 200 MG (CORDARONE) TAB PO SCH ×2 (09:02→20:36)
[2023-01-03] MEDS: NICOTINE 21 MG (NICODERM) PATCH TD SCH (09:02)
--- NOTE | 2023-01-03 11:27 | Tele-ICU Progress Note ---
Subjective Date Seen by a Provider: Jan 03, 2023 Time Seen by a Provider: 11:07 Subjective/Events-last exam (Tele-ICU Physician , Progress Note ) Service provided via interactive audio and video telecommunications E-CARE system to a patient admitted to ICU bed in [facility]. Patient is seen today due to persistent need of ICU care Available chart/ vitals / labs / Images reviewed Video assessment done using teleICU camera, rest of exam as per RN He is a 77-year-old male with past medical history of chronic obstructive pulmonary disease and pulmonary nodules apparently underwent fiberoptic bronchoscopy and biopsies at the [facility] on the day of admission and postprocedure he was discharged to home. At home he developed a severe confusion and shortness of breath, hypoxia requiring 10 L of oxygen via nonrebreather mask by the EMS and subsequently transported to the emergency room where he is found to have a pneumonia and a fever. He is admitted to the intensive care unit for further evaluation and management. He was treated with IV antibiotics bronchodilator therapy. He also has atrial fibrillation with rapid ventricular rate requiring Cardizem drip and amiodarone and today the IV drips were discontinued and started on oral Cardizem and amiodarone. He is converted to sinus rhythm today. His oxygen requirement also dramatically decreased and he is currently on 3 L nasal cannula. Impression 1. Pneumonia 2. Hypoxic respiratory failure acute 3. COPD with exacerbation 4. Questionable history of pulmonary nodules status post bronchoscopy biopsy 5. Atrial fibrillation with rapid ventricular rate Recommendations 1. Continue IV antibiotics per primary care physician 2. Continue bronchodilator therapy 3. Atrial fibrillation management per cardiology. 4. He needs to follow-up with the rubber goods assembler at [facility] regarding his biopsy results and further work-up. Coordination of care with primary care physician as well as bedside consultants. Critical care time devoted to him today approximately 22 minutes. I am remotely monitoring this patient from Tele icu station in [place]. I am unable to do the bedside exam, and history/physical and pertinent information is taken from other notes in the computer and bedside staff. Certain portions of this document may have been dictated utilizing voice recognition technology such as [employer]. Inherent to this technology, typographical and grammatical errors may exist. As much as I am diligent to identify and correct to these mistakes, some errors may remain in the document.- Sepsis Event Evaluation Height, Weight, BMI Height: 5'8.00" Weight: 154lbs. 0.0oz. [id number]; 18.70 BMI Method:Stated Exam Exam Patient acknowledged, consented, and participated in this virtual visit which was conducted using real time audio/video Vital Signs Date Time Temp Pulse Resp B/P (MAP) Pulse Ox O2 Delivery O2 Flow Rate FiO2 01/03/23 10:00 79 10 117/64 (81) 92 Nasal Cannula 3.00 01/03/23 09:00 89 19 120/81 (94) 91 Nasal Cannula 3.00 01/03/23 08:55 94 Nasal Cannula 3.00 01/03/23 08:00 72 18 120/72 (88) 95 Nasal Cannula 3.00 01/03/23 07:40 36.0 01/03/23 07:32 95 Nasal Cannula 2.50 01/03/23 07:28 72 01/03/23 07:10 Nasal Cannula 3.00 01/03/23 07:00 71 17 118/67 (84) 93 Nasal Cannula 2.50 01/03/23 06:55 94 Nasal Cannula 3.00 01/03/23 06:22 69 120/59 01/03/23 06:00 86 21 118/64 (82) 97 Nasal Cannula 2.50 01/03/23 05:00 83 17 127/61 (83) 97 Nasal Cannula 2.50 01/03/23 04:00 95 Nasal Cannula 2.50 01/03/23 04:00 69 19 120/59 (79) 95 Nasal Cannula 2.50 01/03/23 03:00 76 18 126/83 (97) 95 Nasal Cannula 2.50 01/03/23 02:40 86 116/57 01/03/23 02:27 95 Nasal Cannula 2.50 01/03/23 02:00 85 14 121/67 (85) 96 Nasal Cannula 2.50 01/03/23 01:00 74 01/03/23 01:00 78 20 113/66 (82) 95 Nasal Cannula 2.50 01/03/23 00:00 75 19 123/68 (86) 94 Nasal Cannula 2.50 01/02/23 23:59 96 Nasal Cannula 2.50 01/02/23 23:00 79 19 127/60 (82) Nasal Cannula 2.50 4/10/23 22:00 75 21 112/66 (81) 95 Nasal Cannula 2.50 01/02/23 21:31 96 Nasal Cannula 2.50 01/02/23 21:00 69 22 114/62 (79) 100 Nasal Cannula 2.50 01/02/23 20:00 72 22 127/75 (92) 96 Nasal Cannula 2.50 01/02/23 20:00 95 Nasal Cannula 2.50 01/02/23 19:37 36.2 01/02/23 19:00 73 16 125/69 (87) 96 Nasal Cannula 2.50 01/02/23 19:00 86 01/02/23 18:08 82 116/57 01/02/23 18:00 82 18 116/57 (76) 90 Nasal Cannula 2.50 01/02/23 17:00 75 21 123/67 (85) 91 Nasal Cannula 2.50 01/02/23 16:12 36.1 01/02/23 16:00 110 22 112/77 (89) 90 Nasal Cannula 2.50 01/02/23 16:00 94 Nasal Cannula 2.50 01/02/23 15:00 103 21 106/56 (73) 95 Nasal Cannula 2.50 01/02/23 14:00 112 20 118/80 (93) 94 Nasal Cannula 2.50 01/02/23 13:00 104 9 96/56 (69) 97 Nasal Cannula 2.50 01/02/23 12:53 108 01/02/23 12:00 112 21 97/54 (68) 96 Nasal Cannula 2.50 01/02/23 11:48 36.1 01/02/23 11:14 94 Nasal Cannula 2.50 I & O 01/03/23 07:00 Intake Total 850 ml Output Total 2850 ml Balance -2000 ml Height & Weight Height: 5'8.00" Weight: 154lbs. 0.0oz. [id number]; 18.70 BMI Method:Stated General Appearance: No Apparent Distress HEENT: PERRL/EOMI, Pharynx Normal Neck: Non Tender, Supple Respiratory: Chest Non Tender, Decreased Breath Sounds Cardiovascular: Regular Rate, Rhythm, No Edema, Normal Peripheral Pulses Capillary Refill: Less Than 3 Seconds Gastrointestinal: normal bowel sounds, non tender, soft Extremity: No Non Tender, No No Calf Tenderness Neurologic/Psychiatric: Alert, Oriented x3 Skin: Normal Color, Warm/Dry Lymphatic: No Adenopathy Results Lab Laboratory Tests 01/02/23 04:41 01/03/23 04:27 Assessment/Plan Assessment/Plan as above Critical Care: Critically Ill Patient Time spent with patient (mins): 22 NADJA GOLDBERG MD Jan 03, 2023 11:27
[2023-01-03] MEDS: THIAMINE INJECTION 100 MG, FOLIC ACID INJECTION 1 MG, VITAMIN MULTI INJECTION 10 ML, MA... IV SCH ×5 (11:43)
--- NOTE | 2023-01-03 13:21 | Progress Note - Hospitalist ---
DESTINY GAINES 01/03/23 1321: Subjective HPI/CC On Admission Date Seen by Provider: Jan 03, 2023 Time Seen by Provider: 08:30 Patient 77-year-old male with a past medical history of COPD, A-fib, CAD who presented to the emergency department due to confusion shortness of breath. He was over at [facility] in [facility] where he had lung biopsies performed and was discharged home. Following that he became very confused and was more weak than normal per his daughter. Patient reports he does not remember any of this. EMS was summoned and he was found to be hypoxic in the 80s by them. He was placed on a nonrebreather at 10 L and improved to 95%. In the ER he was found to be febrile with a temperature of 39.3 and was quite tachycardic. Imaging was done and confirmed pneumonia and he was admitted to the ICU for sepsis due to pneumonia and acute respiratory failure. This morning he reports feeling much better. His daughter is on the phone on speaker phone and states he sounds much better as well. She does inform me that he had been providing serial sputum cultures to the lab for Dr. Mathews and she had been called that something was growing on those but she was unaware what. Subjective/Events-last exam Pt was accompanied by daughter and long time girlfriend at bed side. Pt states that he is doing well without any complaints. Pt's daughter reports that pt is having worsening confusion since lung biopsies last week which prompted ED visit and admissions. Pt discussed wanting home oxygen since it seems to be helpful. Pt has chronic cough and sputum production due to COPD. Pt denies fever, chills, N/V/D, and chest pain. Review of Systems General: No Chills Pulmonary: Cough, Other (Sputum production) Cardiovascular: No: Chest Pain Gastrointestinal: No: Nausea, Vomiting, Diarrhea Neurological: Confusion Objective Exam Vital Signs Vital Signs Date Time Temp Pulse Resp B/P (MAP) Pulse Ox O2 Delivery O2 Flow Rate FiO2 01/03/23 12:41 82 01/03/23 12:00 21 127/65 (85) 94 Nasal Cannula 3.00 01/03/23 07:40 36.0 12/31/22 09:41 32 Capillary Refill : Less Than 3 Seconds General Appearance: No Apparent Distress, Chronically ill, Thin Respiratory: Chest Non Tender, Decreased Breath Sounds Cardiovascular: Regular Rate, Rhythm, No Edema, No Murmur, Normal Peripheral Pulses Extremity: Normal Capillary Refill, No Pedal Edema Neurologic/Psychiatric: Alert, Oriented x3; No Depressed Affect; Other (Delirium) Skin: Normal Color, Warm/Dry Results/Procedures Lab Laboratory Tests 01/03/23 04:27 Patient resulted labs reviewed. Assessment/Plan Assessment and Plan Assess & Plan/Chief Complaint Ulises Kaufman is a 77yo Male presenting with Sepsis secondary to LLL PNA and Acute on Chronic Hypoxic Respiratory Failure. Sepsis secondary to LLL Pneumonia Normalized WBC Continue Zosyn Delirium Started Banana Bag per TeleICU Continue Zosyn to treat infection Continue to Monitor for Mental Status Changes Acute on Chronic Hypoxic Respiratory Failure PMHx of COPD Continue Systemic Steroids Continue to wean oxygen MAT protocol AFib with RVR No Cardioversion due to sinus rhythm Starting Oral Diltiazem, Amiodarone, and Rivaroxaban Continue to Monitor Lung Mass Follow up with PCP with Bx Results Anemia Improving; 10.4 today vs 9.8 yesterday Monitor H&H transfuse as needed CHELSEY RIVERA MD 01/03/23 1649: Subjective HPI/CC On Admission Time Seen by Provider: 09:40 Objective Exam General Appearance: No Apparent Distress, Thin Respiratory: No Respiratory Distress, Decreased Breath Sounds Cardiovascular: Regular Rate, Rhythm, No Murmur Gastrointestinal: Normal Bowel Sounds, Soft Extremity: Normal Inspection, No Pedal Edema Neurologic/Psychiatric: Alert, Oriented x3, Normal Mood/Affect Skin: Normal Color, Warm/Dry Assessment/Plan Assessment and Plan Assess & Plan/Chief Complaint AFib well controlled on oral medications. No further issues with RVR. Continue antibiotics for pneumonia. Issues with delirium overnight, reorient as needed. Informed by nursing that patient's outside biopsy returned confirming lung cancer diagnosis. Diagnosis/Problems Diagnosis/Problems (1) Acute respiratory failure Status: Acute Qualifiers: Qualified Codes: J96.01 - Acute respiratory failure with hypoxia (2) Sepsis Status: Acute (3) Pneumonia Status: Acute (4) COPD (chronic obstructive pulmonary disease) Status: Acute Qualifiers: Qualified Codes: J44.1 - Chronic obstructive pulmonary disease with (acute) exacerbation (5) Atrial fibrillation with RVR Status: Acute (6) Cancer of left lung Status: Acute (7) Delirium due to multiple etiologies Status: Acute Supervisory-Addendum Brief Verification & Attestation Participated in pt care: history, MDM, physical Personally performed: exam, history, MDM, supervision of care Care discussed with: Medical Student Procedures: n/a Results interpretation: Verified all documentation A medical student performed and documented this service in my presence. I reviewed and verified all information documented by the medical student and made modifications to such information, when appropriate. I personally performed the physical exam and medical decision making. DESTINY GAINES Jan 03, 2023 13:21 CHELSEY RIVERA MD Jan 03, 2023 16:49
--- NOTE | 2023-01-03 13:31 | Occupational Therapy Eval ---
OT Evaluation-General/PLF Medical Diagnosis Admission Date Dec 30, 2022 at 22:47 Medical Diagnosis: pneumonia/lung cancer/orthostatic hypotension Onset Date: Dec 30, 2022 Therapy Diagnosis Therapy Diagnosis: WEAKNESS Height/Weight Height (Feet): 5 Height (Inches): 8.00 Weight (Pounds): 154 Weight (Ounces): 0.0 Precautions Precautions/Isolations: Fall Prevention, Standard Precautions Weight Bear Status Weight Bearing Restriction: Full Weight Bearing Referral Physician: Griselda Referral Reason: Evaluation/Treatment Medical History Pertinent Medical History: Atrial Fib, CAD, COPD, CVA, HTN, Smoking Current History Pt's daughter reports that pt is having worsening confusion since lung biopsies last week which prompted ED visit and admissions. Pt discussed wanting home oxygen since it seems to be helpful. Pt has chronic cough and sputum production due to COPD. Pt denies fever, chills, N/V/D, and chest pain. Reviewed History: Yes Social History Home: Single Level Current Living Status: Children Entry Into Home: Stairs With Railing Steps Into Home: 4 ADL-Prior Level of Function SCALE: Activities may be completed with or without assistive devices. 1-Wwkncszyqz-[id number] completes the activity by him/herself with no assistance from a helper. 5-Set-up or Clean-up Assistance-helper sets up or cleans up; patient completes activity. [place] assists only prior to or following the activity. 4-Supervision or Touching Assistance-helper provides verbal cues and/or touching/steadying and/or contact guard assistance as patient completes activity. Assistance may be provided throughout the activity or intermittently. 3-Partial/Moderate Assistance-helper does LESS THAN HALF the effort. [place] lifts, holds or supports trunk or limbs, but provides less than half the effort. 2-Substantial/Maximal Assistance-helper does MORE THAN HALF the effort. [place] lifts or holds trunk or limbs and provides more than half the effort. 6-Lntoflbig-sdhklq does ALL the effort. Patient does none of the effort to complete the activity. Or, the assistance of 2 or more helpers is required for the patient to complete the activity. If activity was not attempted, code reason: 7-Patient Refused. 9-Not Applicable-not attempted and the patient did not perform the activity before the current illness, exacerbation or injury. 10-Not Attempted due to Environmental Limitations-(lack of equipment, weather restraints, etc.). 88-Not Attempted due to Medical Conditions or Safety Concerns. Self Care: Independent Functional Cognition: Independent OT Current Status Subjective PATIENT AGREES TO ot, REPORTS HE DID NOT HAVE PROCEDURE THIS MORNING AND HEART IS IN NORMAL RHYTHM. Mental Status/Objective Patient Orientation: Person, Place, Time, Situation Attachments: IV, Oxygen, Telemetry Current Upper Extremity ROM BUE ROM WFLS Upper Extremity Coordination INTACT Upper Extremity Sensation INACT Upper Extremity Strength -4/5 ADL-Treatment Eating (QC): 6 (DROPPED STRAW ON FLOOR, PATIENT DECLINED RETREIVAL WHILE SITTING EOB OT PROVIDED NEW STRAW AND DISPOSED OF OLD STRAW) Oral Hygiene (QC): 5 Shower/Bathe Self (QC): 88 Upper Body Dressing (QC): 4 Lower Body Dressing (QC): 4 On/Off Footwear (QC): 4 Toileting Hygiene (QC): 4 PATIENT DEMONSTRATES DELAYED INTENTIONS FOR FUNCTIONAL ACTIVITY AND LINGERS FOR TASKS TO BE COMPLETED BY ANOTHER PERSON Education OT Patient Education: Modified ADL techniques, Progress toward Goal/Update tx plan, Purpose of tx/functional activities, Reviewed precautions, Rehab process, Safety issues Teaching Recipient: Patient Response to Teaching: Verbalize Understanding, Reinforcement Needed OT Penitentiary Goals Penitentiary Goals Eating (QC): 6 Oral Hygiene (QC): 6 Toileting Hygiene (QC): 6 Shower/Bathe Self (QC): 6 Upper Body Dressing (QC): 6 Lower Body Dressing (QC): 6 On/Off Footwear (QC): 6 1=Demonstrate adherence to instructed precautions during ADL tasks. 2=Patient will verbalize/demonstrate understanding of assistive devices/modifications for ADL. 3=Patient will improve strength/tolerance for activity to enable patient to perform ADL's. OT Education/Plan Problem List/Assessment Assessment: Decreased Activ Tolerance, Impaired Funct Balance, Impaired Self- Care Skills Discharge Recommendations Plan/Recommendations: Continue POC Treatment Plan/Plan of Care Patient would benefit from OT for education, treatment and training to promote independence in ADL's, mobility, safety and/or upper extremity function for ADL's. Plan of Care: ADL Retraining, Functional Mobility, Group Exercise/Act as Ind, UE Funct Exercise/Act Treatment Duration: Jan 07, 2023 Frequency: 3 times per week (3-5 TIMES PER WEEK) Estimated Hrs Per Day: .25 hour per day Rehab Potential: Guarded PATIENT REQUEST RETUN TO BED FOLLOWING EVAL W/ IN ROOM AMBULATION, PATIENT REQUEST WARM BLANKET, ALL NEEDS MET Time Start Time: 13:20 Stop Time: 13:36 DATE: Jan 03, 2023 Total Time Billed (hr/min): 16 Billed Treatment Time EVM 16 MIN CONSTANTIN MANZANO OT Jan 03, 2023 13:31
[2023-01-03 14:48] VITALS: BP 127/65
[2023-01-03] MEDS ORDERED: DILT-10 PO (15:43)
[2023-01-03] MEDS ORDERED: POTA-160 PO (15:43)
[2023-01-03] MEDS ORDERED: RIVA20TA2 PO (15:43)
[2023-01-03] MEDS ORDERED: ACET-2041 PO (15:43)
[2023-01-03] MEDS ORDERED: FURO-125 PO (15:43)
[2023-01-03] MEDS: RIVAROXABAN 20 MG TABLET (XARELTO) PO SCH (17:23)
[2023-01-04] MEDS: RT-ALBUTEROL/IPRATROPIUM 3 ML (DUONEB) VIAL INH SCH ×4 (02:22→14:05)
[2023-01-04 04:01] LABS: BASOPHILS % (AUTO) 0 % (0-10); EOSINOPHILS % (AUTO) 0 % (0-10); HEMATOCRIT 33 % (40-54); HEMOGLOBIN 11.3 g/dL (13.3-17.7); LYMPHOCYTES % (AUTO) 24 % (12-44); MEAN CORPUSCULAR HEMOGLOBIN 29 pg (25-34); MEAN CORPUSCULAR HGB CONC 34 g/dL (32-36); MEAN CORPUSCULAR VOLUME 85 fL (80-99); MEAN PLATELET VOLUME 8.8 fL (9.0-12.2); MONOCYTES # (AUTO) 1.4 10^3/uL (0.0-1.0); MONOCYTES % (AUTO) 11 % (0-12); NEUTROPHILS % (AUTO) 64 % (42-75); PLATELET COUNT 348 10^3/uL (130-400); WHITE BLOOD COUNT 12.4 10^3/uL (4.3-11.0)
[2023-01-04 04:29] LABS: ALBUMIN 2.7 GM/DL (3.2-4.5); POTASSIUM 3.6 MMOL/L (3.6-5.0)
[2023-01-04 04:30] LABS: CALCIUM 8.8 MG/DL (8.5-10.1)
[2023-01-04 04:32] LABS: TOTAL PROTEIN 5.1 GM/DL (6.4-8.2)
[2023-01-04 04:33] LABS: BILIRUBIN,TOTAL 0.3 MG/DL (0.1-1.0)
[2023-01-04 04:35] LABS: CREATININE SERUM 0.7 MG/DL (0.60-1.30); PHOSPHORUS 2.8 MG/DL (2.3-4.7)
[2023-01-04] MEDS: POTASSIUM CL 10MEQ/50ML IVPB 50 ML IV SCH (04:37)
[2023-01-04] MEDS: KCL 20 MEQ TAB (K-DUR) PO SCH (04:37)
[2023-01-04] MEDS: MAGNESIUM 1 GM/100 ML IVPB 100 ML IV SCH (04:37)
[2023-01-04] MEDS: predniSONE 20 MG TAB PO SCH (06:16)
[2023-01-04] MEDS: AMIODARONE 200 MG (CORDARONE) TAB PO SCH (07:47)
[2023-01-04] MEDS: NICOTINE 21 MG (NICODERM) PATCH TD SCH (07:47)
--- NOTE | 2023-01-04 08:49 | Progress Note - Hospitalist ---
Subjective HPI/CC On Admission Date Seen by Provider: Jan 04, 2023 Time Seen by Provider: 08:01 Patient 77-year-old male with a past medical history of COPD, A-fib, CAD who presented to the emergency department due to confusion shortness of breath. He was over at [facility] in [place] today where he had lung biopsies performed and was discharged home. Following that he became very confused and was more weak than normal per his daughter. Patient reports he does not remember any of this. EMS was summoned and he was found to be hypoxic in the 80s by them. He was placed on a nonrebreather at 10 L and improved to 95%. In the ER he was found to be febrile with a temperature of 39.3 and was quite tachycardic. Imaging was done and confirmed pneumonia and he was admitted to the ICU for sepsis due to pneumonia and acute respiratory failure. This morning he reports feeling much better. His daughter is on the phone on speaker phone and states he sounds much better as well. She does inform me that he had been providing serial sputum cultures to the lab for Dr. Mathews and she had been called that something was growing on those but she was unaware what. Subjective/Events-last exam Pt was seen and interviewed today w/o family at bedside. Pt today seemed to have a more depressed affect than yesterday. When questioned about it, he states that he was dying of Cancer. Per nurse Daughter communicated news to patient yesterday. Pt stated that he feels fine today. Denies chest pain, abdominal p ain, fever, chills, and N/V/D. Review of Systems General: No Chills Pulmonary: Dyspnea (Chronic ), Cough (Chronic ) Cardiovascular: No: Chest Pain Gastrointestinal: No: Nausea, Vomiting, Abdominal Pain, Diarrhea Objective Exam Vital Signs Vital Signs Date Time Temp Pulse Resp B/P (MAP) Pulse Ox O2 Delivery O2 Flow Rate FiO2 01/04/23 14:00 92 16 123/63 (83) 90 Nasal Cannula 3.00 01/04/23 10:54 36.4 01/03/23 14:48 32 Capillary Refill : Less Than 3 Seconds General Appearance: No Apparent Distress, Chronically ill, Thin Respiratory: Chest Non Tender, Decreased Breath Sounds Cardiovascular: Regular Rate, Rhythm, Normal Peripheral Pulses Gastrointestinal: Normal Bowel Sounds, Non Tender, Soft Neurologic/Psychiatric: Alert, Oriented x3; No Normal Mood/Affect; Depressed Affect; No Disoriented Skin: Normal Color, Warm/Dry Results/Procedures Lab Laboratory Tests 01/04/23 03:43 Patient resulted labs reviewed. Assessment/Plan Assessment and Plan Assess & Plan/Chief Complaint Ulises Kaufman is a 77yo Male presenting with Sepsis secondary to LLL PNA and Acute on Chronic Hypoxic Respiratory Failure. Sepsis secondary to LLL Pneumonia Normalized WBC Continue Zosyn Delirium Improved Monitor for Mental Status Changes Acute on Chronic Hypoxic Respiratory Failure PMHx of COPD Continue Systemic Steroids Wean oxygen MAT protocol Depression Lack of Appetite Start Mirtazipine AFib with RVR Continue Oral Diltiazem, Amiodarone, and Rivaroxaban Continue to Monitor Anemia Improving; 11.3 today vs 10.4 yesterday Monitor H&H transfuse as needed Lung Mass DESTINY GAINES Jan 04, 2023 08:49
[2023-01-04] MEDS ORDERED: KCL 20 MEQ TAB (K-DUR) PO ONE (09:00)
[2023-01-04] MEDS ORDERED: PRED10TA22 PO (09:40)
[2023-01-04] MEDS ORDERED: AMOX1TAB12 PO (09:40)
[2023-01-04] MEDS ORDERED: MIRT-96 PO (09:40)
[2023-01-04] MEDS ORDERED: AMIO200T65 PO (09:40)
[2023-01-04] MEDS: THIAMINE INJECTION 100 MG, FOLIC ACID INJECTION 1 MG, VITAMIN MULTI INJECTION 10 ML, MA... IV SCH ×5 (10:53)
--- NOTE | 2023-01-04 11:21 | Tele-ICU Progress Note ---
Subjective Date Seen by a Provider: Jan 04, 2023 Time Seen by a Provider: 11:16 Subjective/Events-last exam (Tele-ICU Physician , Progress Note ) Service provided via interactive audio and video telecommunications E-CARE system to a patient admitted to ICU bed in [facility]. Patient is seen today due to persistent need of ICU care Available chart/ vitals / labs / Images reviewed Video assessment done using teleICU camera, rest of exam as per RN He is a 77-year-old male with past medical history of chronic obstructive pulmonary disease and pulmonary nodules apparently underwent fiberoptic bronchoscopy and biopsies at the [facility] on the day of admission and postprocedure he was discharged to home. At home he developed a severe confusion and shortness of breath, hypoxia requiring 10 L of oxygen via nonrebreather mask by the EMS and subsequently transported to the emergency room where he is found to have a pneumonia and a fever. He is admitted to the intensive care unit for further evaluation and management. He was treated with IV antibiotics bronchodilator therapy. He also has atrial fibrillation with rapid ventricular rate requiring Cardizem drip and amiodarone and today the IV drips were discontinued and started on oral Cardizem and amiodarone. He is converted to sinus rhythm today. His oxygen requirement also dramatically decreased and he is currently on 3 L nasal cannula. 01/04/23 today he breathing fine but depressed due to the fact that his lung biopsy reportedly showed cancer. Impression 1. Pneumonia improving 2. Hypoxic respiratory failure acute resolving 3. COPD with exacerbation improving 4. Questionable history of pulmonary nodules status post bronchoscopy biopsy 5. Atrial fibrillation with rapid ventricular rate improving. 6. newly diagnosed lung cancer Recommendations 1. Continue antibiotics per primary care physician 2. Continue bronchodilator therapy 3. Atrial fibrillation management per cardiology. 4. He needs to follow-up with the wool supplier at [facility] regarding his biopsy results and further work-up. Coordination of care with primary care physician as well as bedside consultants. Critical care time devoted to him today approximately 20 minutes. I am remotely monitoring this patient from Tele icu station in [place]. I am unable to do the bedside exam, and history/physical and pertinent information is taken from other notes in the computer and bedside staff. Certain portions of this document may have been dictated utilizing voice recognition technology such as [employer]. Inherent to this technology, typographical and grammatical errors may exist. As much as I am d Sepsis Event Evaluation Height, Weight, BMI Height: 5'8.00" Weight: 154lbs. 0.0oz. 69.972462qq; 18.70 BMI Method:Stated Exam Exam Patient acknowledged, consented, and participated in this virtual visit which was conducted using real time audio/video Vital Signs Date Time Temp Pulse Resp B/P (MAP) Pulse Ox O2 Delivery O2 Flow Rate FiO2 01/04/23 10:54 36.4 01/04/23 10:34 95 Nasal Cannula 3.00 01/04/23 10:00 81 18 127/70 (89) 98 Nasal Cannula 3.00 01/04/23 09:00 87 24 131/73 (92) 96 Nasal Cannula 3.00 01/04/23 08:15 Room Air 01/04/23 08:00 105 19 130/72 (91) 97 Nasal Cannula 3.00 01/04/23 07:49 95 Nasal Cannula 3.00 01/04/23 07:42 36.2 01/04/23 07:21 87 01/04/23 07:00 82 18 126/73 (90) 96 Nasal Cannula 3.00 01/04/23 06:49 96 Nasal Cannula 3.00 01/04/23 06:00 81 16 145/79 (101) 97 Nasal Cannula 3.00 01/04/23 05:00 117 20 133/71 (91) 96 Nasal Cannula 3.00 01/04/23 04:00 93 Nasal Cannula 3.00 01/04/23 04:00 89 18 126/72 (90) 90 Nasal Cannula 3.00 01/04/23 03:00 87 18 118/60 (79) 97 Nasal Cannula 3.00 01/04/23 02:22 95 Nasal Cannula 3.00 01/04/23 02:00 81 16 129/70 (89) 97 Nasal Cannula 3.00 01/04/23 01:49 84 01/04/23 01:36 123 01/04/23 01:00 76 01/04/23 01:00 80 21 133/82 (99) 97 Nasal Cannula 3.00 01/04/23 00:00 36.8 01/04/23 00:00 91 19 128/74 (92) 95 Nasal Cannula 3.00 01/03/23 23:59 93 Nasal Cannula 3.00 01/03/23 23:00 83 25 127/68 (87) 94 Nasal Cannula 3.00 01/03/23 22:08 92 Nasal Cannula 3.00 01/03/23 22:00 85 22 126/70 (88) 92 Nasal Cannula 3.00 01/03/23 21:00 86 20 120/69 (86) 90 Nasal Cannula 3.00 01/03/23 20:00 93 Nasal Cannula 2.50 01/03/23 20:00 86 21 124/69 (87) 92 Nasal Cannula 3.00 01/03/23 19:35 36.5 Nasal Cannula 3.00 01/03/23 19:00 90 24 126/67 (86) 92 Nasal Cannula 3.00 01/03/23 19:00 80 01/03/23 18:36 92 Nasal Cannula 3.00 01/03/23 18:00 92 16 139/96 (110) 90 Nasal Cannula 3.00 01/03/23 17:00 80 21 131/73 (92) 95 Nasal Cannula 3.00 01/03/23 16:00 93 Nasal Cannula 2.50 01/03/23 16:00 82 30 121/67 (85) 90 Nasal Cannula 3.00 01/03/23 15:00 89 29 106/74 (85) 96 Nasal Cannula 3.00 01/03/23 14:48 36.0 82 95 32 01/03/23 14:30 94 Nasal Cannula 3.00 01/03/23 14:00 79 19 124/70 (88) 100 Nasal Cannula 3.00 01/03/23 13:00 81 10 127/74 (91) 94 Nasal Cannula 3.00 01/03/23 12:41 82 01/03/23 12:00 89 21 127/65 (85) 94 Nasal Cannula 3.00 01/03/23 11:45 93 Nasal Cannula 2.50 I & O 01/04/23 07:00 Intake Total 1900 ml Output Total 2150 ml Balance -250 ml Height & Weight Height: 5'8.00" Weight: 154lbs. 0.0oz. 69.306810mg; 18.70 BMI Method:Stated General Appearance: No Apparent Distress, Chronically ill, Thin HEENT: PERRL/EOMI, Pharynx Normal Neck: Non Tender, Supple Respiratory: Chest Non Tender, Decreased Breath Sounds Cardiovascular: Regular Rate, Rhythm, Normal Peripheral Pulses Capillary Refill: Less Than 3 Seconds Gastrointestinal: normal bowel sounds, non tender, soft Extremity: Normal Inspection, No Pedal Edema Neurologic/Psychiatric: Alert, Oriented x3; No Normal Mood/Affect; Depressed Affect; No Disoriented Skin: Normal Color, Warm/Dry Lymphatic: No Adenopathy Results Lab Laboratory Tests 01/03/23 04:27 01/04/23 03:43 Assessment/Plan Assessment/Plan as above Critical Care: Critically Ill Patient Time spent with patient (mins): 20 NADJA GOLDBERG MD Jan 04, 2023 11:21
--- NOTE | 2023-01-04 11:30 | Cardiology Progress Note ---
Subjective Date Seen by Provider: Jan 04, 2023 Time Seen by Provider: 08:00 Subjective/Events-last exam Patient was seen at bedside, laying down comfortably. No new complaint Review of Systems General: No Chills, No Night Sweats; Fatigue; No Malaise, No Appetite, No Other HEENT: No Head Aches, No Visual Changes, No Eye Pain, No Ear Pain, No Dysphasia, No Sinus Congestion, No Post Nasal Drip, No Sore Throat, No Other Pulmonary: Dyspnea; No Cough, No Pleuritic Chest Pain, No Other Cardiovascular: No: Chest Pain, Palpitations, Orthopnea, Paroxysmal Noc. Dyspnea, Edema, Lt Headedness, Other Objective-Cardiology Exam Last Set of Vital Signs Vital Signs 01/03/23 01/04/23 01/04/23 01/04/23 14:48 10:00 10:34 10:54 Temp 36.4 Pulse 81 Resp 18 B/P (MAP) 127/70 (89) Pulse Ox 95 O2 Delivery Nasal Cannula O2 Flow Rate 3.00 FiO2 32 I&O Intake and Output 01/04/23 00:00 Intake Total 1770 ml Output Total 2475 ml Balance -705 ml Intake Oral 1570 ml IV Total 200 ml Output Urine Total 2475 ml General: Alert, Oriented X3, Cooperative HEENT: Atraumatic, PERRLA Neck: Supple, No JVD, No Thyromegaly Lungs: Normal Air Movement, Other (Bilateral rhonchi) Heart: Normal S1, Normal S2, No Murmurs, Other (Atrial fibrillation) Abdomen: Normal Bowel Sounds, Soft, No Tenderness, No Hepatosplenomegaly, No Masses Extremities: No Clubbing, No Cyanosis, No Edema, Normal Pulses, No Tenderness/Swelling Skin: No Rashes, No Breakdown, No Significant Lesion Neuro: Normal Speech, Normal Tone, Sensation Intact Psych/Mental Status: Mental Status NL, Mood NL Results Lab Laboratory Tests 01/04/23 03:43 A/P-Cardiology Admission Diagnosis Pneumonia Hypoxemia Chest pain Paroxysmal atrial fibrillation Assessment/Plan Atypical pneumonia, shortness of breath, cough and chest pain. 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 Managed by primary care team Paroxysmal atrial fibrillation Had multiple episodes of atrial fibrillation I was planning for cardioversion on January 03, 2023 Converted to sinus rhythm on Cardizem drip Back to atrial fibrillation with rapid ventricular response I will increase Cardizem oral to 60 mg every 6 hours. Continue with amiodarone oral dose. Chest pain, nonspecific in etiology, appears to be pleuritic in nature. Has baseline right bundle branch block, cardiac enzymes were negative EKG showed right bundle branch block No further episodes of chest pain were reported. Coronary artery disease, history of moderate disease by cardiac catheterization [place] [address] Hi COPD, hypoxemia, tobaccoism Currently worsening hypoxemia requiring oxygen. Hypertension, monitor blood pressure Hyperlipidemia, monitor lipids Appointment with Dr. Ashraf's office in 2 to 4 weeks NOLA ASHRAF MD Jan 04, 2023 11:30
[2023-01-04] MEDS ORDERED: VORI200T8 PO (14:57)
--- NOTE | 2023-01-04 15:23 | D/C HH Face to Face Order ---
D/C Face to Face Orders Instructions for Patient Via [facility], Patient Instructions/FollowUp: see instructions Physician to follow Patient: ND Discharge Diet for Home: No Restrictions Patient Data-Allergies,Ht & Wt Patient Allergies: Coded Allergies: cefaclor (Verified Allergy, Unknown, HIVES, 08/08/18) diazepam (Verified Allergy, Unknown, 02/18/06) levofloxacin (Verified Allergy, Unknown, HIVES, 08/08/18) Height (Feet): 5 Height (Inches): 8.00 Weight (Pounds): 154 Weight (Ounces): 0.0 Home Health Need/Face to Face Date of Face to Face: Jan 04, 2023 Clinical Findings: Generalized weakness and fatigue, Instability, Muscle weakness, Unsteady gait I have seen Pt [id number]: Yes Discharged To: Home Diagnosis/Conditions: Lung cancer Pneumonia Severe protein calorie malnutrition AFib Debility Problems/Diagnosis/Condition: (1) Cancer of left lung (2) Pneumonia (3) Acute respiratory failure (4) Atrial fibrillation Patient is Homebound due to: Thomas fall risk due to instabilty, Muscle weakness Homebound Status Due to the above stated illness, injury or surgical procedure (medical condition or diagnosis) and associated clinical findings, the patient is homebound because of his/her inability to leave home except with aid of a supportive device and/or person AND leaving the home requires a considerable and taxing effort or is medically contraindicated. Pt req the following assistanc: Aid of another person Home Health Nursing Orders Home Health Services Order: Nursing Services, Kiln Pusher-Evaluate & Treat, Physical Therapy-Evaluate & Treat Home Health Infusion Therapy Line Start Date: Jan 01, 2023 Therapy Orders Therapy Orders: OT (must have SN or PT order), Physical Therapy Therapy Specific Orders: Eval assistive deivces, Teach enviro modifications/safety, Gait training, Increase strength/endurance Certify Stmt I certify that this patient is under my care and that I, a nurse practitioner or a physician; a human resource assistant working with me, had a face to face encounter that - meets the physician face to face encounter requirements with this patient as dated. CHELSEY RIVERA MD Jan 04, 2023 15:23
--- NOTE | 2023-01-04 15:55 | Physical Therapy Daily Note ---
PT Daily Note-Current Subjective Patient lying supine in bed upon PT arrival, daughter in the room, both agreeable to treatment. Patient currently reports no pain. Pain Section J - Health Conditions 1. Rarely or not at all 2. Occasionally 3. Frequently 4. Almost constantly 8. Unable to answer Pain Effect on Sleep: 1 Pain Interference with Therapy: 1 Pain Interference w/Day-to-Day: 1 Mental Status Attachments: Oxygen, IV Transfers SCALE: Activities may be completed with or without assistive devices. 6-Ipfbzchwtd-msexndz completes the activity by him/herself with no assistance from a helper. 5-Set-up or Clean-up Assistance-helper sets up or cleans up; patient completes activity. Elk assists only prior to or following the activity. 4-Supervision or Touching Assistance-helper provides verbal cues and/or touching/steadying and/or contact guard assistance as patient completes activity. Assistance may be provided throughout the activity or intermittently. 3-Partial/Moderate Assistance-helper does LESS THAN HALF the effort. Elk lifts, holds or supports trunk or limbs, but provides less than half the effort. 2-Substantial/Maximal Assistance-helper does MORE THAN HALF the effort. Elk lifts or holds trunk or limbs and provides more than half the effort. 6-Awkbvgowb-yclzsh does ALL the effort. Patient does none of the effort to complete the activity. Or, the assistance of 2 or more helpers is required for the patient to complete the activity. If activity was not attempted, code reason: 7-Patient Refused. 9-Not Applicable-not attempted and the patient did not perform the activity before the current illness, exacerbation or injury. 10-Not Attempted due to Environmental Limitations-(lack of equipment, weather restraints, etc.). 88-Not Attempted due to Medical Conditions or Safety Concerns. Roll Left & Right (QC): 4 Sit to Lying (QC): 4 Lying to Sitting/Side of Bed(Q: 4 Sit to Stand (QC): 4 Weight Bearing Right Lower Extremity: Right Full Weight Bearing Left Lower Extremity: Left Full Weight Bearing Gait Training Does the Patient Walk?: Yes Distance: 100 feet Walk 10 feet (QC): 3 Walk 50 ft with 2 Turns(QC): 3 Gait Persons Needed: 1 Gait Assistive Device: FWW Assessment Current Status: Fair Progress Patient tolerated treatment well. He performs all observed bed mobility and transfers with CGA to Min A. Patient ambulates 100 feet with FWW, with CGA and verbal cues for safety, progression, posture. Patient unsteady throughout gait, and although he was able to ambulate further than last session, his unsteady gait and failure to observe obstacles presents a fall risk. Patient in chair post treatment with all needs met, nurse notified, daughter in the room and call light in reach. PT Nursing Home Goals Nursing Home Goals PT Nursing Home Goals Time Frame: Jan 21, 2023 Roll Left & Right (QC): 4 Sit to Lying (QC): 4 Lying-Sitting on Side/Bed(QC): 4 Sit to Stand (QC): 4 Chair/Ohp-pi-Oscvb Xfer(QC): 4 Toilet Transfer (QC): 4 Walk 10 feet (QC): 4 Walk 50ft with 2 Turns (QC): 4 Walk 150 ft (QC): 4 PT Plan Treatment/Plan Treatment Plan: Continue Plan of Care Treatment Plan: Bed Mobility, Education, Functional Activity Eric, Functional Strength, Gait, Safety, Therapeutic Exercise, Transfers Treatment Duration: Jan 21, 2023 Frequency: 6 times per week Estimated Hrs Per Day: .25 hour per day Patient and/or Family Agrees t: Yes Safety Risks/Education Patient Education: Gait Training, Transfer Techniques Teaching Recipient: Patient, Family Teaching Methods: Demonstration, Discussion Response to Teaching: Verbalize Understanding, Return Demonstration Time Time In: 1452 Time Out: 1512 DATE: Jan 04, 2023 Total Billed Treatment Time: 20 Total Billed Treatment Visit, GT MAGGIE WONG PT Jan 04, 2023 15:55
[2023-01-04] MEDS: dilTIAZem DRIP PRE-MIX 125 ML IV SCH (17:00)
[2023-01-04] MEDS: RIVAROXABAN 20 MG TABLET (XARELTO) PO SCH (17:30)
== END 2023-01-04 16:45 | disposition home or self-care (01) | DRG 871 ==
LOC: EDUNIT# 19:13 → ER 19:14 → ICU 22:47 → 4TH 01-01 12:09 → ICU 01-01 16:41
PROVIDERS: ADMIT Family Medicine; ATTEND Internal Medicine
DX: A41.9 Sepsis, unspecified organism (principal); E43 Unspecified severe protein-calorie malnutrition; J18.9 Pneumonia, unspecified organism; J96.21 Acute and chronic respiratory failure with hypoxia; C34.32 Malignant neoplasm of lower lobe, left bronchus or lung; Z68.1 Body mass index [BMI] 19.9 or less, adult; I48.0 Paroxysmal atrial fibrillation; I95.1 Orthostatic hypotension; I25.10 Atherosclerotic heart disease of native coronary artery without angina pectoris; R63.0 Anorexia; R26.81 Unsteadiness on feet; D64.9 Anemia, unspecified; F17.210 Nicotine dependence, cigarettes, uncomplicated; R41.0 Disorientation, unspecified; R53.1 Weakness; J43.9 Emphysema, unspecified; I10 Essential (primary) hypertension; K74.60 Unspecified cirrhosis of liver; K21.9 Gastro-esophageal reflux disease without esophagitis; R00.0 Tachycardia, unspecified; I45.10 Unspecified right bundle-branch block; I49.1 Atrial premature depolarization; Z85.828 Personal history of other malignant neoplasm of skin; Z86.73 Personal history of transient ischemic attack (TIA), and cerebral infarction without residual deficits; Z88.1 Allergy status to other antibiotic agents; Z91.09 Other allergy status, other than to drugs and biological substances; Z79.82 Long term (current) use of aspirin; Z79.52 Long term (current) use of systemic steroids; Z79.01 Long term (current) use of anticoagulants; Z79.899 Other long term (current) drug therapy
CPT/HCPCS: 36415; 71045; 71275; 80053; 81000; 83605; 83735; 84100; 84484; 85007; 85025; 85027; 85610; 85730; 87040; 87081; 87088; 93005; 93306; 94640; 94761

== ENCOUNTER → 2022-12-30 | Outpatient (CLI) | payer OTHER ==
[~2022-12-30] MED LIST changes: +ACET-2041 PO; +AMIO200T65 PO; +DILT-10 PO; +FURO-125 PO; +MIRT-96 PO; +POTA-160 PO; +PRED10TA22 PO; +VORI200T8 PO
== END ==
LOC: LABNPT 09:33
PROVIDERS: ATTEND Internal Medicine Critical Care Medicine
DX: J44.9 Chronic obstructive pulmonary disease, unspecified (principal); R91.8 Other nonspecific abnormal finding of lung field
CPT/HCPCS: 87070; 87077; 87205

== ENCOUNTER 2023-03-09 08:47 | Outpatient (CLI) | payer OTHER ==
[~2023-03-09] VITALS: Ht 172.7 cm; Wt 52.2 kg
[~2023-03-09 08:47] MED LIST changes: +ACET-2041 PO; +AMIO200T65 PO; +DILT-10 PO; +FURO-125 PO; +MIRT-96 PO; +POTA-160 PO; +PRED10TA22 PO; +VORI200T8 PO
[2023-03-09] MEDS ORDERED: BUDE10.2 IH (11:25)
[2023-03-09] MEDS ORDERED: OMEP40CA6 PO (11:25)
[2023-03-09] MEDS ORDERED: NCT7P TD (11:25)
== END 2023-03-09 11:32 | disposition home or self-care (01) ==
LOC: PREOP 08:47
PROVIDERS: ATTEND Surgery
DX: Z01.818 Encounter for other preprocedural examination (principal)

== ENCOUNTER 2023-03-10 18:00 | Inpatient (IN) | payer OTHER ==
[~2023-03-10] VITALS: Ht 172.7 cm; Wt 54.3 kg
[~2023-03-10 18:00] MED LIST changes: +NCT7P TD; +OMEP40CA6 PO
[2023-03-10] MEDS ORDERED: methylPREDNISolone 125 MG (Solu-MEDROL) VIAL IV STA (18:01)
[2023-03-10 18:13] LABS: BASOPHILS % (AUTO) 0 % (0-10); EOSINOPHILS # (AUTO) 0.1 10^3/uL (0.0-0.3); EOSINOPHILS % (AUTO) 0 % (0-10); HEMATOCRIT 31 % (40-54); HEMOGLOBIN 10.2 g/dL (13.3-17.7); LYMPHOCYTES # (AUTO) 1.6 10^3/uL (1.0-4.0); LYMPHOCYTES % (AUTO) 12 % (12-44); MEAN CORPUSCULAR HEMOGLOBIN 28 pg (25-34); MEAN CORPUSCULAR HGB CONC 33 g/dL (32-36); MEAN CORPUSCULAR VOLUME 85 fL (80-99); MEAN PLATELET VOLUME 8.9 fL (9.0-12.2); MONOCYTES # (AUTO) 1.3 10^3/uL (0.0-1.0); MONOCYTES % (AUTO) 11 % (0-12); NEUTROPHILS # (AUTO) 9.7 10^3/uL (1.8-7.8); NEUTROPHILS % (AUTO) 76 % (42-75); PLATELET COUNT 287 10^3/uL (130-400); WHITE BLOOD COUNT 12.7 10^3/uL (4.3-11.0)
[2023-03-10] MEDS ORDERED: NS IV 1000 ML 1,000 ML IV SCH (18:15)
[2023-03-10] MEDS ORDERED: MEROPENEM 500 MG in NS (IVPB) 100 ML IV ONE (18:15)
[2023-03-10] MEDS ORDERED: RT-ALBUTEROL/IPRATROPIUM 3 ML (DUONEB) VIAL INH ONE (18:15)
[2023-03-10] MEDS ORDERED: RT-BUDESONIDE NEBS 0.5 MG/2ML (PULMICORT) AMP INH ONE (18:15)
[2023-03-10] MEDS ORDERED: ACETAMINOPHEN 500 MG TAB (TYLENOL) PO PRN ×2 (18:15→22:00)
[2023-03-10 18:24] LABS: ALBUMIN 3.5 GM/DL (3.2-4.5); CHLORIDE 103 MMOL/L (98-107); POTASSIUM 4.2 MMOL/L (3.6-5.0); SODIUM 134 MMOL/L (135-145)
[2023-03-10 18:25] LABS: CALCIUM 8.7 MG/DL (8.5-10.1)
[2023-03-10 18:26] LABS: GLUCOSE 87 MG/DL (70-105)
[2023-03-10 18:28] LABS: BILIRUBIN,TOTAL 0.3 MG/DL (0.1-1.0); CARBON DIOXIDE 22 MMOL/L (21-32)
[2023-03-10 18:29] LABS: INR 1.9 (0.8-1.4); PROTHROMBIN TIME PATIENT 21.6 SEC (12.2-14.7)
[2023-03-10 18:30] LABS: ALKALINE PHOSPHATASE 112 U/L (40-136); CREATININE SERUM 0.84 MG/DL (0.60-1.30); GFR ESTIMATED 90
[2023-03-10 18:31] LABS: BUN/CREATININE RATIO 15
[2023-03-10 18:33] LABS: ALANINE AMINOTRANSFERASE 21 U/L (0-55); MAGNESIUM 1.5 MG/DL (1.6-2.4)
--- NOTE | 2023-03-10 18:43 | ED General ---
General Chief Complaint: Chest Pain Stated Complaint: CHEST WALL PAIN Nursing Triage Note: pt to room by [facility]. ems reports pt has chest pain on sternum that is worse with touch and when coughing. pt has history of chronic cough, emphysema, and lung cancer. pt daughter states pt had radiation approx two weeks ago. pt daughter states when she got home, the pt stated his left arm felt "weird" and that he had chest pain so she called the ambulance. pt was given 324 ASA en route. pt is A&Ox4, speech normal on arrival Source of Information: Patient, Other (DAUGHTER) History of Present Illness Date Seen by Provider: Mar 10, 2023 Time Seen by Provider: 17:58 Initial Comments PT ARRIVES VIA EMS FROM HOME PT LIVES WITH DAUGHTER AND SON-IN-LAW PT HAS LUNG CANCER, AND COPD, IS O2 DEPENDENT AT 2L/NC CONTINUOUSLY PT C/O SHORTNESS OF BREATH AND CHEST PAIN ALSO HAVING SUBJECTIVE FEVER AND CHILLS AND SHAKING MORE THAN NORMAL--TEMP HAS NOT BEEN CHECKED SYMPTOMS BEGAN EARLIER TODAY, WHILE SITTING ON THE PORCH AND SMOKING CHEST PAIN IS IN CENTER OF CHEST AND IS WORSE WITH COUGHING AND IS TENDER TO PALPATION HE DID TELL DAUGHTER THAT HIS LEFT ARM "FELT WEIRD" EARLIER, BUT NOT NOW. PT HAS HAD INCREASE IN CHRONIC COUGH WITH YELLOW SPUTUM NO SWELLING IN LEGS OR FEET TODAY NO GI SYMPTOMS DAUGHTER JUST GOT HOME FROM WORK AND PT TOLD HER ABOUT HIS SYMPTOMS, SO SHE CALLED EMS. EMS GAVE 324 ASPIRIN, AND STARTED IV FLUIDS, NO OTHER TREATMENT THEY REPORT THAT O2 SATS WERE 92-93 ON 2L/NC, THEY PLACED PT ON 4L/NC PT HAS NOT RECEIVED CHEMO, DAUGHTER STATES THAT HE IS NOT A CANDIDATE FOR CHEMO HE HAS BEEN RECEIVING RADIATION, HIS LAST TREATMENT WAS 02/21/23. HE IS FOLLOWED BY DR. MOSLEY AND DR. THORPE HE SMOKED 3 PPD ALL HIS LIFE, HAS RECENTLY DECREASED TO 1 1/2 PPD HE HAS HISTORY OF ALCOHOL ABUSE--UP TO THREE 30 PACKS OF BEER EVERY DAY, NOW DRINKS UP TO 3 BEERS A DAY, AND DOES NOT DRINK EVERY DAY ANYMORE. HE HAS NOT HAD ANY BEER TODAY. PT HAS HISTORY OF ATRIAL FIBRILLATION, IS MAINTAINED ON XARELTO, AMIDARONE AND DILTIAZEM. PCP: DR. DELUNA IN [place], ALSO GOES TO THE PA IN [place] LABOR SERVICE REPRESENTATIVE: DR. WYLIE AT [place] MEDICARE SPECIALIST: DR. ELIAS ONCOLOGY: SEES BOTH DR. THORPE AND DR. MOSLEY Allergies and Home Medications Allergies Coded Allergies: cefaclor (Verified Allergy, Unknown, HIVES, 08/08/18) diazepam (Verified Allergy, Unknown, 02/18/06) levofloxacin (Verified Allergy, Unknown, HIVES, 08/08/18) Patient Home Medication List Acetaminophen (8 Hour) 650 Mg Tablet.er, 1,300 MG PO QID, (Reported) Entered as Reported by: KARYNA BARRON on 01/03/23 1543 Albuterol Sulfate (Ventolin Hfa) 90 Mcg Hfa.aer.ad, 2 PUFF IH Q6H, (Reported) Entered as Reported by: KARYNA BARRON on 07/11/22 1234 Albuterol/Ipratropium (Combivent Respimat Inhal [place]) 20 Mcg-100 Mcg/Actuation Aero, 2 PUFF IH QID, (Reported) Entered as Reported by: KARYNA BARRON on 07/11/22 1234 Amiodarone HCl (Amiodarone HCl) 200 Mg Tablet, 400 MG PO BID Prescribed by: CHELSEY RIVERA on 01/04/23 0940 Aspirin (Aspirin EC) 81 Mg Tablet.dr, 81 MG PO DAILY, (Reported) Entered as Reported by: KARYNA BARRON on 07/11/22 1238 Atorvastatin Calcium (Atorvastatin Calcium) 20 Mg Tablet, 20 MG PO HS, (Reported) Entered as Reported by: KARYNA BARRON on 07/11/22 1234 Budesonide/Formoterol Fumarate (Symbicort 160-4.5 Mcg Inhaler) 160 Mcg-4.5 Mcg/Actuation Hfa.aer.ad, 2 PUFF IH BID, (Reported) Entered as Reported by: MELQUIADES AHMILTON on 03/09/23 1125 Diltiazem HCl (Tiazac) 240 Mg Capsule.er, 240 MG PO DAILY, (Reported) Entered as Reported by: KARYNA BARRON on 01/03/23 1543 Diphenhydramine HCl (Benadryl Allergy) 25 Mg Tablet, 25 MG PO HS, (Reported) Entered as Reported by: KARYNA BARRON on 07/11/22 1238 Fluticasone Propion/Salmeterol (Fluticasone-Salmeterol 500-50) 500 Mcg-50 Mcg/Dose Blst.w.dev, 1 EACH IH BID, (Reported) Entered as Reported by: KARYNA BARRON on 07/11/22 123 Furosemide (Lasix) 20 Mg Tablet, 20 MG PO DAILY PRN for FLUID RETENTION, (Reported) Entered as Reported by: KARYNA BARRON on 01/03/23 154 Gabapentin (Neurontin) 300 Mg Capsule, 300 MG PO BID, (Reported) Entered as Reported by: KARYNA BARRON on 07/11/22 123 Guaifenesin (Guaifenesin) 200 Mg Tablet, 400 MG PO QID, (Reported) Entered as Reported by: KARYNA BARRON on 07/11/22 1234 Lidocaine (Lidocaine 5% Patch) 5 % Adh..patch, 2 PATCH TP DAILY, (Reported) Entered as Reported by: KARYNA BARRON on 07/11/22 1234 Montelukast Sodium (Montelukast Sodium) 10 Mg Tablet, 10 MG PO HS, (Reported) Entered as Reported by: KARYNA BARRON on 07/11/22 123 Nicotine (Nicoderm Cq) 7 Mg/24 Hour Patch.td24, 1 EACH TD, (Reported) Entered as Reported by: MELQUIADES HAMILTON on 03/09/23 112 Omeprazole (Omeprazole) 40 Mg Capsule.dr, 40 MG PO DAILY, (Reported) Entered as Reported by: MELQUIADES HAMILTON on 03/09/23 1125 Potassium Chloride (Klor-Con 10) 10 Meq Tablet.er, 10 MEQ PO DAILY PRN for WHEN TAKING FUROSEMIDE, (Reported) Entered as Reported by: KARYNA BARRON on 01/03/23 154 Rivaroxaban (Xarelto Tablet) 20 Mg Tablet, 20 MG PO DAILY, (Reported) Entered as Reported by: KARYNA BARRON on 01/03/23 154 Trazodone HCl (Trazodone HCl) 50 Mg Tablet, 50 MG PO HS PRN for SLEEP, (Reported) Entered as Reported by: KARYNA BARRON on 07/11/22 1234 Discontinued Medications Amoxicillin/Potassium Clav (Amox Tr-K Clv 875-125 mg Tab) 875 Mg-125 Mg Tablet, 1 EACH PO BID Discontinued Reason: No Longer Taking Prescribed by: CHELSEY RIVERA on 01/04/23 0940 Ipratropium/Albuterol Sulfate (Iprat-Albut 0.5-3(2.5) mg/3 ml) 0.5 Mg-3 Mg (2.5 Mg Base)/3 Ml Ampul.neb, 3 ML IH QID, (Reported) Discontinued Reason: No Longer Taking Entered as Reported by: KARYNA BARRON on 07/11/22 1234 Mirtazapine (Remeron) 15 Mg Tablet, 7.5 MG PO HS Discontinued Reason: No Longer Taking Prescribed by: CHELSEY RIVERA on 01/04/23 0940 Omeprazole (Omeprazole) 20 Mg Capsule.dr, 20 MG PO DAILY, (Reported) Discontinued Reason: No Longer Taking Entered as Reported by: KARYNA BARRON on 07/11/22 1234 Prednisone (Prednisone) 10 Mg Tab.ds.pk, 10 MG PO DAILY Discontinued Reason: No Longer Taking Prescribed by: CHELSEY RIVERA on 01/04/23 0940 Voriconazole (Voriconazole) 200 Mg Tablet, 400 MG PO BID Discontinued Reason: No Longer Taking Prescribed by: CHELSEY RIVERA on 01/04/23 1457 Review of Systems Review of Systems Constitutional: see HPI, chills, fever, malaise, weakness EENTM: no symptoms reported Respiratory: see HPI, cough, orthopnea, phlegm, short of breath, wheezing Cardiovascular: see HPI, chest pain; No edema, No palpitations, No syncope, No vascular heart diseas Gastrointestinal: no symptoms reported; No abdominal pain, No nausea, No vomiting Genitourinary: no symptoms reported Musculoskeletal: no symptoms reported Skin: no symptoms reported Psychiatric/Neurological: No Symptoms Reported Hematologic/Lymphatic: No Symptoms Reported Immunological/Allergic: no symptoms reported Past Dlpydjq-Hckmsd-Gluiak Hx Patient Social History Tobacco Use?: Yes Tobacco type used: Cigarettes Smoking Status: Current Everyday Smoker Substance use?: No Alcohol Use?: Yes Alcohol type: Beer Alcohol Frequency: Daily Immunizations Up To Date Tetanus Booster (TDap): Unknown First/Initial COVID19 Vaccinat: YES Second COVID19 Vaccination John: YES Third COVID19 Vaccination Date: YES Seasonal Allergies Seasonal Allergies: Yes Past Medical History Surgery/Hospitalization HX: CHOLECYSTECTOMY/APPENDECTOMY/PARTIAL GASTRECTOMY/BACK SURGERY X4 Surgeries: Yes (HIATAL HERNIA REPAIR;STOMACH SURGERY-BLEEDING ULCER;CARDIAC CATH;SKIN CA) Abdominal, Appendectomy, Cardiac, Gallbladder, Orthopedic Respiratory: Yes (LUNG CANCER) Asthma, Pneumonia, COPD, Emphysema Currently Using CPAP: No Currently Using BIPAP: No Cardiac: Yes (CATH 2016-MODERATE DISEASE, NO INTERVENTION) Atrial Fibrillation, Coronary Artery Disease, Hypertension, Irregular Heartbeat Neurological: Yes Stroke Reproductive Disorders: No Genitourinary: No Gastrointestinal: Yes (SURGERY FOR BLEEDING ULCER/PARTIAL GASTRECTOMY; HIATAL HERNIA REPAIR) Gastroesophageal Reflux, Gastrointestinal Bleed, Hiatal Hernia, Ulcer, Cirrhosis Musculoskeletal: Yes (BACK SURGERY X 4) Arthritis, Chronic Back Pain Endocrine: No HEENT: Yes Cataract Loss of Vision: Denies Hearing Impairment: Denies Cancer: Yes Lung, Skin Did You Recieve Any Treatments: Yes What Type of Treatment Did You: Radiation, Surgical Intervention SKIN CANCER--SURGICALLY REMOVED LUNG CANCER--RADIATION Psychosocial: No Integumentary: No Blood Disorders: No Family Medical History No Pertinent Family Hx SOCIAL HISTORY: -SMOKED 3 PPD HIS WHOLE LIFE, RECENTLY IS DOWN TO 1 1/2 PPD NOW. -DISCUSSED WITH PT AND DAUGHTER ABOUT HIS ALCOHOL CONSUMPTION--HE USED TO DRINK UP TO 3 - 30 PACKS OF BEER A DAY, AND HE HAD WITHDRAWL SYMPTOMS IN THE PAST. HE NOW DRINKS UP TO 3 BEERS A DAY, AND NO LONGER DRINKS EVERY DAY, AND HE DOES NOT HAVE WITHDRAWL SYMPTOMS ANYMORE. Physical Exam Vital Signs Vital Signs - First Documented 03/10/23 18:00 Temp 38.2 Pulse 91 Resp 24 B/P (MAP) 113/59 (77) Pulse Ox 98 O2 Delivery Nasal Cannula O2 Flow Rate 4.00 Capillary Refill : Height, Weight, BMI Height: 5'8.00" Weight: 154lbs. 0.0oz. [id number]; 17.00 BMI Method:Stated General Appearance: No Apparent Distress, WD/WN, Thin, Other (SHIVERING) Focused Exam Lactate Level 03/10/23 18:04: Lactic Acid Level 1.42 Lactic Acid Level Laboratory Tests Test 03/10/23 18:04 Lactic Acid Level 1.42 MMOL/L (0.50-2.00) Progress/Results/Core Measures Suspected Sepsis SIRS Temperature: Pulse: 91 Respiratory Rate: 24 Laboratory Tests 03/10/23 18:04: White Blood Count 12.7H Blood Pressure 113 /59 Mean: 77 03/10/23 18:04: Lactic Acid Level 1.42 Laboratory Tests 03/10/23 18:04: Creatinine 0.84, INR Comment 1.9H, Platelet Count 287, Total Bilirubin 0.3 Results/Orders Lab Results Laboratory Tests Test 03/10/23 18:03 03/10/23 18:04 03/10/23 18:45 Range/Units Influenza Type A (RT-PCR) Not Detected Not Detecte Influenza Type B (RT-PCR) Not Detected Not Detecte SARS-CoV-2 RNA (RT-PCR) Not Detected Not Detecte White Blood Count 12.7 H 4.3-11.0 10^3/uL Red Blood Count 3.66 L 4.30-5.52 10^6/uL Hemoglobin 10.2 L 13.3-17.7 g/dL Hematocrit 31 L 40-54 % Mean Corpuscular Volume 85 80-99 fL Mean Corpuscular Hemoglobin 28 25-34 pg Mean Corpuscular Hemoglobin Concent 33 32-36 g/dL Red Cell Distribution Width 15.4 H 10.0-14.5 % Platelet Count 287 130-400 10^3/uL Mean Platelet Volume 8.9 L 9.0-12.2 fL Immature Granulocyte % (Auto) 0 % Neutrophils (%) (Auto) 76 H 42-75 % Lymphocytes (%) (Auto) 12 12-44 % Monocytes (%) (Auto) 11 0-12 % Eosinophils (%) (Auto) 0 0-10 % Basophils (%) (Auto) 0 0-10 % Neutrophils # (Auto) 9.7 H 1.8-7.8 10^3/uL Lymphocytes # (Auto) 1.6 1.0-4.0 10^3/uL Monocytes # (Auto) 1.3 H 0.0-1.0 10^3/uL Eosinophils # (Auto) 0.1 0.0-0.3 10^3/uL Basophils # (Auto) 0.0 0.0-0.1 10^3/uL Immature Granulocyte # (Auto) 0.1 0.0-0.1 10^3/uL Prothrombin Time 21.6 H 12.2-14.7 SEC INR Comment 1.9 H 0.8-1.4 Activated Partial Thromboplast Time 39 H 24-35 SEC Sodium Level 134 L 135-145 MMOL/L Potassium Level 4.2 3.6-5.0 MMOL/L Chloride Level 103 98-107 MMOL/L Carbon Dioxide Level 22 21-32 MMOL/L Anion Gap 9 5-14 MMOL/L Blood Urea Nitrogen 13 7-18 MG/DL Creatinine 0.84 0.60-1.30 MG/DL Estimat Glomerular Filtration Rate 90 BUN/Creatinine Ratio 15 Glucose Level 87 70-105 MG/DL Lactic Acid Level 1.42 0.50-2.00 MMOL/L Calcium Level 8.7 8.5-10.1 MG/DL Corrected Calcium 9.1 8.5-10.1 MG/DL Magnesium Level 1.5 L 1.6-2.4 MG/DL Total Bilirubin 0.3 0.1-1.0 MG/DL Aspartate Amino Transf (AST/SGOT) 15 5-34 U/L Alanine Aminotransferase (ALT/SGPT) 21 0-55 U/L Alkaline Phosphatase 112 40-136 U/L Troponin I < 0.028 <0.028 NG/ML B-Type Natriuretic Peptide 65.8 <100.0 PG/ML Total Protein 6.0 L 6.4-8.2 GM/DL Albumin 3.5 3.2-4.5 GM/DL Serum Alcohol < 10 <10 MG/DL Urine Color YELLOW Urine Clarity CLEAR Urine pH 5.5 5-9 Urine Specific [place] 1.025 H 1.016-1.022 Urine Protein NEGATIVE NEGATIVE Urine Glucose (UA) NEGATIVE NEGATIVE Urine Ketones NEGATIVE NEGATIVE Urine Nitrite NEGATIVE NEGATIVE Urine Bilirubin NEGATIVE NEGATIVE Urine Urobilinogen 0.2 < = 1.0 MG/DL Urine Leukocyte Esterase NEGATIVE NEGATIVE Urine RBC (Auto) NEGATIVE NEGATIVE Urine RBC 0-2 /HPF Urine WBC 0-2 /HPF Urine Squamous Epithelial Cells 2-5 /HPF Urine Crystals PRESENT H /LPF Urine Amorphous Sediment RARE FOX URATES H /LPF Urine Bacteria TRACE /HPF Urine Casts PRESENT /LPF Urine Hyaline Casts 2-5 H /LPF Urine Mucus NEGATIVE /LPF Urine Culture Indicated CULTURE PENDING Urine Opiates Screen NEGATIVE NEGATIVE Urine Oxycodone Screen NEGATIVE NEGATIVE Urine Methadone Screen NEGATIVE NEGATIVE Urine Propoxyphene Screen NEGATIVE NEGATIVE Urine Barbiturates Screen NEGATIVE NEGATIVE Ur Tricyclic Antidepressants Screen NEGATIVE NEGATIVE Urine Phencyclidine Screen NEGATIVE NEGATIVE Urine Amphetamines Screen NEGATIVE NEGATIVE Urine Methamphetamines Screen NEGATIVE NEGATIVE Urine Benzodiazepines Screen NEGATIVE NEGATIVE Urine Cocaine Screen NEGATIVE NEGATIVE Urine Cannabinoids Screen NEGATIVE NEGATIVE My Orders Orders - YADIRA JEROME DO Ed Iv/Invasive Line Start (03/10/23 18:01) Ekg Tracing (03/10/23 18:) O2 (03/10/23 18:01) Monitor-Rhythm Ecg Trace Only (03/10/23 18:01) Chest 1 View, Ap/Pa Only (03/10/23 18:01) Alcohol (03/10/23 18:) Bnp Posey (03/10/23 18:) Cbc With Automated Diff (03/10/23 18:) Comprehensive Metabolic Panel (03/10/23 18:) Drug Screen Stat (Urine) (03/10/23 18:) Lactic Acid Analyzer (03/10/23 18:) Magnesium (03/10/23 18:) Protime With Inr (03/10/23 18:) Partial Thromboplastin Time (03/10/23 18:01) Ua Culture If Indicated (03/10/23 18:) Troponin I Jorge (03/10/23 18:01) Covid 19 Inhouse Test (03/10/23 18:01) Blood Culture (03/10/23 18:01) Sputum Culture (03/10/23 18:01) Urine Culture (03/10/23 18:) Acetaminophen Tablet (Tylenol Tablet) (03/10/23 18:15) Ed Iv/Invasive Line Start (03/10/23 18:01) Ed Iv/Invasive Line Start (03/10/23 18:01) Vital Signs Adult Sepsis Patie Q15M (03/10/23 18:01) O2 (03/10/23 18:01) Remove Rings In Anticipation O (03/10/23 18:01) Ns Iv 1000 Ml (Sodium Chloride 0.9%) (03/10/23 18:15) Influenza A And B By Pcr (03/10/23 18:) Albuterol/Ipra Inhalation Soln (Duoneb I (03/10/23 18:15) Budesonide Inhalation Solution (Pulmicor (03/10/23 18:15) Rt Request For Service (03/10/23 18:) Methylprednisolone Sod Succ (Solu-Medrol (03/10/23 18:01) Svn Small Volume Nebulizer (03/10/23 18:01) Svn Small Volume Nebulizer (03/10/23 18:01) Meropenem (Merrem 500 Mg) (03/10/23 18:15) Medications Given in ED Current Medications Medications Dose Ordered Sig/Maria De Jesus Route Start Time Stop Time Status Last Admin Dose Admin Acetaminophen 1,000 mg ONCE PRN PO 03/10/23 18:15 03/10/23 18:15 DC 03/10/23 18:15 1,000 MG Albuterol/ Ipratropium 3 ml ONCE ONCE INH 03/10/23 18:15 03/10/23 18:16 DC 03/10/23 18:17 3 ML Budesonide 0.5 mg ONCE ONCE INH 03/10/23 18:15 03/10/23 18:16 DC 03/10/23 18:17 0.5 MG Meropenem 500 mg/ Sodium Chloride 100 ml @ 200 mls/hr ONCE ONCE IV 03/10/23 18:15 03/10/23 18:44 DC 03/10/23 18:38 200 MLS/HR Vital Signs/I&O 03/10/23 03/10/23 03/10/23 03/10/23 18:00 18:00 18:15 18:18 Temp 38.2 38.1 Pulse 91 Resp 24 B/P (MAP) 113/59 (77) Pulse Ox 98 98 98 O2 Delivery Nasal Cannula Nasal Cannula O2 Flow Rate 4.00 4.00 03/10/23 18:19 Pulse Ox 98 O2 Delivery Nasal Cannula O2 Flow Rate 4.00 Capillary Refill : Blood Pressure Mean: 77 Progress Note : Progress Note DISCUSSED WITH PT AND DAUGHTER ABOUT HIS ALCOHOL CONSUMPTION--HE USED TO DRINK UP TO 3 - 30 PACKS OF BEER A DAY, AND HE HAD WITHDRAWL SYMPTOMS IN THE PAST. HE NOW DRINKS UP TO 3 BEERS A DAY, AND NO LONGER DRINKS EVERY DAY, AND HE DOES NOT HAVE WITHDRAWL SYMPTOMS ANYMORE. Diagnostic Imaging Comments CXR--PER RADIOLOGIST REPORT AT 1901 FINDINGS: The heart is stable. Pulmonary vasculature unremarkable. Vague scattered airspace opacities noted in the lower lungs and midlungs improved since previous imaging but possibly due to new infiltrates. Residual scar or atelectasis also possible. However, underlying small nodules cannot be excluded and follow-up is recommended to assure complete resolution. No pneumothorax. No effusions. There is a likely calcified lymph node in the right axilla stable from previous imaging. IMPRESSION: 1. Nonspecific scattered bilateral areas of airspace opacity improved since previous imaging. This could be residual scar or atelectasis with new infiltrate not excluded. Follow-up recommended to assure complete resolution and help exclude underlying lesions. Reviewed: Reviewed by Me Departure Impression Primary Impression: Sepsis Additional Impressions: Pneumonia LUNG CANCER WTIH RADIATION THERAPY COPD (chronic obstructive pulmonary disease) History of atrial fibrillation Very heavy cigarette smoker Regular alcohol consumption Departure-Patient Inst. Referrals: NO,LOCAL PHYSICIAN (PCP/Family) Primary Care Physician YADIRA JEROME DO Mar 10, 2023 18:43
[2023-03-10 18:54] LABS: BILIRUBIN,URINE NEGATIVE (NEGATIVE); CLARITY,URINE CLEAR; COLOR,URINE YELLOW; GLUCOSE, URINE (UA) NEGATIVE (NEGATIVE); KETONES,URINE NEGATIVE (NEGATIVE); LEUKOCYTE ESTERASE ,URINE NEGATIVE (NEGATIVE); NITRITE,URINE NEGATIVE (NEGATIVE); PH,URINE 5.5 (5-9); PROTEIN,URINE NEGATIVE (NEGATIVE)
--- NOTE | 2023-03-10 18:58 | Diagnostic Imaging Report ---
INDICATION: History of emphysema. Chronic cough. Pain along the sternum, history of lung cancer. EXAMINATION: Chest 03/10/2023 COMPARISON: 12/30/2022 FINDINGS: The heart is stable. Pulmonary vasculature unremarkable. Vague scattered airspace opacities noted in the lower lungs and midlungs improved since previous imaging but possibly due to new infiltrates. Residual scar or atelectasis also possible. However, underlying small nodules cannot be excluded and follow-up is recommended to assure complete resolution. No pneumothorax. No effusions. There is a likely calcified lymph node in the right axilla stable from previous imaging. IMPRESSION: 1. Nonspecific scattered bilateral areas of airspace opacity improved since previous imaging. This could be residual scar or atelectasis with new infiltrate not excluded. Follow-up recommended to assure complete resolution and help exclude underlying lesions. Dictated by: Dictated on workstation # [id number]
[2023-03-10 19:05] LABS: AMPHETAMINE SCREEN, URINE NEGATIVE (NEGATIVE); BARBITURATE SCREEN URINE NEGATIVE (NEGATIVE); BENZODIAZEPINES SCREEN URINE NEGATIVE (NEGATIVE); CANNABINOID SCREEN, URINE NEGATIVE (NEGATIVE); COCAINE SCREEN URINE NEGATIVE (NEGATIVE); METHADONE STAT NEGATIVE (NEGATIVE); OPIATE SCREEN URINE NEGATIVE (NEGATIVE); OXYCODONE STAT NEGATIVE (NEGATIVE); PROPOXYPHENE STAT NEGATIVE (NEGATIVE); TRICYCLIC ANTIDEPRESSANTS SCRE NEGATIVE (NEGATIVE)
[2023-03-10 19:13] LABS: AMORPHOUS SEDIMENT,UR RARE AMOR URATES /LPF; BACTERIA,URINE TRACE /HPF; RBC,URINE 0-2 /HPF; WBC,URINE 0-2 /HPF
[2023-03-10 20:24] VITALS: BP 107/59
[2023-03-10 21:03] VITALS: BP 113/59
[2023-03-10] MEDS ORDERED: RT-ALBUTEROL/IPRATROPIUM 3 ML (DUONEB) VIAL INH PRN (21:15)
[2023-03-10] MEDS ORDERED: fentaNYL INJ 100 MCG/2 ML AMP IV PRN (22:00)
[2023-03-10] MEDS ORDERED: ONDANSETRON 4 MG/2 ML (SDV) Z0FRAN IV PRN (22:00)
[2023-03-10] MEDS: LACTATED RINGERS 1,000 ML IV SCH (22:34)
[2023-03-10] MEDS: NICOTINE 21 MG (NICODERM) PATCH TD SCH (22:34)
[2023-03-10] MEDS: RT-ALBUTEROL/IPRATROPIUM 3 ML (DUONEB) VIAL INH SCH (22:38)
[2023-03-10 23:54] VITALS: BP 123/60
[2023-03-11] MEDS: methylPREDNISolone 125 MG (Solu-MEDROL) VIAL IV SCH ×2 (00:39→06:16)
[2023-03-11] MEDS: MEROPENEM 500 MG/NS 100 ML IVPB IV SCH ×8 (00:39→21:59)
[2023-03-11] MEDS: RT-ALBUTEROL/IPRATROPIUM 3 ML (DUONEB) VIAL INH SCH ×6 (02:26→22:32)
[2023-03-11 03:57] VITALS: BP 116/61
[2023-03-11 05:46] LABS: BASOPHILS % (AUTO) 0 % (0-10); EOSINOPHILS % (AUTO) 0 % (0-10); HEMATOCRIT 26 % (40-54); HEMOGLOBIN 8.8 g/dL (13.3-17.7); LYMPHOCYTES # (AUTO) 0.4 10^3/uL (1.0-4.0); LYMPHOCYTES % (AUTO) 5 % (12-44); MEAN CORPUSCULAR HEMOGLOBIN 28 pg (25-34); MEAN CORPUSCULAR HGB CONC 33 g/dL (32-36); MEAN CORPUSCULAR VOLUME 84 fL (80-99); MONOCYTES # (AUTO) 0.1 10^3/uL (0.0-1.0); MONOCYTES % (AUTO) 1 % (0-12); NEUTROPHILS # (AUTO) 7.2 10^3/uL (1.8-7.8); NEUTROPHILS % (AUTO) 93 % (42-75); PLATELET COUNT 310 10^3/uL (130-400); WHITE BLOOD COUNT 7.7 10^3/uL (4.3-11.0)
[2023-03-11 06:00] LABS: ALBUMIN 3.1 GM/DL (3.2-4.5)
[2023-03-11 06:01] LABS: POTASSIUM 4.4 MMOL/L (3.6-5.0)
[2023-03-11 06:02] LABS: CALCIUM 8.8 MG/DL (8.5-10.1)
[2023-03-11 06:03] LABS: TOTAL PROTEIN 5.4 GM/DL (6.4-8.2)
[2023-03-11 06:05] LABS: BILIRUBIN,TOTAL 0.2 MG/DL (0.1-1.0)
[2023-03-11 06:07] LABS: CREATININE SERUM 0.84 MG/DL (0.60-1.30)
[2023-03-11] MEDS: LACTATED RINGERS 1,000 ML IV SCH ×3 (06:12→18:33)
[2023-03-11 06:21] LABS: HYPOCHROMASIA MODERATE; LYMPHOCYTES % (MANUAL) 4 %; MICROCYTOSIS SLIGHT; NEUTROPHILS % (MANUAL) 96 %; ROULEAUX SLIGHT
[2023-03-11 07:32] VITALS: BP 111/53
[2023-03-11] MEDS: NICOTINE 21 MG (NICODERM) PATCH TD SCH (08:38)
--- NOTE | 2023-03-11 08:59 | Diagnostic Imaging Report ---
INDICATION: Dyspnea, follow-up pneumonia. COMPARISON: 03/10/2023. DISCUSSION: Single portable upright view of the chest was obtained. Low lung volumes. Normal heart size. Infiltrate is again noted within the right lung base, likely atelectasis or pneumonia. The left lung is well-aerated. No pneumothorax or osseous abnormality. IMPRESSION: 1. Persistent infiltrate within the right lung base. Dictated by: Dictated on workstation # [id number]
--- NOTE | 2023-03-11 10:57 | History & Physical-Hospitalist ---
History of Present Illness HPI/Chief Complaint Patient 77-year-old male with a past medical history of COPD, A-fib, CAD who presented to the ER due to Chest pain. He developed chest pain and shortness of breath yesterday that progressed throughout the day. He has baseline shortness of breath but then developed fevers and chills and decided to tell his daughter about it prompting them to seek evaluation in the emergency department. Symptoms started at rest while he was sitting on the porch smoking. He was found to have pneumonia and meet sepsis criteria in the emergency department and was admitted for further management. This morning he states he feels much better and he still is a cough but is not coughing stuff up like he was. He is actually asking to go home. I spoke with him and his daughter on the phone and recommended at least waiting for blood cultures to come back 1 more night before discussing discharge. He is amenable to this. Date Seen 03/11/23 Time Seen by a Provider: 09:30 Attending Physician No,Local Physician PCP Admitting Physician: Sarah Sanderson MD Attending Physician: Sarah Sanderson MD Referring Physician Date of Admission Mar 10, 2023 at 20:26 Home Medications & Allergies Home Medications Reviewed patient Home Medication Reconciliation performed by pharmacy medication reconciliations nanoscience technician and/or nursing. Patients Allergies have been reviewed. Allergies Allergies Coded Allergies cefaclor (Verified Allergy, Unknown, HIVES, 08/08/18) diazepam (Verified Allergy, Unknown, 02/18/06) levofloxacin (Verified Allergy, Unknown, HIVES, 08/08/18) Past Vbwqcyv-Hkzlck-Vskjzn Hx Patient Social History Tobacco Use?: Yes Tobacco type used: Cigarettes Smoking Status: Current Everyday Smoker Smokeless Tobacco Frequency: Never a User Use of E-Cig and/or Vaping dev: No Substance use?: No Alcohol Use?: Yes Alcohol type: Beer Alcohol Frequency: Couple times a week Pt feels they are or have been: No Immunizations Up To Date Date of Influenza Vaccine: Jun 27, 2016 First/Initial COVID19 Vaccinat: YES Second COVID19 Vaccination John: YES Tetanus Booster (TDap): Unknown Date of Pneumonia Vaccine: Sep 15, 2011 Seasonal Allergies Seasonal Allergies: Yes Current Status Advance Directives: No Communicates: Verbally Primary Language: Kazakh Preferred Spoken Language: Kazakh Is interpretation needed?: No Past Medical History Surgeries: Abdominal, Appendectomy, Cardiac, Gallbladder, Orthopedic Asthma, Pneumonia, COPD, Emphysema Currently Using CPAP: No Currently Using BIPAP: No Atrial Fibrillation, Coronary Artery Disease, Hypertension, Irregular Heartbeat Stroke Gastroesophageal Reflux, Gastrointestinal Bleed, Hiatal Hernia, Ulcer, Cirrhosis Arthritis, Chronic Back Pain Cataract Loss of Vision: Denies Hearing Impairment: Denies Lung, Skin Did You Recieve Any Treatments: Yes What Type of Treatment Did You: Radiation, Surgical Intervention SKIN CANCER--SURGICALLY REMOVED LUNG CANCER--RADIATION Blood Disorders: No Family Medical History No Pertinent Family Hx SOCIAL HISTORY: -SMOKED 3 PPD HIS WHOLE LIFE, RECENTLY IS DOWN TO 1 1/2 PPD NOW. -DISCUSSED WITH PT AND DAUGHTER ABOUT HIS ALCOHOL CONSUMPTION--HE USED TO DRINK UP TO 3 - 30 PACKS OF BEER A DAY, AND HE HAD WITHDRAWL SYMPTOMS IN THE PAST. HE NOW DRINKS UP TO 3 BEERS A DAY, AND NO LONGER DRINKS EVERY DAY, AND HE DOES NOT HAVE WITHDRAWL SYMPTOMS ANYMORE. Review of Systems Constitutional: see HPI Physical Exam Physical Exam Vital Signs Vital Signs - First Documented 03/10/23 18:00 Temp 38.2 Pulse 91 Resp 24 B/P (MAP) 113/59 (77) Pulse Ox 98 O2 Delivery Nasal Cannula O2 Flow Rate 4.00 Capillary Refill : Height, Weight, BMI Height: 5'8.00" Weight: 154lbs. 0.0oz. 69.340965qb; 18.20 BMI Method:Stated General Appearance: No Apparent Distress, Chronically ill, Thin Respiratory: Lungs Clear, No Accessory Muscle Use, Other (on 4lpm NC) Cardiovascular: Regular Rate, Rhythm, No Murmur Gastrointestinal: Normal Bowel Sounds, Soft Extremity: No Pedal Edema Neurologic/Psychiatric: Alert, Oriented x3 Results Results/Procedures Labs Laboratory Tests 03/10/23 18:04 03/11/23 05:12 03/12/23 05:34 Patient resulted labs reviewed. Assessment/Plan Admission Diagnosis Sepsis due to pneumonia Admission Status: Inpatient Order (span 2 midnights) Reason for Inpatient Admission: see below Assessment and Plan Sepsis due to pneumonia- POA Chronic hypoxic respiratory failure Metastatic lung cancer COPD Continue IV abx Wean oxygen as able (on 4lpm, baseline 2lpm) Await cultures MAT protocol Follows with Dr Aguila Only on radiation- not chemo A fib, chronic Rate controlled Cardiology consulted, appreciate recs Back on Xarelto- see below Daughter to bring in med list from home but will restart amiodarone per med refill history Anemia FOBT+ Has EGD/colonoscopy on 03.[address] Koroma Will need to hold Xarelto for 3 days before that Discussed risks of stroke vs worsening anemia/bleed- patient states he would like to continue on Xarelto and understands risk of bleeding Trend hemoglobin DVT ppx: Xarelto Clinical Quality Measures AMI/AHF: ASA po Prior to arrival: Yes SARAH SANDERSON MD Mar 11, 2023 10:57
[2023-03-11] MEDS ORDERED: PATIENT MAY USE OWN MEDS, ALL MC SCH (11:00)
--- NOTE | 2023-03-11 11:02 | Physical Therapy Evaluation ---
PT Evaluation-General Medical Diagnosis Admission Date Mar 10, 2023 at 20:26 Medical Diagnosis: sepsis Onset Date: Mar 10, 2023 Therapy Diagnosis Therapy Diagnosis: weakness Height/Weight Height (Feet): 5 Height (Inches): 8.00 Weight (Pounds): 154 Weight (Ounces): 0.0 Precautions Precautions/Isolations: Fall Prevention, Standard Precautions Weight Bear Status Right Lower Extremity: Right Full Weight Bearing Left Lower Extremity: Left Full Weight Bearing Referral Physician: Maria E Reason for Referral: Evaluation/Treatment Medical History Pertinent Medical History: Atrial Fib, CAD, COPD, CVA, HTN, Smoking Additional Medical History emphysema, lung CA, back Sx x 4, asthma Current History Presented to ED via EMS with c/o chest pain Reviewed History: Yes Social History Home: Single Level Current Living Status: Children Entry Into Home: Stairs With Railing PT Steps Into Home: 4 Prior Prior Level of Function SCALE: Activities may be completed with or without assistive devices. 5-Ntlybqiyik-bczhgdf completes the activity by him/herself with no assistance from a helper. 5-Set-up or Clean-up Assistance-helper sets up or cleans up; patient completes activity. Barnett assists only prior to or following the activity. 4-Supervision or Touching Assistance-helper provides verbal cues and/or touching/steadying and/or contact guard assistance as patient completes activity. Assistance may be provided throughout the activity or intermittently. 3-Partial/Moderate Assistance-helper does LESS THAN HALF the effort. Barnett lifts, holds or supports trunk or limbs, but provides less than half the effort. 2-Substantial/Maximal Assistance-helper does MORE THAN HALF the effort. Barnett lifts or holds trunk or limbs and provides more than half the effort. 5-Hqlhydshc-lvupzp does ALL the effort. Patient does none of the effort to complete the activity. Or, the assistance of 2 or more helpers is required for the patient to complete the activity. If activity was not attempted, code reason: 7-Patient Refused. 9-Not Applicable-not attempted and the patient did not perform the activity before the current illness, exacerbation or injury. 10-Not Attempted due to Environmental Limitations-(lack of equipment, weather restraints, etc.). 88-Not Attempted due to Medical Conditions or Safety Concerns. Bed Mobility: 6 Transfers (B,C,W/C): 6 Gait: 6 Stairs: 6 Wheelchair Mobility: 9 Indoor Mobility (Ambulation): Independent Stairs: Independent Prior Devices Use: Walker FWW PT Evaluation-Current Subjective Pt in bed, agreeable. Reports he has taken a shower this AM. Rates (L) knee and LBP at / this date. Pt reports he feels near PLOF with FWW. Pain Numeric Pain Scale: 9 Location: Left Location Body Site: Back Pain Description: Ache Pt/Family Goals Home Objective Patient Orientation: Person, Place, Time, Situation Attachments: Oxygen, IV ROM/Strength ROM Upper Extremities WFL for mobility ROM Lower Extremities WFL for mobility Strength Upper Extremities WFL for mobility Strength Lower Extremities grossly 3+/5 Integumentary/Posture Integumentary See nurses' notes Sensory Vision: Functional Hearing: Functional Transfers Roll Left to Right (QC): 6 Sit to Lying (QC): 6 Lying to Sitting/Side of Bed(Q: 6 Sit to Stand (QC): 5 Gait Does the Patient Walk?: Yes Mode of Locomotion: Walk Anticipated Mode of Locomotion: Walk Walk 10 feet (QC): 5 Distance: 20 Gait Assistive Device: FWW Comments/Gait Description Pt ambulated 20' in room with FWW, SBA for line management. Flexed posture, small steps but no LOB. Assessment/Needs Rehab Potential: Good PT Short Term Goals Short Term Goals Time Frame: Mar 15, 2023 Roll Left & Right: 6 Sit to lyin Lying to sitting on side of be: 6 Sit to stand: 6 Chair/bcz-jx-nhbru transfer: 6 PT Care Home Goals Marble Installer Goals PT Marble Installer Goals Time Frame: Mar 18, 2023 Roll Left & Right (QC): 6 Sit to Lying (QC): 6 Lying-Sitting on Side/Bed(QC): 6 Sit to Stand (QC): 6 Chair/Mbt-eu-Ekjwu Xfer(QC): 6 Toilet Transfer (QC): 6 Car Transfer (QC): 6 Does the Patient Walk: Yes Walk 10 feet (QC): 6 Walk 50ft with 2 Turns (QC): 6 Walk 150 ft (QC): 6 Walking 10ft on Uneven Surface: 6 1 Step (curb) (QC): 6 4 Steps (QC): 6 12 Steps (QC): 9 Does the Pt use WC or Scooter?: No Type: N/A Type: N/A PT LTGs established to allow safe return home with family. PT Plan Problem List Problem List: Activity Tolerance, Functional Strength, Safety, Balance, Gait, Transfer Treatment/Plan Treatment Plan: Continue Plan of Care Treatment Plan: Education, Functional Activity Eric, Functional Strength, Gait, Safety, Therapeutic Exercise, Transfers Treatment Duration: Mar 18, 2023 Frequency: 6 times per week Estimated Hrs Per Day: .25 hour per day Patient and/or Family Agrees t: Yes Safety Risks/Education Teaching Recipient: Patient Teaching Methods: Discussion Response to Teaching: Verbalize Understanding PT POC Discharge Recommendations Therapy Discharge Recommendati: Home & Family Time Time In: 1042 Time Out: 1055 DATE: Mar 11, 2023 Total Billed Treatment Time: 13 Total Billed Treatment 1, ANDRESC x 13' CLAUDIA DAMON DPT Mar 11, 2023 11:02
[2023-03-11 11:15] VITALS: BP 117/57
[2023-03-11] MEDS: AMIODARONE 200 MG (CORDARONE) TAB PO SCH (11:44)
[2023-03-11] MEDS ORDERED: AMIO200T65 PO (11:53)
[2023-03-11] MEDS ORDERED: ATOR10TA66 PO (11:53)
[2023-03-11] MEDS ORDERED: ACET-168 PO (11:53)
[2023-03-11] MEDS ORDERED: DIPH25TA31 PO (11:53)
[2023-03-11] MEDS ORDERED: GUAI400T86 PO (11:53)
[2023-03-11] MEDS ORDERED: traZODone 50 MG (DESYREL) TAB PO PRN (13:00)
[2023-03-11] MEDS ORDERED: CALCIUM CARBONATE 500 MG (TUMS) TAB.CHEW PO PRN (13:45)
[2023-03-11 16:14] VITALS: BP 117/67
[2023-03-11] MEDS: IBUPROFEN 800 MG (MOTRIN) TAB PO PRN (16:27)
[2023-03-11] MEDS ORDERED: RIVAROXABAN 15 MG TABLET (XARELTO) PO SCH (17:00)
[2023-03-11] MEDS: CALCIUM CARBONATE 500 MG (TUMS) TAB.CHEW PO PRN ×2 (18:34→21:58)
[2023-03-11 19:20] VITALS: BP 126/64
[2023-03-11] MEDS: GABAPENTIN 300 MG (NEURONTIN) CAP PO SCH (20:18)
[2023-03-11] MEDS ORDERED: MONTELUKAST 10 MG (SINGULAIR) TAB PO SCH (21:00)
[2023-03-11] MEDS ORDERED: AtorvaSTATin TABLET 10 MG TABLET PO SCH (21:00)
[2023-03-11 23:32] VITALS: BP 123/86
[2023-03-12] MEDS: RT-ALBUTEROL/IPRATROPIUM 3 ML (DUONEB) VIAL INH SCH ×3 (02:29→10:35)
[2023-03-12 03:24] VITALS: BP 137/64
[2023-03-12] MEDS: IBUPROFEN 800 MG (MOTRIN) TAB PO PRN (03:42)
[2023-03-12 05:54] LABS: BASOPHILS % (AUTO) 0 % (0-10); EOSINOPHILS % (AUTO) 0 % (0-10); HEMATOCRIT 27 % (40-54); HEMOGLOBIN 9.1 g/dL (13.3-17.7); LYMPHOCYTES % (AUTO) 6 % (12-44); MEAN CORPUSCULAR HEMOGLOBIN 28 pg (25-34); MEAN CORPUSCULAR HGB CONC 33 g/dL (32-36); MEAN CORPUSCULAR VOLUME 84 fL (80-99); MEAN PLATELET VOLUME 9.4 fL (9.0-12.2); MONOCYTES # (AUTO) 0.8 10^3/uL (0.0-1.0); MONOCYTES % (AUTO) 5 % (0-12); NEUTROPHILS # (AUTO) 13.2 10^3/uL (1.8-7.8); NEUTROPHILS % (AUTO) 88 % (42-75); PLATELET COUNT 324 10^3/uL (130-400); WHITE BLOOD COUNT 15.1 10^3/uL (4.3-11.0)
[2023-03-12] MEDS: MEROPENEM 500 MG/NS 100 ML IVPB IV SCH ×2 (06:08)
[2023-03-12 06:12] LABS: ALBUMIN 3.3 GM/DL (3.2-4.5); POTASSIUM 4.7 MMOL/L (3.6-5.0)
[2023-03-12 06:13] LABS: CALCIUM 9.6 MG/DL (8.5-10.1)
[2023-03-12 06:14] LABS: TOTAL PROTEIN 5.8 GM/DL (6.4-8.2)
[2023-03-12 06:16] LABS: BILIRUBIN,TOTAL 0.2 MG/DL (0.1-1.0)
[2023-03-12 06:18] LABS: CREATININE SERUM 0.86 MG/DL (0.60-1.30)
[2023-03-12 06:23] LABS: BAND NEUTROPHILS 2 %; HYPOCHROMASIA MODERATE; LYMPHOCYTES % (MANUAL) 6 %; MICROCYTOSIS SLIGHT; MONOCYTES % (MANUAL) 5 %; NEUTROPHILS % (MANUAL) 87 %
[2023-03-12 06:24] LABS: ROULEAUX SLIGHT
[2023-03-12] MEDS ORDERED: predniSONE 20 MG TAB PO SCH (07:00)
[2023-03-12 07:20] VITALS: BP 140/71
--- NOTE | 2023-03-12 08:00 | Diagnostic Imaging Report ---
EXAMINATION: Chest 1 view HISTORY: Pneumonia COMPARISON: 03/11/2023 FINDINGS: Heart size and pulmonary vasculature are normal. Stable small right pleural effusion with right basilar opacities. No pneumothorax. The osseous structures are intact. IMPRESSION: 1. Stable small right pleural effusion with right basilar consolidation or atelectasis. Dictated by: Dictated on workstation # [id number]
[2023-03-12] MEDS ORDERED: LIDOCAINE 4% (SALONPAS) PATCH TP SCH (09:00)
[2023-03-12] MEDS: CALCIUM CARBONATE 500 MG (TUMS) TAB.CHEW PO PRN (09:33)
[2023-03-12] MEDS: NICOTINE 21 MG (NICODERM) PATCH TD SCH (09:33)
[2023-03-12] MEDS: AMIODARONE 200 MG (CORDARONE) TAB PO SCH (09:33)
[2023-03-12] MEDS: GABAPENTIN 300 MG (NEURONTIN) CAP PO SCH (09:33)
[2023-03-12] MEDS ORDERED: AMOX1TAB12 PO (11:18)
[2023-03-12] MEDS ORDERED: PRD20T PO (11:19)
--- NOTE | 2023-03-12 11:20 | Discharge Inst-Simple/Standard ---
Discharge Inst-Standard Discharge Medications New, Converted or Re-Newed RX: Transmitted to Pharmacy Patient Instructions/Follow Up Plan of Care/Instructions/FU: Please continue to take your medications as written. Please follow up with your primary care doctor to follow up this hospital stay. You can stay on your Xarelto until 3 days before your procedure with Dr Koroma but if you notice any bleeding or dark stools please return to the ER. Activity as Tolerated: Yes Discharge Diet: No Restrictions Return to The Hospital For: Chest pain, shortness of breath, fever, weakness, if you feel you are getting worse. MARIAH JENSEN MD Mar 12, 2023 11:20
--- NOTE | 2023-03-12 11:24 | Discharge Summary ---
Diagnosis/Chief Complaint Date of Admission Mar 10, 2023 at 20:26 Date of Discharge Discharge Date: Mar 12, 2023 Admission Diagnosis Sepsis due to pneumonia Primary Care No,Local Physician Discharge Summary Discharge Physical Exam Allergies: Coded Allergies: cefaclor (Verified Allergy, Unknown, HIVES, 08/08/18) diazepam (Verified Allergy, Unknown, 02/18/06) levofloxacin (Verified Allergy, Unknown, HIVES, 08/08/18) Vitals & I&Os Vital Signs Date Time Temp Pulse Resp B/P (MAP) Pulse Ox O2 Delivery O2 Flow Rate FiO2 03/12/23 10:35 96 Nasal Cannula 3.00 03/12/23 07:20 36.3 95 20 140/71 (94) General Appearance: No Apparent Distress, Chronically ill, Thin Respiratory: Lungs Clear Cardiovascular: Regular Rate, Rhythm, No Murmur Gastrointestinal: Normal Bowel Sounds, Soft Neurologic/Psychiatric: Alert, Oriented x3 Hospital Course Patient was admitted to the hospital secondary to sepsis from pneumonia and COPD exacerbation. He was treated with IV antibiotics and steroids and did well. While he was in the hospital he was treated with Merrem due to his cephalosporin and fluoroquinolone allergy. He has previously tolerated Augmentin and so was discharged on that for continued outpatient regimen. He has a colonoscopy scheduled already with Dr. Koroma in the next week he was advised to keep this appointment. He is to follow-up with his oncologist and his primary care physician to follow-up this hospital stay. He was quite insistent on discharge on day of discharge as he was feeling much better. He was up ambulating in the hallway and maintaining oxygen saturations prior to going home. Labs (last 24 hrs) Laboratory Tests 03/12/23 05:34: White Blood Count 15.1H, Red Blood Count 3.25L, Hemoglobin 9.1L, Hematocrit 27L, Mean Corpuscular Volume 84, Mean Corpuscular Hemoglobin 28, Mean Corpuscular Hemoglobin Concent 33, Red Cell Distribution Width 15.1H, Platelet Count 324, Mean Platelet Volume 9.4, Immature Granulocyte % (Auto) 1, Neutrophils (%) (Auto) 88H, Lymphocytes (%) (Auto) 6L, Monocytes (%) (Auto) 5, Eosinophils (%) (Auto) 0, Basophils (%) (Auto) 0, Neutrophils # (Auto) 13.2H, Lymphocytes # (Auto) 1.0, Monocytes # (Auto) 0.8, Eosinophils # (Auto) 0.0, Basophils # (Auto) 0.0, Immature Granulocyte # (Auto) 0.1, Neutrophils % (Manual) 87, Lymphocytes % (Manual) 6, Monocytes % (Manual) 5, Band Neutrophils 2, Hypochromasia MODERATE, Microcytosis SLIGHT, Rouleau SLIGHT, Sodium Level 137, Potassium Level 4.7, Chloride Level 105, Carbon Dioxide Level 25, Anion Gap 7, Blood Urea Nitrogen 14, Creatinine 0.86, Estimat Glomerular Filtration Rate 90, BUN/Creatinine Ratio 16, Glucose Level 122H, Calcium Level 9.6, Corrected Calcium 10.2H, Total Bilirubin 0.2, Aspartate Amino Transf (AST/SGOT) 13, Alanine Aminotransferase (ALT/SGPT) 14, Alkaline Phosphatase 98, Total Protein 5.8L, Albumin 3.3 Microbiology 03/10/23 Blood Culture - Preliminary, Resulted No growth Patient resulted labs reviewed. Pending Labs Laboratory Tests 03/12/23 05:34: White Blood Count 15.1, Red Blood Count 3.25, Hemoglobin 9.1, Hematocrit 27, Mean Corpuscular Volume 84, Mean Corpuscular Hemoglobin 28, Mean Corpuscular Hemoglobin Concent 33, Red Cell Distribution Width 15.1, Platelet Count 324, Mean Platelet Volume 9.4, Immature Granulocyte % (Auto) 1, Neutrophils (%) (Auto) 88, Lymphocytes (%) (Auto) 6, Monocytes (%) (Auto) 5, Eosinophils (%) (Auto) 0, Basophils (%) (Auto) 0, Neutrophils # (Auto) 13.2, Lymphocytes # (Auto) 1.0, Monocytes # (Auto) 0.8, Eosinophils # (Auto) 0.0, Basophils # (Auto) 0.0, Immature Granulocyte # (Auto) 0.1, Neutrophils % (Manual) 87, Lymphocytes % (Manual) 6, Monocytes % (Manual) 5, Band Neutrophils 2, Hypochromasia MODERATE, Microcytosis SLIGHT, Rouleau SLIGHT, Sodium Level 137, Potassium Level 4.7, Chloride Level 105, Carbon Dioxide Level 25, Anion Gap 7, Blood Urea Nitrogen 14, Creatinine 0.86, Estimat Glomerular Filtration Rate 90, BUN/Creatinine Ratio 16, Glucose Level 122, Calcium Level 9.6, Corrected Calcium 10.2, Total Bilirubin 0.2, Aspartate Amino Transf (AST/SGOT) 13, Alanine Aminotransferase (ALT/SGPT) 14, Alkaline Phosphatase 98, Total Protein 5.8, Albumin 3.3 Discussion & Recommendations Discharge Planning: >30 minutes discharge planning Discharge Home Medications: Active Scripts Active Prednisone 20 Mg Tab 40 Mg PO DAILY Amox Tr-K Clv 875-125 mg Tab (Amoxicillin/Potassium Clav) 875 Mg-125 Mg Tablet 1 Each PO BID Amiodarone HCl 200 Mg Tablet 400 Mg PO BID 28 Days TAKE 400 MG TWICE DAILY FOR 7 DAYS, THEN 40O MG DAILY FOR 7 DAYS, THEN 200 MG DAILY Reported Amiodarone HCl 200 Mg Tablet 200 Mg PO Atorvastatin Calcium 10 Mg Tablet 10 Mg PO HS Diphenhydramine HCl 25 Mg Tablet 25 Mg PO DAILY Acetaminophen Extra Strength (Acetaminophen) 500 Mg Tablet 1,000 Mg PO BID MDD 1500 Guaifenesin 400 Mg Tablet 400 Mg PO BID Symbicort 160-4.5 Mcg Inhaler (Budesonide/Formoterol Fumarate) 160 Mcg-4.5 Mcg/Actuation Hfa.aer.ad 2 Puff IH BID Nicoderm Cq (Nicotine) 7 Mg/24 Hour Patch.td24 1 Each TD Omeprazole 40 Mg Capsule.dr 40 Mg PO DAILY Tiazac (Diltiazem HCl) 240 Mg Capsule.er 240 Mg PO DAILY Xarelto Tablet (Rivaroxaban) 20 Mg Tablet 20 Mg PO DAILY Klor-Con 10 (Potassium Chloride) 10 Meq Tablet.er 10 Meq PO DAILY PRN Lasix (Furosemide) 20 Mg Tablet 20 Mg PO DAILY PRN 8 Hour (Acetaminophen) 650 Mg Tablet.er 1,300 Mg PO QID TAKES 2 (650MG) TABS Benadryl Allergy (Diphenhydramine HCl) 25 Mg Tablet 25 Mg PO HS Aspirin EC (Aspirin) 81 Mg Tablet.dr 81 Mg PO DAILY Trazodone HCl 50 Mg Tablet 50 Mg PO HS PRN Guaifenesin 200 Mg Tablet 400 Mg PO QID TAKES 2 (200MG) TABS Neurontin (Gabapentin) 300 Mg Capsule 300 Mg PO BID Montelukast Sodium 10 Mg Tablet 10 Mg PO HS Ventolin Hfa (Albuterol Sulfate) 90 Mcg Hfa.aer.ad 2 Puff IH Q6H Atorvastatin Calcium 20 Mg Tablet 20 Mg PO HS Lidocaine 5% Patch (Lidocaine) 5 % Adh..patch 2 Patch TP DAILY MDD 2 APPLIES TO LOWER LEFT BACK Combivent Respimat Inhal [place] (Albuterol/Ipratropium) 20 Mcg-100 Mcg/Actuation Aero 2 Puff IH QID Fluticasone-Salmeterol 500-50 (Fluticasone Propion/Salmeterol) 500 Mcg-50 Mcg/Dose Blst.w.dev 1 Each IH BID Instructions to patient/family Please see electronic discharge instructions given to patient. Clinical Quality Measures AMI/AHF: ASA po Prior to arrival: Yes MARIAH JENSEN MD Mar 12, 2023 11:24
[2023-03-12 12:07] VITALS: BP 124/68
[2023-03-12 13:45] VITALS: BP 124/68
[2023-03-12] MEDS ORDERED: LIDOCAINE PATCH REMOVAL TP SCH (21:00)
== END 2023-03-12 13:45 | disposition home or self-care (01) | DRG 871 ==
LOC: EDUNIT# 18:00 → ER 18:01 → 4TH 20:26
PROVIDERS: ADMIT Family Medicine; ATTEND Family Medicine
DX: A41.9 Sepsis, unspecified organism (principal); J18.9 Pneumonia, unspecified organism; J96.11 Chronic respiratory failure with hypoxia; I48.20 Chronic atrial fibrillation, unspecified; Z79.82 Long term (current) use of aspirin; Z79.01 Long term (current) use of anticoagulants; Z79.899 Other long term (current) drug therapy; F17.210 Nicotine dependence, cigarettes, uncomplicated; J43.9 Emphysema, unspecified; I25.10 Atherosclerotic heart disease of native coronary artery without angina pectoris; I10 Essential (primary) hypertension; Z86.73 Personal history of transient ischemic attack (TIA), and cerebral infarction without residual deficits; K21.9 Gastro-esophageal reflux disease without esophagitis; M19.90 Unspecified osteoarthritis, unspecified site; G89.29 Other chronic pain; M54.9 Dorsalgia, unspecified; Z85.828 Personal history of other malignant neoplasm of skin; Z85.118 Personal history of other malignant neoplasm of bronchus and lung; Z92.3 Personal history of irradiation; D64.9 Anemia, unspecified; Z20.822 Contact with and (suspected) exposure to COVID-19
CPT/HCPCS: 36415; 71045; 80053; 80306; 80320; 81000; 82728; 83540; 83550; 83605; 83735; 83880; 84484; 85007; 85025; 85027; 85610; 85730; 87040; 87088; 87636; 93005; 93041; 94640; 94760

== ENCOUNTER 2023-03-16 12:57 | Inpatient (IN) | payer OTHER, MEDICARE ==
[~2023-03-16] VITALS: Ht 172.7 cm; Wt 58.0 kg
[~2023-03-16 12:57] MED LIST changes: +ACET-168 PO; +ATOR10TA66 PO; +DIPH25TA31 PO; +GUAI400T86 PO
[2023-03-16] MEDS ORDERED: MEROPENEM 500 MG in NS (IVPB) 100 ML IV ONE (13:15)
[2023-03-16] MEDS ORDERED: NS IV 1000 ML 1,000 ML IV SCH (13:15)
[2023-03-16 13:17] LABS: BASOPHILS % (AUTO) 0 % (0-10); EOSINOPHILS % (AUTO) 0 % (0-10); HEMATOCRIT 28 % (40-54); HEMOGLOBIN 9.1 g/dL (13.3-17.7); LYMPHOCYTES # (AUTO) 1.4 10^3/uL (1.0-4.0); LYMPHOCYTES % (AUTO) 10 % (12-44); MEAN CORPUSCULAR HEMOGLOBIN 27 pg (25-34); MEAN CORPUSCULAR HGB CONC 32 g/dL (32-36); MEAN CORPUSCULAR VOLUME 85 fL (80-99); MEAN PLATELET VOLUME 8.9 fL (9.0-12.2); MONOCYTES # (AUTO) 1.6 10^3/uL (0.0-1.0); MONOCYTES % (AUTO) 12 % (0-12); NEUTROPHILS # (AUTO) 10.5 10^3/uL (1.8-7.8); NEUTROPHILS % (AUTO) 77 % (42-75); PLATELET COUNT 318 10^3/uL (130-400); WHITE BLOOD COUNT 13.6 10^3/uL (4.3-11.0)
[2023-03-16 13:20] LABS: ABG BASE EXCESS 4.5 MMOL/L (-2.5-2.5); ABG OXYGEN SATURATION 89 % (94-100); ABG PCO2 40 MMHG (35-45); ABG PH 7.46 (7.37-7.43); ABG PO2 55 MMHG (79-93); ABG TCO2 29.3 MMOL/L (21.0-31.0); PATIENT TEMP 37.4; VENTILATOR NO
[2023-03-16 13:21] LABS: CHLORIDE 101 MMOL/L (98-107); SODIUM 135 MMOL/L (135-145)
[2023-03-16 13:22] LABS: CALCIUM 8.4 MG/DL (8.5-10.1); INR 2.2 (0.8-1.4); PROTHROMBIN TIME PATIENT 24.3 SEC (12.2-14.7)
--- NOTE | 2023-03-16 13:22 | ED General ---
General Chief Complaint: Altered Mental Status Stated Complaint: ALTERED MENTAL STATUS Nursing Triage Note: PT ARRIVED VIA [facility] WITH CC OF ALTERED MENTAL STATUS AND LETHARGY. PT WAS ADMITTED TO HOSPITAL FOR PNEUMONIA AND DISCHARGED FROM [facility] LAST MONDAY. PT HAS HX OF COPD AND LUNG CANCER. Source of Information: Patient Exam Limitations: No Limitations (AMISH CRUZ) History of Present Illness Date Seen by Provider: Mar 16, 2023 Time Seen by Provider: 13:21 Initial Comments Patient is a 78-year-old male with a history of COPD, lung cancer oxygen dependent 3 L who presents to ED with diffuse pain. He states this started this morning when he woke up. Patient states he woke up around 1 AM when outside to smoke. He end up eaten this morning felt okay woke back up started having diffuse pain. He reports pain with breathing. Patient lives at home with family. They contacted EMS as patient appeared lethargic, confused with increased work of breathing. Patient with a worseningcough. On arrival EMS increase his oxygen to 6 L. He Started become more alert and oriented. He was found to be slightly hypoxic. On arrival alert and orient x3. Complaining of diffuse pain. Denies of any specific chest pain, abdominal pain, headache, dizziness, vomiting or diarrhea. Frequent urination. Patient was discharged this past weekend from our hospital for admission for sepsis with pneumonia. Patient has few days worth of Augmentin. Just finished his prednisone today. Has been using inhalers at home for his COPD. Patient currently follows Dr. Devlin and Dr. Aguila for his lung cancer. Receiving radiation last treatment was 3 weeks ago. Patient had a low-grade temperature on arrival. W (AMISH CRUZ) Allergies and Home Medications Allergies Coded Allergies: cefaclor (Verified Allergy, Unknown, HIVES, 08/08/18) diazepam (Verified Allergy, Unknown, 02/18/06) levofloxacin (Verified Allergy, Unknown, HIVES, 08/08/18) Patient Home Medication List Home Medication List Reviewed: Yes (AMISH CRUZ) Acetaminophen (Acetaminophen Extra Strength) 500 Mg Tablet, 1,000 MG PO BID, (Reported) Entered as Reported by: LORENZA CHAVARRIA on 03/11/23 1153 Last Action: Held Albuterol Sulfate (Ventolin Hfa) 90 Mcg Hfa.aer.ad, 2 PUFF IH Q6H, (Reported) Entered as Reported by: KARYNA BARRON on 07/11/22 1234 Last Action: Held Albuterol Sulfate (Albuterol Sulfate) 0.63 Mg/3 Ml Vial.neb, 0.63 MG IH QID Prescribed by: JOHNNY PACHECO on 03/16/231647 Last Action: Held Albuterol/Ipratropium (Combivent Respimat Inhal [place]) 20 Mcg-100 Mcg/Actuation Aero, 2 PUFF IH QID, (Reported) Entered as Reported by: KARYNA BARRON on 07/11/22 1234 Last Action: Held Amiodarone HCl (Amiodarone HCl) 200 Mg Tablet, 200 MG PO DAILY Prescribed by: JOHNNY PACHECO on 03/16/231647 Last Action: Continued Amoxicillin/Potassium Clav (Amox Tr-K Clv 875-125 mg Tab) 875 Mg-125 Mg Tablet, 1 EACH PO BID Prescribed by: CHELSEY RIVERA on 03/18/23 0950 Aspirin (Aspirin EC) 81 Mg Tablet.dr, 81 MG PO DAILY, (Reported) Entered as Reported by: KARYNA BARRON on 07/11/221237 Last Action: Continued Atorvastatin Calcium (Atorvastatin Calcium) 10 Mg Tablet, 20 MG PO HS Prescribed by: JOHNNY PACHECO on 03/16/231647 Last Action: Continued Budesonide/Formoterol Fumarate (Symbicort 160-4.5 Mcg Inhaler) 160 Mcg-4.5 Mcg/Actuation Hfa.aer.ad, 2 PUFF IH BID, (Reported) Entered as Reported by: MELQUIADES HAMILTON on 03/09/23 1125 Last Action: Converted Diltiazem HCl (Tiazac) 240 Mg Capsule.er, 240 MG PO DAILY, (Reported) Entered as Reported by: KARYNA BARRON on 01/03/23 1543 Last Action: Converted Diphenhydramine HCl (Diphenhydramine HCl) 25 Mg Tablet, 25 MG PO DAILY, (Reported) Entered as Reported by: LORENZA CHAVARRIA on 03/11/23 1153 Last Action: Held Fluticasone Propion/Salmeterol (Fluticasone-Salmeterol 500-50) 500 Mcg-50 Mcg/ Dose Blst.w.dev, 1 EACH IH BID, (Reported) Entered as Reported by: KARYNA BARRON on 07/11/221233 Last Action: Converted Furosemide (Lasix) 20 Mg Tablet, 20 MG PO DAILY PRN for FLUID RETENTION, (Reported) Entered as Reported by: KARYNA BARRON on 01/03/231542 Last Action: Reviewed Gabapentin (Neurontin) 300 Mg Capsule, 300 MG PO BID, (Reported) Entered as Reported by: KARYNA BARRON on 07/11/221233 Last Action: Continued Guaifenesin (Guaifenesin) 200 Mg Tablet, 400 MG PO QID, (Reported) Entered as Reported by: KARYNA BARRON on 07/11/221233 Last Action: Held Lidocaine (Lidocaine 5% Patch) 5 % Adh..patch, 2 PATCH TP DAILY, (Reported) Entered as Reported by: KARYNA BARRON on 07/11/221233 Last Action: Continued Montelukast Sodium (Montelukast Sodium) 10 Mg Tablet, 10 MG PO HS, (Reported) Entered as Reported by: KARYNA BARRON on 07/11/221233 Last Action: Continued Nicotine (Nicoderm Cq) 7 Mg/24 Hour Patch.td24, 1 EACH TD, (Reported) Entered as Reported by: MELQUIADES HAMILTON on 03/09/231124 Last Action: Held Omeprazole (Omeprazole) 40 Mg Capsule.dr, 40 MG PO DAILY, (Reported) Entered as Reported by: MELQUIADES HAMILTON on 03/09/231124 Last Action: Converted Potassium Chloride (Klor-Con 10) 10 Meq Tablet.er, 10 MEQ PO DAILY PRN for WHEN TAKING FUROSEMIDE, (Reported) Entered as Reported by: KARYNA BARRON on 01/03/231542 Last Action: Held Prednisone (Prednisone) 10 Mg Tab.ds.pk, 10 MG PO DAILY Prescribed by: CHELSEY RIVERA on 03/18/23 0950 Rivaroxaban (Xarelto Tablet) 20 Mg Tablet, 20 MG PO DAILY, (Reported) Entered as Reported by: KARYNA BARRON on 01/03/231542 Last Action: Continued Trazodone HCl (Trazodone HCl) 50 Mg Tablet, 50 MG PO HS PRN for SLEEP, (Reported) Entered as Reported by: KARYNA BARRON on 10/17/22 1234 Last Action: Continued Discontinued Medications Acetaminophen (8 Hour) 650 Mg Tablet.er, 1,300 MG PO QID, (Reported) Discontinued Reason: Duplicate Order Entered as Reported by: KARYNA BARRON on 01/03/23 1543 Last Action: Discontinued Amiodarone HCl (Amiodarone HCl) 200 Mg Tablet, 400 MG PO BID Prescribed by: CHELSEY RIVERA on 01/04/23 0940 Amoxicillin/Potassium Clav (Amox Tr-K Clv 875-125 mg Tab) 875 Mg-125 Mg Tablet, 1 EACH PO BID Discontinued Reason: No Longer Taking Prescribed by: MARIAH JENSEN on 03/12/23 1118 Last Action: Discontinued Atorvastatin Calcium (Atorvastatin Calcium) 20 Mg Tablet, 20 MG PO HS, (Reported) Entered as Reported by: KARYNA BARRON on 07/11/22 1234 Diphenhydramine HCl (Benadryl Allergy) 25 Mg Tablet, 25 MG PO HS, (Reported) Discontinued Reason: No Longer Taking Entered as Reported by: KARYNA BARRON on 07/11/22 1238 Last Action: Discontinued Guaifenesin (Guaifenesin) 400 Mg Tablet, 400 MG PO BID, (Reported) Discontinued Reason: Duplicate Order Entered as Reported by: LORENZA HCAVARRIA on 03/11/23 1153 Last Action: Discontinued Prednisone (Prednisone) 20 Mg Tab, 40 MG PO DAILY Prescribed by: MARIAH JENSEN on 03/12/23 1119 Last Action: Held Review of Systems Review of Systems Constitutional: No chills, No diaphoresis; fever, malaise, weakness EENTM: No hearing loss, No ear pain, No blurred vision Respiratory: cough, short of breath Cardiovascular: No chest pain, No other Gastrointestinal: No abdominal pain, No diarrhea, No nausea, No vomiting Genitourinary: No decreased output, No discharge Musculoskeletal: No back pain, No joint pain Skin: No change in color (AMISH CRUZ) All Other Systems Reviewed Negative Unless Noted: Yes (AMISH CRUZ) Past Gorbcbo-Njawzn-Jhyims Hx Patient Social History Tobacco Use?: Yes Tobacco type used: Cigarettes Substance use?: No Alcohol Use?: Yes (AMISH CRUZ) Immunizations Up To Date Tetanus Booster (TDap): Unknown First/Initial COVID19 Vaccinat: YES Second COVID19 Vaccination John: YES Third COVID19 Vaccination Date: YES (AMISH CRUZ) Seasonal Allergies Seasonal Allergies: Yes (AMISH CRUZ) Past Medical History Surgery/Hospitalization HX: CHOLECYSTECTOMY/APPENDECTOMY/PARTIAL GASTRECTOMY/BACK SURGERY X4 Surgeries: Yes (HIATAL HERNIA REPAIR;STOMACH SURGERY-BLEEDING ULCER;CARDIAC CATH;SKIN CA) Abdominal, Appendectomy, Cardiac, Gallbladder, Orthopedic Respiratory: Yes (LUNG CANCER) Asthma, Pneumonia, COPD, Emphysema Currently Using CPAP: No Currently Using BIPAP: No Cardiac: Yes (CATH 2016-MODERATE DISEASE, NO INTERVENTION) Atrial Fibrillation, Coronary Artery Disease, Hypertension, Irregular Heartbeat Neurological: Yes Stroke Reproductive Disorders: No Genitourinary: No Gastrointestinal: Yes (SURGERY FOR BLEEDING ULCER/PARTIAL GASTRECTOMY; HIATAL HERNIA REPAIR) Gastroesophageal Reflux, Gastrointestinal Bleed, Hiatal Hernia, Ulcer, Cirrhosis Musculoskeletal: Yes (BACK SURGERY X 4) Arthritis, Chronic Back Pain Endocrine: No HEENT: Yes Cataract Loss of Vision: Denies Hearing Impairment: Denies Cancer: Yes Lung, Skin Did You Recieve Any Treatments: Yes What Type of Treatment Did You: Radiation, Surgical Intervention Psychosocial: No Integumentary: No Blood Disorders: No (AMISH CRUZ) Family Medical History No Pertinent Family Hx SOCIAL HISTORY: -SMOKED 3 PPD HIS WHOLE LIFE, RECENTLY IS DOWN TO 1 1/2 PPD NOW. -DISCUSSED WITH PT AND DAUGHTER ABOUT HIS ALCOHOL CONSUMPTION--HE USED TO DRINK UP TO 3 - 30 PACKS OF BEER A DAY, AND HE HAD WITHDRAWL SYMPTOMS IN THE PAST. HE NOW DRINKS UP TO 3 BEERS A DAY, AND NO LONGER DRINKS EVERY DAY, AND HE DOES NOT HAVE WITHDRAWL SYMPTOMS ANYMORE. (AMISH CRUZ) Physical Exam Vital Signs Vital Signs - First Documented 03/16/23 13:00 Temp 37.4 Pulse 93 Pulse Ox 90 (CAROLINE LARES MD) Vital Signs Capillary Refill : (AMISH CRUZ) Height, Weight, BMI Height: 5'8.00" Weight: 154lbs. 0.0oz. [id number]; 17.00 BMI Method:Stated General Appearance: No Apparent Distress, WD/WN Eyes: Bilateral Eye Normal Inspection, Bilateral Eye PERRL, Bilateral Eye EOMI HEENT: PERRL/EOMI, TMs Normal, Normal ENT Inspection, Pharynx Normal Neck: Full Range of Motion, Normal Inspection, Non Tender, Supple Respiratory: Chest Non Tender, No Accessory Muscle Use, Wheezing Cardiovascular: Regular Rate, Rhythm, No Edema, No Gallop Gastrointestinal: Normal Bowel Sounds, No Organomegaly, No Pulsatile Mass, Non Tender Back: Normal Inspection, No CVA Tenderness, No Vertebral Tenderness Extremity: Normal Capillary Refill, Normal Inspection Skin: Normal Color, Warm/Dry (AMISH CRUZ) Focused Exam Lactate Level 03/16/23 13:00: Lactic Acid Level 1.47 (CAROLINE LARES MD) Lactic Acid Level Laboratory Tests Test 03/16/23 13:00 Lactic Acid Level 1.47 MMOL/L (0.50-2.00) (CAROLINE LARES MD) Progress/Results/Core Measures Suspected Sepsis SIRS Temperature: Pulse: 93 Respiratory Rate: Laboratory Tests 03/16/23 13:00: White Blood Count 13.6H Blood Pressure / Mean: 03/16/23 13:00: Lactic Acid Level 1.47 Laboratory Tests 03/16/23 13:00: Creatinine 0.87, INR Comment 2.2H, Platelet Count 318, Total Bilirubin 0.3 (AMISH CRUZ) Results/Orders Lab Results Laboratory Tests Test 03/16/23 13:00 03/16/23 13:04 03/16/23 13:55 Range/Units White Blood Count 13.6 H 4.3-11.0 10^3/uL Red Blood Count 3.33 L 4.30-5.52 10^6/uL Hemoglobin 9.1 L 13.3-17.7 g/dL Hematocrit 28 L 40-54 % Mean Corpuscular Volume 85 80-99 fL Mean Corpuscular Hemoglobin 27 25-34 pg Mean Corpuscular Hemoglobin Concent 32 32-36 g/dL Red Cell Distribution Width 15.2 H 10.0-14.5 % Platelet Count 318 130-400 10^3/uL Mean Platelet Volume 8.9 L 9.0-12.2 fL Immature Granulocyte % (Auto) 1 % Neutrophils (%) (Auto) 77 H 42-75 % Lymphocytes (%) (Auto) 10 L 12-44 % Monocytes (%) (Auto) 12 0-12 % Eosinophils (%) (Auto) 0 0-10 % Basophils (%) (Auto) 0 0-10 % Neutrophils # (Auto) 10.5 H 1.8-7.8 10^3/uL Lymphocytes # (Auto) 1.4 1.0-4.0 10^3/uL Monocytes # (Auto) 1.6 H 0.0-1.0 10^3/uL Eosinophils # (Auto) 0.0 0.0-0.3 10^3/uL Basophils # (Auto) 0.0 0.0-0.1 10^3/uL Immature Granulocyte # (Auto) 0.1 0.0-0.1 10^3/uL Prothrombin Time 24.3 H 12.2-14.7 SEC INR Comment 2.2 H 0.8-1.4 Activated Partial Thromboplast Time 31 24-35 SEC Sodium Level 135 135-145 MMOL/L Potassium Level 4.0 3.6-5.0 MMOL/L Chloride Level 101 98-107 MMOL/L Carbon Dioxide Level 29 21-32 MMOL/L Anion Gap 5 5-14 MMOL/L Blood Urea Nitrogen 21 H 7-18 MG/DL Creatinine 0.87 0.60-1.30 MG/DL Estimat Glomerular Filtration Rate 89 BUN/Creatinine Ratio 24 Glucose Level 110 H 70-105 MG/DL Lactic Acid Level 1.47 0.50-2.00 MMOL/L Calcium Level 8.4 L 8.5-10.1 MG/DL Corrected Calcium 9.2 8.5-10.1 MG/DL Total Bilirubin 0.3 0.1-1.0 MG/DL Aspartate Amino Transf (AST/SGOT) 10 5-34 U/L Alanine Aminotransferase (ALT/SGPT) 18 0-55 U/L Alkaline Phosphatase 80 40-136 U/L Troponin I < 0.028 <0.028 NG/ML Total Protein 5.2 L 6.4-8.2 GM/DL Albumin 3.0 L 3.2-4.5 GM/DL Blood Gas Puncture Site RR Blood Gas Patient Temperature 37.4 Arterial Blood pH 7.46 H 7.37-7.43 Arterial Blood Partial Pressure CO2 40 35-45 MMHG Arterial Blood Partial Pressure O2 55 L 79-93 MMHG Arterial Blood HCO3 28 H 23-27 MMOL/L Arterial Blood Total CO2 29.3 21.0-31.0 MMOL/L Arterial Blood Oxygen Saturation 89 L 94-100 % Arterial Blood Base Excess 4.5 H -2.5-2.5 MMOL/L Kevin Test NA Blood Gas Ventilator Setting NO Blood Gas Inspired Oxygen NA Influenza Type A (RT-PCR) Not Detected Not Detecte Influenza Type B (RT-PCR) Not Detected Not Detecte SARS-CoV-2 RNA (RT-PCR) Not Detected Not Detecte (CAROLINE LARES MD) Micro Results Microbiology 03/16/23 Blood Culture - Preliminary, Resulted No growth 03/16/23 Blood Culture - Preliminary, Resulted No growth (CAROLINE LARES MD) Vital Signs/I&O 03/16/23 03/16/23 03/16/23 13:00 13:00 13:00 Temp 37.4 Pulse 93 B/P (MAP) Pulse Ox 90 O2 Delivery Nasal Cannula Nasal Cannula Nasal Cannula O2 Flow Rate 4.00 4.00 4.00 (CAROLINE LARES MD) Vital Signs/I&O Capillary Refill : (AMISH CRUZ) ECG Comment Sinus rhythm, left axis deviation, right bundle branch block, 89 bpm, QRS duration 124 MS, QTc 397 MS (AMISH CRUZ) Departure Communication (PCP) Patient is a 78-year-old male with a history of lung cancer, COPD who presents ED with by EMS for lethargy, confusion, increased work breathing with worsening cough, body pain. Patient was discharged from our facility this past weekend diagnosis with pneumonia. Discharged with Augmentin. Has 3 days worth of a ntibiotic. Finished prednisone. Has been using breathing treatments at home. EMS stated patient was slightly confused and hypoxic on arrival. Increased oxygen to 6 L with improvement. On arrival oxygen 95% on 6 L. Decreased to 4 L and remained. Improvement of the confusion. Confusion likely secondary to hypoxia. Received a DuoNeb breathing treatment. IV Solu-Medrol. Septic work- up was initiated. Patient Had a temperature 37.4. Chest x-ray, generalized lab work with ABG. ABG showed pH 7.46, PCO2 40, PO2 58, P bicarb 28. CBC showed white blood count 13.7 slightly elevated and very comparable to last visit with a hemoglobin 9.1 stable. Chemistry was grossly unremarkable. Normal lactic acid. Normal troponin. EKG without evidence of ST elevation or depression. Right bundle branch block. chest x-ray shows continuous right lower lobe pneumonia. Started on meropenem. Allergic to cephalosporins. Added vancomycin cover hospital-acquired pneumonia. COVID influenza negative. Patient will be admitted for worsening pneumonia, hypoxia require increase oxygen. Patient is currently full code but DNI . patient was discussed with Dr. Rivera hospitalist who agreed to admit patient. (AMISH CRUZ) Impression Primary Impression: Pneumonia Additional Impression: Hypoxia Disposition: ADMITTED INPATIENT Condition: Stable Admissions Decision to Admit Reason: Admit from ER (General) Decision to Admit/Date: Mar 16, 2023 Time/Decision to Admit Time: 14:24 (AMISH CRUZ) Departure-Patient Inst. Referrals: NO,LOCAL PHYSICIAN (PCP/Family) Primary Care Physician Scripts Amoxicillin/Potassium Clav (Amox Tr-K Clv 875-125 mg Tab) 875 Mg-125 Mg Tablet 1 EACH PO BID for 5 Days, #10 TAB Prov: CHELSEY RIVERA MD 03/18/23 Prednisone (Prednisone) 10 Mg Tab.ds.pk 10 MG PO DAILY, #42 EA Take 6 tabs(60mg)daily,decrease by 1 tab(10mg)every other day. Prov: CHELSEY RIVERA MD 03/18/23 Albuterol Sulfate (Albuterol Sulfate) 0.63 Mg/3 Ml Vial.neb 0.63 MG IH QID for 30 Days, EACH Prov: CHELSEY RIVERA MD 03/16/23 Amiodarone HCl (Amiodarone HCl) 200 Mg Tablet 200 MG PO DAILY for 30 Days, TAB Prov: CHELSEY RIVERA MD 03/16/23 Atorvastatin Calcium (Atorvastatin Calcium) 10 Mg Tablet 20 MG PO HS for 30 Days, TAB Prov: CHELSEY RIVERA MD 03/16/23 ATTENDING PHYSICIAN NOTE: I was physically present as attending physician in the emergency department during the care of this patient, but I was not directly involved in the decision making or delivery of care for this patient. (CAROLINE LARES MD) AMISH CRUZ Mar 16, 2023 13:22 CAROLINE LARES MD Mar 19, 2023 00:28
[2023-03-16 13:23] LABS: GLUCOSE 110 MG/DL (70-105); TOTAL PROTEIN 5.2 GM/DL (6.4-8.2)
[2023-03-16 13:24] LABS: CARBON DIOXIDE 29 MMOL/L (21-32)
[2023-03-16 13:25] LABS: BILIRUBIN,TOTAL 0.3 MG/DL (0.1-1.0)
[2023-03-16 13:26] LABS: ALKALINE PHOSPHATASE 80 U/L (40-136)
[2023-03-16 13:27] LABS: CREATININE SERUM 0.87 MG/DL (0.60-1.30); GFR ESTIMATED 89
[2023-03-16 13:28] LABS: BUN/CREATININE RATIO 24
[2023-03-16 13:30] LABS: ALANINE AMINOTRANSFERASE 18 U/L (0-55)
[2023-03-16] MEDS ORDERED: RT-ALBUTEROL/IPRATROPIUM 3 ML (DUONEB) VIAL INH ONE (13:30)
--- NOTE | 2023-03-16 14:13 | Diagnostic Imaging Report ---
EXAMINATION: Chest 1 view HISTORY: cough COMPARISON: 03/12/2023 FINDINGS: Heart size and pulmonary vasculature are normal. There are mild interstitial opacities within the right lower lung. No pleural effusion or pneumothorax. The osseous structures are intact. IMPRESSION: 1. Mild interstitial opacities within the right lower lung could be seen with edema or pneumonia. Dictated by: Dictated on workstation # [id number]
[2023-03-16] MEDS ORDERED: methylPREDNISolone 40 MG/ML (Solu-MEDROL) VIAL IV ONE (14:30)
[2023-03-16] MEDS ORDERED: VANCOMYCIN INJECTION 1,000 MG in NS (IVPB) 250 ML IV ONE (14:30)
[2023-03-16] MEDS ORDERED: MELATONIN 3 MG TABLET PO PRN (15:30)
[2023-03-16] MEDS ORDERED: BISACODYL 10 MG SUPP (DULCOLAX) PR PRN (15:30)
[2023-03-16] MEDS ORDERED: VANCOMYCIN INJECTION 0.1 MG in NS (IVPB) 250 ML IV SCH (15:30)
[2023-03-16] MEDS ORDERED: ONDANSETRON 4 MG (ZOFRAN) ORAL DISSOLVE TAB PO PRN (15:30)
[2023-03-16] MEDS ORDERED: ANTACID SUSP 30 ML UDC (MYLANTA) PO PRN (15:30)
[2023-03-16] MEDS ORDERED: LACTULOSE SYRUP 10GM/15ML (ENULOSE) 30ML UDC PO PRN (15:30)
[2023-03-16] MEDS ORDERED: MILK OF MAGNESIA 400 MG/5 ML 30 ML UDC PO PRN (15:30)
[2023-03-16] MEDS ORDERED: ONDANSETRON 4 MG/2 ML (SDV) Z0FRAN IV PRN (15:30)
[2023-03-16] MEDS ORDERED: LACTATED RINGERS 1,000 ML IV SCH (15:30)
[2023-03-16] MEDS ORDERED: polyethylene glycoL POWDER 17 GM (MIRALAX) PACK PO PRN (15:30)
[2023-03-16] MEDS: LACTATED RINGERS 1,000 ML IV SCH (16:25)
[2023-03-16] MEDS: ACETAMINOPHEN 325 MG TABLET PO PRN (16:39)
[2023-03-16] MEDS ORDERED: ATOR10TA66 PO (16:48)
[2023-03-16] MEDS ORDERED: AMIO200T65 PO (16:48)
[2023-03-16] MEDS ORDERED: ALBU0.63 IH (16:48)
--- NOTE | 2023-03-16 17:26 | Tele-ICU Progress Note ---
Subjective Date Seen by a Provider: Mar 16, 2023 Time Seen by a Provider: 17:17 Subjective/Events-last exam (Tele-ICU Physician , consultation as per request of PCP Service provided via interactive audio and video telecommunications E-CARE system to a patient admitted to ICU bed in [facility]. Available chart/ vitals / labs / Images reviewed H&P is from ER notes Patient's information available about PMH, Shx, Fhx allergy reviewed inEMR. ROS as per chart and RN report HPI: 78 y/o M with hx of lung cancer and COPD on 3L o2 at home presented to ED with c/o diffuse pain and SOB and was admitted to MICU for pneumonia. In ER noted to have increased oxygen requirement to 5L and elevated WBC to 13.6. Lactic acid was normal. He received Vanc and Meropenem and was transferred to MICU. Upon arrival noted to be comfortable with no increased work of breathing. A/P Hypoxia: Likely 2/2 pneumonia. Will decrease rate of fluids from 125 to 75 cc/hr. -Cont to wean O2 as tolerated. -Will cont Antibiotics. -sputum culture ordered leukocytosis: In setting of pneuomnia -Antibiotics as noted above Lines : periph , (Central Line Necessity Reviewed) [place]: Nutrition: HH diet VTE Prophylaxis: angel 1`30 bid Stress Ulcer Prophylaxis: Plans in collaboration with bedside consultants and IM MDs. Discussed with RN to reach out if any questions or concerns A total of 20 minutes of critical care time was devoted to this patient today, required to treat and/or prevent further deterioration of critical care condition ( as above ) I am remotely monitoring this patient from another state. I am unable to do the bedside exam, and history/physical and pertinent information is taken from other notes in the computer and bedside staff. Sepsis Event Evaluation Height, Weight, BMI Height: 5'8.00" Weight: 154lbs. 0.0oz. 69.987622cr; 18.87 BMI Method:Stated Focused Exam Lactate Level 03/16/23 13:00: Lactic Acid Level 1.47 Exam Exam Patient acknowledged, consented, and participated in this virtual visit which was conducted using real time audio/video Vital Signs Date Time Temp Pulse Resp B/P (MAP) Pulse Ox O2 Delivery O2 Flow Rate FiO2 03/16/23 16:39 38.5 03/16/23 16:00 93 22 95 Nasal Cannula 5.00 03/16/23 15:41 94 Nasal Cannula 5.00 03/16/23 15:28 38.5 89 20 128/71 (90) 94 Nasal Cannula 5.00 03/16/23 15:23 92 03/16/23 15:15 90 20 128/71 (90) 94 Nasal Cannula 5.00 03/16/23 15:14 37.0 68 15 119/67 94 Nasal Cannula 4.00 03/16/23 13:00 37.4 93 90 Nasal Cannula 4.00 03/16/23 13:00 Nasal Cannula 4.00 03/16/23 13:00 Nasal Cannula 4.00 Height & Weight Height: 5'8.00" Weight: 154lbs. 0.0oz. 69.321481au; 18.87 BMI Method:Stated General Appearance: No Apparent Distress, WD/WN HEENT: PERRL/EOMI, TMs Normal, Normal ENT Inspection, Pharynx Normal Neck: Full Range of Motion, Normal Inspection, Non Tender, Supple Respiratory: Chest Non Tender, No Accessory Muscle Use, Wheezing Cardiovascular: Regular Rate, Rhythm, No Edema, No Gallop Extremity: Normal Capillary Refill, Normal Inspection Skin: Normal Color, Warm/Dry Results Lab Laboratory Tests 03/16/23 13:00 Assessment/Plan Assessment/Plan . MORGAN SUAREZ MD Mar 16, 2023 17:26
[2023-03-16] MEDS ORDERED: traZODone 50 MG (DESYREL) TAB PO PRN (18:30)
[2023-03-16 19:06] VITALS: BP 130/56
[2023-03-16] MEDS ORDERED: RT-ALBUTEROL/IPRATROPIUM 3 ML (DUONEB) VIAL INH PRN (19:15)
[2023-03-16] MEDS: GABAPENTIN 300 MG (NEURONTIN) CAP PO SCH (20:28)
[2023-03-16] MEDS: MONTELUKAST 10 MG (SINGULAIR) TAB PO SCH (20:28)
[2023-03-16] MEDS: LIDOCAINE PATCH REMOVAL TP SCH (20:31)
[2023-03-16] MEDS: SENNOSIDES 8.6 MG (SENOKOT) TAB PO SCH (20:31)
[2023-03-16] MEDS: DOCUSATE SODIUM 100 MG (COLACE) CAP PO SCH (20:31)
[2023-03-16] MEDS ORDERED: NON-FORMULARY MEDICATION 1 EA EA (Budesonide/Formoterol Fumarate (Symbicort 160-4.5 Mcg In IH SCH (21:00)
[2023-03-16] MEDS ORDERED: AtorvaSTATin TABLET 10 MG TABLET PO SCH (21:00)
[2023-03-16] MEDS ORDERED: NON-FORMULARY MEDICATION 1 EA EA (Fluticasone Propion/Salmeterol (Fluticasone-Salmeterol 5 IH SCH (21:00)
[2023-03-16] MEDS: MEROPENEM 500 MG in NS (IVPB) 100 ML IV SCH (21:22)
[2023-03-16] MEDS: RT-ALBUTEROL/IPRATROPIUM 3 ML (DUONEB) VIAL INH SCH (22:01)
[2023-03-17] MEDS: RT-ALBUTEROL/IPRATROPIUM 3 ML (DUONEB) VIAL INH SCH ×6 (02:11→21:54)
[2023-03-17] MEDS ORDERED: NS IV 500 ML 500 ML IV PRN (05:15)
[2023-03-17 05:19] LABS: BASOPHILS % (AUTO) 0 % (0-10); EOSINOPHILS % (AUTO) 0 % (0-10); HEMATOCRIT 27 % (40-54); HEMOGLOBIN 8.7 g/dL (13.3-17.7); LYMPHOCYTES # (AUTO) 0.6 10^3/uL (1.0-4.0); LYMPHOCYTES % (AUTO) 4 % (12-44); MEAN CORPUSCULAR HEMOGLOBIN 27 pg (25-34); MEAN CORPUSCULAR HGB CONC 32 g/dL (32-36); MEAN CORPUSCULAR VOLUME 85 fL (80-99); MONOCYTES # (AUTO) 0.6 10^3/uL (0.0-1.0); MONOCYTES % (AUTO) 4 % (0-12); NEUTROPHILS # (AUTO) 12.7 10^3/uL (1.8-7.8); NEUTROPHILS % (AUTO) 91 % (42-75); PLATELET COUNT 291 10^3/uL (130-400)
[2023-03-17] MEDS: POTASSIUM CL 10MEQ/50ML IVPB 50 ML IV SCH (05:42)
[2023-03-17] MEDS: KCL 20 MEQ TAB (K-DUR) PO SCH (05:42)
[2023-03-17 05:45] LABS: BILIRUBIN,TOTAL 0.3 MG/DL (0.1-1.0); CREATININE SERUM 0.78 MG/DL (0.60-1.30); PHOSPHORUS 3.4 MG/DL (2.3-4.7); POTASSIUM 4.5 MMOL/L (3.6-5.0); TOTAL PROTEIN 5.3 GM/DL (6.4-8.2)
[2023-03-17] MEDS: MAGNESIUM 1 GM/100 ML IVPB 100 ML IV SCH (05:46)
[2023-03-17] MEDS: LACTATED RINGERS 1,000 ML IV SCH ×2 (05:46→19:24)
[2023-03-17] MEDS: MEROPENEM 500 MG in NS (IVPB) 100 ML IV SCH ×3 (05:52→21:59)
[2023-03-17] MEDS: FLUTICASONE/VILANTEROL 200 MCG 14'S (BREO) IH SCH (06:39)
[2023-03-17] MEDS ORDERED: predniSONE 20 MG TAB PO ONE (08:00)
[2023-03-17] MEDS: PANTOPRAZOLE 40 MG (PROTONIX) TAB PO SCH (08:31)
[2023-03-17] MEDS: AMIODARONE 200 MG (CORDARONE) TAB PO SCH (08:31)
[2023-03-17] MEDS: SENNOSIDES 8.6 MG (SENOKOT) TAB PO SCH ×2 (08:31→20:41)
[2023-03-17] MEDS: GABAPENTIN 300 MG (NEURONTIN) CAP PO SCH ×2 (08:31→20:39)
[2023-03-17] MEDS: DOCUSATE SODIUM 100 MG (COLACE) CAP PO SCH ×2 (08:31→20:41)
[2023-03-17] MEDS: ASPIRIN E.C. 81 MG (ECOTRIN) TAB PO SCH (08:31)
[2023-03-17] MEDS: LIDOCAINE 4% (SALONPAS) PATCH TP SCH (08:32)
[2023-03-17] MEDS: NICOTINE 14 MG (NICODERM) PATCH TD SCH (08:32)
[2023-03-17] MEDS: RIVAROXABAN 20 MG TABLET (XARELTO) PO SCH (08:36)
[2023-03-17] MEDS: NICOTINE PATCH REMOVAL TP SCH (08:36)
[2023-03-17] MEDS: ACETAMINOPHEN 325 MG TABLET PO PRN ×2 (08:43→20:39)
[2023-03-17] MEDS ORDERED: DILTIAZEM HCL 240 MG PO SCH (09:00)
[2023-03-17] MEDS ORDERED: NON-FORMULARY MEDICATION 1 EA EA (Omeprazole 40 MG) PO SCH (09:00)
[2023-03-17] MEDS ORDERED: VANCOMYCIN 1 GM/NS 250 ML IVPB IV SCH ×2 (14:00)
[2023-03-17 15:54] VITALS: BP 123/61
--- NOTE | 2023-03-17 18:57 | History & Physical-Hospitalist ---
History of Present Illness HPI/Chief Complaint Ulises Kaufman is a 78 year old male with PMH chronic respiratory failure with hypoxia on 3 L, COPD, lung cancer, AFib, anemia, who presented with shortness of breath. He was admitted last week with sepsis due to pneumonia. He was having pain yesterday. He was also short of breath and confused. He denies sputum production. He has a chronic cough. He has had fevers. He has only received radiation for his lung cancer. He says he does not know if it is only in his lung or if it has moved anywhere else. He also does not know if they are going to recommend chemotherapy. He says he is seeing an oncologist in [place]. Source: patient Exam Limitations: no limitations Date Seen 03/17/23 Time Seen by a Provider: 09:15 Attending Physician Alma Rosa,Local Physician PCP Admitting Physician: Chelsey Rivera MD Attending Physician: Chelsey Rivera MD Referring Physician Date of Admission Mar 16, 2023 at 15:12 Home Medications & Allergies Home Medications Reviewed patient Home Medication Reconciliation performed by pharmacy medication reconciliations facilities technician and/or nursing. Patients Allergies have been reviewed. Allergies Allergies Coded Allergies cefaclor (Verified Allergy, Unknown, HIVES, 08/08/18) diazepam (Verified Allergy, Unknown, 02/18/06) levofloxacin (Verified Allergy, Unknown, HIVES, 08/08/18) Past Fkcrerr-Tchcgv-Fnffvq Hx Patient Social History Tobacco Use?: Yes Tobacco type used: Cigarettes Smoking Status: Current Everyday Smoker Use of E-Cig and/or Vaping dev: No Substance use?: No Alcohol Use?: Yes Alcohol type: Beer Alcohol Frequency: Several times a month Pt feels they are or have been: No Immunizations Up To Date Date of Influenza Vaccine: Jun 27, 2016 First/Initial COVID19 Vaccinat: YES Second COVID19 Vaccination John: YES Tetanus Booster (TDap): Unknown Date of Pneumonia Vaccine: Sep 15, 2011 Seasonal Allergies Seasonal Allergies: Yes Current Status Communicates: Verbally Primary Language: Comoran Preferred Spoken Language: Comoran Is interpretation needed?: No Past Medical History Surgeries: Abdominal, Appendectomy, Cardiac, Gallbladder, Orthopedic Asthma, Pneumonia, COPD, Emphysema Currently Using CPAP: No Currently Using BIPAP: No Atrial Fibrillation, Coronary Artery Disease, Hypertension, Irregular Heartbeat Stroke Gastroesophageal Reflux, Gastrointestinal Bleed, Hiatal Hernia, Ulcer, Cirrhosis Arthritis, Chronic Back Pain Cataract Loss of Vision: Denies Hearing Impairment: Denies Lung, Skin Did You Recieve Any Treatments: Yes What Type of Treatment Did You: Radiation, Surgical Intervention Blood Disorders: No Family Medical History No Pertinent Family Hx SOCIAL HISTORY: -SMOKED 3 PPD HIS WHOLE LIFE, RECENTLY IS DOWN TO 1 1/2 PPD NOW. -DISCUSSED WITH PT AND DAUGHTER ABOUT HIS ALCOHOL CONSUMPTION--HE USED TO DRINK UP TO 3 - 30 PACKS OF BEER A DAY, AND HE HAD WITHDRAWL SYMPTOMS IN THE PAST. HE NOW DRINKS UP TO 3 BEERS A DAY, AND NO LONGER DRINKS EVERY DAY, AND HE DOES NOT HAVE WITHDRAWL SYMPTOMS ANYMORE. Review of Systems Constitutional: fever Respiratory: cough, short of breath Cardiovascular: no symptoms reported Gastrointestinal: no symptoms reported Physical Exam Physical Exam Vital Signs Vital Signs - First Documented 03/16/23 03/16/23 03/16/23 13:00 15:14 19:06 Temp 37.4 Pulse 93 Resp 15 B/P (MAP) 119/67 Pulse Ox 90 FiO2 40 Capillary Refill : Height, Weight, BMI Height: 5'8.00" Weight: 154lbs. 0.0oz. 69.801065pe; 19.44 BMI Method:Stated General Appearance: No Apparent Distress, Chronically ill, Thin HEENT: PERRL/EOMI, Pharynx Normal Neck: Normal Inspection, Supple Respiratory: No Respiratory Distress, Crackles, Decreased Breath Sounds Cardiovascular: Regular Rate, Rhythm, No Murmur Gastrointestinal: Normal Bowel Sounds, Non Tender, Soft Extremity: Normal Inspection, Non Tender, No Pedal Edema Neurologic/Psychiatric: Alert, Oriented x3, Normal Mood/Affect Skin: Normal Color, Warm/Dry Results Results/Procedures Labs Laboratory Tests 03/16/23 13:00 03/17/23 04:55 Patient resulted labs reviewed. Imaging: Reviewed Imaging Report Assessment/Plan Admission Diagnosis Sepsis due to pneumonia Admission Status: Inpatient Order (span 2 midnights) Reason for Inpatient Admission: IV antibiotics Assessment and Plan Sepsis due to pneumonia Acute on chronic respiratory failure with hypoxia COPD Lung cancer SIRS+ with fever and leukocytosis CXR with RLL PNA IV antibiotics Gentle IV fluids Supplemental oxygen as needed, on 5 L this morning MAT protocol Prednisone Transfer to medical floor Diagnosis/Problems Diagnosis/Problems (1) Sepsis due to pneumonia Status: Acute (2) Cancer of left lung Status: Acute (3) COPD (chronic obstructive pulmonary disease) Status: Acute (4) Acute respiratory failure Status: Acute Qualifiers: Respiratory failure complication: hypoxia Qualified Codes: J96.01 - Acute respiratory failure with hypoxia (5) Atrial fibrillation Status: Chronic Qualifiers: Atrial fibrillation type: paroxysmal Qualified Codes: I48.0 - Paroxysmal atrial fibrillation CHELSEY RIVERA MD Mar 17, 2023 18:57
[2023-03-17 19:02] VITALS: BP 134/63
[2023-03-17] MEDS: CALCIUM CARBONATE 500 MG (TUMS) TAB.CHEW PO PRN ×2 (20:38→22:01)
[2023-03-17] MEDS: MONTELUKAST 10 MG (SINGULAIR) TAB PO SCH (20:39)
[2023-03-17] MEDS: LIDOCAINE PATCH REMOVAL TP SCH (20:39)
[2023-03-17 23:23] VITALS: BP 111/64
[2023-03-18] MEDS: RT-ALBUTEROL/IPRATROPIUM 3 ML (DUONEB) VIAL INH SCH ×3 (02:05→10:03)
[2023-03-18 03:28] VITALS: BP 129/58
[2023-03-18] MEDS: MEROPENEM 500 MG in NS (IVPB) 100 ML IV SCH (05:29)
[2023-03-18] MEDS: POTASSIUM CL 10MEQ/50ML IVPB 50 ML IV SCH (05:30)
[2023-03-18] MEDS: MAGNESIUM 1 GM/100 ML IVPB 100 ML IV SCH (05:31)
[2023-03-18] MEDS: KCL 20 MEQ TAB (K-DUR) PO SCH (05:31)
[2023-03-18 05:40] LABS: BASOPHILS % (AUTO) 0 % (0-10); EOSINOPHILS % (AUTO) 0 % (0-10); HEMATOCRIT 27 % (40-54); HEMOGLOBIN 8.9 g/dL (13.3-17.7); LYMPHOCYTES # (AUTO) 1.1 10^3/uL (1.0-4.0); LYMPHOCYTES % (AUTO) 9 % (12-44); MEAN CORPUSCULAR HEMOGLOBIN 28 pg (25-34); MEAN CORPUSCULAR HGB CONC 33 g/dL (32-36); MEAN CORPUSCULAR VOLUME 84 fL (80-99); MEAN PLATELET VOLUME 9.3 fL (9.0-12.2); MONOCYTES % (AUTO) 9 % (0-12); NEUTROPHILS # (AUTO) 9.8 10^3/uL (1.8-7.8); NEUTROPHILS % (AUTO) 81 % (42-75); PLATELET COUNT 326 10^3/uL (130-400); WHITE BLOOD COUNT 12.1 10^3/uL (4.3-11.0)
[2023-03-18 06:06] LABS: ALBUMIN 2.9 GM/DL (3.2-4.5); BILIRUBIN,TOTAL 0.2 MG/DL (0.1-1.0); CALCIUM 9.1 MG/DL (8.5-10.1); CREATININE SERUM 0.75 MG/DL (0.60-1.30); MAGNESIUM 2.1 MG/DL (1.6-2.4); PHOSPHORUS 3.2 MG/DL (2.3-4.7); POTASSIUM 4.5 MMOL/L (3.6-5.0); TOTAL PROTEIN 5.1 GM/DL (6.4-8.2)
[2023-03-18] MEDS: CALCIUM CARBONATE 500 MG (TUMS) TAB.CHEW PO PRN ×2 (06:15→08:45)
[2023-03-18] MEDS: FLUTICASONE/VILANTEROL 200 MCG 14'S (BREO) IH SCH (06:19)
[2023-03-18] MEDS ORDERED: predniSONE 20 MG TAB PO SCH (07:00)
[2023-03-18 07:46] VITALS: BP 129/77
[2023-03-18] MEDS: NICOTINE 14 MG (NICODERM) PATCH TD SCH (08:46)
[2023-03-18] MEDS: LIDOCAINE 4% (SALONPAS) PATCH TP SCH (08:48)
[2023-03-18] MEDS: DOCUSATE SODIUM 100 MG (COLACE) CAP PO SCH (08:49)
[2023-03-18] MEDS: PANTOPRAZOLE 40 MG (PROTONIX) TAB PO SCH (08:49)
[2023-03-18] MEDS: RIVAROXABAN 20 MG TABLET (XARELTO) PO SCH (08:49)
[2023-03-18] MEDS: ASPIRIN E.C. 81 MG (ECOTRIN) TAB PO SCH (08:49)
[2023-03-18] MEDS: GABAPENTIN 300 MG (NEURONTIN) CAP PO SCH (08:49)
[2023-03-18] MEDS: SENNOSIDES 8.6 MG (SENOKOT) TAB PO SCH (08:49)
[2023-03-18] MEDS: AMIODARONE 200 MG (CORDARONE) TAB PO SCH (08:49)
[2023-03-18] MEDS: NICOTINE PATCH REMOVAL TP SCH (08:54)
[2023-03-18] MEDS ORDERED: AMOX1TAB12 PO (09:50)
[2023-03-18] MEDS ORDERED: PRED10TA22 PO (09:50)
[2023-03-18 11:42] VITALS: BP 129/77
--- NOTE | 2023-03-18 14:20 | Discharge Summary ---
Discharge Summary Hospital Course Problems/Dx: (1) Sepsis due to pneumonia Status: Acute (2) Cancer of left lung Status: Acute (3) COPD (chronic obstructive pulmonary disease) Status: Acute (4) Acute respiratory failure Status: Acute Qualifiers: Qualified Codes: J96.01 - Acute respiratory failure with hypoxia (5) Atrial fibrillation Status: Chronic Qualifiers: Qualified Codes: I48.0 - Paroxysmal atrial fibrillation Hospital Course Date of Admission: Mar 16, 2023 at 15:12 Admission Diagnosis : Sepsis due to pneumonia, COPD exacerbation, acute on chronic respiratory failure with hypoxia Family Physician/Provider: Alma RosaLocal Physician Date of Discharge: 03/18/23 Discharge Diagnosis Sepsis due to pneumonia, COPD exacerbation, acute on chronic respiratory failure with hypoxia Hospital Course: Ulises Kaufman is a 78 year old male with PMH chronic respiratory failure with hypoxia, COPD, lung cancer, who was admitted with sepsis due to pneumonia. He was recently discharged after another hospitalization due to pneumonia. He was admitted and treated with gentle IV fluids and IV antibiotics. His respiratory status improved. He returned to his baseline oxygen requirement, 3 L. He will co mplete a course of antibiotics and steroid taper. He was discharged home in stable condition. He is scheduled to follow up with his oncologist next week. Labs and Pending Lab Test: Laboratory Tests 03/18/23 04:59: White Blood Count 12.1H, Red Blood Count 3.23L, Hemoglobin 8.9L, Hematocrit 27L, Mean Corpuscular Volume 84, Mean Corpuscular Hemoglobin 28, Mean Corpuscular Hemoglobin Concent 33, Red Cell Distribution Width 15.1H, Platelet Count 326, Mean Platelet Volume 9.3, Immature Granulocyte % (Auto) 1, Neutrophils (%) (Auto) 81H, Lymphocytes (%) (Auto) 9L, Monocytes (%) (Auto) 9, Eosinophils (%) ( Auto) 0, Basophils (%) (Auto) 0, Neutrophils # (Auto) 9.8H, Lymphocytes # (Auto) 1.1, Monocytes # (Auto) 1.0, Eosinophils # (Auto) 0.0, Basophils # (Auto) 0.0, Immature Granulocyte # (Auto) 0.1, Sodium Level 136, Potassium Level 4.5, C hloride Level 102, Carbon Dioxide Level 25, Anion Gap 9, Blood Urea Nitrogen 18, Creatinine 0.75, Estimat Glomerular Filtration Rate 94, BUN/Creatinine Ratio 24, Glucose Level 155H, Calcium Level 9.1, Corrected Calcium 10.0, Phosphorus Level 3.2, Magnesium Level 2.1, Total Bilirubin 0.2, Aspartate Amino Transf (AST/SGOT) 17, Alanine Aminotransferase (ALT/SGPT) 22, Alkaline Phosphatase 95, Total Protein 5.1L, Albumin 2.9L Microbiology 03/16/23 MRSA Screen - Final, Complete MRSA not isolated 03/16/23 Blood Culture - Preliminary, Resulted No growth Home Meds Active Amox Tr-K Clv 875-125 mg Tab (Amoxicillin/Potassium Clav) 875 Mg-125 Mg Tablet 1 Each PO BID 5 Days Prednisone 10 Mg Tab.ds.pk 10 Mg PO DAILY Take 6 tabs(60mg)daily,decrease by 1 tab(10mg)every other day. Albuterol Sulfate 0.63 Mg/3 Ml Vial.neb 0.63 Mg IH QID 30 Days Amiodarone HCl 200 Mg Tablet 200 Mg PO DAILY 30 Days Atorvastatin Calcium 10 Mg Tablet 20 Mg PO HS 30 Days Reported Diphenhydramine HCl 25 Mg Tablet 25 Mg PO DAILY Acetaminophen Extra Strength (Acetaminophen) 500 Mg Tablet 1,000 Mg PO BID MDD 1500 Symbicort 160-4.5 Mcg Inhaler (Budesonide/Formoterol Fumarate) 160 Mcg-4.5 Mcg/Actuation Hfa.aer.ad 2 Puff IH BID Nicoderm Cq (Nicotine) 7 Mg/24 Hour Patch.td24 1 Each TD Omeprazole 40 Mg Capsule.dr 40 Mg PO DAILY Tiazac (Diltiazem HCl) 240 Mg Capsule.er 240 Mg PO DAILY Xarelto Tablet (Rivaroxaban) 20 Mg Tablet 20 Mg PO DAILY Klor-Con 10 (Potassium Chloride) 10 Meq Tablet.er 10 Meq PO DAILY PRN Lasix (Furosemide) 20 Mg Tablet 20 Mg PO DAILY PRN Aspirin EC (Aspirin) 81 Mg Tablet.dr 81 Mg PO DAILY Trazodone HCl 50 Mg Tablet 50 Mg PO HS PRN Guaifenesin 200 Mg Tablet 400 Mg PO QID TAKES 2 (200MG) TABS Neurontin (Gabapentin) 300 Mg Capsule 300 Mg PO BID Montelukast Sodium 10 Mg Tablet 10 Mg PO HS Ventolin Hfa (Albuterol Sulfate) 90 Mcg Hfa.aer.ad 2 Puff IH Q6H Lidocaine 5% Patch (Lidocaine) 5 % Adh..patch 2 Patch TP DAILY MDD 2 APPLIES TO LOWER LEFT BACK Combivent Respimat Inhal [place] (Albuterol/Ipratropium) 20 Mcg-100 Mcg/Actuation Aero 2 Puff IH QID Fluticasone-Salmeterol 500-50 (Fluticasone Propion/Salmeterol) 500 Mcg-50 Mcg/Dose Blst.w.dev 1 Each IH BID Assessment/Pt Instructions See instructions Discharge Planning: <30 minutes discharge planning Discharge Physical Examination Vital Signs Vital Signs Date Time Temp Pulse Resp B/P (MAP) Pulse Ox O2 Delivery O2 Flow Rate FiO2 03/18/23 11:42 36.0 89 18 129/77 91 Nasal Cannula 3.00 03/17/23 02:12 40 General Appearance: No Apparent Distress, Chronically ill Respiratory: No Respiratory Distress, Decreased Breath Sounds Cardiovascular: Regular Rate, Rhythm, No Murmur Gastrointestinal: Normal Bowel Sounds, Soft Extremity: Normal Inspection, No Pedal Edema Skin: Normal Color, Warm/Dry Neurologic/Psychiatric: Alert, No Motor/Sensory Deficits Allergies: Coded Allergies: cefaclor (Verified Allergy, Unknown, HIVES, 08/08/18) diazepam (Verified Allergy, Unknown, 02/18/06) levofloxacin (Verified Allergy, Unknown, HIVES, 08/08/18) Discharge Summary Date of Admission Mar 16, 2023 at 15:12 Date of Discharge Mar 18, 2023 at 10:54 Discharge Date: Mar 18, 2023 Discharge Time: 10:54 Admission Diagnosis Sepsis due to pneumonia Comfort Measures/ End of Life Care: Pallative Care Discharge Diagnosis Sepsis due to pneumonia Acute on chronic respiratory failure with hypoxia COPD Lung cancer (1) Sepsis due to pneumonia Status: Acute (2) Cancer of left lung Status: Acute (3) COPD (chronic obstructive pulmonary disease) Status: Acute (4) Acute respiratory failure Status: Acute Qualifiers: Qualified Codes: J96.01 - Acute respiratory failure with hypoxia (5) Atrial fibrillation Status: Chronic Qualifiers: Qualified Codes: I48.0 - Paroxysmal atrial fibrillation CHELSEY RIVERA MD Mar 18, 2023 14:19
== END 2023-03-18 10:54 | disposition home or self-care (01) | DRG 871 ==
LOC: EDUNIT# 12:57 → ER 12:58 → ICU 15:12 → 4TH 03-17 11:09
PROVIDERS: ADMIT Internal Medicine; ATTEND Internal Medicine
DX: A41.9 Sepsis, unspecified organism (principal); J18.9 Pneumonia, unspecified organism; J96.21 Acute and chronic respiratory failure with hypoxia; C34.92 Malignant neoplasm of unspecified part of left bronchus or lung; I48.20 Chronic atrial fibrillation, unspecified; J43.9 Emphysema, unspecified; F17.210 Nicotine dependence, cigarettes, uncomplicated; I25.10 Atherosclerotic heart disease of native coronary artery without angina pectoris; Z66 Do not resuscitate; Z20.822 Contact with and (suspected) exposure to COVID-19; I10 Essential (primary) hypertension; K21.9 Gastro-esophageal reflux disease without esophagitis; K74.60 Unspecified cirrhosis of liver; M19.90 Unspecified osteoarthritis, unspecified site; I45.10 Unspecified right bundle-branch block; Z99.81 Dependence on supplemental oxygen; Z79.01 Long term (current) use of anticoagulants; Z85.828 Personal history of other malignant neoplasm of skin; Z79.899 Other long term (current) drug therapy; Z79.82 Long term (current) use of aspirin; Z79.52 Long term (current) use of systemic steroids; Z88.1 Allergy status to other antibiotic agents; Z91.09 Other allergy status, other than to drugs and biological substances
CPT/HCPCS: 36415; 36600; 71045; 80053; 82805; 83605; 83735; 84100; 84484; 85025; 85610; 85730; 87040; 87081; 87636; 93005; 94640; 94664; 94760

== ENCOUNTER 2023-03-26 15:12 | Emergency (ER) | payer MEDICARE, OTHER ==
[~2023-03-26] VITALS: Ht 172.7 cm; Wt 55.8 kg
[~2023-03-26 15:12] MED LIST changes: +ALBU0.63 IH
--- NOTE | 2023-03-26 15:38 | ED General ---
General Chief Complaint: Dizziness/Syncope Stated Complaint: DIZZINESS Nursing Triage Note: PT TO ROOM 10 [facility]IA [facility] WITH C/O DIZZNESS EARLIER TODAY. PT REPORTS HE WAS OUTSIDE ON THE BACK PORCH SMOKING WITHOUT HIS 3LPM HOME O2 AND BECAME DIZZY. PT DENIES DIZZYNESS UPON ARRIVAL. PT STATES HE DAUGHTER TESTED COVID POS YESTERDAY. Source of Information: Patient Exam Limitations: No Limitations History of Present Illness Date Seen by Provider: Mar 26, 2023 Time Seen by Provider: 15:17 Initial Comments Here with report of dizziness today and not feeling well. States he went out to the back porch and was smoking a cigarette without his oxygen when he became dizzy. He was using his nebulizer. Denies chest pain. Was not significantly short of breath at the time. Also admits that his daughter is COVID-positive but he took a test this morning that was negative. He is vaccinated and has previously had COVID. Timing/Duration: 1-3 Hours Severity: Mild Associated Systoms: No Chest Pain; Cough; No Fever/Chills, No Nausea/Vomiting, No Weakness Allergies and Home Medications Allergies Coded Allergies: cefaclor (Verified Allergy, Unknown, HIVES, 08/08/18) diazepam (Verified Allergy, Unknown, 02/18/06) levofloxacin (Verified Allergy, Unknown, HIVES, 08/08/18) Patient Home Medication List Home Medication List Reviewed: Yes Acetaminophen (Acetaminophen Extra Strength) 500 Mg Tablet, 1,000 MG PO BID, (Reported) Entered as Reported by: LORENZA CHAVARRIA on 03/11/23 1153 Albuterol Sulfate (Ventolin Hfa) 90 Mcg Hfa.aer.ad, 2 PUFF IH Q6H, (Reported) Entered as Reported by: KARYNA BARRON on 07/11/22 1234 Albuterol Sulfate (Albuterol Sulfate) 0.63 Mg/3 Ml Vial.neb, 0.63 MG IH QID Prescribed by: JOHNNY PACHECO on 03/16/23 1648 Albuterol/Ipratropium (Combivent Respimat Inhal [place]) 20 Mcg-100 Mcg/Actuation Aero, 2 PUFF IH QID, (Reported) Entered as Reported by: KARYNA BARRON on 07/11/22 1234 Amiodarone HCl (Amiodarone HCl) 200 Mg Tablet, 200 MG PO DAILY Prescribed by: JOHNNY PACHECO on 03/16/23 1648 Amoxicillin/Potassium Clav (Amox Tr-K Clv 875-125 mg Tab) 875 Mg-125 Mg Tablet, 1 EACH PO BID Prescribed by: CHELSEY RIVERA on 03/18/23 0950 Aspirin (Aspirin EC) 81 Mg Tablet.dr, 81 MG PO DAILY, (Reported) Entered as Reported by: KARYNA BARRON on 07/11/22 1238 Atorvastatin Calcium (Atorvastatin Calcium) 10 Mg Tablet, 20 MG PO HS Prescribed by: JOHNNY PACHECO on 03/16/23 1648 Budesonide/Formoterol Fumarate (Symbicort 160-4.5 Mcg Inhaler) 160 Mcg-4.5 Mcg/Actuation Hfa.aer.ad, 2 PUFF IH BID, (Reported) Entered as Reported by: MELQUIADES HAMILTON on 03/09/23 1125 Diltiazem HCl (Tiazac) 240 Mg Capsule.er, 240 MG PO DAILY, (Reported) Entered as Reported by: KARYNA BARRON on 01/03/23 1543 Diphenhydramine HCl (Diphenhydramine HCl) 25 Mg Tablet, 25 MG PO DAILY, (Reported) Entered as Reported by: LORENZA CHAVARRIA on 03/11/23 1153 Fluticasone Propion/Salmeterol (Fluticasone-Salmeterol 500-50) 500 Mcg-50 Mcg/Dose Blst.w.dev, 1 EACH IH BID, (Reported) Entered as Reported by: KARYNA BARRON on 07/11/22 1234 Furosemide (Lasix) 20 Mg Tablet, 20 MG PO DAILY PRN for FLUID RETENTION, (Reported) Entered as Reported by: KARYNA BARRON on 01/03/23 1543 Gabapentin (Neurontin) 300 Mg Capsule, 300 MG PO BID, (Reported) Entered as Reported by: KARYNA BARRON on 07/11/22 1234 Guaifenesin (Guaifenesin) 200 Mg Tablet, 400 MG PO QID, (Reported) Entered as Reported by: KARYNA BARRON on 07/11/22 1234 Lidocaine (Lidocaine 5% Patch) 5 % Adh..patch, 2 PATCH TP DAILY, (Reported) Entered as Reported by: KARYNA BARRON on 07/11/22 1234 Molnupiravir (Molnupiravir (Eua)) 200 Mg Capsule, 800 MG PO BID Prescribed by: MELECIO KURTZ on 03/26/23 1620 Montelukast Sodium (Montelukast Sodium) 10 Mg Tablet, 10 MG PO HS, (Reported) Entered as Reported by: KARYNA BARRON on 07/11/22 1234 Nicotine (Nicoderm Cq) 7 Mg/24 Hour Patch.td24, 1 EACH TD, (Reported) Entered as Reported by: MELQUIADES HAMILTON on 03/09/23 1125 Omeprazole (Omeprazole) 40 Mg Capsule.dr, 40 MG PO DAILY, (Reported) Entered as Reported by: MELQUIADES HAMILTON on 03/09/23 1125 Potassium Chloride (Klor-Con 10) 10 Meq Tablet.er, 10 MEQ PO DAILY PRN for WHEN TAKING FUROSEMIDE, (Reported) Entered as Reported by: KARYNA BARRON on 01/03/23 1543 Prednisone (Prednisone) 10 Mg Tab.ds.pk, 10 MG PO DAILY Prescribed by: CHELSEY RIVERA on 03/18/23 0950 Rivaroxaban (Xarelto Tablet) 20 Mg Tablet, 20 MG PO DAILY, (Reported) Entered as Reported by: KARYNA BARRON on 01/03/23 1543 Trazodone HCl (Trazodone HCl) 50 Mg Tablet, 50 MG PO HS PRN for SLEEP, (Reported) Entered as Reported by: KARYNA BARRON on 07/11/22 1234 Review of Systems Review of Systems Constitutional: see HPI; No chills, No fever EENTM: No nose congestion, No throat pain Respiratory: cough; No short of breath; wheezing Cardiovascular: No chest pain Gastrointestinal: No nausea, No vomiting Psychiatric/Neurological: See HPI, Weakness, Other (Dizziness) Past Crcmamx-Xzwmgs-Hcatwb Hx Patient Social History Tobacco Use?: Yes Tobacco type used: Cigarettes Smoking Status: Heavy Tobacco Smoker Smokeless Tobacco Frequency: Never a User Use of E-Cig and/or Vaping dev: No Use of E-Cig and/or Vaping Tryo: Never a User Substance use?: No Alcohol Use?: No Pt feels they are or have been: No Immunizations Up To Date Tetanus Booster (TDap): Unknown First/Initial COVID19 Vaccinat: YES Second COVID19 Vaccination John: YES Third COVID19 Vaccination Date: YES Seasonal Allergies Seasonal Allergies: Yes Past Medical History Surgery/Hospitalization HX: CHOLECYSTECTOMY/APPENDECTOMY/PARTIAL GASTRECTOMY/BACK SURGERY X4 Surgeries: Yes (HIATAL HERNIA REPAIR;STOMACH SURGERY-BLEEDING ULCER;CARDIAC CATH;SKIN CA) Abdominal, Appendectomy, Cardiac, Gallbladder, Orthopedic Respiratory: Yes (LUNG CANCER) Asthma, Pneumonia, COPD, Emphysema Currently Using CPAP: No Currently Using BIPAP: No Cardiac: Yes (CATH 2016-MODERATE DISEASE, NO INTERVENTION) Atrial Fibrillation, Coronary Artery Disease, Hypertension, Irregular Heartbeat Neurological: Yes Stroke Reproductive Disorders: No Genitourinary: No Gastrointestinal: Yes (SURGERY FOR BLEEDING ULCER/PARTIAL GASTRECTOMY; HIATAL HERNIA REPAIR) Gastroesophageal Reflux, Gastrointestinal Bleed, Hiatal Hernia, Ulcer, Cirrhosis Musculoskeletal: Yes (BACK SURGERY X 4) Arthritis, Chronic Back Pain Endocrine: No HEENT: Yes Cataract Loss of Vision: Denies Hearing Impairment: Denies Cancer: Yes Lung, Skin Did You Recieve Any Treatments: Yes What Type of Treatment Did You: Radiation, Surgical Intervention Psychosocial: No Integumentary: No Blood Disorders: No Family Medical History Reviewed Nursing Family Hx No Pertinent Family Hx SOCIAL HISTORY: -SMOKED 3 PPD HIS WHOLE LIFE, RECENTLY IS DOWN TO 1 1/2 PPD NOW. -DISCUSSED WITH PT AND DAUGHTER ABOUT HIS ALCOHOL CONSUMPTION--HE USED TO DRINK UP TO 3 - 30 PACKS OF BEER A DAY, AND HE HAD WITHDRAWL SYMPTOMS IN THE PAST. HE NOW DRINKS UP TO 3 BEERS A DAY, AND NO LONGER DRINKS EVERY DAY, AND HE DOES NOT HAVE WITHDRAWL SYMPTOMS ANYMORE. Physical Exam Vital Signs Vital Signs - First Documented 03/26/23 15:13 Temp 36.4 Pulse 57 Resp 16 B/P (MAP) 117/56 (76) Pulse Ox 100 O2 Delivery Nasal Cannula O2 Flow Rate 3.00 Capillary Refill : Less Than 3 Seconds Height, Weight, BMI Height: 5'8.00" Weight: 154lbs. 0.0oz. 69.445058wg; 18.00 BMI Method:Stated General Appearance: No Apparent Distress, WD/WN HEENT: PERRL/EOMI, Pharynx Normal Neck: Non Tender, Supple Respiratory: No Accessory Muscle Use, No Respiratory Distress, Wheezing Cardiovascular: Regular Rate, Rhythm, No Murmur Gastrointestinal: Non Tender, Soft Extremity: Normal Range of Motion, Non Tender, No Calf Tenderness, No Pedal Edema Neurologic/Psychiatric: Alert, Oriented x3, No Motor/Sensory Deficits Skin: Normal Color, Warm/Dry Progress/Results/Core Measures Suspected Sepsis SIRS Temperature: Pulse: 57 Respiratory Rate: 16 Laboratory Tests 03/26/23 15:28: White Blood Count 9.2 Blood Pressure 117 /56 Mean: 76 Laboratory Tests 03/26/23 15:28: Creatinine 0.87, Platelet Count 327, Total Bilirubin 0.2 Results/Orders Lab Results Laboratory Tests Test 03/26/23 15:28 03/26/23 15:29 03/26/23 15:31 Range/Units White Blood Count 9.2 4.3-11.0 10^3/uL Red Blood Count 3.31 L 4.30-5.52 10^6/uL Hemoglobin 8.8 L 13.3-17.7 g/dL Hematocrit 28 L 40-54 % Mean Corpuscular Volume 86 80-99 fL Mean Corpuscular Hemoglobin 27 25-34 pg Mean Corpuscular Hemoglobin Concent 31 L 32-36 g/dL Red Cell Distribution Width 15.9 H 10.0-14.5 % Platelet Count 327 130-400 10^3/uL Mean Platelet Volume 8.7 L 9.0-12.2 fL Immature Granulocyte % (Auto) 0 % Neutrophils (%) (Auto) 66 42-75 % Lymphocytes (%) (Auto) 25 12-44 % Monocytes (%) (Auto) 8 0-12 % Eosinophils (%) (Auto) 1 0-10 % Basophils (%) (Auto) 0 0-10 % Neutrophils # (Auto) 6.0 1.8-7.8 10^3/uL Lymphocytes # (Auto) 2.3 1.0-4.0 10^3/uL Monocytes # (Auto) 0.7 0.0-1.0 10^3/uL Eosinophils # (Auto) 0.1 0.0-0.3 10^3/uL Basophils # (Auto) 0.0 0.0-0.1 10^3/uL Immature Granulocyte # (Auto) 0.0 0.0-0.1 10^3/uL Sodium Level 140 135-145 MMOL/L Potassium Level 4.1 3.6-5.0 MMOL/L Chloride Level 106 98-107 MMOL/L Carbon Dioxide Level 27 21-32 MMOL/L Anion Gap 7 5-14 MMOL/L Blood Urea Nitrogen 22 H 7-18 MG/DL Creatinine 0.87 0.60-1.30 MG/DL Estimat Glomerular Filtration Rate 89 BUN/Creatinine Ratio 25 Glucose Level 73 70-105 MG/DL Calcium Level 8.4 L 8.5-10.1 MG/DL Corrected Calcium 9.3 8.5-10.1 MG/DL Total Bilirubin 0.2 0.1-1.0 MG/DL Aspartate Amino Transf (AST/SGOT) 15 5-34 U/L Alanine Aminotransferase (ALT/SGPT) 24 0-55 U/L Alkaline Phosphatase 86 40-136 U/L C-Reactive Protein High Sensitivity 1.07 H 0.00-0.50 MG/DL Total Protein 5.2 L 6.4-8.2 GM/DL Albumin 2.9 L 3.2-4.5 GM/DL Troponin I < 0.028 <0.028 NG/ML SARS-CoV-2 RNA (RT-PCR) Detected H Not Detecte My Orders Orders - MELECIO KURTZ MD Cbc With Automated Diff (03/26/23 15:30) Comprehensive Metabolic Panel (03/26/23 15:30) Hs C Reactive Protein (03/26/23 15:30) Chest 1 View, Ap/Pa Only (03/26/23 15:30) Covid 19 Inhouse Test (03/26/23 15:30) Ekg Tracing (03/26/23 15:30) Monitor-Rhythm Ecg Trace Only (03/26/23 15:30) Troponin I Jorge (03/26/23 15:49) Vital Signs/I&O 03/26/23 15:13 Temp 36.4 Pulse 57 Resp 16 B/P (MAP) 117/56 (76) Pulse Ox 100 O2 Delivery Nasal Cannula O2 Flow Rate 3.00 Capillary Refill : Less Than 3 Seconds Blood Pressure Mean: 76 Progress Note : Progress Note Seen and evaluated. IV by EMS and we will complete 1 L normal saline initiated by them. We will check labs including CBC, CMP, troponin and COVID. Chest x- ray and EKG ordered. Monitor patient. Differential diagnosis includes COVID-19 infection, dehydration, electrolyte abnormality, cardiac event 1600: Patient does have chronic lung disease with patchiness to the left mid lung on my interpretation. Radiology report confirms as noted below. Labs reviewed and no significant white count but does have anemia. Chemistries grossly normal with normal LFTs. CRP is slightly elevated. COVID-19 testing came back positive. 1620: I did discuss COVID-19 infection with the patient. He does not qualify for Paxlovid due to Xarelto use but could use molnupiravir. I will prescribe that given his risk due to chronic lung disease. Radiology reports improvement in right lung with continued patchy findings in the left which may be chronic versus COVID infection. He is satting 97% on his typical 3 L and feels comfortable going home. We will do the outpatient therapy. I did discuss risk benefits and patient verbalized understanding. I did discuss COVID precautions which patient verbalized understanding. Discharged home with return precautions. Patient verbalized understanding instructions and agreement with plan. Departure Impression Primary Impression: COVID-19 virus infection Additional Impressions: Dehydration Dizziness Disposition: HOME, SELF-CARE Condition: Stable Departure-Patient Inst. Decision time for Depature: 16:17 Referrals: NO,LOCAL PHYSICIAN (PCP/Family) Primary Care Physician Patient Instructions: COVID-19 ED, Molnupiravir FDA Fact Sheet, Dehydration, Adult (DC), Dizziness, Adult ED Add. Discharge Instructions: All discharge instructions reviewed with patient and/or family. Voiced understanding. Take medications as directed. You do have COVID-19 virus infection and you should stay away from people for at least 5 days and would be most beneficial if you wore mask around people for another 5 days after that to prevent spread of infection. Follow-up with your doctor for recheck and further evaluation. Call office for appointment. Return for breathing problems, weakness, fever, O2 saturations less than 90% on her typical oxygen, vomiting or other concerns as needed. Drink plenty of fluids. You may take Tylenol/acetaminophen 1000 mg every 6-8 hours as needed for fever or pain. Continue other home medications as prescribed. Scripts Molnupiravir (Molnupiravir (Eua)) 200 Mg Capsule 800 MG PO BID for 5 Days, #40 CAP Prov: MELECIO KURTZ MD 03/26/23 MELECIO KURTZ MD Mar 26, 2023 15:38
[2023-03-26 15:42] LABS: BASOPHILS % (AUTO) 0 % (0-10); EOSINOPHILS # (AUTO) 0.1 10^3/uL (0.0-0.3); EOSINOPHILS % (AUTO) 1 % (0-10); HEMATOCRIT 28 % (40-54); HEMOGLOBIN 8.8 g/dL (13.3-17.7); LYMPHOCYTES # (AUTO) 2.3 10^3/uL (1.0-4.0); LYMPHOCYTES % (AUTO) 25 % (12-44); MEAN CORPUSCULAR HEMOGLOBIN 27 pg (25-34); MEAN CORPUSCULAR HGB CONC 31 g/dL (32-36); MEAN CORPUSCULAR VOLUME 86 fL (80-99); MEAN PLATELET VOLUME 8.7 fL (9.0-12.2); MONOCYTES # (AUTO) 0.7 10^3/uL (0.0-1.0); MONOCYTES % (AUTO) 8 % (0-12); NEUTROPHILS % (AUTO) 66 % (42-75); PLATELET COUNT 327 10^3/uL (130-400); WHITE BLOOD COUNT 9.2 10^3/uL (4.3-11.0)
[2023-03-26 15:52] LABS: ALBUMIN 2.9 GM/DL (3.2-4.5); POTASSIUM 4.1 MMOL/L (3.6-5.0)
[2023-03-26 15:54] LABS: CALCIUM 8.4 MG/DL (8.5-10.1)
[2023-03-26 15:55] LABS: TOTAL PROTEIN 5.2 GM/DL (6.4-8.2)
[2023-03-26 15:57] LABS: BILIRUBIN,TOTAL 0.2 MG/DL (0.1-1.0)
[2023-03-26 15:59] LABS: CREATININE SERUM 0.87 MG/DL (0.60-1.30)
--- NOTE | 2023-03-26 16:04 | Diagnostic Imaging Report ---
INDICATION: Dizziness. COMPARISON: 03/16/2023. TECHNIQUE: Single radiograph of the chest dated March 26, 2023. FINDINGS: The cardiac silhouette is within normal limits in size. Mild central pulmonary vascular congestion. Mild bilateral interstitial pulmonary opacities are again identified. These appear slightly improved within the right lung though relatively stable within the left mid and lower lung. No significant pleural effusion. No pneumothorax. Chronic right-sided rib fractures. No acute osseous abnormality. IMPRESSION: Persistent mild bilateral interstitial opacities, slightly improved within the right lung base though relatively stable within the left midlung. This may relate to an interstitial pneumonia versus interstitial edema. Mild central pulmonary vascular congestion. Dictated by: Dictated on workstation # [id number]
[2023-03-26] MEDS ORDERED: MOLN200C PO (16:20)
[2023-03-26 16:29] VITALS: BP 140/78
== END 2023-03-26 16:31 | disposition home or self-care (01) ==
LOC: EDUNIT# 15:12 → ER 15:13
DX: U07.1 COVID-19 (principal); E86.0 Dehydration; D64.9 Anemia, unspecified; J98.4 Other disorders of lung; F17.210 Nicotine dependence, cigarettes, uncomplicated; Z86.16 Personal history of COVID-19
CPT/HCPCS: 36415; 71045; 80053; 84484; 85025; 86141; 87636; 93005; 93041

== ENCOUNTER 2023-04-04 20:02 | Emergency (ER) | payer OTHER ==
[~2023-04-04] VITALS: Ht 172.7 cm; Wt 51.2 kg
[~2023-04-04 20:02] MED LIST changes: +MOLN200C PO
--- NOTE | 2023-04-04 20:31 | ED General ---
General Chief Complaint: General Problems/Pain Stated Complaint: WEAKNESS Nursing Triage Note: Pt presents with c/o weakness and believes he has pneumonia. Pt was recently hospitalized with covid, sent home this past weekend. Pt reports he "feels funny", he's short of breathing and coughing up thick phlegm. Source of Information: Patient Exam Limitations: No Limitations History of Present Illness Date Seen by Provider: Apr 04, 2023 Time Seen by Provider: 20:06 Initial Comments This 78-year-old gentleman with known left lung cancer presents to the emergency room with complaints of generalized weakness and just vaguely feeling terrible. His subjective status is ill-defined during the interview. Patient was seen in this emergency room on March 26 for COVID-19 infection and dehydration. He was treated and discharged. He received a prescription for molnupiravir. Patient is afebrile at this time with otherwise normal vital signs. He is stable on his usual 3 L/min nasal cannula without respiratory distress or hypoxia. EMS reported patient was sitting on the toilet and was unable to get up on his own power. They retrieved him from the toilet and brought him to the emergency room. Patient reported no nausea, vomiting, diarrhea, or focal pain. He does have a cough with production of slightly purulent sputum. His primary care provider is Dr. Carrasco at the [facility]. His research biostatistician is Dr. Mathews. His public health epidemiologist is Dr. Ashraf. His home [facility] is in [place] Allergies and Home Medications Allergies Coded Allergies: cefaclor (Verified Allergy, Unknown, HIVES, 08/08/18) diazepam (Verified Allergy, Unknown, 02/18/06) levofloxacin (Verified Allergy, Unknown, HIVES, 08/08/18) Patient Home Medication List Home Medication List Reviewed: Yes Acetaminophen (Acetaminophen Extra Strength) 500 Mg Tablet, 1,000 MG PO BID, (Reported) Entered as Reported by: LORENZA CHAVARRIA on 03/11/23 1153 Albuterol Sulfate (Ventolin Hfa) 90 Mcg Hfa.aer.ad, 2 PUFF IH Q6H, (Reported) Entered as Reported by: KARYNA BARRON on 07/11/22 1234 Albuterol Sulfate (Albuterol Sulfate) 0.63 Mg/3 Ml Vial.neb, 0.63 MG IH QID Prescribed by: JOHNNY PACHECO on 03/16/23 1648 Albuterol/Ipratropium (Combivent Respimat Inhal [place]) 20 Mcg-100 Mcg/Actuation Aero, 2 PUFF IH QID, (Reported) Entered as Reported by: KARYNA BARRON on 07/11/22 1234 Amiodarone HCl (Amiodarone HCl) 200 Mg Tablet, 200 MG PO DAILY Prescribed by: JOHNNY PACHECO on 03/16/23 1648 Amoxicillin/Potassium Clav (Amox Tr-K Clv 875-125 mg Tab) 875 Mg-125 Mg Tablet, 1 EACH PO BID Prescribed by: CHELSEY RIVERA on 03/18/23 0950 Aspirin (Aspirin EC) 81 Mg Tablet.dr, 81 MG PO DAILY, (Reported) Entered as Reported by: KARYNA BARRON on 07/11/22 1238 Atorvastatin Calcium (Atorvastatin Calcium) 10 Mg Tablet, 20 MG PO HS Prescribed by: JOHNNY PACHECO on 03/16/23 1648 Budesonide/Formoterol Fumarate (Symbicort 160-4.5 Mcg Inhaler) 160 Mcg-4.5 Mcg/Actuation Hfa.aer.ad, 2 PUFF IH BID, (Reported) Entered as Reported by: MELQUIADES HAMILTON on 03/09/23 1125 Diltiazem HCl (Tiazac) 240 Mg Capsule.er, 240 MG PO DAILY, (Reported) Entered as Reported by: KARYNA BARRON on 01/03/23 1543 Diphenhydramine HCl (Diphenhydramine HCl) 25 Mg Tablet, 25 MG PO DAILY, (Reported) Entered as Reported by: LORENZA CHAVARRIA on 03/11/23 1153 Fluticasone Propion/Salmeterol (Fluticasone-Salmeterol 500-50) 500 Mcg-50 Mcg/Dose Blst.w.dev, 1 EACH IH BID, (Reported) Entered as Reported by: KARYNA BARRON on 07/11/22 1234 Furosemide (Lasix) 20 Mg Tablet, 20 MG PO DAILY PRN for FLUID RETENTION, (Reported) Entered as Reported by: KARYNA BARRON on 01/03/23 1543 Gabapentin (Neurontin) 300 Mg Capsule, 300 MG PO BID, (Reported) Entered as Reported by: KARYNA BARRON on 07/11/22 1234 Guaifenesin (Guaifenesin) 200 Mg Tablet, 400 MG PO QID, (Reported) Entered as Reported by: KARYNA BARRON on 07/11/22 1234 Lidocaine (Lidocaine 5% Patch) 5 % Adh..patch, 2 PATCH TP DAILY, (Reported) Entered as Reported by: KARYNA BARRON on 07/11/22 1234 Molnupiravir (Molnupiravir (Eua)) 200 Mg Capsule, 800 MG PO BID Prescribed by: MELECIO KURTZ on 03/26/23 1620 Montelukast Sodium (Montelukast Sodium) 10 Mg Tablet, 10 MG PO HS, (Reported) Entered as Reported by: KARYNA BARRON on 07/11/22 1234 Nicotine (Nicoderm Cq) 7 Mg/24 Hour Patch.td24, 1 EACH TD, (Reported) Entered as Reported by: MELQUIADES HAMILTON on 03/09/23 1125 Omeprazole (Omeprazole) 40 Mg Capsule.dr, 40 MG PO DAILY, (Reported) Entered as Reported by: MELQUIADES HAMILTON on 03/09/23 1125 Potassium Chloride (Klor-Con 10) 10 Meq Tablet.er, 10 MEQ PO DAILY PRN for WHEN TAKING FUROSEMIDE, (Reported) Entered as Reported by: KARYNA BARRON on 01/03/23 1543 Prednisone (Prednisone) 10 Mg Tab.ds.pk, 10 MG PO DAILY Prescribed by: CHELSEY RIVERA on 03/18/23 0950 Rivaroxaban (Xarelto Tablet) 20 Mg Tablet, 20 MG PO DAILY, (Reported) Entered as Reported by: KARYNA BARRON on 01/03/23 1543 Trazodone HCl (Trazodone HCl) 50 Mg Tablet, 50 MG PO HS PRN for SLEEP, (Reported) Entered as Reported by: KARYNA BARRON on 07/11/22 1234 Review of Systems Review of Systems Constitutional: see HPI EENTM: no symptoms reported Respiratory: see HPI Cardiovascular: no symptoms reported Gastrointestinal: no symptoms reported Genitourinary: no symptoms reported Musculoskeletal: no symptoms reported Skin: no symptoms reported Psychiatric/Neurological: No Symptoms Reported Hematologic/Lymphatic: No Symptoms Reported Immunological/Allergic: no symptoms reported Past Xhnitow-Uowclg-Jrxryk Hx Patient Social History Tobacco Use?: Yes Immunizations Up To Date Tetanus Booster (TDap): Unknown Influenza Vaccine Up-to-Date: No; Not Current First/Initial COVID19 Vaccinat: YES Second COVID19 Vaccination John: YES Third COVID19 Vaccination Date: YES Seasonal Allergies Seasonal Allergies: Yes Past Medical History Surgery/Hospitalization HX: CHOLECYSTECTOMY/APPENDECTOMY/PARTIAL GASTRECTOMY/BACK SURGERY X4 Surgeries: Yes (HIATAL HERNIA REPAIR;STOMACH SURGERY-BLEEDING ULCER;CARDIAC CATH;SKIN CA) Abdominal, Appendectomy, Cardiac, Gallbladder, Orthopedic Respiratory: Yes (LUNG CANCER) Asthma, Pneumonia, COPD (Uses oxygen continuously at 3 L/min), Emphysema Currently Using CPAP: No Currently Using BIPAP: No Cardiac: Yes (CATH 2016-MODERATE DISEASE, NO INTERVENTION) Atrial Fibrillation, Coronary Artery Disease, Hypertension, Irregular Heartbeat Neurological: Yes Stroke Reproductive Disorders: No Genitourinary: No Gastrointestinal: Yes (SURGERY FOR BLEEDING ULCER/PARTIAL GASTRECTOMY; HIATAL HERNIA REPAIR) Gastroesophageal Reflux, Gastrointestinal Bleed, Hiatal Hernia, Ulcer, Cirrhosis Musculoskeletal: Yes (BACK SURGERY X 4) Arthritis, Chronic Back Pain Endocrine: No HEENT: Yes Cataract Loss of Vision: Denies Hearing Impairment: Denies Cancer: Yes Lung, Skin Did You Recieve Any Treatments: Yes What Type of Treatment Did You: Radiation, Surgical Intervention Psychosocial: No Integumentary: No Blood Disorders: No Family Medical History No Pertinent Family Hx SOCIAL HISTORY: -SMOKED 3 PPD HIS WHOLE LIFE, RECENTLY IS DOWN TO 1 1/2 PPD NOW. -DISCUSSED WITH PT AND DAUGHTER ABOUT HIS ALCOHOL CONSUMPTION--HE USED TO DRINK UP TO 3 - 30 PACKS OF BEER A DAY, AND HE HAD WITHDRAWL SYMPTOMS IN THE PAST. HE NOW DRINKS UP TO 3 BEERS A DAY, AND NO LONGER DRINKS EVERY DAY, AND HE DOES NOT HAVE WITHDRAWL SYMPTOMS ANYMORE. Physical Exam Vital Signs Vital Signs - First Documented 04/04/23 04/04/23 20:08 23:43 Temp 36.7 Pulse 75 Resp 18 B/P (MAP) 109/61 (77) Pulse Ox 94 O2 Delivery Nasal Cannula O2 Flow Rate 3.00 Capillary Refill : Less Than 3 Seconds Height, Weight, BMI Height: 5'8.00" Weight: 154lbs. 0.0oz. [id number]; 17.00 BMI Method:Stated General Appearance: No Apparent Distress, WD/WN, Thin HEENT: PERRL/EOMI, Normal ENT Inspection Neck: Normal Inspection; No JVD Respiratory: Normal Breath Sounds, No Accessory Muscle Use, Crackles (Few crackles in the left lateral base), Wheezing (Slight wheezes on the right) Cardiovascular: Regular Rate, Rhythm, No Edema, No Murmur Gastrointestinal: Normal Bowel Sounds, Non Tender, Soft Extremity: Normal Inspection, No Pedal Edema Neurologic/Psychiatric: Alert, Oriented x3, No Motor/Sensory Deficits, Normal Mood/Affect Skin: Normal Color, Warm/Dry Progress/Results/Core Measures Suspected Sepsis SIRS Temperature: Pulse: 75 Respiratory Rate: 18 Laboratory Tests 04/04/23 20:08: White Blood Count 6.5 Blood Pressure 109 /61 Mean: 77 Laboratory Tests 04/04/23 20:08: Creatinine 1.17, Platelet Count 431H, Total Bilirubin 0.3 Results/Orders Lab Results Laboratory Tests Test 04/04/23 20:08 04/04/23 21:19 Range/Units White Blood Count 6.5 4.3-11.0 10^3/uL Red Blood Count 3.79 L 4.30-5.52 10^6/uL Hemoglobin 9.9 L 13.3-17.7 g/dL Hematocrit 32 L 40-54 % Mean Corpuscular Volume 84 80-99 fL Mean Corpuscular Hemoglobin 26 25-34 pg Mean Corpuscular Hemoglobin Concent 31 L 32-36 g/dL Red Cell Distribution Width 15.9 H 10.0-14.5 % Platelet Count 431 H 130-400 10^3/uL Mean Platelet Volume 8.6 L 9.0-12.2 fL Immature Granulocyte % (Auto) 1 % Neutrophils (%) (Auto) 56 42-75 % Lymphocytes (%) (Auto) 31 12-44 % Monocytes (%) (Auto) 11 0-12 % Eosinophils (%) (Auto) 1 0-10 % Basophils (%) (Auto) 1 0-10 % Neutrophils # (Auto) 3.6 1.8-7.8 10^3/uL Lymphocytes # (Auto) 2.0 1.0-4.0 10^3/uL Monocytes # (Auto) 0.7 0.0-1.0 10^3/uL Eosinophils # (Auto) 0.1 0.0-0.3 10^3/uL Basophils # (Auto) 0.0 0.0-0.1 10^3/uL Immature Granulocyte # (Auto) 0.0 0.0-0.1 10^3/uL Sodium Level 135 135-145 MMOL/L Potassium Level 4.6 3.6-5.0 MMOL/L Chloride Level 102 98-107 MMOL/L Carbon Dioxide Level 25 21-32 MMOL/L Anion Gap 8 5-14 MMOL/L Blood Urea Nitrogen 18 7-18 MG/DL Creatinine 1.17 0.60-1.30 MG/DL Estimat Glomerular Filtration Rate 65 BUN/Creatinine Ratio 15 Glucose Level 135 H 70-105 MG/DL Calcium Level 9.2 8.5-10.1 MG/DL Corrected Calcium 9.7 8.5-10.1 MG/DL Magnesium Level 1.8 1.6-2.4 MG/DL Total Bilirubin 0.3 0.1-1.0 MG/DL Aspartate Amino Transf (AST/SGOT) 15 5-34 U/L Alanine Aminotransferase (ALT/SGPT) 16 0-55 U/L Alkaline Phosphatase 119 40-136 U/L Total Creatine Kinase 24 L 30-200 U/L C-Reactive Protein High Sensitivity 1.62 H 0.00-0.50 MG/DL Total Protein 6.1 L 6.4-8.2 GM/DL Albumin 3.4 3.2-4.5 GM/DL Urine Color YELLOW Urine Clarity CLEAR Urine pH 6.0 5-9 Urine Specific Creede 1.010 L 1.016-1.022 Urine Protein NEGATIVE NEGATIVE Urine Glucose (UA) NEGATIVE NEGATIVE Urine Ketones NEGATIVE NEGATIVE Urine Nitrite NEGATIVE NEGATIVE Urine Bilirubin NEGATIVE NEGATIVE Urine Urobilinogen 0.2 < = 1.0 MG/DL Urine Leukocyte Esterase NEGATIVE NEGATIVE Urine RBC (Auto) NEGATIVE NEGATIVE Urine RBC NONE /HPF Urine WBC NONE /HPF Urine Squamous Epithelial Cells 0-2 /HPF Urine Crystals PRESENT H /LPF Urine Amorphous Sediment RARE FOX URATES H /LPF Urine Bacteria NEGATIVE /HPF Urine Casts PRESENT /LPF Urine Hyaline Casts 10-25 H /LPF Urine Mucus SMALL H /LPF Urine Culture Indicated NO My Orders Orders - CAROLINE LARES MD Cbc With Automated Diff (04/04/23 20:29) Comprehensive Metabolic Panel (04/04/23 20:29) Hs C Reactive Protein (04/04/23 20:29) Magnesium (7/11/23 20:29) Ua Culture If Indicated (04/04/23 20:29) Chest 1 View, Ap/Pa Only (04/04/23 20:29) Ed Iv/Invasive Line Start (04/04/23 20:29) Ekg Tracing (04/04/23 20:29) Monitor-Rhythm Ecg Trace Only (04/04/23 20:29) Lactated Ringers (Lr 1000 Ml Iv Solution (04/04/23 21:30) Creatine Kinase (04/04/23 21:41) Medications Given in ED Current Medications Medications Dose Ordered Sig/Maria De Jesus Route Start Time Stop Time Status Last Admin Dose Admin Lactated Ringer's 1,000 ml @ 0 mls/hr Q0M ONCE IV 04/04/23 21:30 04/04/23 21:31 DC 04/04/23 21:40 999 MLS/HR Vital Signs/I&O 04/04/23 04/04/23 04/04/23 20:08 20:08 23:43 Temp 36.7 36.7 Pulse 75 89 Resp 18 16 B/P (MAP) 109/61 (77) 134/65 Pulse Ox 94 O2 Delivery Nasal Cannula Nasal Cannula O2 Flow Rate 3.00 3.00 04/05/23 00:00 Intake Total 1000 ml Balance 1000 ml Capillary Refill : Less Than 3 Seconds Blood Pressure Mean: 77 Progress Note #1: Time: 20:06 Progress Note Patient was seen upon arrival to the ER. Report was received from EMS. Patient was interviewed and examined on arrival. Basic labs have been obtained including CBC, CMP, magnesium, CRP, and urinalysis. All labs were interpreted in their entirety by me. CBC revealed anemia with a hemoglobin of 9.9. This was compared with prior and was noted to be an improvement. CMP demonstrated no significant abnormalities of concern. Creatinine was slightly elevated compared with prior at 1.17 but was still within normal range. CRP was minimally elevated and not clinically significant. Glucose was minimally elevated at 135. Due to the slight elevation in creatinine and no other explanation for the patient's subjective status, a liter of LR has been ordered to improve hydration. Patient was not initially able to provide a urine specimen. Urine is now being processed. Progress Note #2: Progress Note Patient had subjective improvement in his weakness with IV hydration. Creatinine was within normal range but mildly elevated above his baseline. He may have become mildly hypovolemic during his COVID-19 infection, and that may have contributed to his weakness. He did demonstrate ability to ambulate safely and independently prior to discharge. See discharge instructions for further discussion. Patient was discharged in the care of his family. ECG Initial ECG Impression Date: Apr 04, 2023 Initial ECG Impression Time: 20:41 Initial ECG Rate: 71 Initial ECG Rhythm: Normal Sinus Comment Sinus rhythm with no ST elevation or depression. Right bundle branch block noted. No significant axis deviation. Diagnostic Imaging Diagonstic Imaging: Xray Plain Films/CT/US/NM/MRI: chest Comments NAME: JENNIE MAE [facility] REC#: [id number] PT STATUS: REG ER : 1945 PHYSICIAN: CAROLINE LARES MD ADMIT DATE: 04/04/23/ER Draft Date of Exam:04/04/23 CHEST 1 VIEW, AP/PA ONLY INDICATION: Cough, history of lung cancer. Frontal chest obtained at 08:25 p.m. and compared to 03/26/2023 Heart and mediastinal silhouette are normal in appearance. There are mild chronic appearing increased interstitial markings. There is no teodoro consolidation or pneumothorax or pleural fluid. IMPRESSION: Mild chronic-appearing increased interstitial markings in the lung bases. No acute consolidation or pleural fluid. Dictated on workstation # [id number] Dict: 04/04/232110 Trans: 04/04/232112 [facility] [id number] Interpreted by: LAURENCE RUIZ MD Departure Impression Primary Impression: Generalized weakness Additional Impressions: Cancer of left lung Qualified Codes: C34.92 - Malignant neoplasm of unspecified part of left bronchus or lung Hypovolemia Disposition: 01 HOME, SELF-CARE Condition: Improved Departure-Patient Inst. Decision time for Depature: 23:36 Referrals: NO,LOCAL PHYSICIAN (PCP/Family) Primary Care Physician Patient Instructions: Weakness ED Add. Discharge Instructions: Continue with your supportive care including nursing visits and physical therapy visits. Try to stay active several times a day to keep your strength up. Drink plenty of clear liquids to stay well-hydrated. Please follow-up with your primary care provider in the near future. If you do not already have an appointment scheduled, please call in the morning to schedule an appointment. Return to the emergency room if you have worsening symptoms despite following these instructions. Please rise and walk carefully with the assistance of a walker, cane, or another person. All discharge instructions reviewed with patient and/or family. Voiced understanding. CAROLINE LARES MD Apr 04, 2023 20:31
[2023-04-04 20:42] LABS: BASOPHILS % (AUTO) 1 % (0-10); EOSINOPHILS # (AUTO) 0.1 10^3/uL (0.0-0.3); EOSINOPHILS % (AUTO) 1 % (0-10); HEMATOCRIT 32 % (40-54); HEMOGLOBIN 9.9 g/dL (13.3-17.7); LYMPHOCYTES % (AUTO) 31 % (12-44); MEAN CORPUSCULAR HEMOGLOBIN 26 pg (25-34); MEAN CORPUSCULAR HGB CONC 31 g/dL (32-36); MEAN CORPUSCULAR VOLUME 84 fL (80-99); MEAN PLATELET VOLUME 8.6 fL (9.0-12.2); MONOCYTES # (AUTO) 0.7 10^3/uL (0.0-1.0); MONOCYTES % (AUTO) 11 % (0-12); NEUTROPHILS # (AUTO) 3.6 10^3/uL (1.8-7.8); NEUTROPHILS % (AUTO) 56 % (42-75); PLATELET COUNT 431 10^3/uL (130-400); WHITE BLOOD COUNT 6.5 10^3/uL (4.3-11.0)
[2023-04-04 20:51] LABS: ALBUMIN 3.4 GM/DL (3.2-4.5); BILIRUBIN,TOTAL 0.3 MG/DL (0.1-1.0); CALCIUM 9.2 MG/DL (8.5-10.1); CREATININE SERUM 1.17 MG/DL (0.60-1.30); MAGNESIUM 1.8 MG/DL (1.6-2.4); POTASSIUM 4.6 MMOL/L (3.6-5.0); TOTAL PROTEIN 6.1 GM/DL (6.4-8.2)
--- NOTE | 2023-04-04 21:13 | Diagnostic Imaging Report ---
INDICATION: Cough, history of lung cancer. Frontal chest obtained at 08:25 p.m. and compared to 03/26/2023 Heart and mediastinal silhouette are normal in appearance. There are mild chronic appearing increased interstitial markings. There is no teodoro consolidation or pneumothorax or pleural fluid. IMPRESSION: Mild chronic-appearing increased interstitial markings in the lung bases. No acute consolidation or pleural fluid. Dictated by: Dictated on workstation # [id number]
[2023-04-04 21:29] LABS: BILIRUBIN,URINE NEGATIVE (NEGATIVE); CLARITY,URINE CLEAR; COLOR,URINE YELLOW; GLUCOSE, URINE (UA) NEGATIVE (NEGATIVE); KETONES,URINE NEGATIVE (NEGATIVE); LEUKOCYTE ESTERASE ,URINE NEGATIVE (NEGATIVE); NITRITE,URINE NEGATIVE (NEGATIVE); PROTEIN,URINE NEGATIVE (NEGATIVE)
[2023-04-04] MEDS ORDERED: LACTATED RINGERS 1,000 ML IV ONE (21:30)
[2023-04-04 21:38] LABS: AMORPHOUS SEDIMENT,UR RARE AMOR URATES /LPF; BACTERIA,URINE NEGATIVE /HPF; SQUAMOUS EPITHELIAL CELL,UR 0-2 /HPF
[2023-04-04 23:43] VITALS: BP 134/65
== END 2023-04-04 23:43 | disposition home or self-care (01) ==
LOC: EDUNIT# 20:02 → ER 20:03
DX: C34.92 Malignant neoplasm of unspecified part of left bronchus or lung (principal); E86.1 Hypovolemia; J43.9 Emphysema, unspecified; D64.9 Anemia, unspecified; F17.210 Nicotine dependence, cigarettes, uncomplicated; Z86.16 Personal history of COVID-19; Z99.81 Dependence on supplemental oxygen
CPT/HCPCS: 36415; 71045; 80053; 81000; 82550; 83735; 85025; 86141; 93005; 93041

== ENCOUNTER 2023-05-01 08:03 | Day surgery (SDC) | payer OTHER ==
[~2023-05-01] VITALS: Ht 172.7 cm; Wt 51.2 kg
[2023-05-01] MEDS ORDERED: LACTATED RINGERS 1,000 ML IV STA (08:07)
[2023-05-01 08:30] VITALS: BP 109/63
[2023-05-01] MEDS ORDERED: PROPOFOL INJECTION 50 ML IV ONE (08:41)
[2023-05-01] MEDS ORDERED: KETAMINE 50 MG/5 ML SYRINGE ONE (08:41)
[2023-05-01] MEDS ORDERED: HURRICAINE EXT TUBE (BENZOCAINE) ONE (08:46)
[2023-05-01 09:15] VITALS: BP 94/52
[2023-05-01] MEDS ORDERED: HURRICAINE EXT TUBE (BENZOCAINE) XX PRN (09:15)
[2023-05-01 09:20] VITALS: BP 92/50
--- NOTE | 2023-05-01 09:22 | Progress Note-Post Operative ---
Post-Operative Progess Note Surgeon (s)/Vacuum Tank Tender (s) Surgeon ALMA ORLANDO DO Vacuum Tank Tender: Jared Ramseyjasonbrock, MSIII Pre-Operative Diagnosis +Hemoccult, Anemia Post-Operative Diagnosis Hiatal hernia Polyps Internal hemorrhoids Procedure & Operative Findings Date of Procedure 05/01/23 Procedure Performed/Findings EGD and Colonoscopy PROCEDURE NOTE: After informed consent was obtained, the patient was brought to the endoscopy suite, placed in bed in left lateral decubitus position. He was administered IV sedation by the CROP OR GRAIN FARMWORKER who then monitored vitals the entire time, heart rate, blood pressure and pulse ox and the scope was inserted down the mouth through the esophagus into the stomach. On the way down, noted some food covering esophagus (that was easily flushed off koenig), took a picture and pushed into the stomach. I was almost immediately into the duodenum; duodenum looked good. Pulled back and then retroflexed the scope, saw a large Grade IV AFS hiatal hernia and took a picture. I then pulled the scope into the GE junction and took another picture of the hiatal hernia. I elected to not do any biopsies because I really didn't see much inflammation and because he took Xarelto. Pushed the scope back into the stomach, suctioned all the air out of the stomach. At this point pulled the scope up the esophagus and out the mouth. Switched camera, switched gloves, went down below and started the colonoscopy. Pushed all the way to about 150 cm and pushed into the cecum, took a picture of appendiceal orifice and noted the ileocecal valve. Then slowly withdrew the scope insufflating to look circumferentially at the koenig starting in the cecum, up the ascending colon to the hepatic flexure, then down the transverse colon, splenic flexure, into the descending colon down in the sigmoid and then into the rectal vault and retroflexed the scope. Took picture of the internal hemorrhoids. I saw polyps in the Cecum, Ascending colon and Transverse colon; I took pictures of them, but elected not to remove them because of the Xarelto. The patient tolerated the procedure and he recovered in the endoscopy suite. Recommended for repeat colonoscopy in 1-3 years, because we did not remove any of the polyps. I think they were adenomas and will turn into cancer if not removed. Anesthesia Type IV Sedation by CROP OR GRAIN FARMWORKER Estimated Blood Loss Estimated blood loss (mL): none Specimens/Packing Specimens Removed none ALMA ORLANDO DO May 01, 2023 09:22
--- NOTE | 2023-05-01 09:23 | Endoscopy Discharge Instruct ---
Endo Procedure/Findings Findings 1.: Hiatal Hernia 2.: Polyp 3.: Internal Hemorrhoids Discharge Instructions - Activity: You might feel a little sleepy until tomorrow. This is due to the medicine you received to relax you. Until tomorrow, you should: NOT drive a car, operate machinery or power tools. NOT drink any alcoholic beverages. NOT make any important decisions or sign importortant papers. Do not return to work until tomorrow, unless otherwise instructed. Resume previous activities tomorrow. Diet: Start by taking liquids. If you tolerate liquids, advance to solid food. 1.: EGD in 3 years 2.: Colonoscopy in 1 year Notify Physician - If you experience excessive bleeding, unusual abdominal pain, fever, or chest pain, contact your doctor immediately. Follow-Up: Other Follow up in my office in one week ALMA ORLANDO DO May 01, 2023 09:23
[2023-05-01 09:40] VITALS: BP 102/58
--- NOTE | 2023-05-01 10:19 | Anesthesia-General Post-Op ---
MAC Patient Condition Mental Status/LOC: Same as Preop Cardiovascular: Satisfactory Nausea/Vomiting: Absent Respiratory: Satisfactory Pain: Controlled Complications: Absent Post Op Complications Complications None Follow Up Care/Instructions Patient Instructions None needed. Anesthesiology Discharge Order Discharge Order Patient is doing well, no complaints, stable vital signs, no apparent adverse anesthesia problems. No complications reported per nursing. DANA BLUM CRNA May 01, 2023 10:19
== END 2023-05-01 09:49 | disposition home or self-care (01) ==
LOC: ENDO 08:03
PROVIDERS: ATTEND Surgery
DX: R19.5 Other fecal abnormalities (principal); K63.5 Polyp of colon; D50.9 Iron deficiency anemia, unspecified; K44.9 Diaphragmatic hernia without obstruction or gangrene; K64.8 Other hemorrhoids; I48.0 Paroxysmal atrial fibrillation; F17.210 Nicotine dependence, cigarettes, uncomplicated; C34.92 Malignant neoplasm of unspecified part of left bronchus or lung; I10 Essential (primary) hypertension; I25.10 Atherosclerotic heart disease of native coronary artery without angina pectoris; J44.9 Chronic obstructive pulmonary disease, unspecified; K21.9 Gastro-esophageal reflux disease without esophagitis; Z99.81 Dependence on supplemental oxygen; Z88.1 Allergy status to other antibiotic agents; Z91.09 Other allergy status, other than to drugs and biological substances; Z79.899 Other long term (current) drug therapy; Z79.82 Long term (current) use of aspirin; Z79.01 Long term (current) use of anticoagulants

== ENCOUNTER 2023-05-21 18:39 | Inpatient (IN) | payer OTHER ==
[~2023-05-21] VITALS: Ht 172.7 cm; Wt 66.2 kg
[2023-05-21] VITALS (9 sets, daily range): BP systolic 101–125; BP diastolic 47–64
[2023-05-21] MEDS ORDERED: methylPREDNISolone INJ 125 MG VIAL IV STA (18:48)
[2023-05-21] MEDS ORDERED: PIPERACILLIN/Tazobactam 4.5 GM in NS (IVPB) 100 ML 100 ML IV ONE (19:00)
[2023-05-21] MEDS ORDERED: RT-BUDESONIDE NEBS 0.5 MG/2ML VIAL INH ONE (19:00)
[2023-05-21] MEDS ORDERED: RT-Ipratropium/Albuterol NEB 3 ML VIAL INH ONE (19:00)
[2023-05-21 19:05] LABS: BASOPHILS % (AUTO) 0 % (0-10); EOSINOPHILS # (AUTO) 0.1 10^3/uL (0.0-0.3); EOSINOPHILS % (AUTO) 1 % (0-10); HEMATOCRIT 22 % (40-54); LYMPHOCYTES # (AUTO) 1.8 10^3/uL (1.0-4.0); LYMPHOCYTES % (AUTO) 20 % (12-44); MEAN CORPUSCULAR HEMOGLOBIN 24 pg (25-34); MEAN CORPUSCULAR HGB CONC 30 g/dL (32-36); MEAN CORPUSCULAR VOLUME 80 fL (80-99); MEAN PLATELET VOLUME 8.8 fL (9.0-12.2); MONOCYTES % (AUTO) 11 % (0-12); NEUTROPHILS # (AUTO) 6.3 10^3/uL (1.8-7.8); NEUTROPHILS % (AUTO) 68 % (42-75); PLATELET COUNT 383 10^3/uL (130-400); WHITE BLOOD COUNT 9.4 10^3/uL (4.3-11.0)
[2023-05-21 19:07] LABS: ABG BASE EXCESS 1.3 MMOL/L (-2.5-2.5); ABG OXYGEN SATURATION 78 % (94-100); ABG PCO2 44 MMHG (35-45); ABG PH 7.38 (7.37-7.43); ABG PO2 43 MMHG (79-93); ABG TCO2 27.2 MMOL/L (21.0-31.0); ALLENS TEST YES-POS; PATIENT TEMP 37; VENTILATOR NO
--- NOTE | 2023-05-21 19:07 | ED Respiratory ---
General Chief Complaint: General Problems/Pain Stated Complaint: SOA Source: patient, EMS, old records History of Present Illness Date Seen by Provider: May 21, 2023 Time Seen by Provider: 18:42 Initial Comments PT ARRIVES VIA EMS FROM HOME PT DID HAVE OUTPATIENT COLONOSCOPY WITH POLYPECTOMY 05/01/23 PT HAD COVID 03/26/23--NO HOSPITALIZATION. Allergies and Home Medications Allergies Coded Allergies: cefaclor (Verified Allergy, Unknown, HIVES, 08/08/18) diazepam (Verified Allergy, Unknown, 02/18/06) levofloxacin (Verified Allergy, Unknown, HIVES, 08/08/18) Patient Home Medication List Acetaminophen (Acetaminophen Extra Strength) 500 Mg Tablet, 1,000 MG PO BID, (Reported) Entered as Reported by: LORENZA CHAVARRIA on 03/11/23 1153 Albuterol Sulfate (Ventolin Hfa) 90 Mcg Hfa.aer.ad, 2 PUFF IH Q6H, (Reported) Entered as Reported by: KARYNA BARRON on 07/11/22 1234 Albuterol Sulfate (Albuterol Sulfate) 0.63 Mg/3 Ml Vial.neb, 0.63 MG IH QID Prescribed by: JOHNNY PACHECO on 03/16/23 1648 Albuterol/Ipratropium (Combivent Respimat Inhal [place]) 20 Mcg-100 Mcg/Actuation Aero, 2 PUFF IH QID, (Reported) Entered as Reported by: KARYNA BARRON on 07/11/22 1234 Amiodarone HCl (Amiodarone HCl) 200 Mg Tablet, 200 MG PO DAILY Prescribed by: JOHNNY PACHECO on 03/16/23 1648 Amoxicillin/Potassium Clav (Amox Tr-K Clv 875-125 mg Tab) 875 Mg-125 Mg Tablet, 1 EACH PO BID Prescribed by: CHELSEY RIVERA on 03/18/23 0950 Aspirin (Aspirin EC) 81 Mg Tablet.dr, 81 MG PO DAILY, (Reported) Entered as Reported by: KARYNA BARRON on 07/11/22 1238 Atorvastatin Calcium (Atorvastatin Calcium) 10 Mg Tablet, 20 MG PO HS Prescribed by: JOHNNY PACHECO on 03/16/23 1648 Budesonide/Formoterol Fumarate (Symbicort 160-4.5 Mcg Inhaler) 160 Mcg-4.5 Mcg/Actuation Hfa.aer.ad, 2 PUFF IH BID, (Reported) Entered as Reported by: MELQUIADES HAMILTON on 03/09/23 1125 Diltiazem HCl (Tiazac) 240 Mg Capsule.er, 240 MG PO DAILY, (Reported) Entered as Reported by: KARYNA BARRON on 01/03/23 1543 Diphenhydramine HCl (Diphenhydramine HCl) 25 Mg Tablet, 25 MG PO DAILY, (Reported) Entered as Reported by: LORENZA CHAVARRIA on 03/11/23 1153 Fluticasone Propion/Salmeterol (Fluticasone-Salmeterol 500-50) 500 Mcg-50 Mcg/Dose Blst.w.dev, 1 EACH IH BID, (Reported) Entered as Reported by: KARYNA BARRON on 07/11/22 1234 Furosemide (Lasix) 20 Mg Tablet, 20 MG PO DAILY PRN for FLUID RETENTION, (Reported) Entered as Reported by: KARYNA BARRON on 01/03/23 1543 Gabapentin (Neurontin) 300 Mg Capsule, 300 MG PO BID, (Reported) Entered as Reported by: KARYNA BARRON on 07/11/22 1234 Guaifenesin (Guaifenesin) 200 Mg Tablet, 400 MG PO QID, (Reported) Entered as Reported by: KARYNA BARRON on 07/11/22 1234 Lidocaine (Lidocaine 5% Patch) 5 % Adh..patch, 2 PATCH TP DAILY, (Reported) Entered as Reported by: KARYNA BARRON on 07/11/22 1234 Molnupiravir (Molnupiravir (Eua)) 200 Mg Capsule, 800 MG PO BID Prescribed by: MELECIO KURTZ on 03/26/23 1620 Montelukast Sodium (Montelukast Sodium) 10 Mg Tablet, 10 MG PO HS, (Reported) Entered as Reported by: KARYNA BARRON on 07/11/22 1234 Nicotine (Nicoderm Cq) 7 Mg/24 Hour Patch.td24, 1 EACH TD, (Reported) Entered as Reported by: MELQUIADES HAMILTON on 03/09/23 1125 Omeprazole (Omeprazole) 40 Mg Capsule.dr, 40 MG PO DAILY, (Reported) Entered as Reported by: MELQUIADES HAMILTON on 03/09/23 1125 Potassium Chloride (Klor-Con 10) 10 Meq Tablet.er, 10 MEQ PO DAILY PRN for WHEN TAKING FUROSEMIDE, (Reported) Entered as Reported by: KARYNA BARRON on 01/03/23 1543 Prednisone (Prednisone) 10 Mg Tab.ds.pk, 10 MG PO DAILY Prescribed by: CHELSEY RIVERA on 03/18/23 0950 Rivaroxaban (Xarelto Tablet) 20 Mg Tablet, 20 MG PO DAILY, (Reported) Entered as Reported by: KARYNA BARRON on 01/03/23 1543 Trazodone HCl (Trazodone HCl) 50 Mg Tablet, 50 MG PO HS PRN for SLEEP, (Reported) Entered as Reported by: KARYNA BARRON on 07/11/22 1234 Past Pfldkfr-Tnxkma-Vgwxlj Hx Immunizations Up To Date Tetanus Booster (TDap): Unknown First/Initial COVID19 Vaccinat: YES Second COVID19 Vaccination John: YES Third COVID19 Vaccination Date: YES Seasonal Allergies Seasonal Allergies: Yes Past Medical History Surgery/Hospitalization HX: CHOLECYSTECTOMY/APPENDECTOMY/PARTIAL GASTRECTOMY/BACK SURGERY X4 Surgeries: Yes (HIATAL HERNIA REPAIR;STOMACH SURGERY-BLEEDING ULCER;CARDIAC CATH;SKIN CA) Abdominal, Appendectomy, Cardiac, Gallbladder, Orthopedic Respiratory: Yes (LUNG CANCER) Asthma, Pneumonia, COPD, Emphysema Currently Using CPAP: No Currently Using BIPAP: No Cardiac: Yes (CATH 2016-MODERATE DISEASE, NO INTERVENTION;RBBB) Atrial Fibrillation, Coronary Artery Disease, High Cholesterol, Hypertension, Irregular Heartbeat Neurological: Yes Stroke Reproductive Disorders: No Genitourinary: No Gastrointestinal: Yes (SURGERY FOR BLEEDING ULCER/PARTIAL GASTRECTOMY; HIATAL HERNIA REPAIR) Gastroesophageal Reflux, Gastrointestinal Bleed, Hiatal Hernia, Ulcer, Cirrhosis Musculoskeletal: Yes (BACK SURGERY X 4) Arthritis, Chronic Back Pain Endocrine: No HEENT: Yes Cataract Loss of Vision: Denies Hearing Impairment: Denies Cancer: Yes Lung, Skin Did You Recieve Any Treatments: Yes What Type of Treatment Did You: Radiation, Surgical Intervention Psychosocial: No Integumentary: No Blood Disorders: No Family Medical History No Pertinent Family Hx SOCIAL HISTORY: -SMOKED 3 PPD HIS WHOLE LIFE, RECENTLY IS DOWN TO 1 1/2 PPD NOW. -DISCUSSED WITH PT AND DAUGHTER ABOUT HIS ALCOHOL CONSUMPTION--HE USED TO DRINK UP TO 3 - 30 PACKS OF BEER A DAY, AND HE HAD WITHDRAWL SYMPTOMS IN THE PAST. HE NOW DRINKS UP TO 3 BEERS A DAY, AND NO LONGER DRINKS EVERY DAY, AND HE DOES NOT HAVE WITHDRAWL SYMPTOMS ANYMORE. Physical Exam Vital Signs - First Documented 05/21/23 18:43 Temp 37.0 Pulse 71 Resp 23 B/P (MAP) 112/55 (74) Pulse Ox 94 O2 Delivery Room Air O2 Flow Rate 3.00 Capillary Refill : Height: 5'8.00" Weight: 154lbs. 0.0oz. [id number]; 17.16 BMI Method:Stated Focused Exam Lactate Level 05/21/23 18:48: Lactic Acid Level 1.17 Lactic Acid Level Laboratory Tests Test 05/21/23 18:48 Lactic Acid Level 1.17 MMOL/L (0.50-2.00) Progress/Results/Core Measures Suspected Sepsis SIRS Temperature: Pulse: Respiratory Rate: Laboratory Tests 05/21/23 18:45: White Blood Count 9.4 Blood Pressure / Mean: 05/21/23 18:48: Lactic Acid Level 1.17 Laboratory Tests 05/21/23 18:45: Creatinine 1.21, Platelet Count 383, Total Bilirubin 0.2 Results/Orders Lab Results Laboratory Tests Test 05/21/23 18:43 05/21/23 18:45 05/21/23 18:48 05/21/23 18:55 Range/Units Glucometer 168 H 70-110 MG/DL White Blood Count 9.4 4.3-11.0 10^3/uL Red Blood Count 2.71 L 4.30-5.52 10^6/uL Hemoglobin 6.6 *L 13.3-17.7 g/dL Hematocrit 22 L 40-54 % Mean Corpuscular Volume 80 80-99 fL Mean Corpuscular Hemoglobin 24 L 25-34 pg Mean Corpuscular Hemoglobin Concent 30 L 32-36 g/dL Red Cell Distribution Width 17.1 H 10.0-14.5 % Platelet Count 383 130-400 10^3/uL Mean Platelet Volume 8.8 L 9.0-12.2 fL Immature Granulocyte % (Auto) 0 % Neutrophils (%) (Auto) 68 42-75 % Lymphocytes (%) (Auto) 20 12-44 % Monocytes (%) (Auto) 11 0-12 % Eosinophils (%) (Auto) 1 0-10 % Basophils (%) (Auto) 0 0-10 % Neutrophils # (Auto) 6.3 1.8-7.8 10^3/uL Lymphocytes # (Auto) 1.8 1.0-4.0 10^3/uL Monocytes # (Auto) 1.0 0.0-1.0 10^3/uL Eosinophils # (Auto) 0.1 0.0-0.3 10^3/uL Basophils # (Auto) 0.0 0.0-0.1 10^3/uL Immature Granulocyte # (Auto) 0.0 0.0-0.1 10^3/uL Carbon Dioxide Level 24 21-32 MMOL/L Blood Urea Nitrogen 17 7-18 MG/DL Creatinine 1.21 0.60-1.30 MG/DL Estimat Glomerular Filtration Rate 62 BUN/Creatinine Ratio 14 Glucose Level 139 H 70-105 MG/DL Calcium Level 8.1 L 8.5-10.1 MG/DL Corrected Calcium 9.0 8.5-10.1 MG/DL Magnesium Level 1.9 1.6-2.4 MG/DL Total Bilirubin 0.2 0.1-1.0 MG/DL Aspartate Amino Transf (AST/SGOT) 12 5-34 U/L Alanine Aminotransferase (ALT/SGPT) 8 0-55 U/L Alkaline Phosphatase 105 40-136 U/L Total Creatine Kinase 46 30-200 U/L Creatine Kinase MB 1.5 <6.6 NG/ML Myoglobin 48.5 10.0-92.0 NG/ML Troponin I < 0.028 <0.028 NG/ML C-Reactive Protein High Sensitivity 1.08 H 0.00-0.50 MG/DL B-Type Natriuretic Peptide 107.0 H <100.0 PG/ML Total Protein 5.3 L 6.4-8.2 GM/DL Albumin 2.9 L 3.2-4.5 GM/DL Lactic Acid Level 1.17 0.50-2.00 MMOL/L Influenza Type A (RT-PCR) Not Detected Not Detecte Influenza Type B (RT-PCR) Not Detected Not Detecte SARS-CoV-2 RNA (RT-PCR) Not Detected Not Detecte Blood Gas Puncture Site LEFT RAD Blood Gas Patient Temperature 37 Arterial Blood pH 7.38 7.37-7.43 Arterial Blood Partial Pressure CO2 44 35-45 MMHG Arterial Blood Partial Pressure O2 43 L 79-93 MMHG Arterial Blood HCO3 26 23-27 MMOL/L Arterial Blood Total CO2 27.2 21.0-31.0 MMOL/L Arterial Blood Oxygen Saturation 78 L 94-100 % Arterial Blood Base Excess 1.3 -2.5-2.5 MMOL/L Kevin Test YES-POS Blood Gas Ventilator Setting NO Blood Gas Inspired Oxygen UNK Test 05/21/23 19:06 05/21/23 19:14 Range/Units Blood Gas Puncture Site RIGHT RADIAL Blood Gas Patient Temperature 37 Arterial Blood pH 7.41 7.37-7.43 Arterial Blood Partial Pressure CO2 40 35-45 MMHG Arterial Blood Partial Pressure O2 126 H 79-93 MMHG Arterial Blood HCO3 25 23-27 MMOL/L Arterial Blood Total CO2 25.8 21.0-31.0 MMOL/L Arterial Blood Oxygen Saturation 100 94-100 % Arterial Blood Base Excess 0.4 -2.5-2.5 MMOL/L Kevin Test NA Blood Gas Ventilator Setting NO Blood Gas Inspired Oxygen 2 My Orders Orders - YADIRA JEROME DO Accucheck Stat ONCE (05/21/23 18:48) Ed Iv/Invasive Line Start (05/21/23 18:48) Ekg Tracing (05/21/23 18:48) O2 (05/21/23 18:48) Monitor-Rhythm Ecg Trace Only (05/21/23 18:48) Chest 1 View, Ap/Pa Only (05/21/23 18:48) Arterial Blood Gas (05/21/23 18:55) Bnp Jorge (05/21/23 18:48) Cbc With Automated Diff (05/21/23 18:48) Comprehensive Metabolic Panel (05/21/23 18:48) Creatine Kinase (05/21/23 18:48) Creatine Kinase Mb (05/21/23 18:48) Hs C Reactive Protein (05/21/23 18:48) Lactic Acid Analyzer (05/21/23 18:48) Magnesium (05/21/23 18:48) Protime With Inr (05/21/23 18:48) Partial Thromboplastin Time (05/21/23 18:48) Ua Culture If Indicated (05/21/23 18:48) Erythrocyte Sedimentation Rate (05/21/23 18:48) Myoglobin Serum (05/21/23 18:48) Troponin I Josephine (05/21/23 18:48) Covid 19 Inhouse Test (05/21/23 18:48) Ipratropium/Albuterol Inh Soln (Ipratrop (05/21/23 19:00) Budesonide Inhalation Solution (Budesoni (05/21/23 19:00) Rt Request For Service (05/21/23 18:48) Methylprednisolone Sod Succ (Methylpredn (05/21/23 18:48) Blood Culture (05/21/23 18:48) Sputum Culture (05/21/23 18:48) Urine Culture (05/21/23 18:48) Ed Iv/Invasive Line Start (05/21/23 18:48) Ed Iv/Invasive Line Start (05/21/23 18:48) Vital Signs Adult Sepsis Patie Q15M (05/21/23 18:48) O2 (05/21/23 18:48) Remove Rings In Anticipation O (05/21/23 18:48) Piperacillin/Tazobactam (Piperacillin/Ta (05/21/23 19:00) Influenza A And B By Pcr (05/21/23 18:48) Svn Small Volume Nebulizer (05/21/23 18:48) Svn Small Volume Nebulizer (05/21/23 18:48) Arterial Blood Gas (05/21/23 19:07) Red Cells Leukocytes Reduced (05/21/23 19:08) Type And Screen (05/21/23 19:08) Alcohol (05/21/23 19:12) Pantoprazole Injection (Pantoprazole Inj (05/21/23 19:15) Arterial Blood Draw - Obtain (05/21/23 19:07) Arterial Blood Draw - Obtain (05/21/23 18:55) Medications Given in ED Current Medications Medications Dose Ordered Sig/Maria De Jesus Route Start Time Stop Time Status Last Admin Dose Admin Albuterol/ Ipratropium 3 ml ONCE ONCE INH 05/21/23 19:00 05/21/23 19:01 DC 05/21/23 19:07 3 ML Budesonide 0.5 mg ONCE ONCE INH 05/21/23 19:00 05/21/23 19:01 DC 05/21/23 19:07 0.5 MG Piperacillin Sod/ Tazobactam Sod 4.5 gm/Sodium Chloride 100 ml @ 200 mls/hr ONCE ONCE IV 05/21/23 19:00 05/21/23 19:29 DC 05/21/23 19:06 200 MLS/HR Vital Signs/I&O 05/21/23 05/21/23 05/21/23 05/21/23 18:43 18:43 19:01 19:07 Temp 37.0 Pulse 71 Resp 23 B/P (MAP) 112/55 (74) Pulse Ox 94 98 99 O2 Delivery Room Air Nasal Cannula Nasal Cannula Nasal Cannula O2 Flow Rate 3.00 2.00 2.00 Capillary Refill : Point of Care Testing Finger Stick Blood Glucose: 168 Blood Glucose Action Taken: RN NOTIFIED Progress Note : Progress Note PT MAINTAINING O2 SATS IN MID 90'S ON HIS NORMAL O2 AT 3L/NC PT WITH MULTIPLE VISITS/ADMITS REVIEWED PRIOR RECORDS INCLUDING ER VISITS, ADMITS/H&P'S/CONSULTS/DISCHARGE SUMMARIES, TESTS/PROCEDURES ECG Initial ECG Impression Date: May 21, 2023 Initial ECG Impression Time: 18:56 Initial ECG Rate: 69 Initial ECG Rhythm: Normal Sinus (RBBB) Initial ECG Intervals AK 201 QRS 148 QT/QTC 409/428 Initial ECG Comparisson: Unchanged Comment INTERPRETED BY ME Diagnostic Imaging Comments CXR--PER RADIOLOGIST REPORT AT 1939 Findings: Chronic bibasilar linear opacities. No new focal airspace disease in the visualized lungs. No pleural effusion or pneumothorax. Normal cardiomediastinal silhouette. Impression: 1. No acute cardiopulmonary process by portable radiography. Reviewed: Reviewed by Me Departure Impression Primary Impression: COPD exacerbation Additional Impressions: Severe anemia ANTICOAGULATION THERAPY Very heavy cigarette smoker Regular alcohol consumption Departure-Patient Inst. Referrals: NO,LOCAL PHYSICIAN (PCP/Family) Primary Care Physician YADIRA JEROME DO May 21, 2023 19:07
[2023-05-21 19:08] LABS: HEMOGLOBIN 6.6 g/dL (13.3-17.7)
[2023-05-21 19:10] LABS: ALBUMIN 2.9 GM/DL (3.2-4.5)
[2023-05-21 19:12] LABS: CALCIUM 8.1 MG/DL (8.5-10.1)
[2023-05-21 19:13] LABS: GLUCOSE 139 MG/DL (70-105); TOTAL PROTEIN 5.3 GM/DL (6.4-8.2)
[2023-05-21 19:14] LABS: CARBON DIOXIDE 24 MMOL/L (21-32)
[2023-05-21 19:15] LABS: BILIRUBIN,TOTAL 0.2 MG/DL (0.1-1.0)
[2023-05-21] MEDS ORDERED: PANTOPRAZOLE INJECTION 40 MG VIAL IV ONE (19:15)
[2023-05-21 19:16] LABS: ALKALINE PHOSPHATASE 105 U/L (40-136); CREATININE SERUM 1.21 MG/DL (0.60-1.30); GFR ESTIMATED 62
[2023-05-21 19:16] LABS: ABG BASE EXCESS 0.4 MMOL/L (-2.5-2.5); ABG OXYGEN SATURATION 100 % (94-100); ABG PCO2 40 MMHG (35-45); ABG PH 7.41 (7.37-7.43); ABG PO2 126 MMHG (79-93); ABG TCO2 25.8 MMOL/L (21.0-31.0); INSPIRED O2 2; PATIENT TEMP 37; VENTILATOR NO
[2023-05-21 19:18] LABS: BUN/CREATININE RATIO 14
[2023-05-21 19:19] LABS: ALANINE AMINOTRANSFERASE 8 U/L (0-55)
[2023-05-21 19:20] LABS: CREATINE KINASE 46 U/L (30-200); MAGNESIUM 1.9 MG/DL (1.6-2.4)
[2023-05-21 19:27] LABS: CREATINE KINASE MB 1.5 NG/ML (<6.6)
--- NOTE | 2023-05-21 19:28 | Diagnostic Imaging Report ---
CHEST 1 VIEW, AP/PA ONLY Indication: Cough Comparison: 04/04/2023 Findings: Chronic bibasilar linear opacities. No new focal airspace disease in the visualized lungs. No pleural effusion or pneumothorax. Normal cardiomediastinal silhouette. Impression: 1. No acute cardiopulmonary process by portable radiography. Dictated by: Dictated on workstation # [id number]
[2023-05-21 19:51] LABS: CHLORIDE 101 MMOL/L (98-107); POTASSIUM 3.9 MMOL/L (3.6-5.0); SODIUM 133 MMOL/L (135-145)
[2023-05-21] MEDS ORDERED: NS IV 1000 ML 1,000 ML ONE (20:01)
[2023-05-21 20:06] LABS: ERYTHROCYTE SEDIMENTATION RATE 36 MM/HR (0-30)
[2023-05-22] VITALS (8 sets, daily range): BP systolic 101–136; BP diastolic 53–78
[2023-05-22] MEDS: PIPERACILLIN/Tazobactam 4.5 GM in NS (IVPB) 100 ML 100 ML IV SCH ×3 (01:41→17:08)
[2023-05-22] MEDS: methylPREDNISolone INJ 125 MG VIAL IV SCH ×2 (01:41→07:09)
[2023-05-22] MEDS: NS IV 1000 ML 1,000 ML IV SCH ×3 (02:26→17:07)
[2023-05-22] MEDS: RT-Ipratropium/Albuterol NEB 3 ML VIAL INH SCH ×6 (02:56→22:51)
[2023-05-22 05:15] LABS: BASOPHILS % (AUTO) 0 % (0-10); EOSINOPHILS % (AUTO) 0 % (0-10); HEMATOCRIT 28 % (40-54); HEMOGLOBIN 8.8 g/dL (13.3-17.7); LYMPHOCYTES # (AUTO) 0.5 10^3/uL (1.0-4.0); LYMPHOCYTES % (AUTO) 9 % (12-44); MEAN CORPUSCULAR HEMOGLOBIN 25 pg (25-34); MEAN CORPUSCULAR HGB CONC 32 g/dL (32-36); MEAN CORPUSCULAR VOLUME 80 fL (80-99); MEAN PLATELET VOLUME 8.8 fL (9.0-12.2); MONOCYTES # (AUTO) 0.1 10^3/uL (0.0-1.0); MONOCYTES % (AUTO) 1 % (0-12); NEUTROPHILS # (AUTO) 4.9 10^3/uL (1.8-7.8); NEUTROPHILS % (AUTO) 89 % (42-75); PLATELET COUNT 331 10^3/uL (130-400); WHITE BLOOD COUNT 5.6 10^3/uL (4.3-11.0)
[2023-05-22 05:27] LABS: POTASSIUM 4.2 MMOL/L (3.6-5.0)
[2023-05-22 05:28] LABS: CALCIUM 8.5 MG/DL (8.5-10.1)
[2023-05-22 05:32] LABS: CREATININE SERUM 1.13 MG/DL (0.60-1.30)
[2023-05-22 06:09] LABS: ANISOCYTOSIS SLIGHT; HYPOCHROMASIA SLIGHT; LYMPHOCYTES % (MANUAL) 5 %; MICROCYTOSIS SLIGHT; MONOCYTES % (MANUAL) 1 %; NEUTROPHILS % (MANUAL) 94 %
--- NOTE | 2023-05-22 08:53 | Diagnostic Imaging Report ---
INDICATION: COPD. Frontal chest obtained at 5:30 a.m. compared to the previous day. FINDINGS: There is new infiltrate in the right lung base. Left lung is clear. There is no pneumothorax or pleural fluid. Heart is normal in size. IMPRESSION: There is new infiltrate in the right base compared to the prior study. There is no pneumothorax or pleural fluid. Dictated by: Dictated on workstation # [id number]
[2023-05-22] MEDS ORDERED: BISACODYL 10 MG SUPPOSITORY PR PRN (09:30)
[2023-05-22] MEDS ORDERED: diphenhydrAMINE 25 MG TABLET PO PRN (09:30)
[2023-05-22] MEDS ORDERED: LACTULOSE SYRUP 10GM/15ML 30ML UDC PO PRN (09:30)
[2023-05-22] MEDS ORDERED: ACETAMINOPHEN 325 MG TABLET PO PRN (09:30)
[2023-05-22] MEDS ORDERED: ONDANSETRON 4 MG ORAL DISSOLVE TABLET PO PRN (09:30)
[2023-05-22] MEDS ORDERED: oxyCODONE IMMEDIATE RELEASE 5 MG TABLET PO PRN (09:30)
[2023-05-22] MEDS ORDERED: diphenhydrAMINE INJ 50 MG/ML VIAL IVP PRN (09:30)
[2023-05-22] MEDS ORDERED: MELATONIN 3 MG TABLET PO PRN (09:30)
[2023-05-22] MEDS ORDERED: MILK OF MAGNESIA 400 MG/5 ML 30 ML UDC PO PRN (09:30)
[2023-05-22] MEDS ORDERED: ANTACID SUSPENSION 30 ML UDC PO PRN (09:30)
[2023-05-22] MEDS ORDERED: ONDANSETRON INJECTION 4 MG/2 ML (SDV) IV PRN (09:30)
[2023-05-22] MEDS ORDERED: HYDROmorphone INJECTION 2 MG/ML VIAL IV PRN (09:30)
[2023-05-22] MEDS: dexAMETHasone INJ 4 MG/ML SDV IV SCH ×2 (09:51→22:22)
--- NOTE | 2023-05-22 11:27 | History & Physical ---
NICHOLAS YEE 05/22/23 1127: History of Present Illness History of Present Illness Reason for visit/HPI Ulises Kaufman in a 78 year old male with a past medical history significant for lung cancer, asthma, COPD, lifetime smoker, alcoholism, atrial fibrillation, CAD, recurrent pneumonia, and HTN. He came into the ED via EMS from home yesterday with dizziness, shortness of breath, and a cough. In the ED he was given Zosyn, Budesonide, and albuterol/ipratropium. At home he does nebulizer treatments 4x a day, and is on 3L O2 at home baseline. He was hypoglycemic en route to hospital with BG of 61. His chest xray in the ED was negative for any acute cardiopulmonary processes but repeat chest xray this morning showed new right lower lobe infiltrate. This morning when he was seen at the bedside he was on 3L of O2. He was informed he had pneumonia and that we will be giving him appropriate antibiotics for treatment. Date of Admission May 21, 2023 at 21:18 Date Seen by a Provider: May 22, 2023 Time Seen by a Provider: 09:45 I consulted on this patient on 05/22/23 11:16 Attending Physician No,Local Physician Admitting Physician Admitting Physician: Sarah Sanderson MD Attending Physician: Chelsey Rivera MD Consult Allergies and Home Medications Allergies Coded Allergies: cefaclor (Verified Allergy, Unknown, HIVES, 08/08/18) diazepam (Verified Allergy, Unknown, 02/18/06) levofloxacin (Verified Allergy, Unknown, HIVES, 08/08/18) Patient Home Medication List Acetaminophen (Acetaminophen Extra Strength) 500 Mg Tablet, 1,000 MG PO BID, (Reported) Entered as Reported by: LORENZA CHAVARRIA on 03/11/23 1153 Last Action: Continued Albuterol Sulfate (Ventolin Hfa) 90 Mcg Hfa.aer.ad, 2 PUFF IH QID, (Reported) Entered as Reported by: KARYNA BARRON on 07/11/22 1234 Last Action: Held Albuterol Sulfate (Albuterol Sulfate) 2.5 Mg/0.5 Ml Vial.neb, 2.5 MG INH QID, (Reported) Entered as Reported by: KARYNA BARRON on 05/22/23 1311 Last Action: Held Albuterol/Ipratropium (Combivent Respimat Inhal [place]) 20 Mcg-100 Mcg/Actuation Aero, 1 PUFF IH QID, (Reported) Entered as Reported by: KARYNA BARRON on 07/11/22 123 Last Action: Held Amiodarone HCl (Amiodarone HCl) 200 Mg Tablet, 200 MG PO DAILY Prescribed by: JOHNNY PACHECO on 03/16/23 1648 Last Action: Held Aspirin (Aspirin EC) 81 Mg Tablet.dr, 81 MG PO DAILY, (Reported) Entered as Reported by: KARYNA BARRON on 07/11/221237 Last Action: Continued Atorvastatin Calcium (Atorvastatin Calcium) 20 Mg Tablet, 10 MG PO HS, (Reported) Entered as Reported by: KARYNA BARRON on 05/22/23 131 Last Action: Continued Diltiazem HCl (Diltiazem 24Hr ER) 240 Mg Cap.er.24h, 240 MG PO DAILY, (Reported) Entered as Reported by: KARYNA BARRON on 05/22/23 131 Last Action: Held Diphenhydramine HCl (Diphenhydramine HCl) 25 Mg Tablet, 25 MG PO DAILY, (Reported) Entered as Reported by: LORENZA CHAVARRIA on 03/11/23 1153 Last Action: Continued Fluticasone Propion/Salmeterol (Fluticasone-Salmeterol 500-50) 500 Mcg-50 Mcg/Dose Blst.w.dev, 1 PUFF IH BID, (Reported) Entered as Reported by: KARYNA BARRON on 07/11/221233 Last Action: Converted Furosemide (Lasix) 20 Mg Tablet, 20 MG PO DAILY, (Reported) Entered as Reported by: KARYNA BARRON on 01/03/23 1543 Last Action: Continued Gabapentin (Neurontin) 300 Mg Capsule, 300 MG PO BID, (Reported) Entered as Reported by: KARYNA BARRON on 07/11/22 123 Last Action: Continued Guaifenesin (Guaifenesin) 200 Mg Tablet, 400 MG PO BID, (Reported) Entered as Reported by: KARYNA BARRON on 07/11/22 123 Last Action: Converted Lidocaine (Lidocaine) 5 % Cream..g., 1 APPLIC TP Q12H, (Reported) Entered as Reported by: KARYNA BARRON on 05/22/23 1311 Last Action: Converted Montelukast Sodium (Montelukast Sodium) 10 Mg Tablet, 10 MG PO HS, (Reported) Entered as Reported by: KARYNA BARRON on 07/11/22 1234 Last Action: Continued Nicotine (Nicoderm Cq) 7 Mg/24 Hour Patch.td24, 1 PATCH TD DAILY PRN for SMOKING CESSATION, (Reported) Entered as Reported by: MELQUIADES HAMILTON on 03/09/23 112 Last Action: Continued Omeprazole (Omeprazole) 40 Mg Capsule.dr, 40 MG PO DAILY, (Reported) Entered as Reported by: MELQUIADES HAMILTON on 03/09/231124 Last Action: Converted Potassium Chloride (Klor-Con 10) 10 Meq Tablet.er, 10 MEQ PO DAILY, (Reported) Entered as Reported by: KARYNA BARRON on 01/03/23 154 Last Action: Continued Rivaroxaban (Xarelto Tablet) 20 Mg Tablet, 20 MG PO DAILY, (Reported) Entered as Reported by: KARYNA BARRON on 01/03/231542 Last Action: Held Trazodone HCl (Trazodone HCl) 50 Mg Tablet, 50 MG PO HS PRN for SLEEP, (Reported) Entered as Reported by: KARYNA BARRON on 07/11/22 123 Last Action: Continued Discontinued Medications Albuterol Sulfate (Albuterol Sulfate) 0.63 Mg/3 Ml Vial.neb, 0.63 MG IH QID Discontinued Reason: No Longer Taking Prescribed by: JOHNNY PACHECO on 03/16/231647 Last Action: Discontinued Amoxicillin/Potassium Clav (Amox Tr-K Clv 875-125 mg Tab) 875 Mg-125 Mg Tablet, 1 EACH PO BID Discontinued Reason: No Longer Taking Prescribed by: CHELSEY RIVERA on 03/18/23 0950 Last Action: Discontinued Atorvastatin Calcium (Atorvastatin Calcium) 10 Mg Tablet, 20 MG PO HS Discontinued Reason: Duplicate Order Prescribed by: JOHNNY PACHECO on 03/16/231647 Last Action: Discontinued Budesonide/Formoterol Fumarate (Symbicort 160-4.5 Mcg Inhaler) 160 Mcg-4.5 Mcg/Actuation Hfa.aer.ad, 2 PUFF IH BID, (Reported) Discontinued Reason: No Longer Taking Entered as Reported by: MELQUIADES HAMILTON on 6/15/23 1125 Last Action: Discontinued Diltiazem HCl (Tiazac) 240 Mg Capsule.er, 240 MG PO DAILY, (Reported) Discontinued Reason: Duplicate Order Entered as Reported by: KARYNA BARRON on 01/03/23 1543 Last Action: Discontinued Lidocaine (Lidocaine 5% Patch) 5 % Adh..patch, 2 PATCH TP DAILY, (Reported) Discontinued Reason: No Longer Taking Entered as Reported by: KARYNA BARRON on 07/11/22 1234 Last Action: Discontinued Molnupiravir (Molnupiravir (Eua)) 200 Mg Capsule, 800 MG PO BID Discontinued Reason: No Longer Taking Prescribed by: MELECIO KURTZ on 03/26/23 1620 Last Action: Discontinued Prednisone (Prednisone) 10 Mg Tab.ds.pk, 10 MG PO DAILY Discontinued Reason: No Longer Taking Prescribed by: CHELSEY RIVERA on 03/18/23 0950 Last Action: Discontinued Past Nbmrbwr-Jcedcf-Nvnkko Hx Patient Social History Tobacco Use?: Yes Tobacco type used: Cigarettes Smoking Status: Current Everyday Smoker (3ppd for whole life, recently 1.5ppd) Smokeless Tobacco Frequency: Never a User Use of E-Cig and/or Vaping dev: No Substance use?: No Alcohol Use?: Yes Alcohol type: Beer Alcohol Frequency: Couple times a week (previous 3-30 beers per day, now only up to 3 beers per day) Pt feels they are or have been: No Immunizations Up To Date Date of Influenza Vaccine: Jun 27, 2016 First/Initial COVID19 Vaccinat: YES Second COVID19 Vaccination John: YES Tetanus Booster (TDap): Less Than 5 Years Hepatitis A: No Hepatitis B: No Date of Pneumonia Vaccine: Sep 15, 2011 Seasonal Allergies Seasonal Allergies: Yes Current Status Advance Directives: No Communicates: Verbally Primary Language: Ugandan Preferred Spoken Language: Ugandan Is interpretation needed?: No Implanted or Applied Medical D: None Past Medical History Surgeries: Abdominal, Appendectomy, Cardiac, Gallbladder, Orthopedic Asthma, Pneumonia, COPD, Emphysema Currently Using CPAP: No Currently Using BIPAP: No Atrial Fibrillation, Coronary Artery Disease, High Cholesterol, Hypertension, Irregular Heartbeat Stroke Gastroesophageal Reflux, Gastrointestinal Bleed, Hiatal Hernia, Ulcer, Cirrhosis Arthritis, Chronic Back Pain Cataract Loss of Vision: Denies Hearing Impairment: Denies Lung, Skin Did You Recieve Any Treatments: Yes What Type of Treatment Did You: Radiation, Surgical Intervention Blood Disorders: No Family Medical History No Pertinent Family Hx SOCIAL HISTORY: -SMOKED 3 PPD HIS WHOLE LIFE, RECENTLY IS DOWN TO 1 1/2 PPD NOW. -DISCUSSED WITH PT AND DAUGHTER ABOUT HIS ALCOHOL CONSUMPTION--HE USED TO DRINK UP TO 3 - 30 PACKS OF BEER A DAY, AND HE HAD WITHDRAWL SYMPTOMS IN THE PAST. HE NOW DRINKS UP TO 3 BEERS A DAY, AND NO LONGER DRINKS EVERY DAY, AND HE DOES NOT HAVE WITHDRAWL SYMPTOMS ANYMORE. Review of Systems Constitutional: no symptoms reported, see HPI EENTM: no symptoms reported Respiratory: see HPI, cough, dyspnea on exertion, short of breath Cardiovascular: no symptoms reported, see HPI Gastrointestinal: no symptoms reported Genitourinary: no symptoms reported Musculoskeletal: no symptoms reported Skin: no symptoms reported Psychiatric/Neurological: No Symptoms Reported All Other Systems Reviewed Negative Unless Noted: Yes Physical Exam Vital Signs Vital Signs - First Documented 05/21/23 05/21/23 18:43 23:58 Temp 37.0 Pulse 71 Resp 23 B/P (MAP) 112/55 (74) Pulse Ox 94 O2 Delivery Room Air O2 Flow Rate 3.00 FiO2 32 Capillary Refill : Height, Weight, BMI Height: 5'8.00" Weight: 154lbs. 0.0oz. 69.006888sy; 21.96 BMI Method:Stated General Appearance: No Apparent Distress, WD/WN, Anxious Neck: Normal Inspection, Supple Respiratory: Chest Non Tender, No Accessory Muscle Use, No Respiratory Distress Cardiovascular: Regular Rate, Rhythm, No JVD, No Murmur, Normal Peripheral Pulses Neurologic/Psychiatric: Alert, Oriented x3, Normal Mood/Affect Skin: Normal Color, Warm/Dry Assessment/Plan Assessment and Plan - Pneumonia > cont. zosyn and IV dexamethasone - COPD > continue albuterol/ipratropium > monitor respiratory function closely > pulmonology Dr. Mathews on board - atrial fibrillation > continue anticoagulation with rivaroxaban > Cardiology Dr. Ashraf on board - Lung mass > Oncology Dr. Ureña on board - Cigarette smoker - alcoholism > monitor for withdrawal symptoms - anemia > blood transfusion last night > Hgb 6.6 on admission increased to 8.8 after transfusion > continue to monitor H+H and transfuse again as necessary GERALDINE SIMMS DO 05/22/232024: History of Present Illness History of Present Illness Reason for visit/HPI Chief complaint: Shortness of breath HPI: This is a 78[facility] [place] [facility] 2 who presented to the ER with shortness of breath found to have recurrent pneumonia history of lung cancer. He was placed on IV antibiotics IV steroids and consultation with cardiology was initiated who made medication adjustments. Allergies and Home Medications Allergies Coded Allergies: cefaclor (Verified Allergy, Unknown, HIVES, 08/08/18) diazepam (Verified Allergy, Unknown, 02/18/06) levofloxacin (Verified Allergy, Unknown, HIVES, 08/08/18) Patient Home Medication List Home Medication List Reviewed: Yes Acetaminophen (Acetaminophen Extra Strength) 500 Mg Tablet, 1,000 MG PO BID, (Reported) Entered as Reported by: LORENZA CHAVARRIA on 03/11/23 1153 Last Action: Continued Albuterol Sulfate (Ventolin Hfa) 90 Mcg Hfa.aer.ad, 2 PUFF IH QID, (Reported) Entered as Reported by: KARYNA BARRON on 07/11/22 1234 Last Action: Held Albuterol Sulfate (Albuterol Sulfate) 2.5 Mg/0.5 Ml Vial.neb, 2.5 MG INH QID, (Reported) Entered as Reported by: KARYNA BARRON on 05/22/23 1311 Last Action: Held Albuterol/Ipratropium (Combivent Respimat Inhal [place]) 20 Mcg-100 Mcg/Actuation Aero, 1 PUFF IH QID, (Reported) Entered as Reported by: KARYNA BARRON on 07/11/22 1234 Last Action: Held Amiodarone HCl (Amiodarone HCl) 200 Mg Tablet, 200 MG PO DAILY Prescribed by: JOHNNY PACHECO on 03/16/23 1648 Last Action: Held Aspirin (Aspirin EC) 81 Mg Tablet.dr, 81 MG PO DAILY, (Reported) Entered as Reported by: KARYNA BARRON on 07/11/22 1238 Last Action: Continued Atorvastatin Calcium (Atorvastatin Calcium) 20 Mg Tablet, 10 MG PO HS, (Reported) Entered as Reported by: KARYNA BARRON on 05/22/23 1311 Last Action: Continued Diltiazem HCl (Diltiazem 24Hr ER) 240 Mg Cap.er.24h, 240 MG PO DAILY, (Reported) Entered as Reported by: KARYNA BARRON on 05/22/23 1311 Last Action: Held Diphenhydramine HCl (Diphenhydramine HCl) 25 Mg Tablet, 25 MG PO DAILY, (Reported) Entered as Reported by: LORENZA CHAVARRIA on 03/11/23 1153 Last Action: Continued Fluticasone Propion/Salmeterol (Fluticasone-Salmeterol 500-50) 500 Mcg-50 Mcg/Dose Blst.w.dev, 1 PUFF IH BID, (Reported) Entered as Reported by: KARYNA BARRON on 07/11/22 123 Last Action: Converted Furosemide (Lasix) 20 Mg Tablet, 20 MG PO DAILY, (Reported) Entered as Reported by: KARYNA BARRON on 01/03/23 154 Last Action: Continued Gabapentin (Neurontin) 300 Mg Capsule, 300 MG PO BID, (Reported) Entered as Reported by: KARYNA BARRON on 07/11/22 123 Last Action: Continued Guaifenesin (Guaifenesin) 200 Mg Tablet, 400 MG PO BID, (Reported) Entered as Reported by: KARYNA BARRON on 07/11/22 123 Last Action: Converted Lidocaine (Lidocaine) 5 % Cream..g., 1 APPLIC TP Q12H, (Reported) Entered as Reported by: KARYNA BARRON on 05/22/23 1311 Last Action: Converted Montelukast Sodium (Montelukast Sodium) 10 Mg Tablet, 10 MG PO HS, (Reported) Entered as Reported by: KARYNA BARRON on 07/11/22 123 Last Action: Continued Nicotine (Nicoderm Cq) 7 Mg/24 Hour Patch.td24, 1 PATCH TD DAILY PRN for SMOKING CESSATION, (Reported) Entered as Reported by: MELQUIADES HAMILTON on 03/09/23 112 Last Action: Continued Omeprazole (Omeprazole) 40 Mg Capsule.dr, 40 MG PO DAILY, (Reported) Entered as Reported by: MELQUIADES HAMILTON on 03/09/23 112 Last Action: Converted Potassium Chloride (Klor-Con 10) 10 Meq Tablet.er, 10 MEQ PO DAILY, (Reported) Entered as Reported by: KARYNA BARRON on 01/03/23 154 Last Action: Continued Rivaroxaban (Xarelto Tablet) 20 Mg Tablet, 20 MG PO DAILY, (Reported) Entered as Reported by: KARYNA BARRON on 01/03/231542 Last Action: Held Trazodone HCl (Trazodone HCl) 50 Mg Tablet, 50 MG PO HS PRN for SLEEP, (Reported) Entered as Reported by: KARYNA BARRON on 07/11/22 1234 Last Action: Continued Discontinued Medications Albuterol Sulfate (Albuterol Sulfate) 0.63 Mg/3 Ml Vial.neb, 0.63 MG IH QID Discontinued Reason: No Longer Taking Prescribed by: JOHNNY PACHECO on 03/16/23 164 Last Action: Discontinued Amoxicillin/Potassium Clav (Amox Tr-K Clv 875-125 mg Tab) 875 Mg-125 Mg Tablet, 1 EACH PO BID Discontinued Reason: No Longer Taking Prescribed by: CHELSEY RIVERA on 03/18/23 0950 Last Action: Discontinued Atorvastatin Calcium (Atorvastatin Calcium) 10 Mg Tablet, 20 MG PO HS Discontinued Reason: Duplicate Order Prescribed by: JOHNNY PACHECO on 03/16/231647 Last Action: Discontinued Budesonide/Formoterol Fumarate (Symbicort 160-4.5 Mcg Inhaler) 160 Mcg-4.5 Mcg/Actuation Hfa.aer.ad, 2 PUFF IH BID, (Reported) Discontinued Reason: No Longer Taking Entered as Reported by: MELQUIADES HAMILTON on 03/09/23 1125 Last Action: Discontinued Diltiazem HCl (Tiazac) 240 Mg Capsule.er, 240 MG PO DAILY, (Reported) Discontinued Reason: Duplicate Order Entered as Reported by: KARYNA BARRON on 01/03/231542 Last Action: Discontinued Lidocaine (Lidocaine 5% Patch) 5 % Adh..patch, 2 PATCH TP DAILY, (Reported) Discontinued Reason: No Longer Taking Entered as Reported by: KARYNA BARRON on 07/11/22 1234 Last Action: Discontinued Molnupiravir (Molnupiravir (Eua)) 200 Mg Capsule, 800 MG PO BID Discontinued Reason: No Longer Taking Prescribed by: MELECIO KURTZ on 03/26/23 1620 Last Action: Discontinued Prednisone (Prednisone) 10 Mg Tab.ds.pk, 10 MG PO DAILY Discontinued Reason: No Longer Taking Prescribed by: CHELSEY RIVERA on 03/18/23 0950 Last Action: Discontinued Past Lciwbai-Epfbtd-Ocdpjd Hx Patient Social History Marrital Status: single Employed/Student: retired Smoking Status: Current Everyday Smoker (3ppd for whole life, recently 1.5ppd) Past Medical History Pneumonia, COPD Atrial Fibrillation, High Cholesterol, Hypertension Lung Did You Recieve Any Treatments: No Review of Systems Constitutional: see HPI, malaise, weakness Respiratory: cough, dyspnea on exertion, short of breath Physical Exam General Appearance: No Apparent Distress, WD/WN, Chronically ill Respiratory: No Accessory Muscle Use, No Respiratory Distress, Decreased Breath Sounds Cardiovascular: Irregularly Irregular, Tachycardia Neurologic/Psychiatric: Alert, Oriented x3 Assessment/Plan Assessment and Plan Recurrent pneumonia Exacerbation of COPD Lung cancer Atrial fibrillation Hypertension Current smoker Plan: Cardiac stepdown Cardiology consult Home meds Oxygen IV antibiotics IV steroids Admission Diagnosis Admission Status: Inpatient Order (span 2 midnights) Reason for Inpatient Admission: severe resp failure with PNA Supervisory-Addendum Brief Verification & Attestation Participated in pt care: history, MDM, physical Personally performed: exam, history, MDM, supervision of care Care discussed with: Medical Student Procedures: n/a Results interpretation: Verified all documentation Verification and Attestation of Medical Student E/M Service A medical student performed and documented this service in my presence. I reviewed and verified all information documented by the medical student and made modifications to such information, when appropriate. I personally performed the physical exam and medical decision making. Geraldine Simms, May 22, 2023,20:26 NICHOLAS YEE May 22, 2023 11:27 GERALDINE SIMMS DO May 22, 2023 20:25
[2023-05-22] MEDS: inSUlin ASPART 1 UNIT/0.01 ML (PER UNIT) SC SCH ×3 (11:30→22:22)
--- NOTE | 2023-05-22 12:56 | Consultation-Cardiology ---
HPI-Cardiology Cardiology Consultation Date of Consultation 05/22/23 Date of Admission Time Seen by Provider: 12:52 Indication: Anemia HPI 78-year-old gentleman with history of lung cancer, bronchial asthma and COPD. Has history of paroxysmal atrial fibrillation and recurrent pneumonia. Patient reported that he felt extremely weak and tired and had no energy, lightheaded and dizzy. Came into the emergency room and noted to have severe anemia. He denied any chest pain. Has been receiving nebulizer treatment. Chest x-ray is suggestive of right lower lobe infiltrate. Home Medications & Allergies Allergies: Coded Allergies: cefaclor (Verified Allergy, Unknown, HIVES, 08/08/18) diazepam (Verified Allergy, Unknown, 02/18/06) levofloxacin (Verified Allergy, Unknown, HIVES, 08/08/18) Home Medication List Reviewed: Yes DTG-Wettss-Glbsur Hx Patient Social History Marital Status: Employed/Student: retired Smoking Status: Current Everyday Smoker (3ppd for whole life, recently 1.5ppd) Type Used: Cigarettes 2nd Hand Smoke Exposure: Yes Recent Hopitalizations: No Alcohol Use?: Yes Immunizations Up To Date Tetanus Booster (TDap): Unknown Date of Pneumonia Vaccine: Sep 15, 2011 Date of Influenza Vaccine: Jun 27, 2016 Past Medical History Discussed below Family Medical History Significant Family History: No Pertinent Family Hx Review of Systems-General Review of Systems Constitutional: see HPI, malaise, weakness EENTM: no symptoms reported Respiratory: see HPI, cough, dyspnea on exertion, short of breath Cardiovascular: see HPI; No chest pain, No edema, No Hx of Intervention, No palpitations, No syncope, No vascular heart diseas, No other Gastrointestinal: no symptoms reported Genitourinary: no symptoms reported Musculoskeletal: no symptoms reported Skin: no symptoms reported Psychiatric/Neurological: No Symptoms Reported All Other Systems Reviewed Negative Unless Noted: Yes Reviewed Test Results Reviewed Test Results Lab Laboratory Tests Test 05/21/23 18:43 05/21/23 18:45 05/21/23 18:48 05/21/23 18:55 Range/Units Glucometer 168 H 70-110 MG/DL White Blood Count 9.4 4.3-11.0 10^3/uL Red Blood Count 2.71 L 4.30-5.52 10^6/uL Hemoglobin 6.6 *L 13.3-17.7 g/dL Hematocrit 22 L 40-54 % Mean Corpuscular Volume 80 80-99 fL Mean Corpuscular Hemoglobin 24 L 25-34 pg Mean Corpuscular Hemoglobin Concent 30 L 32-36 g/dL Red Cell Distribution Width 17.1 H 10.0-14.5 % Platelet Count 383 130-400 10^3/uL Mean Platelet Volume 8.8 L 9.0-12.2 fL Immature Granulocyte % (Auto) 0 % Neutrophils (%) (Auto) 68 42-75 % Lymphocytes (%) (Auto) 20 12-44 % Monocytes (%) (Auto) 11 0-12 % Eosinophils (%) (Auto) 1 0-10 % Basophils (%) (Auto) 0 0-10 % Neutrophils # (Auto) 6.3 1.8-7.8 10^3/uL Lymphocytes # (Auto) 1.8 1.0-4.0 10^3/uL Monocytes # (Auto) 1.0 0.0-1.0 10^3/uL Eosinophils # (Auto) 0.1 0.0-0.3 10^3/uL Basophils # (Auto) 0.0 0.0-0.1 10^3/uL Immature Granulocyte # (Auto) 0.0 0.0-0.1 10^3/uL Erythrocyte Sedimentation Rate 36 H 0-30 MM/HR Sodium Level 133 L 135-145 MMOL/L Potassium Level 3.9 3.6-5.0 MMOL/L Chloride Level 101 98-107 MMOL/L Carbon Dioxide Level 24 21-32 MMOL/L Anion Gap 8 5-14 MMOL/L Blood Urea Nitrogen 17 7-18 MG/DL Creatinine 1.21 0.60-1.30 MG/DL Estimat Glomerular Filtration Rate 62 BUN/Creatinine Ratio 14 Glucose Level 139 H 70-105 MG/DL Calcium Level 8.1 L 8.5-10.1 MG/DL Corrected Calcium 9.0 8.5-10.1 MG/DL Magnesium Level 1.9 1.6-2.4 MG/DL Total Bilirubin 0.2 0.1-1.0 MG/DL Aspartate Amino Transf (AST/SGOT) 12 5-34 U/L Alanine Aminotransferase (ALT/SGPT) 8 0-55 U/L Alkaline Phosphatase 105 40-136 U/L Total Creatine Kinase 46 30-200 U/L Creatine Kinase MB 1.5 <6.6 NG/ML Myoglobin 48.5 10.0-92.0 NG/ML Troponin I < 0.028 <0.028 NG/ML C-Reactive Protein High Sensitivity 1.08 H 0.00-0.50 MG/DL B-Type Natriuretic Peptide 107.0 H <100.0 PG/ML Total Protein 5.3 L 6.4-8.2 GM/DL Albumin 2.9 L 3.2-4.5 GM/DL Lactic Acid Level 1.17 0.50-2.00 MMOL/L Influenza Type A (RT-PCR) Not Detected Not Detecte Influenza Type B (RT-PCR) Not Detected Not Detecte SARS-CoV-2 RNA (RT-PCR) Not Detected Not Detecte Blood Gas Puncture Site LEFT RAD Blood Gas Patient Temperature 37 Arterial Blood pH 7.38 7.37-7.43 Arterial Blood Partial Pressure CO2 44 35-45 MMHG Arterial Blood Partial Pressure O2 43 L 79-93 MMHG Arterial Blood HCO3 26 23-27 MMOL/L Arterial Blood Total CO2 27.2 21.0-31.0 MMOL/L Arterial Blood Oxygen Saturation 78 L 94-100 % Arterial Blood Base Excess 1.3 -2.5-2.5 MMOL/L Kevin Test YES-POS Blood Gas Ventilator Setting NO Blood Gas Inspired Oxygen UNK Test 05/21/23 19:06 05/21/23 19:14 05/22/23 04:46 05/22/23 11:14 Range/Units Blood Gas Puncture Site RIGHT RADIAL Blood Gas Patient Temperature 37 Arterial Blood pH 7.41 7.37-7.43 Arterial Blood Partial Pressure CO2 40 35-45 MMHG Arterial Blood Partial Pressure O2 126 H 79-93 MMHG Arterial Blood HCO3 25 23-27 MMOL/L Arterial Blood Total CO2 25.8 21.0-31.0 MMOL/L Arterial Blood Oxygen Saturation 100 94-100 % Arterial Blood Base Excess 0.4 -2.5-2.5 MMOL/L Kevin Test NA Blood Gas Ventilator Setting NO Blood Gas Inspired Oxygen 2 Serum Alcohol < 10 <10 MG/DL White Blood Count 5.6 4.3-11.0 10^3/uL Red Blood Count 3.47 L 4.30-5.52 10^6/uL Hemoglobin 8.8 #L 13.3-17.7 g/dL Hematocrit 28 L 40-54 % Mean Corpuscular Volume 80 80-99 fL Mean Corpuscular Hemoglobin 25 25-34 pg Mean Corpuscular Hemoglobin Concent 32 32-36 g/dL Red Cell Distribution Width 16.6 H 10.0-14.5 % Platelet Count 331 130-400 10^3/uL Mean Platelet Volume 8.8 L 9.0-12.2 fL Immature Granulocyte % (Auto) 1 % Neutrophils (%) (Auto) 89 H 42-75 % Lymphocytes (%) (Auto) 9 L 12-44 % Monocytes (%) (Auto) 1 0-12 % Eosinophils (%) (Auto) 0 0-10 % Basophils (%) (Auto) 0 0-10 % Neutrophils # (Auto) 4.9 1.8-7.8 10^3/uL Lymphocytes # (Auto) 0.5 L 1.0-4.0 10^3/uL Monocytes # (Auto) 0.1 0.0-1.0 10^3/uL Eosinophils # (Auto) 0.0 0.0-0.3 10^3/uL Basophils # (Auto) 0.0 0.0-0.1 10^3/uL Immature Granulocyte # (Auto) 0.1 0.0-0.1 10^3/uL Neutrophils % (Manual) 94 % Lymphocytes % (Manual) 5 % Monocytes % (Manual) 1 % Hypochromasia SLIGHT Anisocytosis SLIGHT Microcytosis SLIGHT Sodium Level 132 L 135-145 MMOL/L Potassium Level 4.2 3.6-5.0 MMOL/L Chloride Level 102 98-107 MMOL/L Carbon Dioxide Level 20 L 21-32 MMOL/L Anion Gap 10 5-14 MMOL/L Blood Urea Nitrogen 17 7-18 MG/DL Creatinine 1.13 0.60-1.30 MG/DL Estimat Glomerular Filtration Rate 67 BUN/Creatinine Ratio 15 Glucose Level 373 H 70-105 MG/DL Calcium Level 8.5 8.5-10.1 MG/DL Glucometer 387 H 70-110 MG/DL Physical Exam Physical Exam Vital Signs Vital Signs - First Documented 05/21/23 05/21/23 18:43 23:58 Temp 37.0 Pulse 71 Resp 23 B/P (MAP) 112/55 (74) Pulse Ox 94 O2 Delivery Room Air O2 Flow Rate 3.00 FiO2 32 Capillary Refill : Height, Weight, BMI Height: 5'8.00" Weight: 154lbs. 0.0oz. [id number]; 21.96 BMI Method:Stated General Appearance: No Apparent Distress, WD/WN, Anxious Neck: Normal Inspection, Supple Respiratory: Chest Non Tender, No Accessory Muscle Use, No Respiratory Distress Cardiovascular: Regular Rate, Rhythm, No JVD, No Murmur, Normal Peripheral Pulses Neurologic/Psychiatric: Alert, Oriented x3, Normal Mood/Affect Skin: Normal Color, Warm/Dry A/P-Cardiology Admission Diagnosis Shortness of breath Acute exacerbation of COPD Atrial fibrillation Coronary artery disease Assessment/Plan Shortness of breath, acute exacerbation of COPD Questionable right lower lobe infiltrate, started on antibiotics. Managed by primary care team Paroxysmal atrial fibrillation, Had initially new onset atrial fibrillation with rapid ventricular response on a previous admission, currently in sinus rhythm Maintained on amiodarone, Cardizem and Xarelto Xarelto is on hold due to anemia I will switch him to Multaq and restart Cardizem Hypertension, reporting that initially was hypotensive Probably secondary to severe anemia in addition to his current medication Continue to monitor blood pressure and restart medication History of moderate coronary artery disease per cardiac catheterization in 2016 Currently feeling better COPD, acute exacerbation. Poorly differentiated adenocarcinoma, received radiation treatment at [facility] He is oxygen dependent Hemoptysis, patient has been having increasing hemoptysis, Xarelto was held initially. Currently no active hemoptysis. Continue to monitor Peripheral edema, mild on examination Patient is unable to tolerate aggressive diuresis due to incontinence. Continue to monitor History of elevated PSA NOLA ELIAS MD May 22, 2023 12:56
[2023-05-22] MEDS ORDERED: ATOR20TA66 PO (13:11)
[2023-05-22] MEDS ORDERED: DILT240C91 PO (13:11)
[2023-05-22] MEDS ORDERED: ALB0.5V INH (13:11)
[2023-05-22] MEDS ORDERED: LIDO15CR9 TP (13:11)
--- NOTE | 2023-05-22 14:40 | Physical Therapy Evaluation ---
PT Evaluation-General Medical Diagnosis Admission Date May 21, 2023 at 21:18 Medical Diagnosis: COPD exacerbation Onset Date: May 21, 2023 Therapy Diagnosis Therapy Diagnosis: debility/weakness Height/Weight Height (Feet): 5 Height (Inches): 8.00 Weight (Pounds): 154 Weight (Ounces): 0.0 Precautions Precautions/Isolations: Fall Prevention, Standard Precautions Referral Physician: Carly Reason for Referral: Evaluation/Treatment Medical History Pertinent Medical History: Atrial Fib, CAD, COPD, CVA, HTN, Smoking Current History EMS from home due to SOA Reviewed History: Yes Social History Home: Single Level Current Living Status: Children Entry Into Home: Ramp Prior Prior Level of Function SCALE: Activities may be completed with or without assistive devices. 9-Dcfhqjejbs-oappwib completes the activity by him/herself with no assistance from a helper. 5-Set-up or Clean-up Assistance-helper sets up or cleans up; patient completes activity. [place] assists only prior to or following the activity. 4-Supervision or Touching Assistance-helper provides verbal cues and/or touching/steadying and/or contact guard assistance as patient completes activity. Assistance may be provided throughout the activity or intermittently. 3-Partial/Moderate Assistance-helper does LESS THAN HALF the effort. [place] lifts, holds or supports trunk or limbs, but provides less than half the effort. 2-Substantial/Maximal Assistance-helper does MORE THAN HALF the effort. [place] lifts or holds trunk or limbs and provides more than half the effort. 2-Wkwcskytv-vvtoec does ALL the effort. Patient does none of the effort to complete the activity. Or, the assistance of 2 or more helpers is required for the patient to complete the activity. If activity was not attempted, code reason: 7-Patient Refused. 9-Not Applicable-not attempted and the patient did not perform the activity before the current illness, exacerbation or injury. 10-Not Attempted due to Environmental Limitations-(lack of equipment, weather restraints, etc.). 88-Not Attempted due to Medical Conditions or Safety Concerns. Bed Mobility: 6 Transfers (B,C,W/C): 6 Gait: 6 Wheelchair Mobility: 6 Indoor Mobility (Ambulation): Independent Stairs: Not Applicalbe Prior Devices Use: Motorized scooter, Walker PT Evaluation-Current Subjective Patient agrees to PT. Objective Patient Orientation: Normal For Age Attachments: Oxygen, IV ROM/Strength ROM Lower Extremities bilateral LE WFL Strength Lower Extremities 3+/5 grossly bilateral LE all planes Integumentary/Posture Bowel Incontinence: No Bladder Incontinence: No Posture WFL Neuromuscular (Tone, Coordination, Reflexes) grossly intact Sensory Vision: Functional Hearing: Functional Transfers Lying to Sitting/Side of Bed(Q: 4 Sit to Stand (QC): 4 Chair/Vio-nz-Lmbnq Xfer(QC): 4 Gait Mode of Locomotion: Walk Anticipated Mode of Locomotion: Walk Walk 10 feet (QC): 4 Walk 50 ft with 2 Turns(QC): 4 Walk 150 ft (QC): 4 Distance: 200' Gait Assistive Device: FWW Comments/Gait Description very slow, steady gait sequence Balance Sitting Static: Normal Sitting Dynamic: Normal Standing Static: Good Standing Dynamic: Good Assessment/Needs Patient will benefit from short term skilled PT to address functional strength and mobility to improve current LOF to safely return to home at maximum LOF. Rehab Potential: Guarded PT Oceanographer Physical Goals Mcfp Goals PT Mcfp Goals Time Frame: Jun 03, 2023 Roll Left & Right (QC): 6 Sit to Lying (QC): 6 Lying-Sitting on Side/Bed(QC): 6 Sit to Stand (QC): 6 Chair/Unt-gm-Eiesw Xfer(QC): 6 Toilet Transfer (QC): 6 Walk 10 feet (QC): 5 Walk 50ft with 2 Turns (QC): 5 Walk 150 ft (QC): 5 Type: Motorized PT Plan Problem List Problem List: Activity Tolerance, Functional Strength, Safety, Balance, Gait, Transfer Treatment/Plan Treatment Plan: Continue Plan of Care Treatment Plan: Bed Mobility, Education, Functional Activity Eric, Functional Strength, Gait, Safety, Therapeutic Exercise, Transfers Treatment Duration: Jun 03, 2023 Frequency: 6 times per week Estimated Hrs Per Day: .25 hour per day Time Time In: 1300 Time Out: 1320 DATE: May 22, 2023 Total Billed Treatment Time: 20 Total Billed Treatment 1 visit EVModC 20 min JOSS VAZQUEZ PT May 22, 2023 14:40
[2023-05-22] MEDS: RIVAROXABAN 20 MG TABLET PO SCH (17:08)
[2023-05-22] MEDS: CALCIUM CARBONATE 500 MG CHEW TABLET PO PRN ×2 (19:37→20:40)
[2023-05-22] MEDS ORDERED: NICOTINE 7 MG PATCH TD PRN (20:30)
[2023-05-22] MEDS ORDERED: traZODone 50 MG (DESYREL) TAB PO PRN (20:30)
[2023-05-22] MEDS ORDERED: LIDOCAINE TOP SCH (20:30)
[2023-05-22] MEDS: SENNOSIDES 8.6 MG TABLET PO SCH (21:11)
[2023-05-22] MEDS: DOCUSATE SODIUM 100 MG CAPSULE PO SCH (21:12)
[2023-05-22] MEDS: GABAPENTIN 300 MG CAPSULE PO SCH (22:21)
[2023-05-22] MEDS: MONTELUKAST 10 MG TABLET PO SCH (22:21)
[2023-05-22] MEDS: DRONEDARONE 400 MG TABLET PO SCH (22:21)
[2023-05-22] MEDS: ACETAMINOPHEN 500 MG TABLET PO SCH (22:22)
[2023-05-23] VITALS (8 sets, daily range): BP systolic 111–134; BP diastolic 54–86
[2023-05-23] MEDS: PIPERACILLIN/Tazobactam 4.5 GM in NS (IVPB) 100 ML 100 ML IV SCH ×3 (01:57→17:09)
[2023-05-23] MEDS: RT-Ipratropium/Albuterol NEB 3 ML VIAL INH SCH ×6 (02:44→22:15)
[2023-05-23] MEDS: CALCIUM CARBONATE 500 MG CHEW TABLET PO PRN ×2 (03:46→20:41)
[2023-05-23 04:58] LABS: BASOPHILS % (AUTO) 0 % (0-10); EOSINOPHILS % (AUTO) 0 % (0-10); HEMATOCRIT 26 % (40-54); HEMOGLOBIN 8.3 g/dL (13.3-17.7); LYMPHOCYTES # (AUTO) 0.7 10^3/uL (1.0-4.0); LYMPHOCYTES % (AUTO) 6 % (12-44); MEAN CORPUSCULAR HEMOGLOBIN 26 pg (25-34); MEAN CORPUSCULAR HGB CONC 32 g/dL (32-36); MEAN CORPUSCULAR VOLUME 79 fL (80-99); MEAN PLATELET VOLUME 8.7 fL (9.0-12.2); MONOCYTES # (AUTO) 0.5 10^3/uL (0.0-1.0); MONOCYTES % (AUTO) 4 % (0-12); NEUTROPHILS # (AUTO) 11.3 10^3/uL (1.8-7.8); NEUTROPHILS % (AUTO) 90 % (42-75); PLATELET COUNT 321 10^3/uL (130-400); WHITE BLOOD COUNT 12.6 10^3/uL (4.3-11.0)
[2023-05-23 05:08] LABS: ALBUMIN 2.7 GM/DL (3.2-4.5); POTASSIUM 4.1 MMOL/L (3.6-5.0)
[2023-05-23 05:09] LABS: CALCIUM 8.4 MG/DL (8.5-10.1)
[2023-05-23 05:12] LABS: BILIRUBIN,TOTAL 0.4 MG/DL (0.1-1.0)
[2023-05-23 05:14] LABS: CREATININE SERUM 0.82 MG/DL (0.60-1.30)
[2023-05-23] MEDS: inSUlin ASPART 1 UNIT/0.01 ML (PER UNIT) SC SCH ×4 (05:55→20:42)
[2023-05-23] MEDS: PANTOPRAZOLE 40 MG TABLET PO SCH (07:37)
--- NOTE | 2023-05-23 08:14 | Cardiology Progress Note ---
Subjective Date Seen by Provider: May 23, 2023 Time Seen by Provider: 08:13 Subjective/Events-last exam Patient is sitting in a chair, feeling better Review of Systems General: No Chills, No Night Sweats, No Fatigue, No Malaise, No Appetite, No Other HEENT: No Head Aches, No Visual Changes, No Eye Pain, No Ear Pain, No Dysphasia, No Sinus Congestion, No Post Nasal Drip, No Sore Throat, No Other Pulmonary: No Dyspnea, No Cough, No Pleuritic Chest Pain, No Other Cardiovascular: No: Chest Pain, Palpitations, Orthopnea, Paroxysmal Noc. Dyspnea, Edema, Lt Headedness, Other Focused Exam Lactate Level 05/21/23 18:48: Lactic Acid Level 1.17 Objective-Cardiology Exam Last Set of Vital Signs Vital Signs 05/21/23 05/23/23 05/23/23 23:58 07:21 07:46 Temp 36.5 Pulse 94 Resp 23 B/P (MAP) 132/86 (101) Pulse Ox 96 O2 Delivery Room Air O2 Flow Rate 4.00 FiO2 32 I&O Intake and Output 05/23/23 00:00 Intake Total 2690 ml Output Total 1300 ml Balance 1390 ml Intake Oral 1320 ml IV Total 1100 ml Other 270 ml Output Urine Total 1300 ml General: Alert, Oriented X3, Cooperative HEENT: Atraumatic, PERRLA Neck: Supple, No JVD, No Thyromegaly Lungs: Clear to Auscultation, Normal Air Movement Heart: Regular Rate, Normal S1, Normal S2, No Murmurs Abdomen: Normal Bowel Sounds, Soft, No Tenderness, No Hepatosplenomegaly, No Masses Extremities: No Clubbing, No Cyanosis, No Edema, Normal Pulses, No Tenderness/Swelling Skin: No Rashes, No Breakdown, No Significant Lesion Neuro: Normal Gait, Normal Speech, Strength at 5/5 X4 Ext, Normal Tone, Sensation Intact Psych/Mental Status: Mental Status NL, Mood NL Results Lab Laboratory Tests 05/23/23 04:49 A/P-Cardiology Admission Diagnosis Shortness of breath Acute exacerbation of COPD Atrial fibrillation Coronary artery disease Assessment/Plan Shortness of breath, acute exacerbation of COPD Questionable right lower lobe infiltrate, started on antibiotics. Managed by primary care team Paroxysmal atrial fibrillation, Had initially new onset atrial fibrillation with rapid ventricular response on a previous admission, currently in sinus rhythm Maintained on amiodarone, Cardizem and Xarelto Xarelto is on hold due to anemia Started on Multaq and Cardizem Tolerating medication well. Hypertension, reporting that initially was hypotensive Probably secondary to severe anemia in addition to his current medication Continue to monitor blood pressure and restart medication History of moderate coronary artery disease per cardiac catheterization in 2016 Currently feeling better COPD, acute exacerbation. Poorly differentiated adenocarcinoma, received radiation treatment at [facility] He is oxygen dependent Hemoptysis, patient has been having increasing hemoptysis, Xarelto was held initially. Currently no active hemoptysis. Continue to monitor Peripheral edema, mild on examination Patient is unable to tolerate aggressive diuresis due to incontinence. Continue to monitor History of elevated PSA NOLA ELIAS MD May 23, 2023 08:14
[2023-05-23] MEDS: FUROSEMIDE 20 MG TABLET PO SCH (08:23)
[2023-05-23] MEDS: dexAMETHasone INJ 4 MG/ML SDV IV SCH ×2 (08:23→20:43)
[2023-05-23] MEDS: GABAPENTIN 300 MG CAPSULE PO SCH ×2 (08:23→20:42)
[2023-05-23] MEDS: dilTIAZem ER 120 MG CAPSULE PO SCH (08:23)
[2023-05-23] MEDS: POTASSIUM CHLORIDE 10 MEQ TABLET PO SCH (08:24)
[2023-05-23] MEDS: ASPIRIN enteric coated 81MG TABLET PO SCH (08:24)
[2023-05-23] MEDS: diphenhydrAMINE 25 MG TABLET PO SCH (08:24)
[2023-05-23] MEDS: DRONEDARONE 400 MG TABLET PO SCH ×2 (08:24→20:42)
[2023-05-23] MEDS: ACETAMINOPHEN 500 MG TABLET PO SCH ×2 (08:26→20:42)
[2023-05-23] MEDS: DOCUSATE SODIUM 100 MG CAPSULE PO SCH ×2 (08:30→20:43)
[2023-05-23] MEDS: guaiFENesin SYRUP 100 MG/5 ML 10 ML PO SCH ×2 (08:31→20:42)
[2023-05-23] MEDS: SENNOSIDES 8.6 MG TABLET PO SCH ×2 (08:31→20:43)
--- NOTE | 2023-05-23 10:44 | Progress Note ---
NICHOLAS YEE 05/23/23 1044: Subjective Date Seen by a Provider: May 23, 2023 Time Seen by a Provider: 09:00 Subjective/Events-last exam Mr. Kaufman was seen at the bedside this morning and he says he is doing well. He is accompanied by his daughter, with whom he lives and she expressed concerns about him going home too early so that he doesn't end up back in the hospital with pneumonia again. We explained to her that we will move him to 4th floor today and get him ambulating more and see how he is doing tomorrow before we decide to discharge him. Otherwise, he denies chest pain, shortness of breath, fever/chills. Review of Systems General: No Chills, No Night Sweats Pulmonary: No Dyspnea; Cough; No Pleuritic Chest Pain Cardiovascular: No: Chest Pain, Edema Gastrointestinal: No: Nausea, Vomiting Focused Exam Lactate Level 05/21/23 18:48: Lactic Acid Level 1.17 Objective Exam Last Set of Vital Signs Vital Signs Date Time Temp Pulse Resp B/P (MAP) Pulse Ox O2 Delivery O2 Flow Rate FiO2 05/23/23 08:10 Nasal Cannula 3.00 05/23/23 07:46 36.5 94 23 132/86 (101) 96 05/21/23 23:58 32 Capillary Refill : I&O Intake and Output 05/22/23 23:59 Intake Total 2690 ml Output Total 1300 ml Balance 1390 ml Intake Oral 1320 ml IV Total 1100 ml Other 270 ml Output Urine Total 1300 ml General: Alert, Cooperative, No Acute Distress Neck: Supple, No JVD Lungs: Other (rhonchi appreciated on auscultation, albeit improved from yesterday) Heart: Regular Rate, Normal S1, Normal S2, No Murmurs Extremities: No Edema, Normal Pulses Skin: No Rashes Neuro: Normal Speech Psych/Mental Status: Mood NL Results Lab Laboratory Tests 05/22/23 11:14: Glucometer 387H 05/22/23 15:51: Glucometer 110 05/22/23 20:57: Glucometer 264H 05/23/23 04:49: White Blood Count 12.6H, Red Blood Count 3.26L, Hemoglobin 8.3L, Hematocrit 26L, Mean Corpuscular Volume 79L, Mean Corpuscular Hemoglobin 26, Mean Corpuscular Hemoglobin Concent 32, Red Cell Distribution Width 17.0H, Platelet Count 321, Mean Platelet Volume 8.7L, Immature Granulocyte % (Auto) 1, Neutrophils (%) (Auto) 90H, Lymphocytes (%) (Auto) 6L, Monocytes (%) (Auto) 4, Eosinophils (%) (Auto) 0, Basophils (%) (Auto) 0, Neutrophils # (Auto) 11.3H, Lymphocytes # (Auto) 0.7L, Monocytes # (Auto) 0.5, Eosinophils # (Auto) 0.0, Basophils # (Auto) 0.0, Immature Granulocyte # (Auto) 0.1, Sodium Level 136, Potassium Level 4.1, Chloride Level 105, Carbon Dioxide Level 22, Anion Gap 9, Blood Urea Nitrogen 13, Creatinine 0.82, Estimat Glomerular Filtration Rate 91, BUN/Creatinine Ratio 16, Glucose Level 192H, Calcium Level 8.4L, Corrected Calcium 9.4, Total Bilirubin 0.4, Aspartate Amino Transf (AST/SGOT) 12, Alanine Aminotransferase (ALT/SGPT) 9, Alkaline Phosphatase 84, Total Protein 5.0L, Albumin 2.7L Microbiology 05/21/23 Blood Culture - Preliminary, Resulted No growth Assessment/Plan Assessment/Plan Assess & Plan/Chief Complaint - Pneumonia > obstructive secondary to lung mass > continue Zosyn and IV steroids > monitor respiratory function closely > wearing 3L, which is his baseline at home > move to 4th floor > PT/OT - atrial fibrillation > cardiology on board > Dr. Ashraf changed amiodarone to Multaq, restarting cardizem, holding xarelto b/c anemic - HTN > BP 132/86 this morning > continue to monitor > manage on home meds - COPD > pulmonology on board - Lung mass > oncology on board Clinical Quality Measures Admission Status Admission Dx - Pneumonia > cont. zosyn and IV dexamethasone - COPD > continue albuterol/ipratropium > monitor respiratory function closely > pulmonology Dr. Mathews on board - atrial fibrillation > continue anticoagulation with rivaroxaban > Cardiology Dr. Ashraf on board - Lung mass > Oncology Dr. Ureña on board - Cigarette smoker - alcoholism > monitor for withdrawal symptoms - anemia > blood transfusion last night > Hgb 6.6 on admission increased to 8.8 after transfusion > continue to monitor H+H and transfuse again as necessary GERALDINE SIMMS DO 05/23/23 2009: Subjective Subjective/Events-last exam Improved overall Moving to 4th floor Less dyspnea Objective Exam General: Alert, Oriented X3, Cooperative, No Acute Distress Lungs: Other (rhonchi appreciated on auscultation, albeit improved from yesterday) Heart: Regular Rate Assessment/Plan Assessment/Plan Assess & Plan/Chief Complaint Move to 4th floor Supportive care IV abx IV steroids O2 Nebs Supervisory-Addendum Brief Verification & Attestation Participated in pt care: history, MDM, physical Personally performed: exam, history, MDM, supervision of care Care discussed with: Medical Student Procedures: n/a Results interpretation: Verified all documentation Verification and Attestation of Medical Student E/M Service A medical student performed and documented this service in my presence. I reviewed and verified all information documented by the medical student and made modifications to such information, when appropriate. I personally performed the physical exam and medical decision making. Geraldine Simms, May 23, 2023,20:08 NICHOLAS YEE May 23, 2023 10:44 GERALDINE SIMMS DO May 23, 2023 20:09
--- NOTE | 2023-05-23 13:45 | Physical Therapy Daily Note ---
PT Daily Note-Current Subjective Patient sitting in chair upon PT arrival, agreeable to treatment. Patient rates pain at 0/10 currently. Pain Section J - Health Conditions 1. Rarely or not at all 2. Occasionally 3. Frequently 4. Almost constantly 8. Unable to answer Pain Effect on Sleep: 1 Pain Interference with Therapy: 1 Pain Interference w/Day-to-Day: 1 Transfers SCALE: Activities may be completed with or without assistive devices. 6-Howcragfzz-wzxlrqj completes the activity by him/herself with no assistance from a helper. 5-Set-up or Clean-up Assistance-helper sets up or cleans up; patient completes a ctivity. [place] assists only prior to or following the activity. 4-Supervision or Touching Assistance-helper provides verbal cues and/or touching/steadying and/or contact guard assistance as patient completes activity. Assistance may be provided throughout the activity or intermittently. 3-Partial/Moderate Assistance-helper does LESS THAN HALF the effort. [place] lifts, holds or supports trunk or limbs, but provides less than half the effort. 2-Substantial/Maximal Assistance-helper does MORE THAN HALF the effort. [place] lifts or holds trunk or limbs and provides more than half the effort. 9-Atyysinwq-ufjspe does ALL the effort. Patient does none of the effort to complete the activity. Or, the assistance of 2 or more helpers is required for the patient to complete the activity. If activity was not attempted, code reason: 7-Patient Refused. 9-Not Applicable-not attempted and the patient did not perform the activity before the current illness, exacerbation or injury. 10-Not Attempted due to Environmental Limitations-(lack of equipment, weather restraints, etc.). 88-Not Attempted due to Medical Conditions or Safety Concerns. Sit to Stand (QC): 4 Chair/Mwb-ov-Souof Xfer(QC): 4 Weight Bearing Right Lower Extremity: Right Full Weight Bearing Left Lower Extremity: Left Full Weight Bearing Gait Training Does the Patient Walk?: Yes Distance: 240' Walk 10 feet (QC): 4 Walk 50 ft with 2 Turns(QC): 4 Walk 150 ft (QC): 4 Gait Assistive Device: FWW Assessment Current Status: Fair Progress Patient tolerated treatment well. Performs all observed transfers with SBA. Patient ambulates 240' with FWW, with SBA and verbal cues for posture and progression. Patient in chair post treatment with all needs met, nursing notified, call light in reach and LUBRICATING MACHINE TENDER in the room. PT Mcc Goals Graphic Design Manager Goals PT Mcc Goals Time Frame: Jun 03, 2023 Roll Left & Right (QC): 6 Sit to Lying (QC): 6 Lying-Sitting on Side/Bed(QC): 6 Sit to Stand (QC): 6 Chair/Ikl-cu-Rasik Xfer(QC): 6 Toilet Transfer (QC): 6 Walk 10 feet (QC): 5 Walk 50ft with 2 Turns (QC): 5 Walk 150 ft (QC): 5 Type: Motorized PT Plan Treatment/Plan Treatment Plan: Continue Plan of Care Treatment Plan: Bed Mobility, Education, Functional Activity Eric, Functional Strength, Gait, Safety, Therapeutic Exercise, Transfers Treatment Duration: Jun 03, 2023 Frequency: 6 times per week Estimated Hrs Per Day: .25 hour per day Safety Risks/Education Patient Education: Gait Training, Transfer Techniques Teaching Recipient: Patient Teaching Methods: Demonstration, Discussion Response to Teaching: Verbalize Understanding, Return Demonstration Time Time In: 837 Time Out: 850 DATE: May 23, 2023 Total Billed Treatment Time: 13 Total Billed Treatment Visit, GT MAGGIE WONG PT May 23, 2023 13:45
[2023-05-23] MEDS: RIVAROXABAN 20 MG TABLET PO SCH (17:09)
[2023-05-23] MEDS: MONTELUKAST 10 MG TABLET PO SCH (20:42)
[2023-05-24] MEDS: PIPERACILLIN/Tazobactam 4.5 GM in NS (IVPB) 100 ML 100 ML IV SCH ×2 (01:22→08:20)
[2023-05-24] MEDS: RT-Ipratropium/Albuterol NEB 3 ML VIAL INH SCH ×4 (03:05→09:58)
[2023-05-24 03:40] VITALS: BP 136/68
[2023-05-24 05:52] LABS: BASOPHILS % (AUTO) 0 % (0-10); EOSINOPHILS % (AUTO) 0 % (0-10); HEMATOCRIT 27 % (40-54); HEMOGLOBIN 8.6 g/dL (13.3-17.7); LYMPHOCYTES # (AUTO) 0.7 10^3/uL (1.0-4.0); LYMPHOCYTES % (AUTO) 6 % (12-44); MEAN CORPUSCULAR HEMOGLOBIN 25 pg (25-34); MEAN CORPUSCULAR HGB CONC 31 g/dL (32-36); MEAN CORPUSCULAR VOLUME 80 fL (80-99); MEAN PLATELET VOLUME 9.1 fL (9.0-12.2); MONOCYTES # (AUTO) 0.7 10^3/uL (0.0-1.0); MONOCYTES % (AUTO) 6 % (0-12); NEUTROPHILS # (AUTO) 10.2 10^3/uL (1.8-7.8); NEUTROPHILS % (AUTO) 87 % (42-75); PLATELET COUNT 335 10^3/uL (130-400); WHITE BLOOD COUNT 11.7 10^3/uL (4.3-11.0)
[2023-05-24 06:15] LABS: ALBUMIN 2.8 GM/DL (3.2-4.5); BILIRUBIN,TOTAL 0.3 MG/DL (0.1-1.0); CALCIUM 8.4 MG/DL (8.5-10.1); CREATININE SERUM 0.78 MG/DL (0.60-1.30); POTASSIUM 4.2 MMOL/L (3.6-5.0); TOTAL PROTEIN 4.8 GM/DL (6.4-8.2)
[2023-05-24] MEDS: inSUlin ASPART 1 UNIT/0.01 ML (PER UNIT) SC SCH ×2 (06:20→11:39)
[2023-05-24] MEDS: PANTOPRAZOLE 40 MG TABLET PO SCH (06:22)
[2023-05-24 07:29] VITALS: BP 122/55
[2023-05-24] MEDS: dexAMETHasone INJ 4 MG/ML SDV IV SCH (08:16)
[2023-05-24] MEDS: guaiFENesin SYRUP 100 MG/5 ML 10 ML PO SCH (08:17)
[2023-05-24] MEDS: SENNOSIDES 8.6 MG TABLET PO SCH (08:20)
[2023-05-24] MEDS: dilTIAZem ER 120 MG CAPSULE PO SCH (08:20)
[2023-05-24] MEDS: GABAPENTIN 300 MG CAPSULE PO SCH (08:20)
[2023-05-24] MEDS: diphenhydrAMINE 25 MG TABLET PO SCH (08:20)
[2023-05-24] MEDS: DRONEDARONE 400 MG TABLET PO SCH (08:20)
[2023-05-24] MEDS: ASPIRIN enteric coated 81MG TABLET PO SCH (08:20)
[2023-05-24] MEDS: FUROSEMIDE 20 MG TABLET PO SCH (08:20)
[2023-05-24] MEDS: POTASSIUM CHLORIDE 10 MEQ TABLET PO SCH (08:20)
[2023-05-24] MEDS: DOCUSATE SODIUM 100 MG CAPSULE PO SCH (08:20)
[2023-05-24] MEDS: ACETAMINOPHEN 500 MG TABLET PO SCH (08:20)
--- NOTE | 2023-05-24 09:08 | Cardiology Progress Note ---
Subjective Date Seen by Provider: May 24, 2023 Time Seen by Provider: 09:05 Subjective/Events-last exam Patient is sitting up in chair, denies any chest pain. Reporting some dyspnea. Focused Exam Lactate Level 05/21/23 18:48: Lactic Acid Level 1.17 Objective-Cardiology Exam Last Set of Vital Signs Vital Signs 05/21/23 05/24/23 05/24/23 23:58 11:18 13:21 Temp 36.3 Pulse 95 Resp 16 B/P (MAP) 112/54 Pulse Ox 98 O2 Delivery Nasal Cannula O2 Flow Rate 2.00 FiO2 32 I&O Intake and Output 05/24/23 00:00 Intake Total 1164 ml Output Total 2350 ml Balance -1186 ml Intake Oral 1164 ml Output Urine Total 2350 ml General: Alert, Oriented X3, Cooperative, No Acute Distress HEENT: Atraumatic, PERRLA Neck: Supple, No JVD Lungs: Other (bilat rhonchi) Heart: Regular Rate Abdomen: Normal Bowel Sounds, Soft, No Tenderness, No Hepatosplenomegaly, No Masses Extremities: No Edema, Normal Pulses Skin: No Rashes Neuro: Normal Speech Psych/Mental Status: Mood NL Results Lab Laboratory Tests 05/24/23 05:00 A/P-Cardiology Admission Diagnosis Shortness of breath Acute exacerbation of COPD Atrial fibrillation Coronary artery disease Assessment/Plan Shortness of breath, acute exacerbation of COPD Questionable right lower lobe infiltrate, started on antibiotics. Managed by primary care team Paroxysmal atrial fibrillation, Had initially new onset atrial fibrillation with rapid ventricular response on a previous admission, currently in sinus rhythm Maintained on amiodarone, Cardizem and Xarelto. Started on Multaq and Cardizem Tolerating medication well. Hypertension, reporting that initially was hypotensive Probably secondary to severe anemia in addition to his current medication Continue to monitor blood pressure and restart medication Anemia, s/p transfusion. Continue to monitor H/H History of moderate coronary artery disease per cardiac catheterization in 2016 Currently feeling better COPD, acute exacerbation. Lung CA, Poorly differentiated adenocarcinoma, received radiation treatment at [facility] He is oxygen dependent Daughter reports radiation has been on hold d/t frequent hospitalizations for pneumonia Hemoptysis, patient has been having increasing hemoptysis, Xarelto was held initially. Currently no active hemoptysis, Xarelto restarted. Continue to monitor Peripheral edema, mild on examination Patient is unable to tolerate aggressive diuresis due to incontinence. Continue to monitor History of elevated PSA Supervisory-Addendum Brief Supervisory Addendum Participated in pt care: history, MDM, physical Personally performed: exam, history, MDM Care discussed with: MIRACLE Results interpretation: Verified all documentation Notes: Patient was seen and evaluated with Beatrice, examination performed, management plan was discussed, agree with the current scribed note, I made few changes to the note using Italic font Patient was seen at bedside laying down comfortably, feeling better Currently on Multaq and Cardizem and tolerating medication well Monitor H&H Monitor blood pressure BEATRICE NAVA May 24, 2023 09:08 NOLA ELIAS MD May 24, 2023 13:41
[2023-05-24] MEDS: FLUTICASONE/VILANTEROL 200/25 MCG (7 DOSES) IH SCH ×2 (09:58→09:59)
[2023-05-24 11:18] VITALS: BP 112/54
--- NOTE | 2023-05-24 12:01 | Physical Therapy Daily Note ---
PT Daily Note-Current Subjective Patient sitting in the chair upon PT arrival, agreeable to treatment. Patient rates pain 7/10 in left knee and low back. Pain Section J - Health Conditions 1. Rarely or not at all 2. Occasionally 3. Frequently 4. Almost constantly 8. Unable to answer Pain Effect on Sleep: 1 Pain Interference with Therapy: 1 Pain Interference w/Day-to-Day: 1 Transfers SCALE: Activities may be completed with or without assistive devices. 0-Wwrpgfsdyu-sxtvmqj completes the activity by him/herself with no assistance from a helper. 5-Set-up or Clean-up Assistance-helper sets up or cleans up; patient completes activity. [place] assists only prior to or following the activity. 4-Supervision or Touching Assistance-helper provides verbal cues and/or touching/steadying and/or contact guard assistance as patient completes activity. Assistance may be provided throughout the activity or intermittently. 3-Partial/Moderate Assistance-helper does LESS THAN HALF the effort. [place] lifts, holds or supports trunk or limbs, but provides less than half the effort. 2-Substantial/Maximal Assistance-helper does MORE THAN HALF the effort. [place] lifts or holds trunk or limbs and provides more than half the effort. 3-Vrunaxkyz-xangfd does ALL the effort. Patient does none of the effort to complete the activity. Or, the assistance of 2 or more helpers is required for the patient to complete the activity. If activity was not attempted, code reason: 7-Patient Refused. 9-Not Applicable-not attempted and the patient did not perform the activity before the current illness, exacerbation or injury. 10-Not Attempted due to Environmental Limitations-(lack of equipment, weather restraints, etc.). 88-Not Attempted due to Medical Conditions or Safety Concerns. Sit to Stand (QC): 4 Chair/Ist-ad-Klddo Xfer(QC): 4 Weight Bearing Right Lower Extremity: Right Full Weight Bearing Left Lower Extremity: Left Full Weight Bearing Gait Training Does the Patient Walk?: Yes Distance: 250' Walk 10 feet (QC): 4 Walk 50 ft with 2 Turns(QC): 4 Walk 150 ft (QC): 4 Gait Assistive Device: FWW Assessment Current Status: Fair Progress Patient tolerated treatment well. Performs all observed transfers with SBA. Patient ambulates 250' with FWW, with SBA and verbal cues for posture and progression. Patient in chair post treatment with all needs met, nursing notified, call light in reach and family member in the room. PT Residential Goals Residential Goals PT Special Technical Operations Officer Goals Time Frame: Jun 03, 2023 Roll Left & Right (QC): 6 Sit to Lying (QC): 6 Lying-Sitting on Side/Bed(QC): 6 Sit to Stand (QC): 6 Chair/Vfc-lj-Lmohg Xfer(QC): 6 Toilet Transfer (QC): 6 Walk 10 feet (QC): 5 Walk 50ft with 2 Turns (QC): 5 Walk 150 ft (QC): 5 Type: Motorized PT Plan Treatment/Plan Treatment Plan: Continue Plan of Care Treatment Plan: Bed Mobility, Education, Functional Activity Eric, Functional Strength, Gait, Safety, Therapeutic Exercise, Transfers Treatment Duration: Jun 03, 2023 Frequency: 6 times per week Estimated Hrs Per Day: .25 hour per day Safety Risks/Education Patient Education: Gait Training, Transfer Techniques Teaching Recipient: Patient Teaching Methods: Demonstration, Discussion Response to Teaching: Verbalize Understanding, Return Demonstration Time Time In: 903 Time Out: 920 DATE: May 24, 2023 Total Billed Treatment Time: 17 Total Billed Treatment Visit, GT MAGGIE WONG PT May 24, 2023 12:01
[2023-05-24] MEDS ORDERED: AMOX1TAB12 PO (12:41)
[2023-05-24] MEDS ORDERED: DRON400T6 PO (12:41)
[2023-05-24] MEDS ORDERED: PRD20T PO (12:41)
[2023-05-24] MEDS ORDERED: BENZ100C18 PO (12:41)
[2023-05-24] MEDS ORDERED: DILT-27 PO (12:41)
--- NOTE | 2023-05-24 12:42 | D/C HH Face to Face Order ---
D/C HH Face to Face Orders Reconcile Patient Problems Problems Reviewed?: Yes Instructions for Patient HH Patient Instructions/FollowUp: PCP [place] next week Physician to follow Patient: [facility] Diet for Home: No Restrictions Patient Problems: PNA Lung cancer Patient Data-Allergies,Ht & Wt Patient Allergies: Coded Allergies: cefaclor (Verified Allergy, Unknown, HIVES, 08/08/18) diazepam (Verified Allergy, Unknown, 02/18/06) levofloxacin (Verified Allergy, Unknown, HIVES, 08/08/18) Height (Feet): 5 Height (Inches): 8.00 Weight (Pounds): 154 Weight (Ounces): 0.0 Home Health Need/Face to Face Date of Face to Face: May 24, 2023 Clinical Findings: Generalized weakness and fatigue, Instability, Muscle weakness, Shortness of breath I have seen Pt [id number]: Yes Discharged To: Home Diagnosis/Conditions: Debility Patient is Homebound due to: CognItive deficits, Thomas fall risk due to instabilty, Muscle weakness, Shortness of breath/distress Homebound Status Due to the above stated illness, injury or surgical procedure (medical condition or diagnosis) and associated clinical findings, the patient is homebound because of his/her inability to leave home except with aid of a supportive device and/or person AND leaving the home requires a considerable and taxing effort or is medically contraindicated. Pt req the following assistanc: Walker Home Health Nursing Orders Home Health Services Order: Nursing Services, Cook Helper Pastry-Evaluate & Treat, Physical Therapy-Evaluate & Treat Home Health Infusion Therapy Line Start Date: May 21, 2023 Certify Stmt I certify that this patient is under my care and that I, a nurse practitioner or a physician; a assistant professor of dietetics working with me, had a face to face encounter that - meets the physician face to face encounter requirements with this patient as dated. BRYAN SIMMS DO May 24, 2023 12:42
--- NOTE | 2023-05-24 12:42 | Discharge Summary ---
Diagnosis/Chief Complaint Date of Admission May 21, 2023 at 21:18 Date of Discharge Discharge Date: May 24, 2023 Discharge Diagnosis - Pneumonia > cont. zosyn and IV dexamethasone - COPD > continue albuterol/ipratropium > monitor respiratory function closely > pulmonology Dr. Mathews on board - atrial fibrillation > continue anticoagulation with rivaroxaban > Cardiology Dr. Ashraf on board - Lung mass > Oncology Dr. Ureña on board - Cigarette smoker - alcoholism > monitor for withdrawal symptoms - anemia > blood transfusion last night > Hgb 6.6 on admission increased to 8.8 after transfusion > continue to monitor H+H and transfuse again as necessary Reason Hospital Visit Chief complaint: Shortness of breath HPI: This is a 78-year-old male [place] clinic patient in [facility] who presented to the ER with shortness of breath found to have recurrent pneumonia history of lung cancer. He was placed on IV antibiotics IV steroids and consultation with cardiology was initiated who made medication adjustments. Discharge Summary Discharge Physical Examination Allergies: Coded Allergies: cefaclor (Verified Allergy, Unknown, HIVES, 08/08/18) diazepam (Verified Allergy, Unknown, 02/18/06) levofloxacin (Verified Allergy, Unknown, HIVES, 08/08/18) Vitals & I&Os Vital Signs Date Time Temp Pulse Resp B/P (MAP) Pulse Ox O2 Delivery O2 Flow Rate FiO2 05/24/23 13:21 36.3 95 16 112/54 98 Nasal Cannula 05/24/23 11:18 2.00 05/21/23 23:58 32 General Appearance: Alert, Oriented X3, Cooperative Respiratory: Clear to Auscultation, Other (diminished in bases) Neuro: Normal Gait, Normal Speech, Strength at 5/5 X4 Ext Psych/Mental Status: Mental Status NL Hospital Course Was the Problem List Reviewed?: Yes Ulises Kaufman is a 78 year old male with a past medical history of lung mass, COPD (on 3L baseline), afib, CAD, HTN, smoker, alcoholism, and recurrent pneumonia. He came into the ED on 05/21/23 with symptoms of dizziness, shortness of breath, and cough. Lab values in the ED were significant for a hemoglobin of 6.6 and BNP of 107. Chest xray in the ED showed no acute cardiopulmonary processes. He was started on IV Zosyn and steroids and he was accepted for admission to cardiac step down unit and cardiology was going to manage care of his afib. His ambulatory amiodarone was changed to Multaq 400mg BID, Cardizem was restarted, and his xarelto was held due to his anemia. He also received two units of blood on 05/21/23. Repeat chest xray on 05/22/23 showed new right lower lobe infiltrate and he was diagnosed with pneumonia. He was continued on IV Zosyn and steroids. On 05/23/23 he felt he had improved and that he just had a residual cough. His daughter was hesitant on him being discharged too early since this was his 8th episode of pneumonia in just the past several months according to her. He was subsequently moved down to the 4th floor to be monitored for one more day. On 05/24/23 he continued to feel that he has improved, he has been out walking the hallways, his hemoglobin had been stable at 8.6, and expresses desire to go home. Given the improvement in his condition and baseline oxygen requirement he is ready for discharge and [facility] NICHOLAS YEE Labs (last 24 hrs) Laboratory Tests 05/21/23 18:43: Glucometer 168H 05/21/23 18:45: White Blood Count 9.4, Red Blood Count 2.71L, Hemoglobin 6.6*L, Hematocrit 22L, Mean Corpuscular Volume 80, Mean Corpuscular Hemoglobin 24L, Mean Corpuscular Hemoglobin Concent 30L, Red Cell Distribution Width 17.1H, Platelet Count 383, Mean Platelet Volume 8.8L, Immature Granulocyte % (Auto) 0, Neutrophils (%) (Auto) 68, Lymphocytes (%) (Auto) 20, Monocytes (%) (Auto) 11, Eosinophils (%) (Auto) 1, Basophils (%) (Auto) 0, Neutrophils # (Auto) 6.3, Lymphocytes # (Auto) 1.8, Monocytes # (Auto) 1.0, Eosinophils # (Auto) 0.1, Basophils # (Auto) 0.0, Immature Granulocyte # (Auto) 0.0, Erythrocyte Sedimentation Rate 36H, Sodium Level 133L, Potassium Level 3.9, Chloride Level 101, Carbon Dioxide Level 24, Anion Gap 8, Blood Urea Nitrogen 17, Creatinine 1.21, Estimat Glomerular Filtration Rate 62, BUN/Creatinine Ratio 14, Glucose Level 139H, Calcium Level 8.1L, Corrected Calcium 9.0, Magnesium Level 1.9, Total Bilirubin 0.2, Aspartate Amino Transf (AST/SGOT) 12, Alanine Aminotransferase (ALT/SGPT) 8, Alkaline Phosphatase 105, Total Creatine Kinase 46, Creatine Kinase MB 1.5, Myoglobin 48.5, Troponin I < 0.028, C-Reactive Protein High Sensitivity 1.08H, B-Type Natriuretic Peptide 107.0H, Total Protein 5.3L, Albumin 2.9L 05/21/23 18:48: Lactic Acid Level 1.17, Influenza Type A (RT-PCR) Not Detected, Influenza Type B (RT-PCR) Not Detected, SARS-CoV-2 RNA (RT-PCR) Not Detected 05/21/23 18:55: Blood Gas Puncture Site LEFT RAD, Blood Gas Patient Temperature 37, Arterial Blood pH 7.38, Arterial Blood Partial Pressure CO2 44, Arterial Blood Partial Pressure O2 43L, Arterial Blood HCO3 26, Arterial Blood Total CO2 27.2, Arterial Blood Oxygen Saturation 78L, Arterial Blood Base Excess 1.3, Kevin Test YES-POS, Blood Gas Ventilator Setting NO, Blood Gas Inspired Oxygen UNK 05/21/23 19:06: Blood Gas Puncture Site RIGHT RADIAL, Blood Gas Patient Temperature 37, Arterial Blood pH 7.41, Arterial Blood Partial Pressure CO2 40, Arterial Blood Partial Pressure O2 126H, Arterial Blood HCO3 25, Arterial Blood Total CO2 25.8, Arterial Blood Oxygen Saturation 100, Arterial Blood Base Excess 0.4, Kevin Test NA, Blood Gas Ventilator Setting NO, Blood Gas Inspired Oxygen 2 05/21/23 19:14: Serum Alcohol < 10 05/22/23 04:46: White Blood Count 5.6, Red Blood Count 3.47L, Hemoglobin 8.8#L, Hematocrit 28L, Mean Corpuscular Volume 80, Mean Corpuscular Hemoglobin 25, Mean Corpuscular Hemoglobin Concent 32, Red Cell Distribution Width 16.6H, Platelet Count 331, Mean Platelet Volume 8.8L, Immature Granulocyte % (Auto) 1, Neutrophils (%) (Auto) 89H, Lymphocytes (%) (Auto) 9L, Monocytes (%) (Auto) 1, Eosinophils (%) (Auto) 0, Basophils (%) (Auto) 0, Neutrophils # (Auto) 4.9, Lymphocytes # (Auto) 0.5L, Monocytes # (Auto) 0.1, Eosinophils # (Auto) 0.0, Basophils # (Auto) 0.0, Immature Granulocyte # (Auto) 0.1, Neutrophils % (Manual) 94, Lymphocytes % (Manual) 5, Monocytes % (Manual) 1, Hypochromasia SLIGHT, Anisocytosis SLIGHT, Microcytosis SLIGHT, Sodium Level 132L, Potassium Level 4.2, Chloride Level 102, Carbon Dioxide Level 20L, Anion Gap 10, Blood Urea Nitrogen 17, Creatinine 1.13, Estimat Glomerular Filtration Rate 67, BUN/Creatinine Ratio 15, Glucose Level 373H, Calcium Level 8.5 05/22/23 11:14: Glucometer 387H 05/22/23 15:51: Glucometer 110 05/22/23 20:57: Glucometer 264H 05/23/23 04:49: White Blood Count 12.6H, Red Blood Count 3.26L, Hemoglobin 8.3L, Hematocrit 26L, Mean Corpuscular Volume 79L, Mean Corpuscular Hemoglobin 26, Mean Corpuscular Hemoglobin Concent 32, Red Cell Distribution Width 17.0H, Platelet Count 321, Mean Platelet Volume 8.7L, Immature Granulocyte % (Auto) 1, Neutrophils (%) (Auto) 90H, Lymphocytes (%) (Auto) 6L, Monocytes (%) (Auto) 4, Eosinophils (%) ( Auto) 0, Basophils (%) (Auto) 0, Neutrophils # (Auto) 11.3H, Lymphocytes # (Auto) 0.7L, Monocytes # (Auto) 0.5, Eosinophils # (Auto) 0.0, Basophils # (Auto) 0.0, Immature Granulocyte # (Auto) 0.1, Sodium Level 136, Potassium Level 4.1, Chloride Level 105, Carbon Dioxide Level 22, Anion Gap 9, Blood Urea Nitrogen 13, Creatinine 0.82, Estimat Glomerular Filtration Rate 91, BUN/Creatinine Ratio 16, Glucose Level 192H, Calcium Level 8.4L, Corrected Calcium 9.4, Total Bilirubin 0.4, Aspartate Amino Transf (AST/SGOT) 12, Alanine Aminotransferase (ALT/SGPT) 9, Alkaline Phosphatase 84, Total Protein 5.0L, Albumin 2.7L 05/23/23 10:49: Glucometer 225H 05/23/23 15:48: Glucometer 88 05/23/23 19:19: Glucometer 293H 05/24/23 05:00: White Blood Count 11.7H, Red Blood Count 3.44L, Hemoglobin 8.6L, Hematocrit 27L, Mean Corpuscular Volume 80, Mean Corpuscular Hemoglobin 25, Mean Corpuscular Hemoglobin Concent 31L, Red Cell Distribution Width 17.3H, Platelet Count 335, Mean Platelet Volume 9.1, Immature Granulocyte % (Auto) 1, Neutrophils (%) (Auto) 87H, Lymphocytes (%) (Auto) 6L, Monocytes (%) (Auto) 6, Eosinophils (%) (Auto) 0, Basophils (%) (Auto) 0, Neutrophils # (Auto) 10.2H, Lymphocytes # (Auto) 0.7L, Monocytes # (Auto) 0.7, Eosinophils # (Auto) 0.0, Basophils # (Auto) 0.0, Immature Granulocyte # (Auto) 0.1, Sodium Level 135, Potassium Level 4.2, Chloride Level 101, Carbon Dioxide Level 25, Anion Gap 9, Blood Urea Nitrogen 14, Creatinine 0.78, Estimat Glomerular Filtration Rate 92, BUN/Creatinine Ratio 18, Glucose Level 133H, Calcium Level 8.4L, Corrected Calcium 9.4, Total Bilirubin 0.3, Aspartate Amino Transf (AST/SGOT) 13, Alanine Aminotransferase (ALT/SGPT) 13, Alkaline Phosphatase 94, Total Protein 4.8L, Albumin 2.8L Microbiology 05/21/23 Blood Culture - Preliminary, Resulted No growth Pending Labs Microbiology Date/Time Source Procedure Growth Status 05/21/23 19:03 Peripheral Lt Hand Blood Culture - Preliminary No growth Resulted 05/21/23 18:48 Peripheral Lt Ac Blood Culture - Preliminary No growth Resulted Laboratory Tests 05/21/23 18:43: Glucometer 168 05/21/23 18:45: White Blood Count 9.4, Red Blood Count 2.71, Hemoglobin 6.6, Hematocrit 22, Mean Corpuscular Volume 80, Mean Corpuscular Hemoglobin 24, Mean Corpuscular Hemoglobin Concent 30, Red Cell Distribution Width 17.1, Platelet Count 383, Mean Platelet Volume 8.8, Immature Granulocyte % (Auto) 0, Neutrophils (%) (Auto) 68, Lymphocytes (%) (Auto) 20, Monocytes (%) (Auto) 11, Eosinophils (%) (Auto) 1, Basophils (%) (Auto) 0, Neutrophils # (Auto) 6.3, Lymphocytes # (Auto) 1.8, Monocytes # (Auto) 1.0, Eosinophils # (Auto) 0.1, Basophils # (Auto) 0.0, Immature Granulocyte # (Auto) 0.0, Erythrocyte Sedimentation Rate 36, Sodium Level 133, Potassium Level 3.9, Chloride Level 101, Carbon Dioxide Level 24, Anion Gap 8, Blood Urea Nitrogen 17, Creatinine 1.21, Estimat Glomerular Filtration Rate 62, BUN/Creatinine Ratio 14, Glucose Level 139, Calcium Level 8.1, Corrected Calcium 9.0, Magnesium Level 1.9, Total Bilirubin 0.2, Aspartate Amino Transf (AST/SGOT) 12, Alanine Aminotransferase (ALT/SGPT) 8, Alkaline Phosphatase 105, Total Creatine Kinase 46, Creatine Kinase MB 1.5, Myoglobin 48.5, Troponin I < 0.028, C-Reactive Protein High Sensitivity 1.08, B-Type Natriuretic Peptide 107.0, Total Protein 5.3, Albumin 2.9 05/21/23 18:48: Lactic Acid Level 1.17, Influenza Type A (RT-PCR) Not Detected, Influenza Type B (RT-PCR) Not Detected, SARS-CoV-2 RNA (RT-PCR) Not Detected 05/21/23 18:55: Blood Gas Puncture Site LEFT RAD, Blood Gas Patient Temperature 37, Arterial Blood pH 7.38, Arterial Blood Partial Pressure CO2 44, Arterial Blood Partial Pressure O2 43, Arterial Blood HCO3 26, Arterial Blood Total CO2 27.2, Arterial Blood Oxygen Saturation 78, Arterial Blood Base Excess 1.3, Kevin Test YES-POS, Blood Gas Ventilator Setting NO, Blood Gas Inspired Oxygen UNK 05/21/23 19:06: Blood Gas Puncture Site RIGHT RADIAL, Blood Gas Patient Temperature 37, Arterial Blood pH 7.41, Arterial Blood Partial Pressure CO2 40, Arterial Blood Partial Pressure O2 126, Arterial Blood HCO3 25, Arterial Blood Total CO2 25.8, Arterial Blood Oxygen Saturation 100, Arterial Blood Base Excess 0.4, Kevin Test NA, Blood Gas Ventilator Setting NO, Blood Gas Inspired Oxygen 2 05/21/23 19:14: Serum Alcohol < 10 05/22/23 04:46: White Blood Count 5.6, Red Blood Count 3.47, Hemoglobin 8.8, Hematocrit 28, Mean Corpuscular Volume 80, Mean Corpuscular Hemoglobin 25, Mean Corpuscular Hemoglobin Concent 32, Red Cell Distribution Width 16.6, Platelet Count 331, Mean Platelet Volume 8.8, Immature Granulocyte % (Auto) 1, Neutrophils (%) (Auto) 89, Lymphocytes (%) (Auto) 9, Monocytes (%) (Auto) 1, Eosinophils (%) (Auto) 0, Basophils (%) (Auto) 0, Neutrophils # (Auto) 4.9, Lymphocytes # (Auto) 0.5, Monocytes # (Auto) 0.1, Eosinophils # (Auto) 0.0, Basophils # (Auto) 0.0, Immature Granulocyte # (Auto) 0.1, Neutrophils % (Manual) 94, Lymphocytes % (Manual) 5, Monocytes % (Manual) 1, Hypochromasia SLIGHT, Anisocytosis SLIGHT, Microcytosis SLIGHT, Sodium Level 132, Potassium Level 4.2, Chloride Level 102, Carbon Dioxide Level 20, Anion Gap 10, Blood Urea Nitrogen 17, Creatinine 1.13, Estimat Glomerular Filtration Rate 67, BUN/Creatinine Ratio 15, Glucose Level 373, Calcium Level 8.5 05/22/23 11:14: Glucometer 387 05/22/23 15:51: Glucometer 110 05/22/23 20:57: Glucometer 264 05/23/23 04:49: White Blood Count 12.6, Red Blood Count 3.26, Hemoglobin 8.3, Hematocrit 26, Mean Corpuscular Volume 79, Mean Corpuscular Hemoglobin 26, Mean Corpuscular Hemoglobin Concent 32, Red Cell Distribution Width 17.0, Platelet Count 321, Mean Platelet Volume 8.7, Immature Granulocyte % (Auto) 1, Neutrophils (%) (Auto) 90, Lymphocytes (%) (Auto) 6, Monocytes (%) (Auto) 4, Eosinophils (%) (Auto) 0, Basophils (%) (Auto) 0, Neutrophils # (Auto) 11.3, Lymphocytes # (Auto) 0.7, Monocytes # (Auto) 0.5, Eosinophils # (Auto) 0.0, Basophils # (Auto) 0.0, Immature Granulocyte # (Auto) 0.1, Sodium Level 136, Potassium Level 4.1, Chloride Level 105, Carbon Dioxide Level 22, Anion Gap 9, Blood Urea Nitrogen 13, Creatinine 0.82, Estimat Glomerular Filtration Rate 91, BUN/Creatinine Ratio 16, Glucose Level 192, Calcium Level 8.4, Corrected Calcium 9.4, Total Bilirubin 0.4, Aspartate Amino Transf (AST/SGOT) 12, Alanine Aminotransferase (ALT/SGPT) 9, Alkaline Phosphatase 84, Total Protein 5.0, Albumin 2.7 05/23/23 10:49: Glucometer 225 05/23/23 15:48: Glucometer 88 05/23/23 19:19: Glucometer 293 05/24/23 05:00: White Blood Count 11.7, Red Blood Count 3.44, Hemoglobin 8.6, Hematocrit 27, Mean Corpuscular Volume 80, Mean Corpuscular Hemoglobin 25, Mean Corpuscular Hemoglobin Concent 31, Red Cell Distribution Width 17.3, Platelet Count 335, Mean Platelet Volume 9.1, Immature Granulocyte % (Auto) 1, Neutrophils (%) (Auto) 87, Lymphocytes (%) (Auto) 6, Monocytes (%) (Auto) 6, Eosinophils (%) (Auto) 0, Basophils (%) (Auto) 0, Neutrophils # (Auto) 10.2, Lymphocytes # (Auto) 0.7, Monocytes # (Auto) 0.7, Eosinophils # (Auto) 0.0, Basophils # (Auto) 0.0, Immature Granulocyte # (Auto) 0.1, Sodium Level 135, Potassium Level 4.2, Chloride Level 101, Carbon Dioxide Level 25, Anion Gap 9, Blood Urea Nitrogen 14, Creatinine 0.78, Estimat Glomerular Filtration Rate 92, BUN/Creatinine Ratio 18, Glucose Level 133, Calcium Level 8.4, Corrected Calcium 9.4, Total Bilirubin 0.3, Aspartate Amino Transf (AST/SGOT) 13, Alanine Aminotransferase (ALT/SGPT) 13, Alkaline Phosphatase 94, Total Protein 4.8, Albumin 2.8 Discharge Home Medications: Active Scripts Active Tessalon Perles (Benzonatate) 100 Mg Capsule 200 Mg PO TID PRN Prednisone 20 Mg Tab 20 Mg PO DAILY Take 3 tabs(60mg)daily,decrease by 1/2 tab(10mg)every other day. Amox Tr-K Clv 875-125 mg Tab (Amoxicillin/Potassium Clav) 875 Mg-125 Mg Tablet 1 Each PO BID Diltiazem 24Hr ER (Diltiazem HCl) 120 Mg Cap.er.24h 120 Mg PO DAILY Multaq (Dronedarone HCl) 400 Mg Tablet 400 Mg PO BID Reported Lidocaine 5 % Cream..g. 1 Applic TP Q12H APPLY TO LEFT LOWER BACK Albuterol Sulfate 2.5 Mg/0.5 Ml Vial.neb 2.5 Mg INH QID Atorvastatin Calcium 20 Mg Tablet 10 Mg PO HS TAKES OF A 20MG TAB Diphenhydramine HCl 25 Mg Tablet 25 Mg PO DAILY Acetaminophen Extra Strength (Acetaminophen) 500 Mg Tablet 1,000 Mg PO BID Nicoderm Cq (Nicotine) 7 Mg/24 Hour Patch.td24 1 Patch TD DAILY PRN Omeprazole 40 Mg Capsule.dr 40 Mg PO DAILY Xarelto Tablet (Rivaroxaban) 20 Mg Tablet 20 Mg PO DAILY Klor-Con 10 (Potassium Chloride) 10 Meq Tablet.er 10 Meq PO DAILY Lasix (Furosemide) 20 Mg Tablet 20 Mg PO DAILY Aspirin EC (Aspirin) 81 Mg Tablet.dr 81 Mg PO DAILY Trazodone HCl 50 Mg Tablet 50 Mg PO HS PRN Guaifenesin 200 Mg Tablet 400 Mg PO BID TAKES 2 (200MG) TABS Neurontin (Gabapentin) 300 Mg Capsule 300 Mg PO BID Montelukast Sodium 10 Mg Tablet 10 Mg PO HS Ventolin Hfa (Albuterol Sulfate) 90 Mcg Hfa.aer.ad 2 Puff IH QID Combivent Respimat Inhal [place] (Albuterol/Ipratropium) 20 Mcg-100 Mcg/Actuation Aero 1 Puff IH QID Fluticasone-Salmeterol 500-50 (Fluticasone Propion/Salmeterol) 500 Mcg-50 Mcg/Dose Blst.w.dev 1 Puff IH BID Instructions to patient/family Please see electronic discharge instructions given to patient. BRYAN SIMMS DO May 24, 2023 12:42
--- NOTE | 2023-05-24 13:08 | Progress Note ---
NICHOLAS YEE 05/24/23 1308: Progress Note Ulises Kaufman is a 78 year old male with a past medical history of lung mass, COPD (on 3L baseline), afib, CAD, HTN, smoker, alcoholism, and recurrent pneumonia. He came into the ED on 05/21/23 with symptoms of dizziness, shortness of breath, and cough. Lab values in the ED were significant for a hemoglobin of 6.6 and BNP of 107. Chest xray in the ED showed no acute cardiopulmonary processes. He was started on IV Zosyn and steroids and he was accepted for admission to cardiac step down unit and cardiology was going to manage care of his afib. His ambulatory amiodarone was changed to Multaq 400mg BID, Cardizem was restarted, and his xarelto was held due to his anemia. He also received two units of blood on 05/21/23. Repeat chest xray on 05/22/23 showed new right lower lobe infiltrate and he was diagnosed with pneumonia. He was continued on IV Zosyn and steroids. On 05/23/23 he felt he had improved and that he just had a residual cough. His daughter was hesitant on him being discharged too early since this was his 8th episode of pneumonia in just the past several months according to her. He was subsequently moved down to the 4th floor to be monitored for one more day. On 05/24/23 he continued to feel that he has improved, he has been out walking the hallways, his hemoglobin had been stable at 8.6, and expresses desire to go home. Given the improvement in his condition and baseline oxygen requirement he is ready for discharge and [facility]. GERALDINE SIMMS DO 05/24/23 1950: Supervisory-Addendum Brief Verification & Attestation Participated in pt care: history, MDM, physical Personally performed: exam, history, MDM, supervision of care Care discussed with: Medical Student Procedures: n/a Results interpretation: Verified all documentation Verification and Attestation of Medical Student E/M Service A medical student performed and documented this service in my presence. I r eviewed and verified all information documented by the medical student and made modifications to such information, when appropriate. I personally performed the physical exam and medical decision making. Geraldine Simms, May 24, 2023,19:50 NICHOLAS YEE May 24, 2023 13:08 GERALDINE SIMMS DO May 24, 2023 19:50
[2023-05-24 13:21] VITALS: BP 112/54
--- NOTE | 2023-05-25 22:52 | Physician Query Clarification ---
PQ-Uncertain Diagnosis Admission/Discharge Admission Date: May 21, 2023 at 21:18 Discharge Date: May 24, 2023 at 15:27 The medical record reflects the following clinical scenario: History/Risk Factors: A 78 years male patient presented with shortness of breath, cough found to have pneumonia, severe respiratory failure was documented in history and physical only. Clinical Findings: ABG pH - 7.38, pCO2 - 44, pO2 - 43 L, o2 saturation 78 L. Treatment: IV antibioitcs, IV steroids, nasal cannula Question: Is severe respiratory failure a clinically valid diagnosis? Severe respiratory failure was documented in the H and P, 05/21 with no further documentation in the medical record. Please document a response in Progress Note or Discharge Summary. 1. Yes, clinically valid, condition resolved. 2. No, condition ruled out. 3. Other, with explanation of clinical findings. 4. Undetermined, no explanation for clinical findings. PHYSICIAN RESPONSE Diagnosis clinically valid: Yes, Conditon resolved In responding to this query, please exercise your independent professional judgment. The purpose of this communication is to more accurately reflect the c omplexity of your patients condition. The fact that a question is asked does not imply that any particular answer is desired or expected. Thank you for your timely response to this clarification. Requestors name: [ ] Phone # [ ] THIS PHYSICIAN QUERY FORM IS A PERMANENT PART OF THE MEDICAL RECORD HUGO BOYCE May 25, 2023 22:52 BRYAN SIMMS DO May 26, 2023 04:56
== END 2023-05-24 15:27 | disposition home or self-care (01) | DRG 193 ==
LOC: EDUNIT# 18:39 → ER 18:40 → CSD 21:18 → 4TH 05-23 14:59
PROVIDERS: ADMIT Family Medicine; ATTEND Internal Medicine
DX: J18.9 Pneumonia, unspecified organism (principal); J96.90 Respiratory failure, unspecified, unspecified whether with hypoxia or hypercapnia; C34.90 Malignant neoplasm of unspecified part of unspecified bronchus or lung; R04.2 Hemoptysis; J43.9 Emphysema, unspecified; F17.210 Nicotine dependence, cigarettes, uncomplicated; Z79.01 Long term (current) use of anticoagulants; F10.20 Alcohol dependence, uncomplicated; Z99.81 Dependence on supplemental oxygen; I25.10 Atherosclerotic heart disease of native coronary artery without angina pectoris; I10 Essential (primary) hypertension; I48.0 Paroxysmal atrial fibrillation; Z20.822 Contact with and (suspected) exposure to COVID-19; Z79.82 Long term (current) use of aspirin; Z79.899 Other long term (current) drug therapy; E78.00 Pure hypercholesterolemia, unspecified; Z86.73 Personal history of transient ischemic attack (TIA), and cerebral infarction without residual deficits; K21.9 Gastro-esophageal reflux disease without esophagitis; M19.90 Unspecified osteoarthritis, unspecified site; G89.29 Other chronic pain; M54.9 Dorsalgia, unspecified; Z92.3 Personal history of irradiation; Z85.828 Personal history of other malignant neoplasm of skin; R60.0 Localized edema; D63.0 Anemia in neoplastic disease
CPT/HCPCS: 36415; 36600; 71045; 80048; 80053; 80320; 82550; 82553; 82805; 82947; 83605; 83735; 83874; 83880; 84484; 85007; 85025; 85027; 85652; 86141; 86850; 86900; 86901; 86920; 87040; 87636; 93005; 93041; 94640; 94664; 94760; 96365; 96375

== ENCOUNTER 2023-07-23 02:24 | Observation (INO) | payer OTHER ==
[2023-07-23] VITALS (8 sets, daily range): BP systolic 108–120; BP diastolic 55–66
[~2023-07-23] VITALS: Ht 172.7 cm; Wt 56.0 kg
[~2023-07-23 02:24] MED LIST changes: +ALB0.5V INH; +BENZ100C18 PO; -DICL100G13 TP; +DICL100G60 TP; +DILT240C91 PO; +DRON400T6 PO; +LIDO15CR9 TP; +MIRT-122 PO; -MIRT-96 PO; +PANT40TA2 PO
[2023-07-23 02:46] LABS: BASOPHILS # (AUTO) 0.1 10^3/uL (0.0-0.1); BASOPHILS % (AUTO) 0 % (0-10); EOSINOPHILS % (AUTO) 0 % (0-10); HEMATOCRIT 38 % (40-54); HEMOGLOBIN 12.3 g/dL (13.3-17.7); LYMPHOCYTES # (AUTO) 1.3 10^3/uL (1.0-4.0); LYMPHOCYTES % (AUTO) 9 % (12-44); MEAN CORPUSCULAR HEMOGLOBIN 29 pg (25-34); MEAN CORPUSCULAR HGB CONC 33 g/dL (32-36); MEAN CORPUSCULAR VOLUME 89 fL (80-99); MEAN PLATELET VOLUME 9.1 fL (9.0-12.2); MONOCYTES # (AUTO) 2.4 10^3/uL (0.0-1.0); MONOCYTES % (AUTO) 16 % (0-12); NEUTROPHILS # (AUTO) 11.4 10^3/uL (1.8-7.8); NEUTROPHILS % (AUTO) 75 % (42-75); PLATELET COUNT 281 10^3/uL (130-400); WHITE BLOOD COUNT 15.3 10^3/uL (4.3-11.0)
--- NOTE | 2023-07-23 02:47 | ED General ---
General Chief Complaint: Chest Wall Stated Complaint: CP Source of Information: Patient, EMS, Old Records (YADIRA JEROME DO) History of Present Illness Date Seen by Provider: Jul 23, 2023 Time Seen by Provider: 02:24 Initial Comments PT ARRIVES VIA EMS FROM HOME C/O CHEST PAIN--LEFT UPPER CHEST AREA--BEGAN SOMETIME TONIGHT --PT DOES NOT KNOW WHEN IT STARTED RATES PAIN 10/10, DOES NOT RADIATE PAIN IS WORSE WITH COUGHING AND BETTER WITH PUSHING ON HIS CHEST ALSO C/O SHORTNESS OF BREATH--PT WITH O2 DEPENDENT COPD--3L/NC, AND LUNG CANCER. HE CONTINUES TO SMOKE UP TO 3 PPD. HE IS NOT CURRENTLY RECEIVING ANY TREATMENT FOR CANCER NO FEVER/SWEATS/CHILLS NO SWELLING IN LEGS/FEET OR PAIN IN CALVES NO GI SYMPTOMS NO CHANGE IN CHRONIC COUGH EMS GAVE 324 MG ASPIRIN, NITROPASTE AND DUO NEB TREATMENT--DUO NEB TREATMENT IS IN PROGRESS ON ARRIVAL EMS REPORT O2 SATS 97-98% ON PT'S REGULAR 3L/NC PT WITH CHRONIC ATRIAL FIBRILLATION, MAINTAINED ON XARELTO, AMIODARONE AND DILTIAZEM PT HAS HAD A MULTITUDE OF VISITS AND ADMITS FOR THESE SAME COMPLAINTS. LAST ADMIT WAS 06/16 AND PT WAS FOUND TO BE SEVERELY ANEMIC PT ALSO WITH LONGSTANDING ALCOHOL ABUSE. HE USED TO DRINK UP TO 3 - 30 PACKS OF BEER A DAY, AND HE HAD WITHDRAWL SYMPTOMS IN THE PAST. HE NOW DRINKS UP TO 3 BEERS A DAY, AND NO LONGER DRINKS EVERY DAY, AND HE DOES NOT HAVE WITHDRAWL SYMPTOMS ANYMORE, ACCORDING TO FAMILY ON PRIOR VISITS. PT STATES HE ONLY SMOKED 4 CIGARETTES TODAY AND HAS NOT HAD ANY ALCOHOL TODAY--STATES "IT'S TOO COLD TO SIT OUTSIDE" TO SMOKE AND DRINK. [facility] [employer]ER: DR. ELIAS ONCOLOGY: DR. THORPE AND DR. MOSLEY (YADIRA JEROME DO) Allergies and Home Medications Allergies Coded Allergies: cefaclor (Verified Allergy, Unknown, HIVES, 06/15/23) diazepam (Verified Allergy, Unknown, 06/15/23) levofloxacin (Verified Allergy, Unknown, HIVES, 06/15/23) Patient Home Medication List Home Medication List Reviewed: Yes (YADIRA JEROME DO) Acetaminophen (Acetaminophen Extra Strength) 500 Mg Tablet, 1,000 MG PO BID, (Reported) Entered as Reported by: LORENZA CHAVARRIA on 03/11/23 1153 Albuterol Sulfate (Ventolin Hfa) 90 Mcg Hfa.aer.ad, 2 PUFF IH QID, (Reported) Entered as Reported by: KARYNA BARRON on 07/11/22 1234 Albuterol Sulfate (Albuterol Sulfate) 2.5 Mg/0.5 Ml Vial.neb, 2.5 MG INH QID, (Reported) Entered as Reported by: KARYNA BARRON on 05/22/23 1311 Albuterol/Ipratropium (Combivent Respimat Inhal Gates) 20 Mcg-100 Mcg/Actuation Aero, 1 PUFF IH QID, (Reported) Entered as Reported by: KARYNA BARRON on 07/11/22 1234 Amiodarone HCl (Amiodarone HCl) 200 Mg Tablet, 200 MG PO DAILY, (Reported) Entered as Reported by: KARYNA BARRON on 06/15/23 1524 Atorvastatin Calcium (Atorvastatin Calcium) 20 Mg Tablet, 10 MG PO HS, (Reported) Entered as Reported by: KARYNA BARRON on 05/22/23 1311 Diltiazem HCl (Diltiazem 24Hr ER) 120 Mg Cap.er.24h, 120 MG PO DAILY, (Reported) Entered as Reported by: KARYNA BARRON on 06/15/23 1524 Diphenhydramine HCl (Diphenhydramine HCl) 25 Mg Tablet, 25 MG PO DAILY, (Reported) Entered as Reported by: LORENZA CHAVARRIA on 03/11/23 1153 Fluticasone Propion/Salmeterol (Fluticasone-Salmeterol 500-50) 500 Mcg-50 Mcg/Dose Blst.w.dev, 1 PUFF IH BID, (Reported) Entered as Reported by: KARYNA BARRON on 07/11/22 1234 Furosemide (Lasix) 20 Mg Tablet, 20 MG PO DAILY, (Reported) Entered as Reported by: KARYNA BARRON on 01/03/23 1543 Gabapentin (Neurontin) 300 Mg Capsule, 300 MG PO BID, (Reported) Entered as Reported by: KARYNA BARRON on 07/11/22 1234 Guaifenesin (Guaifenesin) 200 Mg Tablet, 400 MG PO BID, (Reported) Entered as Reported by: KARYNA BARRON on 07/11/22 1234 Lidocaine (Lidocaine) 5 % Cream..g., 1 APPLIC TP Q12H, (Reported) Entered as Reported by: KARYNA BARRON on 05/22/23 1311 Montelukast Sodium (Montelukast Sodium) 10 Mg Tablet, 10 MG PO HS, (Reported) Entered as Reported by: KARYNA BARRON on 07/11/22 1234 Nicotine (Nicoderm Cq) 7 Mg/24 Hour Patch.td24, 1 PATCH TD DAILY PRN for SMOKING CESSATION, (Reported) Entered as Reported by: MELQUIADES HAMILTON on 03/09/23 1125 Pantoprazole Sodium (Protonix) 40 Mg Tablet.dr, 40 MG PO BID Prescribed by: MARIAH JENSEN on 06/16/23 1627 Potassium Chloride (Klor-Con 10) 10 Meq Tablet.er, 10 MEQ PO DAILY, (Reported) Entered as Reported by: KRAYNA BARORN on 01/03/23 1543 Trazodone HCl (Trazodone HCl) 50 Mg Tablet, 50 MG PO HS PRN for SLEEP, (Reported) Entered as Reported by: KARYNA BARRON on 07/11/22 1234 Review of Systems Review of Systems Constitutional: no symptoms reported EENTM: no symptoms reported Respiratory: see HPI Cardiovascular: see HPI Gastrointestinal: no symptoms reported Genitourinary: no symptoms reported Musculoskeletal: no symptoms reported Skin: no symptoms reported Psychiatric/Neurological: No Symptoms Reported Hematologic/Lymphatic: No Symptoms Reported Immunological/Allergic: no symptoms reported (YADIRA JEROME DO) Past Yvredig-Wrxreo-Odtcgm Hx Patient Social History Tobacco Use?: Yes Tobacco type used: Cigarettes Smoking Status: Heavy Tobacco Smoker Use of E-Cig and/or Vaping dev: No Substance use?: No Alcohol Use?: Yes Alcohol type: Beer Alcohol Frequency: Daily (YADIRA JEROME DO) Immunizations Up To Date Tetanus Booster (TDap): Unknown First/Initial COVID19 Vaccinat: YES Second COVID19 Vaccination John: YES Third COVID19 Vaccination Date: YES (YADIRA JEROME DO) Seasonal Allergies Seasonal Allergies: Yes (YADIRA JEROME DO) Past Medical History Surgery/Hospitalization HX: CHOLECYSTECTOMY/APPENDECTOMY/PARTIAL GASTRECTOMY/BACK SURGERY X4, COPD, AFIB Surgeries: Yes (EGD and Colonoscopy) Abdominal, Appendectomy, Gallbladder, Orthopedic Respiratory: Yes (Lung CA) Pneumonia, COPD Currently Using CPAP: No Currently Using BIPAP: No Cardiac: Yes (RBBB) Atrial Fibrillation, High Cholesterol, Hypertension Neurological: Yes Stroke Reproductive Disorders: No Genitourinary: No Gastrointestinal: Yes Gastroesophageal Reflux, Esophagitis, Ulcer Musculoskeletal: Yes Arthritis, Chronic Back Pain Endocrine: No HEENT: Yes Cataract Loss of Vision: Bilateral Hearing Impairment: Hard of Hearing Cancer: Yes Lung Did You Recieve Any Treatments: Yes What Type of Treatment Did You: Radiation Psychosocial: No Integumentary: No Blood Disorders: No Adverse Reaction/Blood Tranf: No (YADIRA JEROME DO) Family Medical History No Pertinent Family Hx SOCIAL HISTORY: -SMOKED 3 PPD HIS WHOLE LIFE, RECENTLY IS DOWN TO 1 1/2 PPD NOW. -DISCUSSED WITH PT AND DAUGHTER ABOUT HIS ALCOHOL CONSUMPTION--HE USED TO DRINK UP TO 3 - 30 PACKS OF BEER A DAY, AND HE HAD WITHDRAWL SYMPTOMS IN THE PAST. HE NOW DRINKS UP TO 3 BEERS A DAY, AND NO LONGER DRINKS EVERY DAY, AND HE DOES NOT HAVE WITHDRAWL SYMPTOMS ANYMORE. (YADIRA JEROME DO) Physical Exam Vital Signs Vital Signs - First Documented 07/23/23 02:24 Temp 38.1 Pulse 108 Resp 26 B/P (MAP) 101/59 (73) Pulse Ox 97 O2 Delivery Room Air (HANNAH ABEL MD) Vital Signs Capillary Refill : (YADIRA JEROME DO) Height, Weight, BMI Height: 5'8.00" Weight: 154lbs. 0.0oz. 69.083693xp; 550.70 BMI Method:Stated General Appearance: No Apparent Distress, WD/WN, Other (REEKS OF CIGARETTES, FINGERS HEAVILY TOBACCO STAINED. 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 Norm as Tested Skin: Normal Color, Warm/Dry (YADIRA JEROME DO) Focused Exam Lactate Level 07/23/23 02:30: Lactic Acid Level 1.00 (HANNAH ABEL MD) Lactic Acid Level Laboratory Tests Test 07/23/23 02:30 Lactic Acid Level 1.00 MMOL/L (0.50-2.00) (HANNAH ABEL MD) Progress/Results/Core Measures Suspected Sepsis SIRS Temperature: Pulse: Respiratory Rate: Laboratory Tests 07/23/23 02:30: White Blood Count 15.3H Blood Pressure / Mean: 07/23/23 02:30: Lactic Acid Level 1.00 Laboratory Tests 07/23/23 02:30: Creatinine 0.98, INR Comment 1.0, Platelet Count 281, Total Bilirubin 0.6 (YADIRA JEROME DO) Results/Orders Lab Results Laboratory Tests Test 07/23/23 02:30 Range/Units White Blood Count 15.3 H 4.3-11.0 10^3/uL Red Blood Count 4.24 L 4.30-5.52 10^6/uL Hemoglobin 12.3 L 13.3-17.7 g/dL Hematocrit 38 L 40-54 % Mean Corpuscular Volume 89 80-99 fL Mean Corpuscular Hemoglobin 29 25-34 pg Mean Corpuscular Hemoglobin Concent 33 32-36 g/dL Red Cell Distribution Width 16.9 H 10.0-14.5 % Platelet Count 281 130-400 10^3/uL Mean Platelet Volume 9.1 9.0-12.2 fL Immature Granulocyte % (Auto) 1 % Neutrophils (%) (Auto) 75 42-75 % Lymphocytes (%) (Auto) 9 L 12-44 % Monocytes (%) (Auto) 16 H 0-12 % Eosinophils (%) (Auto) 0 0-10 % Basophils (%) (Auto) 0 0-10 % Neutrophils # (Auto) 11.4 H 1.8-7.8 10^3/uL Lymphocytes # (Auto) 1.3 1.0-4.0 10^3/uL Monocytes # (Auto) 2.4 H 0.0-1.0 10^3/uL Eosinophils # (Auto) 0.0 0.0-0.3 10^3/uL Basophils # (Auto) 0.1 0.0-0.1 10^3/uL Immature Granulocyte # (Auto) 0.1 0.0-0.1 10^3/uL Neutrophils % (Manual) 79 % Lymphocytes % (Manual) 5 % Monocytes % (Manual) 15 % Basophils % (Manual) 1 % Blood Morphology Comment NORMAL Erythrocyte Sedimentation Rate 33 H 0-30 MM/HR Prothrombin Time 13.7 12.2-14.7 SEC INR Comment 1.0 0.8-1.4 Activated Partial Thromboplast Time 32 24-35 SEC Sodium Level 134 L 135-145 MMOL/L Potassium Level 4.0 3.6-5.0 MMOL/L Chloride Level 99 98-107 MMOL/L Carbon Dioxide Level 24 21-32 MMOL/L Anion Gap 11 5-14 MMOL/L Blood Urea Nitrogen 17 7-18 MG/DL Creatinine 0.98 0.60-1.30 MG/DL Estimat Glomerular Filtration Rate 80 BUN/Creatinine Ratio 17 Glucose Level 127 H 70-105 MG/DL Lactic Acid Level 1.00 0.50-2.00 MMOL/L Calcium Level 9.2 8.5-10.1 MG/DL Corrected Calcium 9.8 8.5-10.1 MG/DL Magnesium Level 1.9 1.6-2.4 MG/DL Total Bilirubin 0.6 0.1-1.0 MG/DL Aspartate Amino Transf (AST/SGOT) 14 5-34 U/L Alanine Aminotransferase (ALT/SGPT) 12 0-55 U/L Alkaline Phosphatase 109 40-136 U/L Total Creatine Kinase 42 30-200 U/L Creatine Kinase MB 0.7 <6.6 NG/ML Myoglobin 74.0 10.0-92.0 NG/ML Troponin I < 0.028 <0.028 NG/ML C-Reactive Protein High Sensitivity 19.14 H 0.00-0.50 MG/DL B-Type Natriuretic Peptide 109.5 H <100.0 PG/ML Total Protein 6.1 L 6.4-8.2 GM/DL Albumin 3.3 3.2-4.5 GM/DL Free Thyroxine 0.55 L 0.70-1.48 NG/DL TSH [place] Testing 9.70 H 0.35-4.94 UIU/ML Serum Alcohol < 10 <10 MG/DL Influenza Type A (RT-PCR) Not Detected Not Detecte Influenza Type B (RT-PCR) Not Detected Not Detecte SARS-CoV-2 RNA (RT-PCR) Not Detected Not Detecte (HANNAH ABEL MD) Medications Given in ED Current Medications Medications Dose Ordered Sig/Maria De Jesus Route Start Time Stop Time Status Last Admin Dose Admin Acetaminophen 1,000 mg ONCE ONCE PO 07/23/23 03:00 07/23/23 03:01 DC 07/23/23 03:00 1,000 MG Iohexol 100 ml ONCE ONCE IV 07/23/23 03:45 07/23/23 03:48 DC 07/23/23 03:47 59 ML Lactated Ringer's 1,000 ml @ 0 mls/hr Q0M ONCE IV 07/23/23 03:15 07/23/23 03:16 DC 07/23/23 03:17 0 MLS/HR Meropenem 500 mg/ Sodium Chloride 100 ml @ 200 mls/hr ONCE ONCE IV 07/23/23 03:15 07/23/23 03:44 DC 07/23/23 03:17 200 MLS/HR Methylprednisolone Sodium Succinate 125 mg ONCE ONCE IVP 07/23/23 03:15 07/23/23 03:16 DC 07/23/23 03:16 125 MG Sodium Chloride 100 ml ONCE ONCE IV 07/23/23 03:45 07/23/23 03:48 DC 07/23/23 03:47 66 ML (HANNAH ABEL MD) Vital Signs/I&O 07/23/23 07/23/23 02:24 03:00 Temp 38.1 38.1 Pulse 108 Resp 26 B/P (MAP) 101/59 (73) Pulse Ox 97 O2 Delivery Room Air (HANNAH ABEL MD) Vital Signs/I&O Capillary Refill : (YADIRA JEROME DO) Progress Note : Progress Note VITALS ON ARRIVAL: TEMP 38.1, HR 108, RR 26, BP 101/59, O2 SAT 97% ON 3L/NC SEPSIS PROTOCOL INITIATED BP DOWN TO 101/59 AND 105/66 SHORTLY AFTER ARRIVAL. NITROPASTE REMOVED GIVEN: -IV FLUIDS -SOLU-MEDROL -MEROPENEM -TYLENOL STATES HE FEELS BETTER AFTER NEB TREATMENT IS COMPLETE--CHEST PAIN AND SHORTNESS OF BREATH ARE BOTH IMPROVED. LABS: -CBC WITH WBC 15.3, HGB 12.3, PLT 281,000 -CMP WITH GLUCOSE 127, OTHERWISE NORMAL -MG 1.9 -TROPONIN NEGATIVE -BNP 109.5 -PT/PTT/INR NORMAL -LACTIC ACID 1.00 -SED RATE 33 -CRP 19.14 -TSH 9.70 -ETOH NEGATIVE -COVID/FLU NEGATIVE BLOOD CULTURES PENDING EKG WITH CHRONIC RBBB, UNCHANGED FROM PREVIOUS CXR WITH EMMY INFILTRATES, PENDING RADIOLOGIST REVIEW CT CHEST ANGIOGRAM RESULTS STILL PENDING AT END OF MY SHIFT DELAY IN OBTAINING CT RESULTS. 0445--CALLED XRAY--HAVE BEEN INFORMED IT WILL BE AT LEAST ANOTHER HOUR BEFORE IT IS READ. 0600--CARE TURNED OVER TO DR. ABEL, CT RESULTS ARE STILL PENDING. VITALS STABLE, PT HAS BEEN SLEEPING FOR MOST OF ER STAY. NO COMPLAINTS OF CHEST PAIN OR SHORTNESS OF BREATH FOR ENTIRE ER STAY (YADIRA JEROME DO) Progress Note : Time: 06:44 Progress Note Patient reassessed - satting 96-97% on his normal 3L. Labs reviewed; PNeumonia - left upper lobe. Also elevated TSH @ 9 with no history of thyroid disease. Lung sounds diminished bilaterally. No wheezes noted. Case discussed with Dr Mathews - Hospitalist - will admit Obs to medical. (HANNAH ABEL MD) ECG Initial ECG Impression Date: Jul 23, 2023 Initial ECG Impression Time: 02:36 Initial ECG Rate: 108 Initial ECG Rhythm: S.Tach (RBBB) Initial ECG Intervals AL 194 QRS 134 QT/QTC 342/405 Initial ECG Comparisson: Unchanged Comment INTERPRETED BY ME (YADIRA JEROME DO) Diagnostic Imaging Comments CXR--PENDING RADIOLOGIST REVIEW -INCREASED EMMY INFILTRATES Reviewed: Reviewed by Me (YADIRA JEROME DO) Diagonstic Imaging: CT Plain Films/CT/US/NM/MRI: chest Comments [facility]. [place], [place] NAME: JENNIE MAE [facility] REC#: [id number] PT STATUS: REG ER : 1945 PHYSICIAN: YADIRA JEROME DO ADMIT DATE: 07/23/23/ER Signed Date of Exam:07/23/23 CT ANGIO CHEST W (R/O PE) TECHNIQUE: CTA of the chest was performed with contrast bolus timing optimized for evaluation of the pulmonary arteries. 3-D reformats were obtained and reviewed. REASON FOR EXAM: Chest pain. History of lung cancer. COMPARISON: 12/30/2022. FINDINGS: This helical CT pulmonary angiogram is diagnostic to the subsegmental level branches of the pulmonary artery and demonstrates no pulmonary emboli. The heart is enlarged. There is no pericardial effusion. There is no axillary, mediastinal, or hilar adenopathy. Patchy and consolidative opacities are seen in the left upper lobe and left lung base. Interval increase in a solid nodule in the right lung base now measuring 1.2 cm, previously measuring 0.7 cm. Dependent atelectasis is seen in the right lung base. Emphysema is noted throughout the lungs. No pleural effusion or pneumothorax. Osseous structures appear normal. Chronic right-sided rib fractures are noted. Small hiatal hernia. IMPRESSION: 1. No acute pulmonary embolus. 2. Interval increase in size in a solid nodule in the right lung base measuring 1.2 cm, previously measuring 0.7 cm. 3. Patchy and consolidative opacities in the left lung, which may represent multifocal pneumonia. 4. Cardiomegaly. 5. Small hiatal hernia. Dictated by: Dictated on workstation # [id number] Dict: 07/23/2304 Trans: 07/23/2314 MELINDA [id number] Interpreted by: KEVIN MENON DO Electronically signed by: KEVIN MENON DO 07/23/23 0614 (HANNAH ABEL MD) Counseling-Symptomatic: 3-10 Minutes (HANNAH ABEL MD) Departure Communication (Admissions) Time/Spoke to Admitting Phy: 07:[address] Mathews (Hospitalist) (HANNAH ABEL MD) Impression Primary Impression: COPD exacerbation Additional Impressions: History of atrial fibrillation Chest pain Cancer of right lung Qualified Codes: C34.91 - Malignant neoplasm of unspecified part of right bronchus or lung Pneumonia Qualified Codes: J18.9 - Pneumonia, unspecified organism Elevated TSH Disposition: ADMITTED INPATIENT Condition: Stable Admissions Decision to Admit Reason: Admit from ER (General) Decision to Admit/Date: Jul 23, 2023 (YADIRA JEROME DO) Time/Decision to Admit Time: 06:43 (HANNAH ABEL MD) Departure-Patient Inst. Referrals: NO,LOCAL PHYSICIAN (PCP/Family) Primary Care Physician YADIRA JEROME DO Jul 23, 2023 02:47 HANNAH ABEL MD Jul 23, 2023 06:45
[2023-07-23 02:58] LABS: ALBUMIN 3.3 GM/DL (3.2-4.5); CHLORIDE 99 MMOL/L (98-107); PROTHROMBIN TIME PATIENT 13.7 SEC (12.2-14.7); SODIUM 134 MMOL/L (135-145)
[2023-07-23 02:59] LABS: CALCIUM 9.2 MG/DL (8.5-10.1)
[2023-07-23 03:00] LABS: GLUCOSE 127 MG/DL (70-105)
[2023-07-23] MEDS ORDERED: ACETAMINOPHEN 500 MG TABLET PO ONE (03:00)
[2023-07-23 03:01] LABS: CARBON DIOXIDE 24 MMOL/L (21-32); TOTAL PROTEIN 6.1 GM/DL (6.4-8.2)
[2023-07-23 03:02] LABS: BILIRUBIN,TOTAL 0.6 MG/DL (0.1-1.0)
[2023-07-23 03:04] LABS: ALKALINE PHOSPHATASE 109 U/L (40-136); CREATININE SERUM 0.98 MG/DL (0.60-1.30); GFR ESTIMATED 80
[2023-07-23 03:05] LABS: BUN/CREATININE RATIO 17
[2023-07-23 03:07] LABS: ALANINE AMINOTRANSFERASE 12 U/L (0-55); CREATINE KINASE 42 U/L (30-200); MAGNESIUM 1.9 MG/DL (1.6-2.4)
[2023-07-23 03:08] LABS: BASOPHILS % (MANUAL) 1 %; LYMPHOCYTES % (MANUAL) 5 %; MONOCYTES % (MANUAL) 15 %; NEUTROPHILS % (MANUAL) 79 %
[2023-07-23 03:09] LABS: ERYTHROCYTE SEDIMENTATION RATE 33 MM/HR (0-30); RBC MORPH NORMAL
[2023-07-23 03:15] LABS: CREATINE KINASE MB 0.7 NG/ML (<6.6)
[2023-07-23] MEDS ORDERED: methylPREDNISolone INJ 125 MG VIAL IVP ONE (03:15)
[2023-07-23] MEDS ORDERED: LACTATED RINGERS 1,000 ML 1,000 ML IV ONE (03:15)
[2023-07-23] MEDS ORDERED: MEROPENEM INJECTION 500 MG in NS (IVPB) 100 ML 100 ML IV ONE (03:15)
[2023-07-23] MEDS ORDERED: NS 100 ML (IVPB) BAG IV ONE (03:45)
[2023-07-23] MEDS ORDERED: HOLD METFORMIN - RECEIVED CONTRAST 20 ML VIAL IV SCH (03:45)
[2023-07-23] MEDS ORDERED: IOHEXOL 350 MG/ML 100 ML (OMNIPAQUE 350) VIAL IV ONE (03:45)
[2023-07-23 03:59] LABS: FREE T4 (FREE THYROXINE) 0.55 NG/DL (0.70-1.48)
--- NOTE | 2023-07-23 06:14 | Diagnostic Imaging Report ---
TECHNIQUE: CTA of the chest was performed with contrast bolus timing optimized for evaluation of the pulmonary arteries. 3-D reformats were obtained and reviewed. REASON FOR EXAM: Chest pain. History of lung cancer. COMPARISON: 12/30/2022. FINDINGS: This helical CT pulmonary angiogram is diagnostic to the subsegmental level branches of the pulmonary artery and demonstrates no pulmonary emboli. The heart is enlarged. There is no pericardial effusion. There is no axillary, mediastinal, or hilar adenopathy. Patchy and consolidative opacities are seen in the left upper lobe and left lung base. Interval increase in a solid nodule in the right lung base now measuring 1.2 cm, previously measuring 0.7 cm. Dependent atelectasis is seen in the right lung base. Emphysema is noted throughout the lungs. No pleural effusion or pneumothorax. Osseous structures appear normal. Chronic right-sided rib fractures are noted. Small hiatal hernia. IMPRESSION: 1. No acute pulmonary embolus. 2. Interval increase in size in a solid nodule in the right lung base measuring 1.2 cm, previously measuring 0.7 cm. 3. Patchy and consolidative opacities in the left lung, which may represent multifocal pneumonia. 4. Cardiomegaly. 5. Small hiatal hernia. Dictated by: Dictated on workstation # [id number]
[2023-07-23 07:39] LABS: BILIRUBIN,URINE NEGATIVE (NEGATIVE); CLARITY,URINE CLEAR; COLOR,URINE YELLOW; GLUCOSE, URINE (UA) NEGATIVE (NEGATIVE); KETONES,URINE NEGATIVE (NEGATIVE); LEUKOCYTE ESTERASE ,URINE NEGATIVE (NEGATIVE); NITRITE,URINE NEGATIVE (NEGATIVE); PROTEIN,URINE NEGATIVE (NEGATIVE); RBC,URINE RARE /HPF
[2023-07-23 07:40] LABS: BACTERIA,URINE NEGATIVE /HPF; SQUAMOUS EPITHELIAL CELL,UR RARE /HPF; WBC,URINE RARE /HPF
[2023-07-23 07:51] LABS: AMPHETAMINE SCREEN, URINE NEGATIVE (NEGATIVE); BARBITURATE SCREEN URINE NEGATIVE (NEGATIVE); CANNABINOID SCREEN, URINE NEGATIVE (NEGATIVE); COCAINE SCREEN URINE NEGATIVE (NEGATIVE); METHADONE STAT NEGATIVE (NEGATIVE); OPIATE SCREEN URINE NEGATIVE (NEGATIVE); OXYCODONE STAT NEGATIVE (NEGATIVE); TRICYCLIC ANTIDEPRESSANTS SCRE NEGATIVE (NEGATIVE)
--- NOTE | 2023-07-23 08:08 | Diagnostic Imaging Report ---
EXAMINATION: Chest radiograph, portable AP view. DATE: 07/23/2023 2:47 AM INDICATION: 78-year-old male, dyspnea. COMPARISON: June 16, 2023. FINDINGS: Heart size and mediastinal contours appear unchanged. There is an interval increase in consolidation in the left upper lobe. There are also streaky opacities in the left lower lung zone which appear unchanged. IMPRESSION: 1. Interval increase in nonspecific consolidation in the left upper lobe. This may relate to history of lung cancer and/or other alveolar consolidative process. 2. Stable predominantly linear opacities in the left lower lung zone which may relate to infiltrate and/or atelectasis. Dictated by: Dictated on workstation # [id number]
[2023-07-23] MEDS ORDERED: ONDANSETRON 4 MG ORAL DISSOLVE TABLET PO PRN (09:45)
[2023-07-23] MEDS ORDERED: ACETAMINOPHEN 325 MG TABLET PO PRN (09:45)
[2023-07-23] MEDS ORDERED: ANTACID SUSPENSION 30 ML UDC PO PRN (09:45)
[2023-07-23] MEDS ORDERED: MILK OF MAGNESIA 400 MG/5 ML 30 ML UDC PO PRN (09:45)
[2023-07-23] MEDS ORDERED: ONDANSETRON INJECTION 4 MG/2 ML (SDV) IV PRN (09:45)
[2023-07-23] MEDS ORDERED: CALCIUM CARBONATE 500 MG CHEW TABLET PO PRN (09:45)
[2023-07-23] MEDS ORDERED: LACTULOSE SYRUP 10GM/15ML 30ML UDC PO PRN (09:45)
[2023-07-23] MEDS ORDERED: MELATONIN 3 MG TABLET PO PRN (09:45)
[2023-07-23] MEDS ORDERED: BISACODYL 10 MG SUPPOSITORY PR PRN (09:45)
[2023-07-23] MEDS ORDERED: PANTOPRAZOLE 40 MG TABLET PO ONE (10:00)
[2023-07-23] MEDS: ENOXAPARIN 30 MG/0.3 ML SYRINGE SC SCH (10:08)
[2023-07-23] MEDS: LACTATED RINGERS 1,000 ML 1,000 ML IV SCH ×2 (10:08→20:17)
[2023-07-23] MEDS: PIPERACILLIN/Tazobactam 4.5 GM in NS (IVPB) 100 ML 100 ML IV SCH ×2 (10:12→16:24)
[2023-07-23] MEDS ORDERED: PIPERACILLIN/Tazobactam 4.5 GM in NS (IVPB) 100 ML 100 ML IV NR (10:30)
[2023-07-23] MEDS ORDERED: RT-Ipratropium/Albuterol NEB 3 ML VIAL INH PRN (11:00)
--- NOTE | 2023-07-23 14:19 | History & Physical-Hospitalist ---
RUPA JI 07/23/23 1419: History of Present Illness HPI/Chief Complaint Ulises Kaufman is a 78yo M who presented to the ED with left sided chest pain which started last night and was a 10/10. He currently rates his pain a 6/10. Coughing makes it worse, pushing on chest makes it better. It does not radiate. Denies N/V/diarrhea. Endorses SOB with non-productive cough. He has a history of lung cancer that started in the [facility] and according to imaging seems to have metastasized to the R lung. He is seeing Dr. Terry for this and has previously been treated with radiation. He has a history of chronic afib and is supposedly taking xarelto, but this is not on his home med list. He is allergic to cefaclor and levofloxacin. He smokes 3ppd according to records and has a history of heavy alcohol use. He does not want to stop smoking. On arrival, he was febrile, tachycardic, and tachypnic, but currently vitals are stable. WBC count and glucose elevated. UA, LFTs, and Troponin were non- contributory. CRP, ESR, elevated. TSH elevated with low T4. Hypothyroidism likely. CXR: 1. Interval increase in nonspecific consolidation in the left upper lobe. This may relate to history of lung cancer and/or other alveolar consolidative process. 2. Stable predominantly linear opacities in the left lower lung zone which may relate to infiltrate and/or atelectasis. CTA of chest and thorax: 1. No acute pulmonary embolus. 2. Interval increase in size in a solid nodule in the right lung base measuring 1.2 cm, previously measuring 0.7 cm. 3. Patchy and consolidative opacities in the left lung, which may represent multifocal pneumonia. 4. Cardiomegaly. 5. Small hiatal hernia. Source: patient, RN/MD Exam Limitations: no limitations Date Seen 07/23/23 Time Seen by a Provider: 10:00 Attending Physician No,Local Physician PCP Admitting Physician: Chelsey Rivera MD Attending Physician: Chelsey Rivera MD Referring Physician Date of Admission Jul 23, 2023 at 07:24 Home Medications & Allergies Home Medications Reviewed patient Home Medication Reconciliation performed by pharmacy medication reconciliations mapping technician and/or nursing. Patients Allergies have been reviewed. Allergies Allergies Coded Allergies cefaclor (Verified Allergy, Unknown, HIVES, 06/15/23) diazepam (Verified Allergy, Unknown, 06/15/23) levofloxacin (Verified Allergy, Unknown, HIVES, 06/15/23) Past Vomohpr-Mpuyff-Qmdynr Hx Patient Social History Tobacco Use?: Yes Tobacco type used: Cigarettes (was 3ppd, now 1/2ppd) Smokeless Tobacco Frequency: Never a User Use of E-Cig and/or Vaping dev: No Substance use?: No Alcohol Use?: Yes Alcohol type: Beer Alcohol Frequency: Once in a while Pt feels they are or have been: No Immunizations Up To Date Date of Influenza Vaccine: Jun 08, 2023 First/Initial COVID19 Vaccinat: YES Second COVID19 Vaccination John: YES Tetanus Booster (TDap): Unknown Hepatitis A: No Hepatitis B: No Date of Pneumonia Vaccine: Sep 15, 2011 Seasonal Allergies Seasonal Allergies: Yes Current Status Advance Directives: Yes Advance Directive Location: Home Communicates: Verbally Primary Language: [place] Preferred Spoken Language: [place] Is interpretation needed?: No Past Medical History Surgeries: Abdominal, Appendectomy, Gallbladder, Orthopedic Pneumonia, COPD Currently Using CPAP: No Currently Using BIPAP: No Atrial Fibrillation, High Cholesterol, Hypertension Stroke Gastroesophageal Reflux, Esophagitis, Ulcer Arthritis, Chronic Back Pain Cataract Loss of Vision: Bilateral Hearing Impairment: Hard of Hearing Lung Did You Recieve Any Treatments: Yes What Type of Treatment Did You: Radiation Blood Disorders: No Adverse Reaction/Blood Tranf: No Family Medical History No Pertinent Family Hx SOCIAL HISTORY: -SMOKED 3 PPD HIS WHOLE LIFE, RECENTLY IS DOWN TO 1 1/2 PPD NOW. -DISCUSSED WITH PT AND DAUGHTER ABOUT HIS ALCOHOL CONSUMPTION--HE USED TO DRINK UP TO 3 - 30 PACKS OF BEER A DAY, AND HE HAD WITHDRAWL SYMPTOMS IN THE PAST. HE NOW DRINKS UP TO 3 BEERS A DAY, AND NO LONGER DRINKS EVERY DAY, AND HE DOES NOT HAVE WITHDRAWL SYMPTOMS ANYMORE. Review of Systems Constitutional: No chills, No diaphoresis, No dizziness; fever (resolved ) EENTM: No ear discharge, No blurred vision, No double vision Respiratory: cough; No hemoptysis, No phlegm; short of breath Cardiovascular: chest pain; No edema, No palpitations Gastrointestinal: No abdominal pain, No constipation, No diarrhea, No jaundice, No nausea Genitourinary: No dysuria, No hematuria Musculoskeletal: No back pain, No joint pain Skin: No change in color, No change in hair/nails Physical Exam Physical Exam Vital Signs Vital Signs - First Documented 07/23/23 07/23/23 02:24 07:20 Temp 38.1 Pulse 108 Resp 26 B/P (MAP) 101/59 (73) Pulse Ox 97 O2 Delivery Room Air O2 Flow Rate 4.00 Capillary Refill : Less Than 3 Seconds Height, Weight, BMI Height: 5'8.00" Weight: 154lbs. 0.0oz. [id number]; 18.77 BMI Method:Stated General Appearance: Chronically ill, Thin Eyes: Bilateral Eye Normal Inspection, Bilateral Eye PERRL HEENT: PERRL/EOMI; No Photophobia, No Scleral Icterus (L), No Scleral Icterus (R) Neck: Non Tender, Supple Respiratory: No Accessory Muscle Use, No Respiratory Distress, Crackles (LLL) Cardiovascular: No Edema, Normal Peripheral Pulses Gastrointestinal: No Organomegaly, No Pulsatile Mass, Non Tender, Soft; No Distended, No Guarding Rectal: Deferred Back: No CVA Tenderness, No Vertebral Tenderness Extremity: Non Tender; No Calf Tenderness, No Inflammation, No Pedal Edema Neurologic/Psychiatric: Alert, Oriented x3, Other (irritated) Skin: Warm/Dry; No Diaphoresis, No Ecchymosis, No Erythema, No Jaundice Lymphatic: No Adenopathy Results Results/Procedures Labs Laboratory Tests 07/23/23 02:30 Patient resulted labs reviewed. Assessment/Plan Admission Diagnosis Sepsis /Pneumonia Admission Status: Inpatient Order (span 2 midnights) Reason for Inpatient Admission: IV antibiotics Assessment and Plan 1. Pneumonia IV zosyn, LR 2. Lung Cancer Refer to Dr. Devlin 3. Sepsis IV zosyn, fluids 4, Hypothyroidism Start Levothyroxine 5. Chronic Afib Amiodarone, Diltiazem consider restarting xarelto for therapeutic anticoagulation 6. Hyperglycemia Hgb A1c Sliding scale insulin repeat glucometer readings 7. COPD albuterol, fluticasone, prednisone 8. Tobaccoism 9. Hx of alcohol use disorder 10. DVT prophylaxis therapeutic anticoagulation on xarelto Diagnosis/Problems Diagnosis/Problems (1) Hypothyroidism (2) Lung mass Status: Acute (3) Left lower lobe pneumonia Status: Acute (4) Cancer of left lung Status: Acute (5) Sepsis Status: Acute (6) Pneumonia Status: Acute Qualifiers: Pneumonia type: due to unspecified organism Laterality: left Lung location: upper lobe of lung Qualified Codes: J18.9 - Pneumonia, unspecified organism (7) Cancer of right lung Status: Acute Qualifiers: Lung location: unspecified part of lung Qualified Codes: C34.91 - Malignant neoplasm of unspecified part of right bronchus or lung Clinical Quality Measures Smoking Cessation Counseling: Counseling-Symptomatic: 3-10 Minutes CHELSEY RIVERA MD 07/23/23 1627: History of Present Illness Time Seen by a Provider: 11:50 Past Fqaendi-Jhqwim-Iwslfl Hx Patient Social History Tobacco Use?: Yes Tobacco type used: Cigarettes (was 3ppd, now 1/2ppd) Substance use?: No Alcohol Use?: Yes Alcohol type: Beer Family Medical History No Pertinent Family Hx Results Results/Procedures Imaging: Reviewed Imaging Report Assessment/Plan Admission Diagnosis Admission Status: Observation Assessment and Plan Admitted with sepsis due to pneumonia. Started on fluids and antibiotics, improving. Also giving steroids and breathing treatments for COPD. Diagnosis/Problems Diagnosis/Problems (1) Sepsis Status: Acute (2) Pneumonia Status: Acute Qualifiers: Pneumonia type: due to unspecified organism Laterality: left Lung location: upper lobe of lung Qualified Codes: J18.9 - Pneumonia, unspecified organism (3) Hypothyroidism (4) Lung mass Status: Acute (5) Left lower lobe pneumonia Status: Acute (6) Cancer of left lung Status: Acute (7) Cancer of right lung Status: Acute Qualifiers: Lung location: unspecified part of lung Qualified Codes: C34.91 - Malignant neoplasm of unspecified part of right bronchus or lung (8) Metastatic primary lung cancer Status: Chronic Supervisory-Addendum Brief Verification & Attestation Participated in pt care: history, MDM, physical Personally performed: exam, history, MDM, supervision of care Care discussed with: Medical Student Procedures: n/a A medical student performed and documented this service in my presence. I reviewed and verified all information documented by the medical student and made modifications to such information, when appropriate. I personally performed the physical exam and medical decision making. RUPA JI Jul 23, 2023 14:19 CHELSEY RIVERA MD Jul 23, 2023 16:27
[2023-07-23] MEDS: RT-Ipratropium/Albuterol NEB 3 ML VIAL INH SCH ×3 (14:29→22:03)
[2023-07-23] MEDS ORDERED: traZODone 50 MG (DESYREL) TAB PO PRN (16:30)
[2023-07-23] MEDS: PANTOPRAZOLE 40 MG TABLET PO SCH (20:18)
[2023-07-23] MEDS: DOCUSATE SODIUM 100 MG CAPSULE PO SCH (20:18)
[2023-07-23] MEDS: SENNOSIDES 8.6 MG TABLET PO SCH (20:18)
[2023-07-23] MEDS: GABAPENTIN 300 MG CAPSULE PO SCH (20:18)
[2023-07-23] MEDS ORDERED: MONTELUKAST 10 MG TABLET PO SCH (21:00)
[2023-07-24] MEDS: PIPERACILLIN/Tazobactam 4.5 GM in NS (IVPB) 100 ML 100 ML IV SCH ×2 (00:10→08:24)
[2023-07-24] MEDS: LACTATED RINGERS 1,000 ML 1,000 ML IV SCH ×2 (00:10→15:35)
[2023-07-24 00:11] VITALS: BP 101/59
[2023-07-24] MEDS: RT-Ipratropium/Albuterol NEB 3 ML VIAL INH SCH ×4 (02:02→15:34)
[2023-07-24 04:28] VITALS: BP 95/55
[2023-07-24 05:58] LABS: BASOPHILS % (AUTO) 0 % (0-10); EOSINOPHILS % (AUTO) 0 % (0-10); HEMATOCRIT 33 % (40-54); HEMOGLOBIN 10.4 g/dL (13.3-17.7); LYMPHOCYTES # (AUTO) 1.1 10^3/uL (1.0-4.0); LYMPHOCYTES % (AUTO) 7 % (12-44); MEAN CORPUSCULAR HEMOGLOBIN 28 pg (25-34); MEAN CORPUSCULAR HGB CONC 32 g/dL (32-36); MEAN CORPUSCULAR VOLUME 89 fL (80-99); MEAN PLATELET VOLUME 9.1 fL (9.0-12.2); MONOCYTES # (AUTO) 1.6 10^3/uL (0.0-1.0); MONOCYTES % (AUTO) 9 % (0-12); NEUTROPHILS # (AUTO) 14.1 10^3/uL (1.8-7.8); NEUTROPHILS % (AUTO) 84 % (42-75); PLATELET COUNT 257 10^3/uL (130-400); WHITE BLOOD COUNT 16.9 10^3/uL (4.3-11.0)
[2023-07-24 06:16] LABS: CALCIUM 9.3 MG/DL (8.5-10.1); CREATININE SERUM 0.85 MG/DL (0.60-1.30); POTASSIUM 4.4 MMOL/L (3.6-5.0)
[2023-07-24] MEDS ORDERED: predniSONE 20 MG TABLET PO SCH (07:00)
[2023-07-24] MEDS ORDERED: FUROSEMIDE 20 MG TABLET PO SCH (07:00)
[2023-07-24 07:21] VITALS: BP 112/84
[2023-07-24] MEDS ORDERED: FLUTICASONE/VILANTEROL 200/25 MCG (7 DOSES) IH SCH (08:00)
[2023-07-24] MEDS: ENOXAPARIN 30 MG/0.3 ML SYRINGE SC SCH (08:15)
[2023-07-24] MEDS: PANTOPRAZOLE 40 MG TABLET PO SCH (08:16)
[2023-07-24] MEDS: GABAPENTIN 300 MG CAPSULE PO SCH (08:16)
[2023-07-24] MEDS: DOCUSATE SODIUM 100 MG CAPSULE PO SCH (08:16)
[2023-07-24] MEDS: SENNOSIDES 8.6 MG TABLET PO SCH (08:16)
[2023-07-24] MEDS ORDERED: dilTIAZem ER 120 MG CAPSULE PO SCH (09:00)
[2023-07-24] MEDS ORDERED: AMIODARONE 200 MG TABLET PO SCH (09:00)
[2023-07-24 11:15] VITALS: BP 116/58
[2023-07-24] MEDS ORDERED: LEVOTHYROXINE 50 MCG TABLET PO ONE (11:30)
--- NOTE | 2023-07-24 11:35 | Discharge Inst-Simple/Standard ---
Discharge Inst-Standard Discharge Medications New, Converted or Re-Newed RX: Transmitted to Pharmacy Patient Instructions/Follow Up Plan of Care/Instructions/FU: Please continue to take your medications as written. Please follow up with your primary care doctor to follow up this hospital stay. Activity as Tolerated: Yes Discharge Diet: No Restrictions Return to The Hospital For: Chest pain, shortness of breath, weakness, fever, confusion, if you feel you are getting worse. Planned Outpatient Orders/Ref. Resume home health orders. MARIAH JENSEN MD Jul 24, 2023 11:35
--- NOTE | 2023-07-24 11:37 | Occupational Therapy Eval ---
OT Evaluation-General/PLF Medical Diagnosis Admission Date Jul 23, 2023 at 07:24 Medical Diagnosis: CP/SOA Onset Date: Jul 23, 2023 Therapy Diagnosis Therapy Diagnosis: weakness Height/Weight Height (Feet): 5 Height (Inches): 8.00 Weight (Pounds): 154 Weight (Ounces): 0.0 Precautions Precautions/Isolations: Fall Prevention, Standard Precautions Referral Referral Reason: Activity Tolerance, Self Care, Evaluation/Treatment Medical History Pertinent Medical History: Atrial Fib, CAD, COPD, CVA, HTN, Smoking Additional Medical History 78yo M who presented to the ED with left sided chest pain which started last night and was a 10/10. He currently rates his pain a 6/10. Coughing makes it worse, pushing on chest makes it better. It does not radiate. Denies N/V/diarrhea. Endorses SOB with non-productive cough. He has a history of lung cancer that started in the [facility] and according to imaging seems to have metastasized to the R lung. He is seeing Dr. Terry for this and has previously been treated with radiation. He has a history of chronic afib and is supposedly taking xarelto, but this is not on his home med list. He is allergic to cefaclor and levofloxacin. He smokes 3ppd according to records and has a history of heavy alcohol use. He does not want to stop smoking. Reviewed History: Yes Social History Home: Single Level Current Living Status: Alone ADL-Prior Level of Function SCALE: Activities may be completed with or without assistive devices. 6-Xlxpquqntg-qfzqsql completes the activity by him/herself with no assistance from a helper. 5-Set-up or Clean-up Assistance-helper sets up or cleans up; patient completes activity. [place] assists only prior to or following the activity. 4-Supervision or Touching Assistance-helper provides verbal cues and/or touching/steadying and/or contact guard assistance as patient completes activity. Assistance may be provided throughout the activity or intermittently. 3-Partial/Moderate Assistance-helper does LESS THAN HALF the effort. [place] lifts, holds or supports trunk or limbs, but provides less than half the effort. 2-Substantial/Maximal Assistance-helper does MORE THAN HALF the effort. [place] lifts or holds trunk or limbs and provides more than half the effort. 0-Djfwpmgje-kaxxzu does ALL the effort. Patient does none of the effort to complete the activity. Or, the assistance of 2 or more helpers is required for the patient to complete the activity. If activity was not attempted, code reason: 7-Patient Refused. 9-Not Applicable-not attempted and the patient did not perform the activity before the current illness, exacerbation or injury. 10-Not Attempted due to Environmental Limitations-(lack of equipment, weather restraints, etc.). 88-Not Attempted due to Medical Conditions or Safety Concerns. Self Care: Independent Functional Cognition: Independent OT Current Status Subjective Agreeable for therapy Pain Location: No Pain Reported Mental Status/Objective Patient Orientation: Person, Place, Time, Situation Attachments: IV, Oxygen Current Hand Dominance: Right Upper Extremity ROM BUE ROM WFLS Upper Extremity Coordination WFLs, GMC/FMC Upper Extremity Strength -4/5 grossly ADL-Treatment ADL-Current Patient request assistance to ambulate to bathroom w/ urinal, unsuccessful void, hand washing at sink standing w/ FWW, slow responses and mobility is guarded Eating (QC): 5 Oral Hygiene (QC): 5 Shower/Bathe Self (QC): 7 Upper Body Dressing (QC): 4 Lower Body Dressing (QC): 4 On/Off Footwear (QC): 5 Toileting Hygiene (QC): 5 Education OT Patient Education: Correct positioning, Modified ADL techniques, Progress toward Goal/Update tx plan, Purpose of tx/functional activities, Reviewed precautions, Rehab process, Safety issues, Transfer techniques, Use of adapted equipment Teaching Recipient: Patient Teaching Methods: Demonstration, Discussion Response to Teaching: Reinforcement Needed OT Custodial Goals Custodial Goals Eating (QC): 6 Oral Hygiene (QC): 6 Toileting Hygiene (QC): 6 Shower/Bathe Self (QC): 6 Upper Body Dressing (QC): 6 Lower Body Dressing (QC): 6 On/Off Footwear (QC): 6 1=Demonstrate adherence to instructed precautions during ADL tasks. 2=Patient will verbalize/demonstrate understanding of assistive devices/modifications for ADL. 3=Patient will improve strength/tolerance for activity to enable patient to perform ADL's. OT Education/Plan Problem List/Assessment Assessment: Decreased Activ Tolerance, Decreased Safety Aware, Impaired Coordination, Impaired Funct Balance, Impaired Self-Care Skills Discharge Recommendations Plan/Recommendations: Continue POC Therapy Discharge Recommendati: Post Acute OT (if agreeable) Treatment Plan/Plan of Care Treatment,Training & Education: Yes Patient would benefit from OT for education, treatment and training to promote independence in ADL's, mobility, safety and/or upper extremity function for ADL's. Plan of Care: ADL Retraining, Functional Mobility, Group Exercise/Act as Ind, UE Funct Exercise/Act Treatment Duration: Jul 28, 2023 Frequency: 3 times per week Estimated Hrs Per Day: .25 hour per day Agreement: Yes Rehab Potential: Guarded Time Start Time: 10:10 Stop Time: 10:25 DATE: Jul 24, 2023 Total Time Billed (hr/min): 15 Billed Treatment Time EVM 15 CONSTANTIN MANZANO OT Jul 24, 2023 11:37
[2023-07-24] MEDS ORDERED: PRD20T PO (11:40)
[2023-07-24] MEDS ORDERED: LEVO50TA PO (11:40)
[2023-07-24] MEDS ORDERED: AMOX1TAB12 PO (11:40)
--- NOTE | 2023-07-24 11:54 | Physical Therapy Evaluation ---
PT Evaluation-General Medical Diagnosis Admission Date Jul 23, 2023 at 07:24 Medical Diagnosis: CP/SOA Onset Date: Jul 23, 2023 Therapy Diagnosis Therapy Diagnosis: debility Height/Weight Height (Feet): 5 Height (Inches): 8.00 Weight (Pounds): 154 Weight (Ounces): 0.0 Precautions Precautions/Isolations: Fall Prevention, Standard Precautions Referral Physician: Bisi Reason for Referral: Evaluation/Treatment Medical History Pertinent Medical History: Atrial Fib, CAD, COPD, CVA, HTN, Smoking Current History EMS secondary to CP Reviewed History: Yes Social History Home: Single Level Current Living Status: Alone Prior Prior Level of Function SCALE: Activities may be completed with or without assistive devices. 1-Xtpbatbkzr-rlgngjq completes the activity by him/herself with no assistance from a helper. 5-Set-up or Clean-up Assistance-helper sets up or cleans up; patient completes activity. [place] assists only prior to or following the activity. 4-Supervision or Touching Assistance-helper provides verbal cues and/or touching/steadying and/or contact guard assistance as patient completes activity. Assistance may be provided throughout the activity or intermittently. 3-Partial/Moderate Assistance-helper does LESS THAN HALF the effort. [place] lifts, holds or supports trunk or limbs, but provides less than half the effort. 2-Substantial/Maximal Assistance-helper does MORE THAN HALF the effort. [place] l ifts or holds trunk or limbs and provides more than half the effort. 8-Fwuiztrui-xypnzi does ALL the effort. Patient does none of the effort to complete the activity. Or, the assistance of 2 or more helpers is required for the patient to complete the activity. If activity was not attempted, code reason: 7-Patient Refused. 9-Not Applicable-not attempted and the patient did not perform the activity before the current illness, exacerbation or injury. 10-Not Attempted due to Environmental Limitations-(lack of equipment, weather restraints, etc.). 88-Not Attempted due to Medical Conditions or Safety Concerns. Bed Mobility: 6 Transfers (B,C,W/C): 6 Gait: 6 Indoor Mobility (Ambulation): Independent Stairs: Independent Prior Devices Use: Walker (occasionally) PT Evaluation-Current Subjective Patient agrees to therapy. Objective Patient Orientation: Normal For Age Attachments: Oxygen ROM/Strength ROM Lower Extremities bilateral LE WFL Strength Lower Extremities 4/5 grossly bilateral LE Integumentary/Posture Bowel Incontinence: No Bladder Incontinence: No Posture WFL Neuromuscular (Tone, Coordination, Reflexes) grossly intact Sensory Vision: Functional Hand Dominance: Right Transfers Lying to Sitting/Side of Bed(Q: 6 Sit to Stand (QC): 6 Chair/Hhw-om-Wcugb Xfer(QC): 6 Gait Mode of Locomotion: Walk Anticipated Mode of Locomotion: Walk Walk 10 feet (QC): 5 Walk 50 ft with 2 Turns(QC): 5 Walk 150 ft (QC): 5 Gait Assistive Device: FWW Comments/Gait Description safe and functional with no deviation Balance Sitting Static: Normal Sitting Dynamic: Normal Standing Static: Normal Standing Dynamic: Normal Assessment/Needs Patient is currently at [facility] with all gross motor skills safely and does not require skilled PT intervention at this time. Rehab Potential: Poor PT Plan Treatment/Plan Treatment Plan: Discontinue PT Treatment Duration: Jul 24, 2023 Frequency: 1 time per week Estimated Hrs Per Day: .25 hour per day Patient and/or Family Agrees t: Yes Time Time In: 1044 Time Out: 1055 DATE: Jul 24, 2023 Total Billed Treatment Time: 11 Total Billed Treatment 1 visit EVMod 11 min JOSS VAZQUEZ PT Jul 24, 2023 11:54
--- NOTE | 2023-07-24 13:36 | Discharge Summary ---
Diagnosis/Chief Complaint Date of Admission Jul 23, 2023 at 07:24 Date of Discharge Discharge Date: Jul 24, 2023 Admission Diagnosis Primary Care No,Local Physician Discharge Diagnosis (1) Sepsis Status: Acute (2) Pneumonia Status: Acute (3) Hypothyroidism (4) Lung mass Status: Acute (5) Left lower lobe pneumonia Status: Acute (6) Cancer of left lung Status: Acute (7) Cancer of right lung Status: Acute (8) Metastatic primary lung cancer Status: Chronic Discharge Summary Discharge Physical Exam Allergies: Coded Allergies: cefaclor (Verified Allergy, Unknown, HIVES, 06/15/23) diazepam (Verified Allergy, Unknown, 06/15/23) levofloxacin (Verified Allergy, Unknown, HIVES, 06/15/23) Vitals & I&Os Vital Signs Date Time Temp Pulse Resp B/P (MAP) Pulse Ox O2 Delivery O2 Flow Rate FiO2 07/24/23 11:15 36.3 88 17 116/58 (77) 98 Nasal Cannula 4.00 Hospital Course Labs (last 24 hrs) Laboratory Tests 07/24/23 05:48: White Blood Count 16.9H, Red Blood Count 3.67L, Hemoglobin 10.4L, Hematocrit 33L , Mean Corpuscular Volume 89, Mean Corpuscular Hemoglobin 28, Mean Corpuscular Hemoglobin Concent 32, Red Cell Distribution Width 16.5H, Platelet Count 257, Mean Platelet Volume 9.1, Immature Granulocyte % (Auto) 1, Neutrophils (%) (Auto) 84H, Lymphocytes (%) (Auto) 7L, Monocytes (%) (Auto) 9, Eosinophils (%) (Auto) 0, Basophils (%) (Auto) 0, Neutrophils # (Auto) 14.1H, Lymphocytes # (A uto) 1.1, Monocytes # (Auto) 1.6H, Eosinophils # (Auto) 0.0, Basophils # (Auto) 0.0, Immature Granulocyte # (Auto) 0.1, Sodium Level 137, Potassium Level 4.4, Chloride Level 105, Carbon Dioxide Level 25, Anion Gap 7, Blood Urea Nitrogen 17, Creatinine 0.85, Estimat Glomerular Filtration Rate 90, BUN/Creatinine Ratio 20, Glucose Level 149H, Calcium Level 9.3 Microbiology 07/23/23 Blood Culture - Preliminary, Resulted Patient resulted labs reviewed. Pending Labs Laboratory Tests 07/24/23 05:48: White Blood Count 16.9, Red Blood Count 3.67, Hemoglobin 10.4, Hematocrit 33, Mean Corpuscular Volume 89, Mean Corpuscular Hemoglobin 28, Mean Corpuscular Hemoglobin Concent 32, Red Cell Distribution Width 16.5, Platelet Count 257, Mean Platelet Volume 9.1, Immature Granulocyte % (Auto) 1, Neutrophils (%) (Auto) 84, Lymphocytes (%) (Auto) 7, Monocytes (%) (Auto) 9, Eosinophils (%) (Auto) 0, Basophils (%) (Auto) 0, Neutrophils # (Auto) 14.1, Lymphocytes # (Auto) 1.1, Monocytes # (Auto) 1.6, Eosinophils # (Auto) 0.0, Basophils # (Auto) 0.0, Immature Granulocyte # (Auto) 0.1, Sodium Level 137, Potassium Level 4.4, Chloride Level 105, Carbon Dioxide Level 25, Anion Gap 7, Blood Urea Nitrogen 17, Creatinine 0.85, Estimat Glomerular Filtration Rate 90, BUN/Creatinine Ratio 20, Glucose Level 149, Calcium Level 9.3 Imaging: Reviewed Imaging Report Discharge Home Medications: Active Scripts Active Amox Tr-K Clv 875-125 mg Tab (Amoxicillin/Potassium Clav) 875 Mg-125 Mg Tablet 1 Each PO BID Prednisone 20 Mg Tab 40 Mg PO DAILY@0700 Synthroid (Levothyroxine Sodium) 50 Mcg Tablet 50 Mcg PO DAILY@0630 Protonix (Pantoprazole Sodium) 40 Mg Tablet.dr 40 Mg PO BID Reported Diltiazem 24Hr ER (Diltiazem HCl) 120 Mg Cap.er.24h 120 Mg PO DAILY Amiodarone HCl 200 Mg Tablet 200 Mg PO DAILY Lidocaine 5 % Cream..g. 1 Applic TP Q12H APPLY TO LEFT LOWER BACK Albuterol Sulfate 2.5 Mg/0.5 Ml Vial.neb 2.5 Mg INH QID Atorvastatin Calcium 20 Mg Tablet 10 Mg PO HS TAKES OF A 20MG TAB Diphenhydramine HCl 25 Mg Tablet 25 Mg PO DAILY Acetaminophen Extra Strength (Acetaminophen) 500 Mg Tablet 1,000 Mg PO BID Nicoderm Cq (Nicotine) 7 Mg/24 Hour Patch.td24 1 Patch TD DAILY PRN Klor-Con 10 (Potassium Chloride) 10 Meq Tablet.er 10 Meq PO DAILY Lasix (Furosemide) 20 Mg Tablet 20 Mg PO DAILY Trazodone HCl 50 Mg Tablet 50 Mg PO HS PRN Guaifenesin 200 Mg Tablet 400 Mg PO BID TAKES 2 (200MG) TABS Neurontin (Gabapentin) 300 Mg Capsule 300 Mg PO BID Montelukast Sodium 10 Mg Tablet 10 Mg PO HS Ventolin Hfa (Albuterol Sulfate) 90 Mcg Hfa.aer.ad 2 Puff IH QID Combivent Respimat Inhal [place] (Albuterol/Ipratropium) 20 Mcg-100 Mcg/Actuation Aero 1 Puff IH QID Fluticasone-Salmeterol 500-50 (Fluticasone Propion/Salmeterol) 500 Mcg-50 Mcg/Dose Blst.w.dev 1 Puff IH BID Instructions to patient/family Please see electronic discharge instructions given to patient. Clinical Quality Measures Smoking Cessation Counseling: Counseling-Symptomatic: 3-10 Minutes Problem Qualifiers (1) Pneumonia: Pneumonia type: due to unspecified organism Laterality: left Lung location: upper lobe of lung Qualified Codes: J18.9 - Pneumonia, unspecified organism (2) Cancer of right lung: Lung location: unspecified part of lung Qualified Codes: C34.91 - Malignant neoplasm of unspecified part of right bronchus or lung MARIAH JENSEN MD Jul 24, 2023 13:36
[2023-07-24 15:18] VITALS: BP 117/68
[2023-07-24 16:45] VITALS: BP 117/68
[2023-07-25] MEDS ORDERED: LEVOTHYROXINE 50 MCG TABLET PO SCH (06:30)
== END 2023-07-24 16:45 | disposition home or self-care (01) ==
LOC: EDUNIT# 02:24 → ER 02:25 → 4TH 07:24
PROVIDERS: ADMIT Internal Medicine; ATTEND Internal Medicine
DX: A41.9 Sepsis, unspecified organism (principal); J18.9 Pneumonia, unspecified organism; R91.8 Other nonspecific abnormal finding of lung field; J18.1 Lobar pneumonia, unspecified organism; C34.92 Malignant neoplasm of unspecified part of left bronchus or lung; C34.91 Malignant neoplasm of unspecified part of right bronchus or lung; C79.9 Secondary malignant neoplasm of unspecified site; E03.9 Hypothyroidism, unspecified; I48.20 Chronic atrial fibrillation, unspecified; R73.9 Hyperglycemia, unspecified; J44.9 Chronic obstructive pulmonary disease, unspecified; J44.1 Chronic obstructive pulmonary disease with (acute) exacerbation; R94.6 Abnormal results of thyroid function studies; F17.210 Nicotine dependence, cigarettes, uncomplicated; Z86.59 Personal history of other mental and behavioral disorders; Z79.01 Long term (current) use of anticoagulants; Z79.899 Other long term (current) drug therapy
CPT/HCPCS: 36415; 71045; 71275; 80048; 80053; 80306; 80320; 81000; 82550; 82553; 83605; 83735; 83874; 83880; 84439; 84443; 84484; 85007; 85025; 85027; 85610; 85652; 85730; 86141; 87040; 87636; 93005; 93041; 94640; 94760; 96365; 96366; 96372; 96375; 96376; G0378

== ENCOUNTER 2023-08-07 00:26 | Inpatient (IN) | payer OTHER ==
[~2023-08-07] VITALS: Ht 172 cm; Wt 55.2 kg
[~2023-08-07 00:26] MED LIST changes: +LEVO50TA PO
--- NOTE | 2023-08-07 00:53 | ED Chest Pain ---
General Chief Complaint: Chest Pain Stated Complaint: CHEST PAIN Nursing Triage Note: PATIENT ARRIVED VIA EMS, STATES CP SINCE THIS AFTERNOON AROUND 1130. PATIENT GIVEN ASA AND NITRO VIA EMS WITH NO RELIEF OF CHEST PAIN. Source: patient History of Present Illness Date Seen by Provider: Aug 07, 2023 Time Seen by Provider: 00:30 Initial Comments Patient is a 78-year-old male who presents to the emergency room with a chief complaint of "10 out of 10" substernal chest pain. He states he has had it since about 1130 this morning. It has come and gone all day long. He took a pain pill "a while ago" and states that it helped "a little". He tells me his daughter called the ambulance because of increasing oxygen requirements at home. He normally wears 3 L per nasal cannula but she had to bump it up to 5. He has a coarse wet cough which she states is chronic. He still smokes. History of lung cancer status post radiation treatments. He denies fevers or chills. He has been having some diarrhea which is usual for him. He denies any urinary issues. No significant swelling in his legs. Nothing really makes the pain any better or any worse. He was given aspirin and sublingual nitro by EMS prior to arrival without any relief of symptoms. 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 [employer]OM[employer]: Yes (no relief by EMS) Associated Symptoms: shortness of breath Allergies and Home Medications Allergies Coded Allergies: cefaclor (Verified Allergy, Unknown, HIVES, 06/15/23) diazepam (Verified Allergy, Unknown, 06/15/23) levofloxacin (Verified Allergy, Unknown, HIVES, 06/15/23) Patient Home Medication List Home Medication List Reviewed: Yes Acetaminophen (Acetaminophen Extra Strength) 500 Mg Tablet, 1,000 MG PO BID, (Reported) Entered as Reported by: LORENZA CHAVARRIA on 03/11/23 1153 Albuterol Sulfate (Ventolin Hfa) 90 Mcg Hfa.aer.ad, 2 PUFF IH QID, (Reported) Entered as Reported by: KARYNA BARRON on 07/11/22 1234 Albuterol Sulfate (Albuterol Sulfate) 2.5 Mg/0.5 Ml Vial.neb, 2.5 MG INH QID, (Reported) Entered as Reported by: KARYNA BARRON on 05/22/23 1311 Albuterol/Ipratropium (Combivent Respimat Inhal Mercer) 20 Mcg-100 Mcg/Actuation Aero, 1 PUFF IH QID, (Reported) Entered as Reported by: KARYNA BARRON on 07/11/22 1234 Amiodarone HCl (Amiodarone HCl) 200 Mg Tablet, 200 MG PO DAILY, (Reported) Entered as Reported by: KARYNA BARRON on 06/15/23 1524 Amoxicillin/Potassium Clav (Amox Tr-K Clv 875-125 mg Tab) 875 Mg-125 Mg Tablet, 1 EACH PO BID Prescribed by: MARIAH JENSEN on 07/24/23 1140 Atorvastatin Calcium (Atorvastatin Calcium) 20 Mg Tablet, 10 MG PO HS, (Reported) Entered as Reported by: KARYNA BARRON on 05/22/23 1311 Diltiazem HCl (Diltiazem 24Hr ER) 120 Mg Cap.er.24h, 120 MG PO DAILY, (Reported) Entered as Reported by: KARYNA BARRON on 06/15/23 1524 Diphenhydramine HCl (Diphenhydramine HCl) 25 Mg Tablet, 25 MG PO DAILY, (Reported) Entered as Reported by: LORENZA CHAVARRIA on 03/11/23 1153 Fluticasone Propion/Salmeterol (Fluticasone-Salmeterol 500-50) 500 Mcg-50 Mcg/Dose Blst.w.dev, 1 PUFF IH BID, (Reported) Entered as Reported by: KARYNA BARRON on 07/11/22 1234 Furosemide (Lasix) 20 Mg Tablet, 20 MG PO DAILY, (Reported) Entered as Reported by: KARYNA BARRON on 01/03/23 1543 Gabapentin (Neurontin) 300 Mg Capsule, 300 MG PO BID, (Reported) Entered as Reported by: KARYNA BARRON on 07/11/22 1234 Guaifenesin (Guaifenesin) 200 Mg Tablet, 400 MG PO BID, (Reported) Entered as Reported by: KARYNA BARRON on 07/11/22 1234 Levothyroxine Sodium (Synthroid) 50 Mcg Tablet, 50 MCG PO DAILY@0630 Prescribed by: MARIAH JENSEN on 07/24/23 1140 Lidocaine (Lidocaine) 5 % Cream..g., 1 APPLIC TP Q12H, (Reported) Entered as Reported by: KARYNA BARRON on 05/22/23 1311 Montelukast Sodium (Montelukast Sodium) 10 Mg Tablet, 10 MG PO HS, (Reported) Entered as Reported by: KARYNA BARRON on 07/11/22 1234 Nicotine (Nicoderm Cq) 7 Mg/24 Hour Patch.td24, 1 PATCH TD DAILY PRN for SMOKING CESSATION, (Reported) Entered as Reported by: MELQUIADES HAMILTON on 03/09/23 1125 Pantoprazole Sodium (Protonix) 40 Mg Tablet.dr, 40 MG PO BID Prescribed by: MARIAH JENSEN on 06/16/23 1627 Potassium Chloride (Klor-Con 10) 10 Meq Tablet.er, 10 MEQ PO DAILY, (Reported) Entered as Reported by: KARYNA BARRON on 01/03/23 1543 Prednisone (Prednisone) 20 Mg Tab, 40 MG PO DAILY@0700 Prescribed by: MARIAH JENSEN on 07/24/23 1140 Trazodone HCl (Trazodone HCl) 50 Mg Tablet, 50 MG PO HS PRN for SLEEP, (Reported) Entered as Reported by: KARYNA BARRON on 07/11/22 1234 Review of Systems Review of Systems Constitutional: see HPI Respiratory: Cough, Shortness of Air Cardiovascular: Chest Pain Gastrointestinal: No Symptoms Reported Genitourinary: No Symptoms Reported Musculoskeletal: no symptoms reported Skin: no symptoms reported Past Zuqbtzh-Hyncjt-Xxrsnt Hx Immunizations Up To Date Tetanus Booster (TDap): Unknown First/Initial COVID19 Vaccinat: YES Second COVID19 Vaccination John: YES Third COVID19 Vaccination Date: YES Seasonal Allergies Seasonal Allergies: Yes Past Medical History Surgery/Hospitalization HX: CHOLECYSTECTOMY/APPENDECTOMY/PARTIAL GASTRECTOMY/BACK SURGERY X4, COPD, AFIB Surgeries: Yes (EGD and Colonoscopy) Abdominal, Appendectomy, Gallbladder, Orthopedic Respiratory: Yes (Lung CA) Pneumonia, COPD Currently Using CPAP: No Currently Using BIPAP: No Cardiac: Yes (RBBB) Atrial Fibrillation, High Cholesterol, Hypertension Neurological: Yes Stroke Reproductive Disorders: No Genitourinary: No Gastrointestinal: Yes Gastroesophageal Reflux, Esophagitis, Ulcer Musculoskeletal: Yes Arthritis, Chronic Back Pain Endocrine: No HEENT: Yes Cataract Loss of Vision: Bilateral Hearing Impairment: Hard of Hearing Cancer: Yes Lung Did You Recieve Any Treatments: Yes What Type of Treatment Did You: Radiation Psychosocial: No Integumentary: No Blood Disorders: No Adverse Reaction/Blood Tranf: No Family Medical History No Pertinent Family Hx SOCIAL HISTORY: -SMOKED 3 PPD HIS WHOLE LIFE, RECENTLY IS DOWN TO 1 1/2 PPD NOW. -DISCUSSED WITH PT AND DAUGHTER ABOUT HIS ALCOHOL CONSUMPTION--HE USED TO DRINK UP TO 3 - 30 PACKS OF BEER A DAY, AND HE HAD WITHDRAWL SYMPTOMS IN THE PAST. HE NOW DRINKS UP TO 3 BEERS A DAY, AND NO LONGER DRINKS EVERY DAY, AND HE DOES NOT HAVE WITHDRAWL SYMPTOMS ANYMORE. Physical Exam Vital Signs Vital Signs - First Documented 08/07/23 00:33 Temp 37.3 Pulse 107 Resp 20 B/P (MAP) 163/84 (110) Pulse Ox 97 O2 Delivery Nasal Cannula O2 Flow Rate 5.00 Capillary Refill : Less Than 3 Seconds Height, Weight, BMI Height: 5'8.00" Weight: 154lbs. 0.0oz. 69.788736pm; 16.00 BMI Method:Stated General Appearance: Anxious, Chronically ill, Thin HEENT: PERRL/EOMI, Other (dry oral mucosa) Neck: Normal Inspection Respiratory: Crackles (coarse crackles throughout both lungs; no wheezing or distress (sats on 5L - 95/96%)) Cardiovascular: Regular Rate, Rhythm, Tachycardia (106) Gastrointestinal: Non Tender, Soft Extremity: Normal Inspection, Normal Range of Motion, No Pedal Edema Neurologic/Psychiatric: Alert, Oriented x3, Normal Mood/Affect, Other (hard of hearing) Skin: Warm/Dry, Pallor Focused Exam Lactate Level 08/07/23 02:02: Lactic Acid Level 0.82 Lactic Acid Level Laboratory Tests Test 08/07/23 02:02 Lactic Acid Level 0.82 MMOL/L (0.50-2.00) Progress/Results/Core Measures Results/Orders Lab Results Laboratory Tests Test 08/07/23 00:30 08/07/23 00:49 08/07/23 02:02 Range/Units Prothrombin Time 12.8 12.2-14.7 SEC INR Comment 0.9 0.8-1.4 Activated Partial Thromboplast Time 35 24-35 SEC White Blood Count 14.3 H 4.3-11.0 10^3/uL Red Blood Count 4.42 4.30-5.52 10^6/uL Hemoglobin 12.2 L 13.3-17.7 g/dL Hematocrit 38 L 40-54 % Mean Corpuscular Volume 86 80-99 fL Mean Corpuscular Hemoglobin 28 25-34 pg Mean Corpuscular Hemoglobin Concent 32 32-36 g/dL Red Cell Distribution Width 16.2 H 10.0-14.5 % Platelet Count 530 H 130-400 10^3/uL Mean Platelet Volume 8.7 L 9.0-12.2 fL Immature Granulocyte % (Auto) 1 % Neutrophils (%) (Auto) 83 H 42-75 % Lymphocytes (%) (Auto) 7 L 12-44 % Monocytes (%) (Auto) 9 0-12 % Eosinophils (%) (Auto) 0 0-10 % Basophils (%) (Auto) 0 0-10 % Neutrophils # (Auto) 11.9 H 1.8-7.8 10^3/uL Lymphocytes # (Auto) 1.0 1.0-4.0 10^3/uL Monocytes # (Auto) 1.3 H 0.0-1.0 10^3/uL Eosinophils # (Auto) 0.0 0.0-0.3 10^3/uL Basophils # (Auto) 0.1 0.0-0.1 10^3/uL Immature Granulocyte # (Auto) 0.1 0.0-0.1 10^3/uL Neutrophils % (Manual) 83 % Lymphocytes % (Manual) 5 % Monocytes % (Manual) 12 % Anisocytosis SLIGHT Sodium Level 135 135-145 MMOL/L Potassium Level 3.6 3.6-5.0 MMOL/L Chloride Level 99 98-107 MMOL/L Carbon Dioxide Level 26 21-32 MMOL/L Anion Gap 10 5-14 MMOL/L Blood Urea Nitrogen 8 7-18 MG/DL Creatinine 0.85 0.60-1.30 MG/DL Estimat Glomerular Filtration Rate 90 BUN/Creatinine Ratio 9 Glucose Level 98 70-105 MG/DL Calcium Level 8.8 8.5-10.1 MG/DL Corrected Calcium 9.6 8.5-10.1 MG/DL Magnesium Level 1.8 1.6-2.4 MG/DL Total Bilirubin 0.4 0.1-1.0 MG/DL Aspartate Amino Transf (AST/SGOT) 13 5-34 U/L Alanine Aminotransferase (ALT/SGPT) 13 0-55 U/L Alkaline Phosphatase 124 40-136 U/L Troponin I < 0.028 <0.028 NG/ML Total Protein 6.2 L 6.4-8.2 GM/DL Albumin 3.0 L 3.2-4.5 GM/DL Lactic Acid Level 0.82 0.50-2.00 MMOL/L My Orders Orders - HANNAH ABEL MD Ekg Tracing (08/07/23 00:29) Cbc And Automated Diff (08/07/23 00:49) Magnesium (08/07/23 00:49) Chest 1 View, Ap/Pa Only (08/07/23 00:49) Comprehensive Metabolic Panel (08/07/23 00:49) Protime With Inr (08/07/23 00:49) Partial Thromboplastin Time (08/07/23 00:49) O2 (08/07/23 00:49) Monitor-Rhythm Ecg Trace Only (08/07/23 00:49) Lipid Panel (08/08/23 06:00) Ed Iv/Invasive Line Start (08/07/23 00:49) Troponin I [place] (08/07/23 00:49) Manual Differential (08/07/23 00:49) Blood Culture (08/07/23 01:54) Lactic Acid Analyzer (08/07/23 01:54) Ns Iv 1000 Ml (Ns Iv 1000 Ml) (08/07/23 02:15) Piperacillin/Tazobactam (Piperacillin/Ta (08/07/23 02:15) Blood Culture (08/07/23 02:09) Medications Given in ED Current Medications Medications Dose Ordered Sig/Maria De Jesus Route Start Time Stop Time Status Last Admin Dose Admin Piperacillin Sod/ Tazobactam Sod 4.5 gm/Sodium Chloride 100 ml @ 200 mls/hr ONCE ONCE IV 08/07/23 02:15 08/07/23 02:44 08/07/23 02:29 200 MLS/HR Vital Signs/I&O 08/07/23 08/07/23 00:33 00:58 Temp 37.3 Pulse 107 Resp 20 B/P (MAP) 163/84 (110) Pulse Ox 97 97 O2 Delivery Nasal Cannula Nasal Cannula O2 Flow Rate 5.00 5.00 Blood Pressure Mean: 110 Progress Progress Note : Time: 02:42 Progress Note Patient seen and evaluated by me. Evaluation today includes physical exam, CBC, Chem-12, magnesium level, troponin, coag profile, blood cultures, lactic acid, EKG single view chest x-ray. Pertinent physical exam findings thin elderly chronically ill-appearing male with dry oral mucosa. Very hard of hearing. Coarse wet cough with crackles bilateral, tachycardic, regular at 105 to 110 bpm. Abdomen is soft. Poor skin turgor. No lower extremity edema. Differential diagnosis includes sepsis due to community-acquired pneumonia, COPD, chronic bronchitis, postobstructive pneumonia Labs independently reviewed and interpreted by me -his CBC shows an increased white count of 14.3 with hemoglobin of 12.2, hematocrit of 38, platelet count of 530. 83% segmented neutrophils. His comprehensive metabolic panel is within normal limits. Coags also within normal limits. His magnesium is 1.8, troponin is undetectable. Lactic acid 0.82. EKG shows sinus tachycardia with a right bundle branch block, no ST segment elevation or depression. Chest x-ray shows new right upper lobe infiltrate. Patient is treated in the emergency department with IV antibiotics, Zosyn 4.5 g IV x1 and 1 g of vancomycin. he remains tachycardic at this time heart rate 97. He is on 5 L of oxygen per nasal cannula satting at this time 98%. Respirations of 22. Blood pressure 138/72. No clinical findings concerning for sepsis. Does have new community-acquired pneumonia most likely due to immunocompromise state, lung cancer. I discussed admission versus discharge to home with the daughter who is at the bedside. She would be more comfortable if he was monitored overnight with IV antibiotics. Patient himself has no significant preference. Will discuss with Dr. Mathews on for the hospitalist service, admit to medical floor. Initial ECG Impression Date: Aug 07, 2023 Initial ECG Impression Time: 00:35 Initial ECG Rate: 107 Initial ECG Rhythm: S.Tach Initial ECG Intervals PA interval 190 QRS 138 QTc 434 Comment Prolonged QRS, right bundle branch block, left anterior fascicular block no significant ST segment elevation or depression is noted; no ectopy Diagnostic Imaging Diagonstic Imaging: Xray Plain Films/CT/US/NM/MRI: chest Comments independent review and interpretation by me - new RUL infiltrate; lung tumors Departure Communication (Admissions) Time/Spoke to Admitting Phy: 02:[address] Mathews (hospitalist) accepts for admission Impression Primary Impression: Pneumonia Qualified Codes: J18.9 - Pneumonia, unspecified organism Additional Impressions: History of lung cancer COPD (chronic obstructive pulmonary disease) Qualified Codes: J44.9 - Chronic obstructive pulmonary disease, unspecified Disposition: 09 ADMITTED INPATIENT Condition: Stable Admissions Decision to Admit Reason: Admit from ER (General) Decision to Admit/Date: Aug 07, 2023 Time/Decision to Admit Time: 02:41 Departure-Patient Inst. Referrals: NO,LOCAL PHYSICIAN (PCP/Family) Primary Care Physician HANNAH ABEL MD Aug 07, 2023 00:53
[2023-08-07 00:56] LABS: BASOPHILS # (AUTO) 0.1 10^3/uL (0.0-0.1); BASOPHILS % (AUTO) 0 % (0-10); EOSINOPHILS % (AUTO) 0 % (0-10); HEMATOCRIT 38 % (40-54); HEMOGLOBIN 12.2 g/dL (13.3-17.7); LYMPHOCYTES % (AUTO) 7 % (12-44); MEAN CORPUSCULAR HEMOGLOBIN 28 pg (25-34); MEAN CORPUSCULAR HGB CONC 32 g/dL (32-36); MEAN CORPUSCULAR VOLUME 86 fL (80-99); MEAN PLATELET VOLUME 8.7 fL (9.0-12.2); MONOCYTES # (AUTO) 1.3 10^3/uL (0.0-1.0); MONOCYTES % (AUTO) 9 % (0-12); NEUTROPHILS # (AUTO) 11.9 10^3/uL (1.8-7.8); NEUTROPHILS % (AUTO) 83 % (42-75); PLATELET COUNT 530 10^3/uL (130-400); WHITE BLOOD COUNT 14.3 10^3/uL (4.3-11.0)
[2023-08-07 01:00] LABS: CHLORIDE 99 MMOL/L (98-107); POTASSIUM 3.6 MMOL/L (3.6-5.0); SODIUM 135 MMOL/L (135-145)
[2023-08-07 01:01] LABS: CALCIUM 8.8 MG/DL (8.5-10.1)
[2023-08-07 01:02] LABS: GLUCOSE 98 MG/DL (70-105)
[2023-08-07 01:03] LABS: TOTAL PROTEIN 6.2 GM/DL (6.4-8.2)
[2023-08-07 01:04] LABS: BILIRUBIN,TOTAL 0.4 MG/DL (0.1-1.0); CARBON DIOXIDE 26 MMOL/L (21-32)
[2023-08-07 01:06] LABS: ALKALINE PHOSPHATASE 124 U/L (40-136); CREATININE SERUM 0.85 MG/DL (0.60-1.30); GFR ESTIMATED 90
[2023-08-07 01:07] LABS: BUN/CREATININE RATIO 9
[2023-08-07 01:09] LABS: ALANINE AMINOTRANSFERASE 13 U/L (0-55); MAGNESIUM 1.8 MG/DL (1.6-2.4)
[2023-08-07 01:30] LABS: LYMPHOCYTES % (MANUAL) 5 %; MONOCYTES % (MANUAL) 12 %; NEUTROPHILS % (MANUAL) 83 %
[2023-08-07 01:31] LABS: ANISOCYTOSIS SLIGHT
[2023-08-07 02:10] LABS: INR 0.9 (0.8-1.4); PROTHROMBIN TIME PATIENT 12.8 SEC (12.2-14.7)
[2023-08-07] MEDS ORDERED: NS IV 1000 ML 1,000 ML IV SCH (02:15)
[2023-08-07] MEDS ORDERED: PIPERACILLIN/Tazobactam 4.5 GM in NS (IVPB) 100 ML 100 ML IV ONE (02:15)
[2023-08-07] MEDS ORDERED: VANCOMYCIN INJECTION 1,000 MG in NS (IVPB) 250 ML 250 ML IV ONE (02:45)
[2023-08-07] MEDS ORDERED: HYDROcodone/ACETAMINOPHEN 5 MG/325 MG TABLET PO ONE (03:30)
[2023-08-07] MEDS ORDERED: ACET-168 PO (04:21)
[2023-08-07] MEDS ORDERED: BUDE10.2 IH (04:23)
[2023-08-07 04:27] VITALS: BP 110/54
[2023-08-07] MEDS ORDERED: NS IV 1000 ML 1,000 ML ONE (04:41)
[2023-08-07] MEDS ORDERED: HYDROcodone/ACETAMINOPHEN 5 MG/325 MG TABLET PO PRN (04:45)
[2023-08-07] MEDS ORDERED: traZODone 50 MG (DESYREL) TAB PO PRN (04:45)
[2023-08-07 04:49] VITALS: BP 163/84
[2023-08-07] MEDS ORDERED: RT-Ipratropium/Albuterol NEB 3 ML VIAL INH PRN (05:00)
[2023-08-07] MEDS: LEVOTHYROXINE 50 MCG TABLET PO SCH (05:02)
[2023-08-07] MEDS: NS IV 1000 ML 1,000 ML IV SCH ×2 (05:03→14:25)
[2023-08-07 07:14] VITALS: BP 124/61
--- NOTE | 2023-08-07 08:07 | Diagnostic Imaging Report ---
EXAM: CHEST 1 VIEW, AP/PA ONLY INDICATION: Chest pain. COMPARISON: 07/23/2023. FINDINGS: Normal heart size and central pulmonary vascularity. Increasing scattered airspace opacities including the bilateral upper lobes and left lung base. No pleural effusion or pneumothorax. Ovoid densities overlying the left lung base. External to the patient. IMPRESSION: Increasing bilateral airspace opacities suspicious for pneumonitis. Recommend follow-up to resolution. Dictated by: Dictated on workstation # [id number]
--- NOTE | 2023-08-07 09:02 | History & Physical-Hospitalist ---
KENNETH GARY 08/07/23 0902: History of Present Illness HPI/Chief Complaint Pt is a 78 y/o male who presented to the ER last night with CC of 10/10 subs ternal chest pain which he states that he has had off and on since 11:30 AM that day. He reports taking a pain pill which helped only a little bit. Daughter called EMS d/t increasing O2 requirements yesterday- he normally wears 3 L of O2 via nasal cannula at home and it increased to 5 L. He states that he became more SOB yesterday all of a sudden. He denies fever, chills, or swelling in his legs. He reports a constant cough that was present before yesterday. EMS have nitroglycerin and aspirin en route to the ER and it did not help his sxs. He reports that he smokes still 1.5 ppd . Hx of lung cancer s/p radiation treatment. Source: patient, RN notes reviewed, old records Exam Limitations: no limitations Date Seen 08/07/23 Time Seen by a Provider: 09:02 Attending Physician No,Local Physician PCP Admitting Physician: Janice Mathews MD Attending Physician: Janice Mathews MD Referring Physician Date of Admission Aug 07, 2023 at 03:51 Home Medications & Allergies Home Medications Reviewed patient Home Medication Reconciliation performed by pharmacy medication reconciliations pollution control technician and/or nursing. Patients Allergies have been reviewed. Allergies Allergies Coded Allergies cefaclor (Verified Allergy, Unknown, HIVES, 06/15/23) diazepam (Verified Allergy, Unknown, 06/15/23) levofloxacin (Verified Allergy, Unknown, HIVES, 06/15/23) Past Ljausda-Bemzym-Iopzhd Hx Patient Social History Tobacco Use?: Yes Tobacco type used: Cigarettes Smoking Status: Current Everyday Smoker (1.5 ppd) Use of E-Cig and/or Vaping dev: No Substance use?: No Alcohol Use?: Yes Alcohol type: Beer Alcohol Frequency: Couple times a week Pt feels they are or have been: No Immunizations Up To Date Date of Influenza Vaccine: Jun 08, 2023 First/Initial COVID19 Vaccinat: YES Second COVID19 Vaccination John: YES Tetanus Booster (TDap): Unknown Hepatitis A: No Hepatitis B: No Date of Pneumonia Vaccine: Sep 15, 2011 Seasonal Allergies Seasonal Allergies: Yes Current Status Advance Directives: No Communicates: Verbally Primary Language: Ugandan Preferred Spoken Language: Ugandan Is interpretation needed?: No Sensory deficits: Hearing impairment Past Medical History Surgeries: Abdominal, Appendectomy, Gallbladder, Orthopedic Pneumonia, COPD Currently Using CPAP: No Currently Using BIPAP: No Atrial Fibrillation, High Cholesterol, Hypertension Stroke Gastroesophageal Reflux, Esophagitis, Ulcer Arthritis, Chronic Back Pain Cataract Loss of Vision: Bilateral Hearing Impairment: Hard of Hearing Lung Did You Recieve Any Treatments: Yes What Type of Treatment Did You: Radiation Blood Disorders: No Adverse Reaction/Blood Tranf: No Family Medical History No Pertinent Family Hx SOCIAL HISTORY: -SMOKED 3 PPD HIS WHOLE LIFE, RECENTLY IS DOWN TO 1 1/2 PPD NOW. -DISCUSSED WITH PT AND DAUGHTER ABOUT HIS ALCOHOL CONSUMPTION--HE USED TO DRINK UP TO 3 - 30 PACKS OF BEER A DAY, AND HE HAD WITHDRAWL SYMPTOMS IN THE PAST. HE NOW DRINKS UP TO 3 BEERS A DAY, AND NO LONGER DRINKS EVERY DAY, AND HE DOES NOT HAVE WITHDRAWL SYMPTOMS ANYMORE. Review of Systems Constitutional: No chills, No fever; malaise EENTM: No blurred vision, No vision loss Respiratory: cough, dyspnea on exertion; No hemoptysis; short of breath Cardiovascular: chest pain; No syncope Gastrointestinal: No abdominal pain; diarrhea; No hematemesis, No nausea, No vomiting Genitourinary: No decreased output, No dysuria, No frequency, No hematuria Musculoskeletal: No back pain, No gout Skin: No pruritus, No rash Psychiatric/Neurological: Denies Headache, Denies Tremors Physical Exam Physical Exam Vital Signs Vital Signs - First Documented 08/07/23 00:33 Temp 37.3 Pulse 107 Resp 20 B/P (MAP) 163/84 (110) Pulse Ox 97 O2 Delivery Nasal Cannula O2 Flow Rate 5.00 Capillary Refill : Less Than 3 Seconds Height, Weight, BMI Height: 5'8.00" Weight: 154lbs. 0.0oz. 69.050352nt; 18.65 BMI Method:Stated General Appearance: Anxious, Chronically ill, Thin Eyes: Bilateral Eye Normal Inspection, Bilateral Eye PERRL HEENT: Normal ENT Inspection, Pharynx Normal Neck: Normal Inspection, Non Tender Respiratory: Accessory Muscle Use, Crackles; No Wheezing Cardiovascular: No Murmur, Normal Peripheral Pulses Gastrointestinal: Normal Bowel Sounds, Non Tender, Soft Extremity: Non Tender, No Calf Tenderness, No Pedal Edema Neurologic/Psychiatric: Alert, Oriented x3, No Motor/Sensory Deficits, Depressed Affect Skin: Normal Color, Warm/Dry Results Results/Procedures Labs Laboratory Tests 08/07/23 00:49 Patient resulted labs reviewed. Assessment/Plan Admission Diagnosis pneumonia, COPD Admission Status: Inpatient Order (span 2 midnights) Reason for Inpatient Admission: pneumonia, COPD Assessment and Plan Acute on chronic respiratory failure, hypoxia, sepsis (possible pneumonia vs pneumonitis) - Hx of COPD, lung cancer, pneumonia - MAT protocol - Continue O2 via nasal cannula - Continue zosyn 4.5 g IV q 8hrs and vancomycin 500 mg IV q 12 hrs - Add prednisone 40 mg PO for COPD control Afib - Continue diltiazem 120 mg PO/d - Continue amiodarone 200 mg PO/d Hypothyrodism - Continue levothyroxine 50 mcg PO/d Tobacco use - Nicotine patch 7 mg Clinical Quality Measures AMI/AHF: ASA po Prior to arrival: Yes Smoking Cessation Counseling: Counseling-Symptomatic: 3-10 Minutes MARIAH SANDERSON MD 08/07/23 1539: Assessment/Plan Assessment and Plan Patient admitted to the hospital secondary to acute on chronic hypoxic respiratory failure due to COPD exacerbation with pneumonia. We will continue him on his IV antibiotics. I will add steroids. He does report feeling better this morning but was tired from being up throughout the night. Nema protocol and wean oxygen as able. We will continue his home medications. Hopefully discharge home tomorrow if doing well. Supervisory-Addendum Brief Verification & Attestation Participated in pt care: history, MDM, physical Personally performed: exam, history, MDM, supervision of care Care discussed with: Medical Student Procedures: n/a Results interpretation: Verified all documentation Verification and Attestation of Medical Student E/M Service A medical student performed and documented this service in my presence. I rev iewed and verified all information documented by the medical student and made modifications to such information, when appropriate. I personally performed the physical exam and medical decision making. Mariah Sanderson, Aug 07, 2023,15:35 KENNETH GARY Aug 07, 2023 09:02 MARIAH SANDERSON MD Aug 07, 2023 15:39
[2023-08-07] MEDS: guaiFENesin SYRUP 100 MG/5 ML 10 ML PO SCH ×2 (09:21→19:55)
[2023-08-07] MEDS: AMIODARONE 200 MG TABLET PO SCH (09:21)
[2023-08-07] MEDS: NICOTINE 7 MG PATCH TD SCH (09:22)
[2023-08-07] MEDS: dilTIAZem ER 120 MG CAPSULE PO SCH (09:22)
[2023-08-07] MEDS: ACETAMINOPHEN 500 MG TABLET PO SCH ×2 (09:22→19:55)
[2023-08-07] MEDS: RT-Ipratropium/Albuterol NEB 3 ML VIAL INH SCH ×5 (10:22→22:23)
[2023-08-07] MEDS: PIPERACILLIN/Tazobactam 4.5 GM in NS (IVPB) 100 ML 100 ML IV SCH ×2 (11:00→19:55)
[2023-08-07 11:07] VITALS: BP 121/59
[2023-08-07] MEDS ORDERED: predniSONE 20 MG TABLET PO NR (14:00)
[2023-08-07] MEDS ORDERED: PANT40TA52 PO (14:09)
[2023-08-07] MEDS ORDERED: ACHD5005 PO (14:09)
[2023-08-07] MEDS ORDERED: ACET-2267 PO (14:09)
[2023-08-07] MEDS ORDERED: LEVO50TA6 PO (14:09)
[2023-08-07] MEDS: VANCOMYCIN 500 MG/NS 100 ML IVPB IV SCH ×2 (14:25)
[2023-08-07 16:07] VITALS: BP 115/70
[2023-08-07 20:47] VITALS: BP 123/69
[2023-08-08] VITALS: BP 117/72
[2023-08-08] MEDS: VANCOMYCIN 500 MG/NS 100 ML IVPB IV SCH ×2 (01:29)
[2023-08-08] MEDS: NS IV 1000 ML 1,000 ML IV SCH ×2 (01:30→11:04)
[2023-08-08] MEDS: RT-Ipratropium/Albuterol NEB 3 ML VIAL INH SCH ×3 (02:03→10:29)
[2023-08-08 04:00] VITALS: BP 132/60
[2023-08-08] MEDS: PIPERACILLIN/Tazobactam 4.5 GM in NS (IVPB) 100 ML 100 ML IV SCH (05:20)
[2023-08-08] MEDS: LEVOTHYROXINE 50 MCG TABLET PO SCH (05:20)
[2023-08-08 06:12] LABS: CHOLESTEROL 96 MG/DL (< 200); HDL CHOLESTEROL 32 MG/DL (40-60); TRIGLYCERIDES 77 MG/DL (<150); VLDL CHOLESTEROL 15 MG/DL (5-40)
[2023-08-08] MEDS ORDERED: predniSONE 20 MG TABLET PO SCH (07:00)
[2023-08-08 07:18] VITALS: BP 121/57
[2023-08-08] MEDS: dilTIAZem ER 120 MG CAPSULE PO SCH (08:41)
[2023-08-08] MEDS: ACETAMINOPHEN 500 MG TABLET PO SCH (08:41)
[2023-08-08] MEDS: AMIODARONE 200 MG TABLET PO SCH (08:41)
[2023-08-08] MEDS: NICOTINE 7 MG PATCH TD SCH (08:41)
[2023-08-08] MEDS: guaiFENesin SYRUP 100 MG/5 ML 10 ML PO SCH (08:41)
--- NOTE | 2023-08-08 09:01 | Physical Therapy Evaluation ---
PT Evaluation-General Medical Diagnosis Admission Date Aug 07, 2023 at 10:30 Medical Diagnosis: pneumonia Onset Date: Aug 07, 2023 Therapy Diagnosis Therapy Diagnosis: debility Height/Weight Height (Feet): 5 Height (Inches): 8.00 Weight (Pounds): 154 Weight (Ounces): 0.0 Precautions Precautions/Isolations: Standard Precautions Referral Physician: Maria E Reason for Referral: Evaluation/Treatment Medical History Pertinent Medical History: Atrial Fib, CAD, COPD, CVA, HTN, Smoking Current History EMS secondary to SOA and chest pain Reviewed History: Yes Social History Home: Single Level Prior Prior Level of Function SCALE: Activities may be completed with or without assistive devices. 1-Fvavjwvwwc-mperdfn completes the activity by him/herself with no assistance from a helper. 5-Set-up or Clean-up Assistance-helper sets up or cleans up; patient completes activity. [place] assists only prior to or following the activity. 4-Supervision or Touching Assistance-helper provides verbal cues and/or touching/steadying and/or contact guard assistance as patient completes activity. Assistance may be provided throughout the activity or intermittently. 3-Partial/Moderate Assistance-helper does LESS THAN HALF the effort. [place] lifts, holds or supports trunk or limbs, but provides less than half the effort. 2-Substantial/Maximal Assistance-helper does MORE THAN HALF the effort. [place] lifts or holds trunk or limbs and provides more than half the effort. 4-Itqcchlgv-nvunuh does ALL the effort. Patient does none of the effort to complete the activity. Or, the assistance of 2 or more helpers is required for the patient to complete the activity. If activity was not attempted, code reason: 7-Patient Refused. 9-Not Applicable-not attempted and the patient did not perform the activity before the current illness, exacerbation or injury. 10-Not Attempted due to Environmental Limitations-(lack of equipment, weather restraints, etc.). 88-Not Attempted due to Medical Conditions or Safety Concerns. Bed Mobility: 6 Transfers (B,C,W/C): 6 Gait: 6 Indoor Mobility (Ambulation): Independent Prior Devices Use: Walker PT Evaluation-Current Subjective Patient agrees to PT. Objective Patient Orientation: Normal For Age Attachments: Oxygen, IV ROM/Strength ROM Lower Extremities bilateral LE WFL Strength Lower Extremities 4/5 grossly bilateral LE all planes Integumentary/Posture Bowel Incontinence: No Bladder Incontinence: No Posture WFL Neuromuscular (Tone, Coordination, Reflexes) grossly intact Sensory Vision: Functional Hearing: Impaired Transfers Lying to Sitting/Side of Bed(Q: 6 Sit to Stand (QC): 4 Chair/Oog-ne-Popwr Xfer(QC): 4 Gait Mode of Locomotion: Walk Anticipated Mode of Locomotion: Walk Walk 10 feet (QC): 4 Walk 50 ft with 2 Turns(QC): 4 Walk 150 ft (QC): 4 Distance: 200' Gait Assistive Device: FWW Comments/Gait Description SBA on initial assessment Balance Sitting Static: Normal Sitting Dynamic: Normal Standing Static: Normal Standing Dynamic: Normal Assessment/Needs Patient will be seen short term by skilled PT to address functional strength and mobility to improve current LOF. Patient does display decreased functional endurance with mobility. Currently on 5L O2. Rehab Potential: Guarded PT Bus Aide Goals Skilled Nursing Goals PT Bus Aide Goals Time Frame: Aug 19, 2023 Roll Left & Right (QC): 6 Sit to Lying (QC): 6 Lying-Sitting on Side/Bed(QC): 6 Sit to Stand (QC): 6 Chair/Yqs-cu-Xjhdz Xfer(QC): 6 Toilet Transfer (QC): 6 Walk 10 feet (QC): 6 Walk 50ft with 2 Turns (QC): 6 Walk 150 ft (QC): 6 PT Plan Problem List Problem List: Activity Tolerance, Functional Strength, Safety, Balance, Gait, Transfer, Bed Mobility Treatment/Plan Treatment Plan: Continue Plan of Care Treatment Plan: Bed Mobility, Education, Functional Activity Eric, Functional Strength, Gait, Safety, Therapeutic Exercise, Transfers Treatment Duration: Aug 19, 2023 Frequency: 5 times per week Estimated Hrs Per Day: .25 hour per day Time Time In: 805 Time Out: 819 DATE: Aug 08, 2023 Total Billed Treatment Time: 14 [facility] JOSS VA[facility] PT Aug 08, 2023 09:00
--- NOTE | 2023-08-08 10:37 | D/C HH Face to Face Order ---
D/C Face to Face Orders Instructions for Patient Via [facility], Patient Instructions/FollowUp: Please continue to take your medications as written. Please follow up with your primary care doctor to follow up this hospital stay. Physician to follow Patient: Lucina Collins Discharge Diet for Home: Cardiac Diet Patient Data-Allergies,Ht & Wt Patient Allergies: Coded Allergies: cefaclor (Verified Allergy, Unknown, HIVES, 06/15/23) diazepam (Verified Allergy, Unknown, 06/15/23) levofloxacin (Verified Allergy, Unknown, HIVES, 06/15/23) Height (Feet): 5 Height (Inches): 8.00 Weight (Pounds): 154 Weight (Ounces): 0.0 Home Health Need/Face to Face Date of Face to Face: Aug 08, 2023 Clinical Findings: Generalized weakness and fatigue, Shortness of breath I have seen Pt erfy-cr-oxos: Yes Discharged To: Home Diagnosis/Conditions: COPD and Lung Cancer Patient is Homebound due to: Shortness of breath/distress Homebound Status Due to the above stated illness, injury or surgical procedure (medical condition or diagnosis) and associated clinical findings, the patient is homebound because of his/her inability to leave home except with aid of a supportive device and/or person AND leaving the home requires a considerable and taxing effort or is medically contraindicated. Pt req the following assistanc: Aid of another person Home Health Nursing Orders Home Health Services Order: Nursing Services, Senior Web Architect-Evaluate & Treat, Physical Therapy-Evaluate & Treat Home Health Infusion Therapy Line Start Date: Aug 07, 2023 Therapy Orders Therapy Orders: OT (must have SN or PT order), Physical Therapy Therapy Specific Orders: Eval assistive deivces, Teach enviro modifications/safety, Gait training, Increase strength/endurance Certify Stmt I certify that this patient is under my care and that I, a nurse practitioner or a physician; a assistant to the dean working with me, had a face to face encounter that - meets the physician face to face encounter requirements with this patient as dated. MARIAH JENSEN MD Aug 08, 2023 10:37
[2023-08-08] MEDS ORDERED: AMOX1TAB12 PO (10:39)
--- NOTE | 2023-08-08 10:54 | Discharge Summary ---
KENNETH GARY 08/08/23 1054: Diagnosis/Chief Complaint Date of Admission Aug 07, 2023 at 10:30 Date of Discharge 08/08/2023 Discharge Date: Aug 08, 2023 Discharge Time: 10:49 Admission Diagnosis pneumonia, COPD Primary Care No,Local Physician Discharge Diagnosis Pneumonia, COPD Discharge Summary Discharge Physical Exam Allergies: Coded Allergies: cefaclor (Verified Allergy, Unknown, HIVES, 06/15/23) diazepam (Verified Allergy, Unknown, 06/15/23) levofloxacin (Verified Allergy, Unknown, HIVES, 06/15/23) Vitals & I&Os Vital Signs Date Time Temp Pulse Resp B/P (MAP) Pulse Ox O2 Delivery O2 Flow Rate FiO2 08/08/23 10:31 92 Nasal Cannula 4.50 08/08/23 07:18 36.5 88 15 121/57 (78) General Appearance: No Apparent Distress, Chronically ill, Thin HEENT: PERRL/EOMI, Normal ENT Inspection Respiratory: Chest Non Tender, No Accessory Muscle Use, No Respiratory Distress, Crackles Cardiovascular: No Murmur, Normal Peripheral Pulses Gastrointestinal: Normal Bowel Sounds, Non Tender, Soft Extremity: Normal Inspection, Non Tender, No Calf Tenderness Skin: Normal Color, Warm/Dry Neurologic/Psychiatric: Alert, Oriented x3, No Motor/Sensory Deficits, Normal Mood/Affect Hospital Course Was the Problem List Reviewed?: Yes Pt is a 78 y/o male who presented to the ER the night of 08/06 with substernal C P and increasing O2 requirements. He has multiple comorbitities including lung cancer, COPD, multiple hospitalizations d/t pneumonia, and afib. He was given prednisone 40 for his COPD, O2 via nasal cannula (baseline at home is on 3 L O2 and he was bumped up to 4-5 during his stay), and was given vanc + zosyn for his pneumonia. Pt is doing much better today and was able to walk down the hallways with PT with minimal problems. Will DC with PT at home ([facility]). Labs (last 24 hrs) Laboratory Tests 08/08/23 05:30: Triglycerides Level 77, Cholesterol Level 96, LDL Cholesterol Direct 42, VLDL Cholesterol 15, HDL Cholesterol 32L Patient resulted labs reviewed. Pending Labs Laboratory Tests 08/08/23 05:30: Triglycerides Level 77, Cholesterol Level 96, LDL Cholesterol Direct 42, VLDL Cholesterol 15, HDL Cholesterol 32 Imaging: Reviewed Imaging Films, Reviewed Imaging Report Discharge Home Medications: Active Scripts Active Amox Tr-K Clv 875-125 mg Tab (Amoxicillin/Potassium Clav) 875 Mg-125 Mg Tablet 1 Each PO BID Reported Tylenol Extra Strength (Acetaminophen) 500 Mg Tablet 1,000 Mg PO BID TAKES 2 (500MG) TABS Pantoprazole Sodium 40 Mg Tablet.dr 40 Mg PO BID Levothyroxine Sodium 50 Mcg Tablet 50 Mcg PO DAILY Hydrocodone-Acetamin 5-325 mg (Hydrocodone/Acetaminophen) 5 Mg-325 Mg Tablet 1 Ea PO BID PRN Diltiazem 24Hr ER (Diltiazem HCl) 120 Mg Cap.er.24h 120 Mg PO DAILY Amiodarone HCl 200 Mg Tablet 200 Mg PO DAILY Lidocaine 5 % Cream..g. 1 Applic TP Q12H APPLY TO LEFT LOWER BACK Albuterol Sulfate 2.5 Mg/0.5 Ml Vial.neb 2.5 Mg INH QID PRN Atorvastatin Calcium 20 Mg Tablet 10 Mg PO HS TAKES OF A 20MG TAB Diphenhydramine HCl 25 Mg Tablet 25 Mg PO DAILY Nicoderm Cq (Nicotine) 7 Mg/24 Hour Patch.td24 1 Patch TD DAILY PRN Klor-Con 10 (Potassium Chloride) 10 Meq Tablet.er 10 Meq PO DAILY Lasix (Furosemide) 20 Mg Tablet 20 Mg PO DAILY Trazodone HCl 50 Mg Tablet 50 Mg PO HS PRN Guaifenesin 200 Mg Tablet 400 Mg PO BID TAKES 2 (200MG) TABS Neurontin (Gabapentin) 300 Mg Capsule 300 Mg PO BID Montelukast Sodium 10 Mg Tablet 10 Mg PO HS Ventolin Hfa (Albuterol Sulfate) 90 Mcg Hfa.aer.ad 2 Puff IH QID PRN Combivent Respimat Inhal [place] (Albuterol/Ipratropium) 20 Mcg-100 Mcg/Actuation Aero 1 Puff IH QID Fluticasone-Salmeterol 500-50 (Fluticasone Propion/Salmeterol) 500 Mcg-50 Mcg/Dose Blst.w.dev 1 Puff IH BID Instructions to patient/family Please see electronic discharge instructions given to patient. Clinical Quality Measures AMI/AHF: ASA po Prior to arrival: Yes Smoking Cessation Counseling: Counseling-Symptomatic: 3-10 Minutes MARIAH SANDERSON MD 08/09/23 1522: Discharge Summary Discharge Physical Exam Allergies: Coded Allergies: cefaclor (Verified Allergy, Unknown, HIVES, 06/15/23) diazepam (Verified Allergy, Unknown, 06/15/23) levofloxacin (Verified Allergy, Unknown, HIVES, 06/15/23) Discussion & Recommendations Discharge Planning: >30 minutes discharge planning Supervisory-Addendum Brief Verification & Attestation Participated in pt care: history, MDM, physical Personally performed: exam, history, MDM, supervision of care Care discussed with: Medical Student Procedures: n/a Results interpretation: Verified all documentation Verification and Attestation of Medical Student E/M Service A medical student performed and documented this service in my presence. I reviewed and verified all information documented by the medical student and made modifications to such information, when appropriate. I personally performed the physical exam and medical decision making. Mariah Sanderson, Aug 09, 2023,15:22 KENNETH GARY Aug 08, 2023 10:54 MARIAH SANDERSON MD Aug 09, 2023 15:22
[2023-08-08 11:30] VITALS: BP 128/61
[2023-08-08 12:20] VITALS: BP 128/61
[2023-08-08] MEDS ORDERED: TROUGH ORDER-PHARMACY XX ONE (13:00)
== END 2023-08-08 12:25 | disposition home health service (06) | DRG 871 ==
LOC: EDUNIT# 00:26 → ER 00:27 → 4TH 03:51 → OBSVTOIN 10:30
PROVIDERS: ADMIT Internal Medicine; ATTEND Internal Medicine
DX: A41.9 Sepsis, unspecified organism (principal); J18.9 Pneumonia, unspecified organism; J96.21 Acute and chronic respiratory failure with hypoxia; J44.1 Chronic obstructive pulmonary disease with (acute) exacerbation; J44.0 Chronic obstructive pulmonary disease with (acute) lower respiratory infection; C34.90 Malignant neoplasm of unspecified part of unspecified bronchus or lung; I48.91 Unspecified atrial fibrillation; E03.9 Hypothyroidism, unspecified; E78.00 Pure hypercholesterolemia, unspecified; I10 Essential (primary) hypertension; K21.9 Gastro-esophageal reflux disease without esophagitis; M19.90 Unspecified osteoarthritis, unspecified site; G89.29 Other chronic pain; M54.9 Dorsalgia, unspecified; Z92.3 Personal history of irradiation; F17.210 Nicotine dependence, cigarettes, uncomplicated; Z66 Do not resuscitate
CPT/HCPCS: 36415; 71045; 80053; 80061; 83605; 83735; 84484; 85007; 85027; 85610; 85730; 87040; 93005; 93041; 94640; 94664; 94760; G0378